=== PATIENT | male | born 1960 | race Caucasian/White ===

== ENCOUNTER 2016-06-27 12:14 | Emergency (ER) | payer MEDICAID, SELFPAY ==
[~2016-06-27 12:14] MED LIST: *CXR; /ADVA50050; /ADVA50050 IN; /AUGM875TA OR; /BACIOPOI TOP; /IPRA3SP; /OLAN5ZYD OR; /OLAN75TA; /ONDA4TA OR; /PANT40TA OR; /PANT40TA PO; /SALMDISK; /TAMS4CA PO; /TIOT18INH; /TIOT18INH INH; 8 HO650T PO; ACET500C OR; ACET65TA; ADV250INH INH; ADVAIR; ADVAIR INH; ADVAIR500 INHALATION; ALBOTERNEB INHALATION; ALBU17IN INH; ALBU17IN2 INH; ALBU2TAB; ALBU83IN; ALBU83IN IN; ALBU83IN INH; ALBUTEROL INHALATION; AMBI10TA OR; ARIC10TA PO; ARTH1TAB PO; ASPI1TAB PO; ASPI81TA45 PO; ASPI81TA83; ASPI81TA83 OR; ASPI81TA85 PO; ATIV0.5T OR; ATOR1TAB19 PO; ATROV NEBS INH; ATROVENT0.02%; ATROVENT0.02% INH; BABY81CH; BACT2CRE TOP; BACT800T OR; BACT800T PO; BACT800T5 PO; BACTDSTA PO; BACTRIMDS PO; BENA25CA2 PO; BENADRYL25 PO; BENZ1TA PO; BENZ1TAB PO; BREO1INH IN; CARDURA PO; CEFD1CAP8 PO; CEFD300CAP OR; CEFTIN500 PO; CELE10TA PO; CELE20TA; CELE20TA OR; CELE20TA PO; CELE40TA; CHLO10TA4 OR; CHLO10TA4 PO; CHLO200T OR; CHLOR50TA PO; CLAR500T; CLEO150C; CLON-412 PO; CLOZ100T OR; CLOZ100T PO; CLOZ100T2 PO; CLOZ200T OR; CLOZ200T PO; CLOZ25TA2 PO; CLOZ50TA PO; CLOZARIL PO; COGE1INJ PO; COGENTIN PO; COLA100C PO; COLA100C2 OR; COMBIVENT PO; CREON PO; CYANOCOBALAMIN; CYANPOW; DELTASONE PO; DEPA250T3; DEPA500T; DEPA500T OR; DEPA500T2; DEPAKOTE; DITROPAN PO; DOCU100C PO; DONETAB6 PO; DOXY100C PO; DOXY100T OR; DUONSOL INH; DUONSOL INHALATION; Depakote; ESCI10TA2 PO; FLAG500T OR; FLOM5CAP PO; FLOVENT220 PO; FLUO20CA8 PO; FOLI1TAB86 PO; GEOD20CA14 OR; GEOD40CA; GEOD60CA; GEOD60CA OR; GLUC500T; GLUC500T PO; GLUC850T; GLUC850T PO; IBUP200C PO; IBUP200T2 PO; IBUPOTC PO; INCR1INH IN; INDO25CA PO; INSULANT SC; INSULIN ASPART; INVE117I IM; INVE234I IM; INVE9TAB PO; IPRASOL4 IN; IPRASOL4 INH; IPRATROP INHALATION; Januvia; KENALOG1 TOPICAL; KLON2TAB PO; LAMI25TA PO; LAMICTAL PO; LAMISIL AT TOP; LASI20TA OR; LASI40TA; LATU40TA PO; LEXA1TAB PO; LIPI10TA PO; LISI10TA4 PO; LISI2.5T PO; MAALSUS OR; MAALSUS PO; MACR100C3 PO; METF850T PO; MILKSUS OR; MILKSUS PO; MIRALEX PO; MOM30SS PO; MUCI600T34 PO; MUCINEX PO; MUCU400T2 PO; MULTCAP PO; MULTLIQ7 PO; MULTTAB4 PO; MUPI30CR TOP; MYLATAB PO; NASA55AE; NICO14DI20 TD; NICO21DI4 TD; NICO21DI5 TD; NICO21PAT TD; NITR100C PO; NORV5TAB OR; NOVOLOG100 MG/ML SC; NYSTPOW TOP; OXYB5TA PO; Omnicef PO; PRED-454 OR; PRED10TA OR; PRED10TA PO; PRED10TA2; PRED10TA2 OR; PRED10TA2 PO; PRED1TAB32 OR; PRED1TAB32 PO; PRED1TABL PO; PRED20TA; PRED20TA OR; PRED20TA PO; PRED25TA PO; PRED5TA PO; PRED5TAB OR; PREDNISO20 PO; PRO AIR INH; PROLIXIN; PROSCAR5 PO; PROV90AE; PROZ20CA OR; PROZ20CA PO; PROZ20CA11 PO; PROZ40CA; PROZ40CA OR; QUET20XRTB PO; REPA2TA; RISP1TAB21 PO; RISP1TAB3 PO; RISP2TAB12 OR; RISP4TAB33 PO; SENN8.6T PO; SENN8.6T17 PO; SENO8.6T2 PO; SEREVENTIN PO; SERO1TAB2 PO; SERO400T3 PO; SEROQUEL PO; SINGULAI10 PO; SPIRIVA INH; SPIRIVA PO; Spiriva Handihaler INH; TAMS0.4C PO; TAMS0.4C2 PO; TAMSULOSIN PO; TESS100C PO; TESSALO100 PO; THIA100T PO; THIA50CA PO; TIOT18INH INH; TRAZ100T; TRAZ100T OR; TRAZ100T2 PO; TRAZ100T4 PO; TRAZ1TAB25 PO; TRAZ300T2; TRAZ50TA; TRAZ50TA PO; TRAZ50TA2 PO; TRAZ50TA4 PO; TRIC145T19 PO; TRIF5TAB PO; TYLE325T5 PO; TYLENOL PO; VENTAER IN; VENTAER INH; VENTOLIN NEBULIZER INH; VIBR100C PO; VITA100L PO; VITA100T PO; VITA100T2 PO; XOPE1.252; ZANTAC150 PO; ZEST10TA PO; ZEST1TAB4 PO; ZIPR80CAP; ZITH250T; ZITH250T OR; ZITH500T PO; ZITHROZPAK PO; ZOCO20TA; ZOCO40TA OR; ZOCOR20 PO; ZYPR10TA PO; desyrel PO; dovonex TOP; prolixin; prolixin OR; prolixin decanoate; senekot PO; ventolin neb NEB
[2016-06-27] MEDS ORDERED: IPRATROPIUM 0.5MG/ALBUTEROL 2.5MG INH SOL UD 3ML (DUONEB)(J7620) As Ordered ONE (13:26)
--- NOTE | 2016-06-27 13:33 | REP ---
Clinical: Cough. Technique: PA and lateral. Comparison: 10/19/2015. Findings: Mediastinum and cardiac silhouette are stable. Diffuse chronic changes are appreciated primarily involving the bilateral lower lobes and pleural surfaces. Subtle superimposed acute atelectasis cannot be excluded. No pneumothorax. Skeletal structures intact. Impression: Chronic stable changes similar to prior examination. Cannot exclude superimposed basilar atelectasis. Signed by Kiran Swenson MD 06/27/2016 01:24 P
--- NOTE | 2016-06-27 15:26 | EDDOCDS ---
Physician Documentation [facility] Name: Julian Cates Age: 56 yrs Sex: Male : 1960 Arrival Date: 06/27/2016 Time: 12:14 Bed Family 1 Private MD: Promise Turner C Disposition: 06/27/16 14:53 Discharged to Home/Self Care. Impression: Chronic obstructive pulmonary disease, unspecified. - Condition is Stable. - Discharge Instructions: Chronic Obstructive Pulmonary Disease. - Prescriptions for Prednisone 20 mg Oral Tablet - take 2 tablet by ORAL route once daily for 5 days; 10 tablet. - Medication Reconciliation, Local Pharmacy Hours form. - Follow up: Promise Turner; When: 2 - 3 days. - Problem is an acute exacerbation. - Symptoms have improved. Historical: - Allergies: Compazine; Haldol; - PMHx: Asthma; COPD; Depression; Diabetes - NIDDM: controlled; Hypercholesterolemia; rt side heart failure; - PSHx: Cholecystectomy; Hernia repair; - Social history: Smoking status: Patient uses tobacco products, current every day smoker. No barriers to communication noted, The patient speaks fluent Macanese, Speaks appropriately for age. - Family history: Not pertinent. - : Unable to assess if pt is on anticoagulants. Home medication list is obtained from the patient. - Exposure Risk Screening:: None identified. Vital Signs: 06/27 12:16 BP 128 / 80; Pulse 93; Resp 20 S; Temp 98.8; Pulse Ox 95% on R/A; Weight 81.65 kg / dd6 180.01 lbs (R); Height 5 ft. 9 in. (175.26 cm) (R); 15:24 BP 122 / 74; Pulse 84; Resp 16; Temp 98.3(O); Pulse Ox 98% on R/A; Pain 0/10; ml6 12:16 Body Mass Index 26.58 (81.65 kg, 175.26 cm) dd6 MDM: 13:12 Albuterol-Ipratropium 3 ml Inhalation once ordered. sd1 13:12 Chest, 2 View (pa\E\lat) Ordered. EDMS 13:13 -Influenza A&B Rapid Antigen - Nose Ordered. EDMS 13:14 ECG WITH READING ER PHYS+CARDIAG ordered. EDMS 13:46 -Influenza A&B Rapid Antigen - Nose Reviewed. sd1 14:04 Financial registration complete. lg 14:07 [facility] Payment Agreement was scanned into [employer] and attached to record. lg 14:23 [facility] [place]. Nursing Order ordered. sd1 Administered Medications: 13:31 Drug: Albuterol-Ipratropium 3 ml [ipratropium-albuterol 0.5 mg-3 mg(2.5 mg base)/3 mL cs15 nebulization soln (3 mL)] Route: Inhalation; Signatures: Dispatcher [employer] EDTresa Connors MD MD sd1 Kayce Alcantara, RN RN srm She Catherine, Reg Reg lg Monty Louis, RN RN ml6 Xavier Mcneil RT cs15 The chart was reviewed and I authenticate all verbal orders and agree with the evaluation and treatment provided.Attachments: 14:07 [facility] Payment Agreement lg MTDD
--- NOTE | 2016-06-27 15:26 | EDDOCDS ---
Nurse's Notes [facility] Name: Julian Cates Age: 56 yrs Sex: Male : 1960 Arrival Date: 06/27/2016 Time: 12:14 Bed Family 1 Private MD: Promise Turner C Diagnosis: Chronic obstructive pulmonary disease, unspecified Presentation: 06/27 12:20 Presenting complaint: Patient states: runny nose, headache, vomiting abd cramps and srm diarrhea- symptoms for 2 days. Adult Sepsis Screening: The patient does not have new or worsening altered mentation. Patient's respiratory rate is less than 22. Systolic blood pressure is greater than 100. Patient has a qSOFA score of 0- Negative Sepsis Screen. Suicide/Homicide risk assessment- the patient denies having any suicidal and/or homicidal ideations and does not present with any other emotional, behavioral or mental health complaints. 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 Transition of care: patient was not received from another setting of care. 12:20 Acuity: KEV Level 3 srm 12:20 Method Of Arrival: Walkin/Carried/Asstd srm 13:13 Acuity level changed due to complexity of care. ml6 13:13 Acuity: KEV Level 4 ml6 Triage Assessment: 12:21 General: Appears in no apparent distress, Behavior is appropriate for age, cooperative. srm Pain: Pain currently is 10 out of 10 on a pain scale. HIV screening NA for this visit Offered previously. Respiratory: Onset: The symptoms/episode began/occurred gradually. Historical: - Allergies: Compazine; Haldol; - PMHx: Asthma; COPD; Depression; Diabetes - NIDDM: controlled; Hypercholesterolemia; rt side heart failure; - PSHx: Cholecystectomy; Hernia repair; - Social history: Smoking status: Patient uses tobacco products, current every day smoker. No barriers to communication noted, The patient speaks fluent Moroccan, Speaks appropriately for age. - Family history: Not pertinent. - : Unable to assess if pt is on anticoagulants. Home medication list is obtained from the patient. - Exposure Risk Screening:: None identified. Screenin:15 Infection Control. dd6 14:47 Screening information is obtained from the patient. Fall risk: No risks identified. ml6 Assistance ADL's: requires no assistance with activities of daily living. Abuse/DV Screen: The patient / caregiver reports he/she is: not in a situation that causes fear, pain or injury. Nutritional screening: No deficits noted. Advance Directives: Currently, there is no health care proxy. home support is adequate. Assessment: 12:30 Cardiovascular: No deficits noted. Capillary refill < 3 seconds is brisk in bilateral ml6 fingers toes. Cardiovascular: Heart tones S1 S2 present Edema is absent. Pulses are all present. Rhythm is regular Chest pain is denied. Respiratory: Airway is patent Respiratory effort is even, unlabored, Respiratory pattern is regular, symmetrical, Breath sounds are diminished bilaterally. Reports shortness of breath on exertion cough that is non-productive, dry, hacking. 14:46 General: patient ambulated to and from radiology without assistance. ml6 15:24 General: Appears in no apparent distress, comfortable. Pain: Denies pain. Neurological: ml6 No deficits noted. Cardiovascular: No deficits noted. Respiratory: No deficits noted. Airway is patent Respiratory effort is even, unlabored, Respiratory pattern is regular, symmetrical, Breath sounds are clear bilaterally. Vital Signs: 12:16 BP 128 / 80; Pulse 93; Resp 20 S; Temp 98.8; Pulse Ox 95% on R/A; Weight 81.65 kg (R); dd6 Height 5 ft. 9 in. (175.26 cm) (R); 15:24 BP 122 / 74; Pulse 84; Resp 16; Temp 98.3(O); Pulse Ox 98% on R/A; Pain 0/10; ml6 12:16 Body Mass Index 26.58 (81.65 kg, 175.26 cm) dd6 Vitals: 12:16 Log In Time: June 27, 2016 at 12:14. dd6 ED Course: 12:15 Patient visited by Ced Lawrence PCA. dd6 12:15 Patient moved to Waiting dd6 12:16 Promise Turner is Private Physician. dd6 12:16 Patient moved to Pre RCE dd6 12:20 Triage Initiated srm 12:45 Patient moved to Triage 3 jf3 12:47 Patient visited by Saskia Stanley PCA. jb5 13:08 Monty Louis, RN is Primary Nurse. jf3 13:08 Patient moved to 12 jf3 13:09 Tresa Bain MD is Attending Physician. sd1 13:09 Patient visited by Tresa Bain MD. sd1 13:30 EKG done. (by ED staff). Reviewed by Tresa Bain MD. ls3 13:42 Patient visited by Monty Louis, TRINO. ml6 13:48 Chest, 2 View (pa\E\lat) Returned. EDMS 14:07 [facility] Payment Agreement was scanned into [employer] and attached to record. lg 14:41 Patient visited by Monty Louis RN. ml6 14:52 Promise Turner is Referral Physician. sd1 15:09 Patient moved to Family 1 jc4 15:24 No IV's were initiated during this patient's visit. ml6 15:25 The patient / caregiver is instructed regarding the plan of care and ED course. ml6 15:25 No procedures done that require assistance. ml6 Administered Medications: 13:31 Drug: Albuterol-Ipratropium 3 ml [ipratropium-albuterol 0.5 mg-3 mg(2.5 mg base)/3 mL cs15 nebulization soln (3 mL)] Route: Inhalation; RT: 13:31 Initial Med Neb Given as ordered. Oxygen is room air. Respiratory: Respiratory effort cs15 is unlabored, Respiratory pattern is regular Breath sounds are coarse bilaterally. Breath sounds with rhonchi bilaterally. Breath sounds are diminished bilaterally. Reports that he does not plan on quitting. 13:41 [place]: Number Of Expirations: 6. cs15 Order Results: Lab Order: -Influenza A&B Rapid Antigen - Nose; SPEC'M 06/27/16 13:19 Test: INFLUENZA A RAPID SCR by ICA; Value: INFLUENZA A RESULTS NEGATIVE; Status: F Test: INFLUENZA A RAPID SCR by ICA; Value: Comments:; Status: F Test: INFLUENZA B RAPID SCR by ICA; Value: INFLUENZA B RESULTS NEGATIVE; Status: F Test Note: ; The Influenza test is a direct rapid immunoassay for the qualitative detection of Influenza viral antigen. Cell culture (Viral Culture) testing should be considered to confirm NEGATIVE results and to assist in detecting other viruses that can provide similar clinical symptoms. Please contact the lab within 24 hours ([phone]) if confirmatory testing is desired. Radiology Order: Chest, 2 View (pa\E\lat) Test: Chest, 2 View (pa\E\lat) REASON FOR EXAMINATION: Cough; Clinical: Cough.; ; Technique: PA and lateral.; ; Comparison: 10/19/2015.; ; Findings:; Mediastinum and cardiac silhouette are stable. Diffuse chronic changes are; appreciated primarily involving the bilateral lower lobes and pleural surfaces.; Subtle superimposed acute atelectasis cannot be excluded. No pneumothorax.; Skeletal structures intact.; ; Impression:; Chronic stable changes similar to prior examination.; Cannot exclude superimposed basilar atelectasis.; ; ; Signed by; Kiran Swenson MD 06/27/2016 01:24 P; Outcome: 14:53 Discharge ordered by Provider. sd1 15:24 Discharge Assessment: patient administered narcotics - no. The following High Risk ml6 Discharge criteria are identified: None. Discharged to home ambulatory. Condition: stable. Discharge instructions given to patient, Instructed on discharge instructions, follow up and referral plans. medication usage, Demonstrated understanding of instructions, medications, Pt was receptive of discharge instructions/ teaching. Prescriptions given X 1. No special radiology studies were completed. Property :Personal belongings accompany Pt. 15:25 Patient left the ED. ml6 Signatures: Dispatcher [employer] EDMS Tresa Bain MD MD sd1 Kayce Alcantara, RN RN She Bojorquez, Addy Reg Saskia Conway, GEODESIST GEODESIST jb5 Ced Lawrence, GEODESIST GEODESIST dd6 Monty Louis, RN RN ml6 Ruth Hines RN RN maddy4 Silvina Wooten, GEODESIST GEODESIST ls3 Xavier Mcneil,RT RT cs15 Mitchell Bull,RN RN jf3 MTDD
--- NOTE | 2016-06-27 17:16 | ECGEPIP ---
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
--- NOTE | 2016-06-29 16:26 | EDDOCDS ---
Nurse's Notes [facility] Name: Janiya Escalante Age: 56 yrs Sex: Male : 1960 Arrival Date: 06/27/2016 Time: 12:14 Bed Family 1 Private MD: Promise Turner C Diagnosis: Chronic obstructive pulmonary disease, unspecified Presentation: 06/27 12:20 Presenting complaint: Patient states: runny nose, headache, vomiting abd cramps and srm diarrhea- symptoms for 2 days. Adult Sepsis Screening: The patient does not have new or worsening altered mentation. Patient's respiratory rate is less than 22. Systolic blood pressure is greater than 100. Patient has a qSOFA score of 0- Negative Sepsis Screen. Suicide/Homicide risk assessment- the patient denies having any suicidal and/or homicidal ideations and does not present with any other emotional, behavioral or mental health complaints. 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 Transition of care: patient was not received from another setting of care. 12:20 Acuity: KEV Level 3 srm 12:20 Method Of Arrival: Walkin/Carried/Asstd srm 13:13 Acuity level changed due to complexity of care. ml6 13:13 Acuity: KEV Level 4 ml6 Triage Assessment: 12:21 General: Appears in no apparent distress, Behavior is appropriate for age, cooperative. srm Pain: Pain currently is 10 out of 10 on a pain scale. HIV screening NA for this visit Offered previously. Respiratory: Onset: The symptoms/episode began/occurred gradually. Historical: - Allergies: Compazine; Haldol; - PMHx: Asthma; COPD; Depression; Diabetes - NIDDM: controlled; Hypercholesterolemia; rt side heart failure; - PSHx: Cholecystectomy; Hernia repair; - Social history: Smoking status: Patient uses tobacco products, current every day smoker. No barriers to communication noted, The patient speaks fluent Chinese, Speaks appropriately for age. - Family history: Not pertinent. - : Unable to assess if pt is on anticoagulants. Home medication list is obtained from the patient. - Exposure Risk Screening:: None identified. Screenin:15 Infection Control. dd6 14:47 Screening information is obtained from the patient. Fall risk: No risks identified. ml6 Assistance ADL's: requires no assistance with activities of daily living. Abuse/DV Screen: The patient / caregiver reports he/she is: not in a situation that causes fear, pain or injury. Nutritional screening: No deficits noted. Advance Directives: Currently, there is no health care proxy. home support is adequate. Assessment: 12:30 Cardiovascular: No deficits noted. Capillary refill < 3 seconds is brisk in bilateral ml6 fingers toes. Cardiovascular: Heart tones S1 S2 present Edema is absent. Pulses are all present. Rhythm is regular Chest pain is denied. Respiratory: Airway is patent Respiratory effort is even, unlabored, Respiratory pattern is regular, symmetrical, Breath sounds are diminished bilaterally. Reports shortness of breath on exertion cough that is non-productive, dry, hacking. 14:46 General: patient ambulated to and from radiology without assistance. ml6 15:24 General: Appears in no apparent distress, comfortable. Pain: Denies pain. Neurological: ml6 No deficits noted. Cardiovascular: No deficits noted. Respiratory: No deficits noted. Airway is patent Respiratory effort is even, unlabored, Respiratory pattern is regular, symmetrical, Breath sounds are clear bilaterally. Vital Signs: 12:16 BP 128 / 80; Pulse 93; Resp 20 S; Temp 98.8; Pulse Ox 95% on R/A; Weight 81.65 kg (R); dd6 Height 5 ft. 9 in. (175.26 cm) (R); 15:24 BP 122 / 74; Pulse 84; Resp 16; Temp 98.3(O); Pulse Ox 98% on R/A; Pain 0/10; ml6 12:16 Body Mass Index 26.58 (81.65 kg, 175.26 cm) dd6 Vitals: 12:16 Log In Time: June 27, 2016 at 12:14. dd6 ED Course: 12:15 Patient visited by Ced Lawrence PCA. dd6 12:15 Patient moved to Waiting dd6 12:16 Promise Turner is Private Physician. dd6 12:16 Patient moved to Pre RCE dd6 12:20 Triage Initiated srm 12:45 Patient moved to Triage 3 jf3 12:47 Patient visited by Saskia Stanley PCA. jb5 13:08 Monty Louis, RN is Primary Nurse. jf3 13:08 Patient moved to 12 jf3 13:09 Tresa Bain MD is Attending Physician. sd1 13:09 Patient visited by Tresa Bain MD. sd1 13:30 EKG done. (by ED staff). Reviewed by Tresa Bain MD. ls3 13:42 Patient visited by Monty Louis, TRINO. ml6 13:48 Chest, 2 View (pa\E\lat) Returned. EDMS 14:07 [facility] Payment Agreement was scanned into [employer] and attached to record. lg 14:41 Patient visited by Monty Louis, TRINO. ml6 14:52 Promise Turner is Referral Physician. sd1 15:09 Patient moved to Family 1 jc4 15:24 No IV's were initiated during this patient's visit. ml6 15:25 The patient / caregiver is instructed regarding the plan of care and ED course. ml6 15:25 No procedures done that require assistance. ml6 18:06 EKG-ADULT Returned. EDMS 06/28 08:25 T-Sheet-- Draft Copy was scanned into [employer] and attached to record. [facility] 08:26 ECG/EKG was scanned into [employer] and attached to record. [facility] Administered Medications: 06/27 13:31 Drug: Albuterol-Ipratropium 3 ml [ipratropium-albuterol 0.5 mg-3 mg(2.5 mg base)/3 mL cs15 nebulization soln (3 mL)] Route: Inhalation; RT: 13:31 Initial Med Neb Given as ordered. Oxygen is room air. Respiratory: Respiratory effort cs15 is unlabored, Respiratory pattern is regular Breath sounds are coarse bilaterally. Breath sounds with rhonchi bilaterally. Breath sounds are diminished bilaterally. Reports that he does not plan on quitting. 13:41 [place]: Number Of Expirations: 6. cs15 Order Results: Lab Order: -Influenza A&B Rapid Antigen - Nose; SPEC'M 06/27/16 13:19 Test: INFLUENZA A RAPID SCR by ICA; Value: INFLUENZA A RESULTS NEGATIVE; Status: F Test: INFLUENZA A RAPID SCR by ICA; Value: Comments:; Status: F Test: INFLUENZA B RAPID SCR by ICA; Value: INFLUENZA B RESULTS NEGATIVE; Status: F Test Note: ; The Influenza test is a direct rapid immunoassay for the qualitative detection of Influenza viral antigen. Cell culture (Viral Culture) testing should be considered to confirm NEGATIVE results and to assist in detecting other viruses that can provide similar clinical symptoms. Please contact the lab within 24 hours ([phone]) if confirmatory testing is desired. Radiology Order: Chest, 2 View (pa\E\lat) Test: Chest, 2 View (pa\E\lat) REASON FOR EXAMINATION: Cough; Clinical: Cough.; ; Technique: PA and lateral.; ; Comparison: 10/19/2015.; ; Findings:; Mediastinum and cardiac silhouette are stable. Diffuse chronic changes are; appreciated primarily involving the bilateral lower lobes and pleural surfaces.; Subtle superimposed acute atelectasis cannot be excluded. 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 sd1 15:24 Discharge Assessment: patient administered narcotics - no. The following High Risk ml6 Discharge criteria are identified: None. Discharged to home ambulatory. Condition: stable. Discharge instructions given to patient, Instructed on discharge instructions, follow up and referral plans. medication usage, Demonstrated understanding of instructions, medications, Pt was receptive of discharge instructions/ teaching. Prescriptions given X 1. No special radiology studies were completed. Property :Personal belongings accompany Pt. 15:25 Patient left the ED. ml6 Signatures: Dispatcher [employer] EDAL Tresa Bain MD MIRZA sd1 Quinton, Kayce, RN RN srm Florin, She, Reg Reg lg Saskia Stanley, SIEBEL DEVELOPER SIEBEL DEVELOPER jb5 Ced Lawrence, SIEBEL DEVELOPER SIEBEL DEVELOPER dd6 Monty Louis, RN RN ml6 Donny, Ruth, RN RN jc4 Silvina Wooten, SIEBEL DEVELOPER SIEBEL DEVELOPER ls3 Tarun,Xavier,RT RT cs15 Mitchell Bull,TRINO RN jf3 Ginger, Tresa hicks Chart Complete MTDD
--- NOTE | 2016-06-29 16:26 | EDDOCDS ---
Physician Documentation [facility] Name: Julian Cates Age: 56 yrs Sex: Male : 1960 Arrival Date: 06/27/2016 Time: 12:14 Bed Family 1 Private MD: Promise Turner C Disposition: 06/27/16 14:53 Discharged to Home/Self Care. Impression: Chronic obstructive pulmonary disease, unspecified. - Condition is Stable. - Discharge Instructions: Chronic Obstructive Pulmonary Disease. - Prescriptions for Prednisone 20 mg Oral Tablet - take 2 tablet by ORAL route once daily for 5 days; 10 tablet. - Medication Reconciliation, Local Pharmacy Hours form. - Follow up: Promise Turner; When: 2 - 3 days. - Problem is an acute exacerbation. - Symptoms have improved. Historical: - Allergies: Compazine; Haldol; - PMHx: Asthma; COPD; Depression; Diabetes - NIDDM: controlled; Hypercholesterolemia; rt side heart failure; - PSHx: Cholecystectomy; Hernia repair; - Social history: Smoking status: Patient uses tobacco products, current every day smoker. No barriers to communication noted, The patient speaks fluent Spanish, Speaks appropriately for age. - Family history: Not pertinent. - : Unable to assess if pt is on anticoagulants. Home medication list is obtained from the patient. - Exposure Risk Screening:: None identified. Vital Signs: 06/27 12:16 BP 128 / 80; Pulse 93; Resp 20 S; Temp 98.8; Pulse Ox 95% on R/A; Weight 81.65 kg / dd6 180.01 lbs (R); Height 5 ft. 9 in. (175.26 cm) (R); 15:24 BP 122 / 74; Pulse 84; Resp 16; Temp 98.3(O); Pulse Ox 98% on R/A; Pain 0/10; ml6 12:16 Body Mass Index 26.58 (81.65 kg, 175.26 cm) dd6 MDM: 13:12 Albuterol-Ipratropium 3 ml Inhalation once ordered. sd1 13:12 Chest, 2 View (pa\E\lat) Ordered. EDMS 13:13 -Influenza A&B Rapid Antigen - Nose Ordered. EDMS 13:14 ECG WITH READING ER PHYS+CARDIAG ordered. EDMS 13:46 -Influenza A&B Rapid Antigen - Nose Reviewed. sd1 14:04 Financial registration complete. lg 14:07 [facility] Payment Agreement was scanned into [employer] and attached to record. lg 14:23 [facility] [place]. Nursing Order ordered. sd1 06/28 08:25 T-Sheet-- Draft Copy was scanned into [employer] and attached to record. se 08:26 ECG/EKG was scanned into [employer] and attached to record. [facility] Administered Medications: 06/27 13:31 Drug: Albuterol-Ipratropium 3 ml [ipratropium-albuterol 0.5 mg-3 mg(2.5 mg base)/3 mL cs15 nebulization soln (3 mL)] Route: Inhalation; Signatures: Dispatcher [employer] EDMS Tresa Bain MD MD sd1 Kayce Alcantara, RN RN srm She Catherine, Addy Reg Monty Louis RN RN ml6 Tresa Miles Caleb RT cs15 The chart was reviewed and I authenticate all verbal orders and agree with the evaluation and treatment provided.Attachments: 14: [facility] Payment Agreement lg 06/28 08:25 T-Sheet-- Draft Copy [facility] 08:26 ECG/EKG [facility] Chart Complete MTDD
--- NOTE | 2016-06-29 16:26 | EDDOCDS ---
Physician Documentation [facility] Name: Julian Cates Age: 56 yrs Sex: Male : 1960 Arrival Date: 06/27/2016 Time: 12:14 Bed Family 1 Private MD: Promise Turner C Disposition: 06/27/16 14:53 Discharged to Home/Self Care. Impression: Chronic obstructive pulmonary disease, unspecified. - Condition is Stable. - Discharge Instructions: Chronic Obstructive Pulmonary Disease. - Prescriptions for Prednisone 20 mg Oral Tablet - take 2 tablet by ORAL route once daily for 5 days; 10 tablet. - Medication Reconciliation, Local Pharmacy Hours form. - Follow up: Promise Turner; When: 2 - 3 days. - Problem is an acute exacerbation. - Symptoms have improved. Historical: - Allergies: Compazine; Haldol; - PMHx: Asthma; COPD; Depression; Diabetes - NIDDM: controlled; Hypercholesterolemia; rt side heart failure; - PSHx: Cholecystectomy; Hernia repair; - Social history: Smoking status: Patient uses tobacco products, current every day smoker. No barriers to communication noted, The patient speaks fluent [place], Speaks appropriately for age. - Family history: Not pertinent. - : Unable to assess if pt is on anticoagulants. Home medication list is obtained from the patient. - Exposure Risk Screening:: None identified. Vital Signs: 06/27 12:16 BP 128 / 80; Pulse 93; Resp 20 S; Temp 98.8; Pulse Ox 95% on R/A; Weight 81.65 kg / dd6 180.01 lbs (R); Height 5 ft. 9 in. (175.26 cm) (R); 15:24 BP 122 / 74; Pulse 84; Resp 16; Temp 98.3(O); Pulse Ox 98% on R/A; Pain 0/10; ml6 12:16 Body Mass Index 26.58 (81.65 kg, 175.26 cm) dd6 MDM: 13:12 Albuterol-Ipratropium 3 ml Inhalation once ordered. sd1 13:12 Chest, 2 View (pa\E\lat) Ordered. EDMS 13:13 -Influenza A&B Rapid Antigen - Nose Ordered. EDMS 13:14 ECG WITH READING ER PHYS+CARDIAG ordered. EDMS 13:46 -Influenza A&B Rapid Antigen - Nose Reviewed. sd1 14:04 Financial registration complete. lg 14:07 [facility] Payment Agreement was scanned into [employer] and attached to record. lg 14:23 [facility] [place]. sd1 06/28 08:25 T-Sheet-- Draft Copy was scanned into [employer] and attached to record. se 08:26 ECG/EKG was scanned into [employer] and attached to record. [facility] Administered Medications: 06/27 13:31 Drug: Albuterol-Ipratropium 3 ml [ipratropium-albuterol 0.5 mg-3 mg(2.5 mg base)/3 mL cs15 nebulization soln (3 mL)] Route: Inhalation; Signatures: Dispatcher [employer] EDMS Tresa Bain MD MD sd1 Kayce Alcantara, RN RN srm She Catherine, Addy Reg Monty Louis RN RN ml6 Tresa Miles Caleb RT cs15 The chart was reviewed and I authenticate all verbal orders and agree with the evaluation and treatment provided.Attachments: 14: [facility] Payment Agreement lg 06/28 08:25 T-Sheet-- Draft Copy [facility] 08:26 ECG/EKG [facility] Chart Complete MTDD
--- NOTE | 2016-06-30 13:51 | EDDOCDS ---
Physician Documentation [facility] Name: Julian Cates Age: 56 yrs Sex: Male : 1960 Arrival Date: 06/27/2016 Time: 12:14 Bed Family 1 Private MD: Promise Turner C Disposition: 06/27/16 14:53 Discharged to Home/Self Care. Impression: Chronic obstructive pulmonary disease, unspecified. - Condition is Stable. - Discharge Instructions: Chronic Obstructive Pulmonary Disease. - Prescriptions for Prednisone 20 mg Oral Tablet - take 2 tablet by ORAL route once daily for 5 days; 10 tablet. - Medication Reconciliation, Local Pharmacy Hours form. - Follow up: Promise Turner; When: 2 - 3 days. - Problem is an acute exacerbation. - Symptoms have improved. Historical: - Allergies: Compazine; Haldol; - PMHx: Asthma; COPD; Depression; Diabetes - NIDDM: controlled; Hypercholesterolemia; rt side heart failure; - PSHx: Cholecystectomy; Hernia repair; - Social history: Smoking status: Patient uses tobacco products, current every day smoker. No barriers to communication noted, The patient speaks fluent Montenegrin, Speaks appropriately for age. - Family history: Not pertinent. - : Unable to assess if pt is on anticoagulants. Home medication list is obtained from the patient. - Exposure Risk Screening:: None identified. Vital Signs: 06/27 12:16 BP 128 / 80; Pulse 93; Resp 20 S; Temp 98.8; Pulse Ox 95% on R/A; Weight 81.65 kg / dd6 180.01 lbs (R); Height 5 ft. 9 in. (175.26 cm) (R); 15:24 BP 122 / 74; Pulse 84; Resp 16; Temp 98.3(O); Pulse Ox 98% on R/A; Pain 0/10; ml6 12:16 Body Mass Index 26.58 (81.65 kg, 175.26 cm) dd6 MDM: 13:12 Albuterol-Ipratropium 3 ml Inhalation once ordered. sd1 13:12 Chest, 2 View (pa\E\lat) Ordered. EDMS 13:13 -Influenza A&B Rapid Antigen - Nose Ordered. EDMS 13:14 ECG WITH READING ER PHYS+CARDIAG ordered. EDMS 13:46 -Influenza A&B Rapid Antigen - Nose Reviewed. sd1 14:04 Financial registration complete. lg 14:07 [facility] Payment Agreement was scanned into [employer] and attached to record. lg 14:23 Misc. Nursing Order ordered. sd1 06/28 08:25 T-Sheet-- Draft Copy was scanned into [email or web address] and attached to record. se 08:26 ECG/EKG was scanned into MED[employer] and attached to record. [facility] Administered Medications: 06/27 13:31 Drug: Albuterol-Ipratropium 3 ml [ipratropium-albuterol 0.5 mg-3 mg(2.5 mg base)/3 mL cs15 nebulization soln (3 mL)] Route: Inhalation; Signatures: Dispatcher [employer] EDMS Tresa Bain MD MD sd1 Kayce Alcantara, RN RN srm She Catherine, Addy Reg Monty Louis RN RN ml6 Tresa Miles Caleb RT cs15 The chart was reviewed and I authenticate all verbal orders and agree with the evaluation and treatment provided.Attachments: : [facility] Payment Agreement lg 08:26 ECG/EKG [facility] Chart Complete MTDD
--- NOTE | 2016-06-30 13:51 | EDDOCDS ---
Physician Documentation [facility] Name: Julian Cates Age: 56 yrs Sex: Male : 1960 Arrival Date: 06/27/2016 Time: 12:14 Bed Family 1 Private MD: Promise Turner C Disposition: 06/27/16 14:53 Discharged to Home/Self Care. Impression: Chronic obstructive pulmonary disease, unspecified. - Condition is Stable. - Discharge Instructions: Chronic Obstructive Pulmonary Disease. - Prescriptions for Prednisone 20 mg Oral Tablet - take 2 tablet by ORAL route once daily for 5 days; 10 tablet. - Medication Reconciliation, Local Pharmacy Hours form. - Follow up: Promise Turner; When: 2 - 3 days. - Problem is an acute exacerbation. - Symptoms have improved. Historical: - Allergies: Compazine; Haldol; - PMHx: Asthma; COPD; Depression; Diabetes - NIDDM: controlled; Hypercholesterolemia; rt side heart failure; - PSHx: Cholecystectomy; Hernia repair; - Social history: Smoking status: Patient uses tobacco products, current every day smoker. No barriers to communication noted, The patient speaks fluent Turkmen, Speaks appropriately for age. - Family history: Not pertinent. - : Unable to assess if pt is on anticoagulants. Home medication list is obtained from the patient. - Exposure Risk Screening:: None identified. Vital Signs: 06/27 12:16 BP 128 / 80; Pulse 93; Resp 20 S; Temp 98.8; Pulse Ox 95% on R/A; Weight 81.65 kg / dd6 180.01 lbs (R); Height 5 ft. 9 in. (175.26 cm) (R); 15:24 BP 122 / 74; Pulse 84; Resp 16; Temp 98.3(O); Pulse Ox 98% on R/A; Pain 0/10; ml6 12:16 Body Mass Index 26.58 (81.65 kg, 175.26 cm) dd6 MDM: 13:12 Albuterol-Ipratropium 3 ml Inhalation once ordered. sd1 13:12 Chest, 2 View (pa\E\lat) Ordered. EDMS 13:13 -Influenza A&B Rapid Antigen - Nose Ordered. EDMS 13:14 ECG WITH READING ER PHYS+CARDIAG ordered. EDMS 13:46 -Influenza A&B Rapid Antigen - Nose Reviewed. sd1 14:04 Financial registration complete. lg 14:07 [facility] Payment Agreement was scanned into [employer] and attached to record. lg 14:23 Misc. Nursing Order ordered. sd1 06/28 08:25 T-Sheet-- Draft Copy was scanned into [employer] and attached to record. se 08:26 ECG/EKG was scanned into [employer] and attached to record. [facility] Administered Medications: 06/27 13:31 Drug: Albuterol-Ipratropium 3 ml [ipratropium-albuterol 0.5 mg-3 mg(2.5 mg base)/3 mL cs15 nebulization soln (3 mL)] Route: Inhalation; Signatures: Dispatcher [employer] EDMS Tresa Bain MD MD sd1 Kayce Alcantara, RN RN srm She Catherine, Addy Reg Monty Louis RN RN ml6 Tresa Miles Caleb RT cs15 The chart was reviewed and I authenticate all verbal orders and agree with the evaluation and treatment provided.Attachments: : [facility] Payment Agreement lg 08:26 ECG/EKG [facility] Chart Complete MTDD
--- NOTE | 2016-06-30 13:51 | EDDOCDS ---
Nurse's Notes [facility] Name: Janiya Escalante Age: 56 yrs Sex: Male : 1960 Arrival Date: 06/27/2016 Time: 12:14 Bed Family 1 Private MD: Promise Turner C Diagnosis: Chronic obstructive pulmonary disease, unspecified Presentation: 06/27 12:20 Presenting complaint: Patient states: runny nose, headache, vomiting abd cramps and srm diarrhea- symptoms for 2 days. Adult Sepsis Screening: The patient does not have new or worsening altered mentation. Patient's respiratory rate is less than 22. Systolic blood pressure is greater than 100. Patient has a qSOFA score of 0- Negative Sepsis Screen. Suicide/Homicide risk assessment- the patient denies having any suicidal and/or homicidal ideations and does not present with any other emotional, behavioral or mental health complaints. Status: Patient is not a library services assistant or dependent. Transition of care: patient was not received from another setting of care. 12:20 Acuity: KEV Level 3 srm 12:20 Method Of Arrival: Walkin/Carried/Asstd srm 13:13 Acuity level changed due to complexity of care. ml6 13:13 Acuity: KEV Level 4 ml6 Triage Assessment: 12:21 General: Appears in no apparent distress, Behavior is appropriate for age, cooperative. srm Pain: Pain currently is 10 out of 10 on a pain scale. HIV screening NA for this visit Offered previously. Respiratory: Onset: The symptoms/episode began/occurred gradually. Historical: - Allergies: Compazine; Haldol; - PMHx: Asthma; COPD; Depression; Diabetes - NIDDM: controlled; Hypercholesterolemia; rt side heart failure; - PSHx: Cholecystectomy; Hernia repair; - Social history: Smoking status: Patient uses tobacco products, current every day smoker. No barriers to communication noted, The patient speaks fluent [place]an, Speaks appropriately for age. - Family history: Not pertinent. - : Unable to assess if pt is on anticoagulants. Home medication list is obtained from the patient. - Exposure Risk Screening:: None identified. Screenin:15 Infection Control. dd6 14:47 Screening information is obtained from the patient. Fall risk: No risks identified. ml6 Assistance ADL's: requires no assistance with activities of daily living. Abuse/DV Screen: The patient / caregiver reports he/she is: not in a situation that causes fear, pain or injury. Nutritional screening: No deficits noted. Advance Directives: Currently, there is no health care proxy. home support is adequate. Assessment: 12:30 Cardiovascular: No deficits noted. Capillary refill < 3 seconds is brisk in bilateral ml6 fingers toes. Cardiovascular: Heart tones S1 S2 present Edema is absent. Pulses are all present. Rhythm is regular Chest pain is denied. Respiratory: Airway is patent Respiratory effort is even, unlabored, Respiratory pattern is regular, symmetrical, Breath sounds are diminished bilaterally. Reports shortness of breath on exertion cough that is non-productive, dry, hacking. 14:46 General: patient ambulated to and from radiology without assistance. ml6 15:24 General: Appears in no apparent distress, comfortable. Pain: Denies pain. Neurological: ml6 No deficits noted. Cardiovascular: No deficits noted. Respiratory: No deficits noted. Airway is patent Respiratory effort is even, unlabored, Respiratory pattern is regular, symmetrical, Breath sounds are clear bilaterally. Vital Signs: 12:16 BP 128 / 80; Pulse 93; Resp 20 S; Temp 98.8; Pulse Ox 95% on R/A; Weight 81.65 kg (R); dd6 Height 5 ft. 9 in. (175.26 cm) (R); 15:24 BP 122 / 74; Pulse 84; Resp 16; Temp 98.3(O); Pulse Ox 98% on R/A; Pain 0/10; ml6 12:16 Body Mass Index 26.58 (81.65 kg, 175.26 cm) dd6 Vitals: 12:16 Log In Time: June 27, 2016 at 12:14. dd6 ED Course: 12:15 Patient visited by Ced Lawrence PCA. dd6 12:15 Patient moved to Waiting dd6 12:16 Promise Turner is Private Physician. dd6 12:16 Patient moved to Pre RCE dd6 12:20 Triage Initiated srm 12:45 Patient moved to Triage 3 jf3 12:47 Patient visited by Saskia Stanley PCA. jb5 13:08 Monty Louis, RN is Primary Nurse. jf3 13:08 Patient moved to 12 jf3 13:09 Tresa Bain MD is Attending Physician. sd1 13:09 Patient visited by Tresa Bain MD. sd1 13:30 EKG done. (by ED staff). Reviewed by Tresa Bain MD. ls3 13:42 Patient visited by Monty Louis, TRINO. ml6 13:48 Chest, 2 View (pa\E\lat) Returned. EDMS 14:07 [facility] Payment Agreement was scanned into [employer] and attached to record. lg 14:41 Patient visited by Monty Louis, TRINO. ml6 14:52 Promise Turner is Referral Physician. sd1 15:09 Patient moved to Family 1 jc4 15:24 No IV's were initiated during this patient's visit. ml6 15:25 The patient / caregiver is instructed regarding the plan of care and ED course. ml6 15:25 No procedures done that require assistance. ml6 18:06 EKG-ADULT Returned. EDMS 06/28 08:25 T-Sheet-- Draft Copy was scanned into [employer] and attached to record. [facility] 08:26 ECG/EKG was scanned into [employer] and attached to record. [facility] Administered Medications: 06/27 13:31 Drug: Albuterol-Ipratropium 3 ml [ipratropium-albuterol 0.5 mg-3 mg(2.5 mg base)/3 mL cs15 nebulization soln (3 mL)] Route: Inhalation; RT: 13:31 Initial Med Neb Given as ordered. Oxygen is room air. Respiratory: Respiratory effort cs15 is unlabored, Respiratory pattern is regular Breath sounds are coarse bilaterally. Breath sounds with rhonchi bilaterally. Breath sounds are diminished bilaterally. Reports that he does not plan on quitting. 13:41 [place]: Number Of Expirations: 6. cs15 Order Results: Lab Order: -Influenza A&B Rapid Antigen - Nose; SPEC'M 06/27/16 13:19 Test: INFLUENZA A RAPID SCR by ICA; Value: INFLUENZA A RESULTS NEGATIVE; Status: F Test: INFLUENZA A RAPID SCR by ICA; Value: Comments:; Status: F Test: INFLUENZA B RAPID SCR by ICA; Value: INFLUENZA B RESULTS NEGATIVE; Status: F Test Note: ; The Influenza test is a direct rapid immunoassay for the qualitative detection of Influenza viral antigen. Cell culture (Viral Culture) testing should be considered to confirm NEGATIVE results and to assist in detecting other viruses that can provide similar clinical symptoms. Please contact the lab within 24 hours ([phone]) if confirmatory testing is desired. Radiology Order: Chest, 2 View (pa\E\lat) Test: Chest, 2 View (pa\E\lat) REASON FOR EXAMINATION: Cough; Clinical: Cough.; ; Technique: PA and lateral.; ; Comparison: 10/19/2015.; ; Findings:; Mediastinum and cardiac silhouette are stable. Diffuse chronic changes are; appreciated primarily involving the bilateral lower lobes and pleural surfaces.; Subtle superimposed acute atelectasis cannot be excluded. 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 sd1 15:24 Discharge Assessment: patient administered narcotics - no. The following High Risk ml6 Discharge criteria are identified: None. Discharged to home ambulatory. Condition: stable. Discharge instructions given to patient, Instructed on discharge instructions, follow up and referral plans. medication usage, Demonstrated understanding of instructions, medications, Pt was receptive of discharge instructions/ teaching. Prescriptions given X 1. No special radiology studies were completed. Property :Personal belongings accompany Pt. 15:25 Patient left the ED. ml6 Signatures: Dispatcher [employer] EDFL Tresa Bain MD MIRZA sd1 Quinton, Kayce, RN RN srm Florin, She, Reg Reg lg Saskia Stanley, ROUTE DELIVERY SERVICE DRIVER ROUTE DELIVERY SERVICE DRIVER jb5 Ced Lawrence, ROUTE DELIVERY SERVICE DRIVER ROUTE DELIVERY SERVICE DRIVER dd6 Monty Louis, RN RN ml6 Donny, Ruth, RN RN jc4 Silvina Wooten, ROUTE DELIVERY SERVICE DRIVER ROUTE DELIVERY SERVICE DRIVER ls3 Tarun,Xavier,RT RT cs15 Mitchell Bull,TRINO RN jf3 Ginger, Tresa hicks Chart Complete MTDD
== END 2016-06-27 15:25 | disposition home or self-care (01) ==
LOC: M ED 12:14
DX: J44.9 Chronic obstructive pulmonary disease, unspecified (principal); J45.909 Unspecified asthma, uncomplicated; F32.9 Major depressive disorder, single episode, unspecified; E11.9 Type 2 diabetes mellitus without complications; E78.00 Pure hypercholesterolemia, unspecified; I50.9 Heart failure, unspecified; F17.210 Nicotine dependence, cigarettes, uncomplicated; Z88.0 Allergy status to penicillin

== ENCOUNTER → 2016-07-10 | Outpatient (CLI) | payer MEDICAID ==
[~2016-07-10] MED LIST changes: +LISI2.5T3 PO; +MIRT15TA3 PO; +SENN8.6C PO; +SPIR1CAP INH; +SYMB16INH INH
[2016-07-10 16:27] LABS: BASO # 0.1 K/mm3 (0.0-0.2); BASO % 0.9 % (0.0-1.0); EOS # 0.2 K/mm3 (0.0-0.50); EOS % 1.1 % (0.0-3.0); LARGE UNSTAINED CELL # 0.2 K/mm3 (0.0-0.4); LARGE UNSTAINED CELL % 1.1 % (0.0-4.0); LYMPH # 2.9 K/mm3 (1.5-4.5); LYMPH % 19.9 % (24.0-44.0); MEAN CORPUSCULAR HEMOGLOBIN 29.7 pg (27.0-33.0); MEAN CORPUSCULAR HGB CONC 33.6 g/dl (32.0-36.5); MEAN CORPUSCULAR VOLUME 88.4 fl (80.0-96.0); MONO # 0.8 K/mm3 (0.0-0.8); MONO % 5.6 % (0.0-5.0); NEUTROPHILS % 71.4 % (36.0-66.0); PLATELET COUNT, AUTOMATED 279 k/mm3 (150-450); RED CELL DISTRIBUTION WIDTH 13.8 % (11.5-14.5)
== END ==
LOC: M LAB 15:39
PROVIDERS: ATTEND Psychiatry & Neurology Psychiatry
DX: Z79.899 Other long term (current) drug therapy (principal)

== ENCOUNTER 2016-07-11 16:37 | Inpatient (IN) | payer MEDICAID ==
[~2016-07-11] VITALS: Ht 175.3 cm; Wt 82.7 kg
[~2016-07-11 16:37] MED LIST changes: -LISI2.5T3 PO; -MIRT15TA3 PO; -SENN8.6C PO; -SPIR1CAP INH; -SYMB16INH INH
[2016-07-11 17:54] LABS: MEAN CORPUSCULAR HEMOGLOBIN 29.5 pg (27.0-33.0); MEAN CORPUSCULAR HGB CONC 33.3 g/dl (32.0-36.5); MEAN CORPUSCULAR VOLUME 88.6 fl (80.0-96.0); WHITE BLOOD COUNT 11.6 K/mm3 (4.0-10.0)
[2016-07-11 18:14] LABS: CONTROL LINE INT CTR LINE PRESENT; METHADONE URINE NEGATIVE (NEGATIVE); TRICYCLIC ANTIDEPRESS URINE POSITIVE (NEGATIVE)
[2016-07-11 18:27] LABS: ALBUMIN 3.8 GM/DL (3.2-5.2); ALBUMIN/GLOBULIN RATIO 1.12 (1.00-1.93); ALKALINE PHOSPHATASE 109 U/L (45-117); ALT/SGPT 20 U/L (12-78); ANION GAP 10 MEQ/L (8-16); AST/SGOT 7 U/L (15-37); BILIRUBIN,DIRECT 0.1 MG/DL (0.0-0.2); BILIRUBIN,TOTAL 0.4 MG/DL (0.2-1.0); BLOOD UREA NITROGEN 10 MG/DL (7-18); CALCIUM LEVEL 8.2 MG/DL (8.5-10.1); CARBON DIOXIDE LEVEL 26 MEQ/L (21-32); CHLORIDE LEVEL 107 MEQ/L (98-107); CREATININE FOR GFR 0.92 MG/DL (0.70-1.30); GLOMERULAR FILTRATION RATE > 60.0 (>56); GLUCOSE, FASTING 89 MG/DL (70-105); SODIUM LEVEL 143 MEQ/L (136-145); TOTAL PROTEIN 7.2 GM/DL (6.4-8.2)
[2016-07-11] MEDS ORDERED: ASPI1TAB PO (19:56)
[2016-07-11] MEDS ORDERED: ESCI10TA2 PO (19:56)
[2016-07-11] MEDS ORDERED: CHLOR50TA PO (19:56)
[2016-07-11] MEDS ORDERED: MIRT15TA3 PO (19:56)
[2016-07-11] MEDS ORDERED: CLOZ100T2 PO (19:56)
--- NOTE | 2016-07-11 22:03 | EDDOCDS ---
Physician Documentation [facility] Name: Julian Cates Age: 56 yrs Sex: Male : 1960 Arrival Date: 07/11/2016 Time: 16:37 Bed U5 Private MD: Nael Castanon Michael Disposition: 07/11/16 19:11 Hospitalization ordered by Kade Lutz for Inpatient Admission. Preliminary diagnosis is Suicidal ideations. - Bed requested for Admit. - Status is Inpatient Admission. slm - Condition is Stable. - Problem is an acute exacerbation. - Symptoms are unchanged. Historical: - Allergies: Compazine; Haldol; - Home Meds: 1. mirtazapine 15 mg Oral tab 1 tab nightly 2. escitalopram oxalate 10 mg oral tab 1 tab once daily 3. chlorpromazine 50 mg Oral tab 1 tab 2 times per day 4. clozapine 100 mg oral TbDL 1 tab - PMHx: Asthma; COPD; Depression; Diabetes - NIDDM: controlled; rt side heart failure; Hypercholesterolemia; - PSHx: Cholecystectomy; Hernia repair; - Social history: Smoking status: Patient uses tobacco products, current every day smoker. No barriers to communication noted, The patient speaks fluent Latvian, Speaks appropriately for age. - Family history: Not pertinent. - : The pt / caregiver states he / she is not on anticoagulants. Home medication list is obtained from the patient. - Exposure Risk Screening:: None identified. Vital Signs: 07/11 16:39 BP 95 / 72; Pulse 97; Resp 18 S; Temp 96.4(T); Pulse Ox 98% on R/A; Weight 81.65 kg / dd6 180.01 lbs (R); Height 5 ft. 8 in. (172.72 cm) (R); 22:01 BP 95 / 60; Pulse 79; Resp 16; Temp 96.8; Pulse Ox 97% on R/A; Pain 0/10; slm 16:39 Body Mass Index 27.37 (81.65 kg, 172.72 cm) dd6 MDM: 17:18 Consult PFS/PSA/Manhole Builder ordered. sd1 17:18 Consult PFS/PSA/Manhole Builder: Patient's case requires discussion with on-call sd1 Psychiatrist ordered. 17:18 PSA/PFS to call Nursing Oil Agent, to enter patient data on [place] Safe Act if patient sd1 involuntarily admitted or transferred for SI or HI ordered. 17:18 Confirm accurate psychiatric medication list and times of last dosage ordered. sd1 17:18 Detain Pt Until Medically/PFS Cleared ordered. sd1 17:20 REGULAR DIET PLASTIC JOYNER+DIET ordered. EDMS 17:20 Acetaminophen Level Ordered. EDMS 17:20 Basic Metabolic Profile Ordered. EDMS 17:20 Complete Blood Count Ordered. EDMS 17:20 Drug Eval Toxicology ED Only Ordered. EDMS 17:20 Ethyl Alcohol (ethanol) Ordered. EDMS 17:20 Liver Profile Ordered. EDMS 17:20 Salicylate Level Ordered. EDMS 17:20 Thyroid Stimulating Hormone Ordered. EDMS 18:33 Acetaminophen Level Reviewed. sd1 18:33 Basic Metabolic Profile Reviewed. sd1 18:33 Complete Blood Count Reviewed. sd1 18:33 Drug Eval Toxicology ED Only Reviewed. sd1 18:33 Liver Profile Reviewed. sd1 18:33 Salicylate Level Reviewed. sd1 18:33 Ethyl Alcohol (ethanol) Reviewed. sd1 18:33 Thyroid Stimulating Hormone Reviewed. sd1 18:50 Financial registration complete. zo 18:52 Consult PFS/PSA/Manhole Builder complete. rb 18:52 Consult PFS/PSA/Manhole Builder: Patient's case requires discussion with on-call rb Psychiatrist complete. 19:12 Admit to [facility]: ordered. EDMS 19:18 [facility] Payment Agreement was scanned into [employer] and attached to record. zo 19:23 [facility] Legal paperwork was scanned into [employer] and attached to record. cs 19:36 PSA/PFS to call Nursing Oil Agent, to enter patient data [place] Safe [place] if patient slm involuntarily admitted or transferred for SI or HI complete. Signatures: Dispatcher [employer] EDMS Tresa Bain MD MD sd1 Kayce Alcantara, RN RN srm Anuj, [place], PSA PSA rb Brijesh Cowan, PSA PSA cs Diaz Kirkpatrick RosemaryRN RN rs3 Maryam Betancourt LPN LPN m The chart was reviewed and I authenticate all verbal orders and agree with the evaluation and treatment provided.Attachments: 19:18 [facility] Payment Agreement zo MTDD
--- NOTE | 2016-07-11 22:03 | EDDOCDS ---
Nurse's Notes [facility] Name: Julian Cates Age: 56 yrs Sex: Male : 1960 Arrival Date: 07/11/2016 Time: 16:37 Bed BHU5 Private MD: Nael Castanon Michael Diagnosis: Suicidal ideations Presentation: 07/11 16:41 Presenting complaint: Patient states: hearing voices that are telling me to kill srm myself. started today. Mental Health Triage Level: Level 2: The patient displays active suicidal ideations. Adult Sepsis Screening: The patient does not have new or worsening altered mentation. Patient's respiratory rate is less than 22. Systolic blood pressure is greater than 100. Patient has a qSOFA score of 0- Negative Sepsis Screen. Suicide/Homicide risk assessment- The patient admits to and/or has been reported to be having suicidal ideations. The patient reports that he/she has not been admitted to an inpatient mental health facility in the last 30 days. The patient reports that he/she has a recent or current history of substance abuse. The patient reports that he/she has a prior history of suicide attempt and/or organized plan. The patient reports that he/she has not experienced a significant life altering event in the last 30 days. Status: Patient is not a director of clinical services or dependent. Transition of care: patient was not received from another setting of care. 16:41 Acuity: KEV Level 3 [facility] 16:41 Method Of Arrival: Walkin/Carried/Asstd [facility] Triage Assessment: 16:42 General: Appears in no apparent distress, Behavior is appropriate for age, cooperative. srm Pain: Denies pain. HIV screening NA for this visit Offered previously. Historical: - Allergies: Compazine; Haldol; - Home Meds: 1. mirtazapine 15 mg Oral tab 1 tab nightly 2. escitalopram oxalate 10 mg oral tab 1 tab once daily 3. chlorpromazine 50 mg Oral tab 1 tab 2 times per day 4. clozapine 100 mg oral TbDL 1 tab - PMHx: Asthma; COPD; Depression; Diabetes - NIDDM: controlled; rt side heart failure; Hypercholesterolemia; - PSHx: Cholecystectomy; Hernia repair; - Social history: Smoking status: Patient uses tobacco products, current every day smoker. No barriers to communication noted, The patient speaks fluent Faroese, Speaks appropriately for age. - Family history: Not pertinent. - : The pt / caregiver states he / she is not on anticoagulants. Home medication list is obtained from the patient. - Exposure Risk Screening:: None identified. Screenin:57 Screening information is obtained from the patient. Fall risk: No risks identified. rs3 Assistance ADL's: requires no assistance with activities of daily living. Abuse/DV Screen: The patient / caregiver reports he/she is: not in a situation that causes fear, pain or injury. Nutritional screening: No deficits noted. Advance Directives: Currently, there is no health care proxy. home support is adequate. 19:17 Infection Control. kmg1 Assessment: 17:30 General: General: Appears in no apparent distress, Behavior is appropriate for age, rs3 cooperative. Pain: Denies pain. Neurological: Level of Consciousness is awake, alert, Oriented to person, place, time. Cardiovascular: Capillary refill < 3 seconds. Respiratory: Airway is patent Respiratory effort is even, unlabored, Respiratory pattern is regular, symmetrical. Derm: Skin is pink, warm & dry. 18:35 General: Appears in no apparent distress, Behavior is appropriate for age, cooperative, rs3 had supper tray. tolerated well. denies of any distress/pain. resting comfortable on stretcher. 19:21 General: Appears in no apparent distress, comfortable, Behavior is cooperative, quiet. slm General: pt resting on stretcher friend in room security observing . Pain: Denies pain. Neurological: Level of Consciousness is awake, alert, obeys commands. Respiratory: Airway is patent Respiratory effort is even, unlabored. 20:22 General: Appears in no apparent distress, comfortable, Behavior is cooperative. slm General: pt resting on stretcher security observing . Respiratory: Airway is patent Respiratory effort is even, unlabored. 21:10 General: Appears in no apparent distress, comfortable, Behavior is cooperative, slm pleasant, quiet. General: pt resting on stretcher quietly security observing . Respiratory: Airway is patent Respiratory effort is even, unlabored. 22:00 General: Appears in no apparent distress, comfortable, Behavior is appropriate for age, slm cooperative, pleasant. Pain: Denies pain. Respiratory: Airway is patent Respiratory effort is even, unlabored. Derm: Skin is pink, warm & dry. Mental Health Eval: 18:25 Mental health consult is initiated at 18:25. Status: The patient is not a director of clinical services or dependent. [facility] Behavioral Health: The patient is not an established patient of [facility] Behavioral Health. Referral Information: Evaluation referral is generated by the patient himself / herself. The patient was referred for evaluation because Pt reports he is having command AH telling him to kill himself the past 24 hours, no plan at this time, misses his 29YO daughter who 1 year ago from a heroin OD. Pt told [facility] staff this morning and wanted to try and feel better on his own, but could not do and then asked staff to bring him in tonight. Pt reports no change in sleeping or eating, likes residing at [facility] residential, has numerous psyche admissions [facility], [facility], [facility]. Pt has a hsitory of OD attempts in the past, and is stating "I need help". Subjective: The patients chief complaint is Pt reports being depressed, is getting along with out his 29 YO daughter who of a Heroin OD a year ago, hearing command voices telling him to kill self, no plan. Delusions are denied. Patient's mood is anxious, depressed, hopeless, Command hallucinations are reported by the patient. Mental Health history: alcohol abuse, anxiety, depression, abusing marijuana. cocaine. psychosis, sleep disturbance, suicide attempt by by cutting or Over dosing numerous times in the past Mental Health Admissions: multiple admissions in the past 20 years Current Outpatient Mental Health Services: Psychiatrist / Agency: darrius Walsh . Therapist / Agency: [facility] does not remember name at this time. Current living environment is The patient currently lives in a [facility] residence. The patient is single. Patient presents to Emergency Department with the following symptoms within the past 2 weeks: anxiety, depressed mood, auditory hallucinations stated by patient feelings of helplessness/hopelessness, labile mood, poor concentration, poor impulse control, psychosis, suicidal ideation with no plan. Substance abuse: Pt denies. Mental status exam: Patients appearance is disheveled Patient's behavior is cooperative, Speech is mumbled. Affect is flat. Mood is anxious. depressed. Command hallucinations are reported by the patient. Appetite is normal. Memory is poor. Energy level is tires easily. Content of thought is normal. Thought process is intact. Cognitive level is oriented to person, place, time and situation Patient's insight is poor. Judgement is absent. Rapport with interviewer is good. Suicidal Ideation is present with no specific plan. Homicidal ideation is not present. Disposition: Medically cleared for disposition by Tresa Bain MD Psychiatric Consult is performed by phone with Dr Garrick Schmidt MD. [facility] Admission Criteria: The patient is experiencing suicidal ideation. The patient displays symptoms of severe psychiatric disorder resulting in disordered behavior and significant interference with his / her ability to maintain self care. Hallucinations. The patient requires continuous observation and/or control to protect self, others or property. The patient's care requires a multi-modal treatment plan under close supervision and coordination due to the complexity and severity of the patient's symptoms. The patient requires administration and monitoring of psychoactive medications by skilled medical providers due to the side effects of the psychoactive medications or significant dosage adjustments. Legal Status: Patient's legal status will be Emergency admission: . [place] Safe Act: [place] Safe Act is applicable to this patient. The patient poses a risk to self or other and the Nursing Press Leader has been notified. He/She will enter the patient's data. 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 Vital Signs: 16:39 BP 95 / 72; Pulse 97; Resp 18 S; Temp 96.4(T); Pulse Ox 98% on R/A; Weight 81.65 kg dd6 (R); Height 5 ft. 8 in. (172.72 cm) (R); 22:01 BP 95 / 60; Pulse 79; Resp 16; Temp 96.8; Pulse Ox 97% on R/A; Pain 0/10; slm 16:39 Body Mass Index 27.37 (81.65 kg, 172.72 cm) dd6 Vitals: 16:39 Log In Time: July 11, 2016 at 16:37. dd6 16:41 RN notified that patient meets Red Flag criteria. dd6 ED Course: 16:39 Patient visited by Ced Lawrence PCA. dd6 16:39 Nael Castanon is Private Physician. dd6 16:39 Patient moved to [facility] dd6 16:42 Triage Initiated srm 16:46 Patient moved to [facility] srm 16:53 Tresa Bain MD is Attending Physician. sd1 16:58 Patient visited by Korin Muñoz PCA. tmm1 17:06 Patient visited by Tresa Bain MD. sd1 17:13 Accompanied by nurse case management, Placed in gown. Placed in psych safe attire. Bed in low tmm1 position. Side rails up X 1. Security observing. Property removed, inventory done. Door closed. Noise minimized. Visitors limited. Psych Safety Check: Location: Psych Room. Visual Assessment: Cooperative. 17:41 Patient visited by Landon Mitchell Security Aide. pjf 17:49 Patient visited by Landon Mitchell Security Aide. pjf 17:50 Acetaminophen Level Sent. rs3 17:50 Basic Metabolic Profile Sent. rs3 17:50 Complete Blood Count Sent. rs3 18:00 Patient visited by Landon Mitchell Security Aide. pjf 18:35 Patient visited by Terrie Barbosa RN. rs3 19:01 Maryam Betancourt LPN is Primary Nurse. slm 19:11 Kade Lutz MD is Hospitalizing Provider. sd1 19:18 [facility] Payment Agreement was scanned into [email or web address] and attached to record. zo 19:21 Patient visited by Maryam Betancourt LPN. slm 19:23 E Legal paperwork was scanned into [email or web address] and attached to record. cs 19:25 Patient visited by Wayne Agrawal. mas 19:30 Patient visited by Wayne Agrawal. mas 19:45 Patient visited by Wayne Agrawal. mas 20:00 Patient visited by Wayne Agrawal. mas 20:16 Patient visited by Wayne Agrawal. mas 20:23 Patient visited by Maryam Betancourt LPN. slm 20:30 Patient visited by Wayne Agrawal. mas 20:45 Patient visited by Wayne Agrawal. mas 21:00 Patient visited by Wayne Agrawal. mas 21:15 Patient visited by Wayne Agrawal. mas 21:32 Patient visited by Wayne Agrawal. mas 21:47 Patient visited by Wayne Agrawal. mas 22:01 The patient / caregiver is instructed regarding the plan of care and ED course. slm 22:01 No IV's were initiated during this patient's visit. No procedures done that require [facility] assistance. Labs drawn. (by ED staff). Sent per order to lab. Attachments: 19:23 [facility] Legal paperwork cs Order Results: Lab Order: Acetaminophen Level; SPEC'M 07/11/16 17:36 Test: ACETAMINOPHEN LEVEL; Value: < 2.0; Range: 10.0-30.0; Abnormal: Below low normal; Units: UG/ML; Status: F Lab Order: Basic Metabolic Profile; SPEC'M 07/11/16 17:36 Test: GLUCOSE, FASTING; Value: 89; Range: 70-105; Units: MG/DL; Status: F Test: BLOOD UREA NITROGEN; Value: 10; Range: 7-18; Units: MG/DL; Status: F Test: CREATININE FOR GFR; Value: 0.92; Range: 0.70-1.30; Units: MG/DL; Status: F Test: GLOMERULAR FILTRATION RATE; Value: > 60.0; Range: >56; Status: F Test: SODIUM LEVEL; Value: 143; Range: 136-145; Units: MEQ/L; Status: F Test: POTASSIUM SERUM; Value: 4.0; Range: 3.5-5.1; Units: MEQ/L; Status: F Test: CHLORIDE LEVEL; Value: 107; Range: 98-107; Units: MEQ/L; Status: F Test: CARBON DIOXIDE LEVEL; Value: 26; Range: 21-32; Units: MEQ/L; Status: F Test: ANION GAP; Value: 10; Range: 8-16; Units: MEQ/L; Status: F Test: CALCIUM LEVEL; Value: 8.2; Range: 8.5-10.1; Abnormal: Below low normal; Units: MG/DL; Status: F Test Note: ; Units are mL/min/1.73 m2 Chronic Kidney Disease Staging per NKF: Stage I & II GFR >=60 Normal to Mildly Decreased Stage III GFR 30-59 Moderately Decreased Stage IV GFR 15-29 Severely Decreased Stage V GFR <15 Very Little GFR Left ESRD GFR <15 on STRESS TEST TECHNICIAN Lab Order: Complete Blood Count; SPEC'M 07/11/16 17:36 Test: WHITE BLOOD COUNT; Value: 11.6; Range: 4.0-10.0; Abnormal: Above high normal; Units: K/mm3; Status: F Test: RED BLOOD COUNT; Value: 4.85; Range: 4.30-6.10; Units: M/mm3; Status: F Test: HEMOGLOBIN; Value: 14.3; Range: 14.0-18.0; Units: g/dl; Status: F Test: HEMATOCRIT; Value: 43.0; Range: 42.0-52.0; Units: %; Status: F Test: MEAN CORPUSCULAR VOLUME; Value: 88.6; Range: 80.0-96.0; Units: fl; Status: F Test: MEAN CORPUSCULAR HEMOGLOBIN; Value: 29.5; Range: 27.0-33.0; Units: pg; Status: F Test: MEAN CORPUSCULAR HGB CONC; Value: 33.3; Range: 32.0-36.5; Units: g/dl; Status: F Test: RED CELL DISTRIBUTION WIDTH; Value: 14.0; Range: 11.5-14.5; Units: %; Status: F Test: PLATELET COUNT, AUTOMATED; Value: 288; Range: 150-450; Units: k/mm3; Status: F Lab Order: Drug Eval Toxicology ED Only; SPEC'M 07/11/16 17:36 Test: AMPHETAMINES LEVEL URINE; Value: NEGATIVE; Range: NEGATIVE; Status: F Test: BARBITURATES URINE; Value: NEGATIVE; Range: NEGATIVE; Status: F Test: BENZODIAZEPINES URINE; Value: NEGATIVE; Range: NEGATIVE; Status: F Test: CANNABINOIDS URINE; Value: NEGATIVE; Range: NEGATIVE; Status: F Test: COCAINE METABOLITE URINE; Value: NEGATIVE; Range: NEGATIVE; Status: F Test: METHADONE URINE; Value: NEGATIVE; Range: NEGATIVE; Status: F Test: OPIATES URINE; Value: NEGATIVE; Range: NEGATIVE; Status: F Test: TRICYCLIC ANTIDEPRESS URINE; Value: POSITIVE; Range: NEGATIVE; Abnormal: Above high normal; Status: F Test Note: ; ALL PRESUMPTIVE POSITIVE FINDINGS ARE UNCONFIRMED NORMAL VALUES THRESHOLD IN NG/ML AMPHETAMINES 1000 METHAMPHETAMINES 1000 BARBITURATES 300 BENZODIAZEPINES 300 CANNABINOIDS (THC) 50 COCAINE METABOLITE 300 METHADONE 300 OPIATES 300 PHENCYCLIDINE 25 TRICYCLIC ANTIDEPRESSANTS 1000 RESULTS ARE FOR MEDICAL PURPOSES ONLY. ALL URINE SPECIMENS WILL BE SAVED FOR 3 DAYS. IF CONFIRMATION OF A PRESUMPTIVE POSTIVE SCREEN RESULT IS DESIRED, CALL CHEMISTRY ([phone]) AND REQUEST URINE TO BE SENT TO REFERENCE LAB. FOR A LIST OF CLOSELY RELATED COMPOUNDS PLEASE CALL THE LAB. Lab Order: Ethyl Alcohol (ethanol); SPEC'M 07/11/16 17:36 Test: ETHYL ALCOHOL (ETHANOL); Value: < 0.003; Range: 0.000-0.010; Units: %; Status: F Lab Order: Liver Profile; SPEC'M 07/11/16 17:36 Test: AST/SGOT; Value: 7; Range: 15-37; Abnormal: Below low normal; Units: U/L; Status: F Test: ALT/SGPT; Value: 20; Range: 12-78; Units: U/L; Status: F Test: ALKALINE PHOSPHATASE; Value: 109; Range: 45-117; Units: U/L; Status: F Test: BILIRUBIN,TOTAL; Value: 0.4; Range: 0.2-1.0; Units: MG/DL; Status: F Test: BILIRUBIN,DIRECT; Value: 0.1; Range: 0.0-0.2; Units: MG/DL; Status: F Test: TOTAL PROTEIN; Value: 7.2; Range: 6.4-8.2; Units: GM/DL; Status: F Test: ALBUMIN; Value: 3.8; Range: 3.2-5.2; Units: GM/DL; Status: F Test: ALBUMIN/GLOBULIN RATIO; Value: 1.12; Range: 1.00-1.93; Status: F Lab Order: Salicylate Level; SPEC'M 07/11/16 17:36 Test: SALICYLATE LEVEL; Value: 3.5; Range: 5.0-30.0; Abnormal: Below low normal; Units: MG/DL; Status: F Lab Order: Thyroid Stimulating Hormone; SPEC'M 07/11/16 17:36 Test: THYROID STIMULATING HORMONE; Value: 1.280; Range: 0.358-3.740; Units: uIU/ML; Status: F Outcome: 19:11 Decision to Hospitalize by Provider. sd1 22:01 Discharge Assessment: Patient awake, alert and oriented x 3. No cognitive and/or slm functional deficits noted. Patient verbalized understanding of disposition instructions. patient administered narcotics - no. The following High Risk Discharge criteria are identified: None. Admitted to Psych accompanied by tech, with oxygen, with chart. Condition: stable. No special radiology studies were completed. 22:03 Patient left the ED. emerson Signatures: Tresa Bain MD MD sd1 Ginger Antonio, RN RN kmg1 Kayce Alcantara, RN RN [facility] Brijesh Cowan, PSA PSA Landon Mitchell, Security Aide Diaz Lancaster Daniell, CRYSTAL INSPECTOR CRYSTAL INSPECTOR dd6 Terrie Barbosa,RN RN rs3 Wayne Agrawal, Korin, CRYSTAL INSPECTOR CRYSTAL INSPECTOR tmm1 Maryam Betancourt LPN LPN [facility] MTDD
[2016-07-11 22:16] VITALS: BP 103/60
[2016-07-11] MEDS ORDERED: MOM 30ML SUSPENSION UDC PO PRN (23:15)
[2016-07-11] MEDS ORDERED: traZODone 50 MG TAB PO PRN (23:15)
[2016-07-12 06:35] VITALS: BP 117/66
[2016-07-12] MEDS: ESCITALOPRAM OXALATE 10 MG TAB (LEXAPRO) PO SCH (08:35)
[2016-07-12] MEDS: cloZAPine 100 MG TAB (S0136) PO SCH (08:35)
[2016-07-12] MEDS: chlorproMAZINE 25 MG TAB (Q0161) PO SCH ×2 (08:35→21:25)
[2016-07-12] MEDS: ASPIRIN 81 MG ENTERIC TAB PO SCH (08:35)
[2016-07-12] MEDS: NICOTINE 21MG/24HR 1 EA TRANSDERMAL TD SCH (08:36)
[2016-07-12 18:15] VITALS: BP 104/60
[2016-07-12] MEDS: MIRTAZAPINE 15 MG TAB PO SCH (21:24)
[2016-07-13 06:09] VITALS: BP 99/55
[2016-07-13] MEDS: ESCITALOPRAM OXALATE 10 MG TAB (LEXAPRO) PO SCH (08:08)
[2016-07-13] MEDS: ASPIRIN 81 MG ENTERIC TAB PO SCH (08:08)
[2016-07-13] MEDS: NICOTINE 21MG/24HR 1 EA TRANSDERMAL TD SCH (08:08)
[2016-07-13] MEDS: cloZAPine 100 MG TAB (S0136) PO SCH (08:08)
[2016-07-13] MEDS: chlorproMAZINE 25 MG TAB (Q0161) PO SCH ×2 (08:09→21:43)
[2016-07-13] MEDS ORDERED: cloZAPine 25 MG TAB (S0136) PO ONE (08:45)
[2016-07-13] MEDS ORDERED: INFLUENZA QUADRIVALENT PF VACCINE 0.5ML SYRINGE/VIAL (90686) IM SCH (09:00)
[2016-07-13 09:01] LABS: BASO % 0.3 % (0.0-1.0); EOS # 0.1 K/mm3 (0.0-0.50); EOS % 1.3 % (0.0-3.0); LARGE UNSTAINED CELL # 0.1 K/mm3 (0.0-0.4); LARGE UNSTAINED CELL % 1.3 % (0.0-4.0); LYMPH # 2.3 K/mm3 (1.5-4.5); LYMPH % 27.7 % (24.0-44.0); MEAN CORPUSCULAR HEMOGLOBIN 29.8 pg (27.0-33.0); MEAN CORPUSCULAR HGB CONC 32.9 g/dl (32.0-36.5); MEAN CORPUSCULAR VOLUME 90.3 fl (80.0-96.0); MONO # 0.6 K/mm3 (0.0-0.8); MONO % 7.1 % (0.0-5.0); NEUTROPHILS # 5.1 K/mm3 (1.8-7.7); NEUTROPHILS % 62.3 % (36.0-66.0); PLATELET COUNT, AUTOMATED 263 k/mm3 (150-450); RED CELL DISTRIBUTION WIDTH 13.1 % (11.5-14.5); WHITE BLOOD COUNT 8.2 K/mm3 (4.0-10.0)
[2016-07-13 18:00] VITALS: BP 111/64
[2016-07-13] MEDS: MIRTAZAPINE 15 MG TAB PO SCH (21:43)
[2016-07-13] MEDS: BENZTROPINE 1 MG TAB PO SCH (21:43)
[2016-07-13] MEDS: traZODone 100 MG TAB PO SCH (21:46)
--- NOTE | 2016-07-13 23:04 | EDDOCDS ---
Physician Documentation [facility] Name: Julian Cates Age: 56 yrs Sex: Male : 1960 Arrival Date: 07/11/2016 Time: 16:37 Bed U5 Private MD: Nael Castanon Michael Disposition: 07/11/16 19:11 Hospitalization ordered by Kade Lutz for Inpatient Admission. Preliminary diagnosis is Suicidal ideations. - Bed requested for Admit. - Status is Inpatient Admission. slm - Condition is Stable. - Problem is an acute exacerbation. - Symptoms are unchanged. Historical: - Allergies: Compazine; Haldol; - Home Meds: 1. mirtazapine 15 mg Oral tab 1 tab nightly 2. escitalopram oxalate 10 mg oral tab 1 tab once daily 3. chlorpromazine 50 mg Oral tab 1 tab 2 times per day 4. clozapine 100 mg oral TbDL 1 tab - PMHx: Asthma; COPD; Depression; Diabetes - NIDDM: controlled; rt side heart failure; Hypercholesterolemia; - PSHx: Cholecystectomy; Hernia repair; - Social history: Smoking status: Patient uses tobacco products, current every day smoker. No barriers to communication noted, The patient speaks fluent Lao, Speaks appropriately for age. - Family history: Not pertinent. - : The pt / caregiver states he / she is not on anticoagulants. Home medication list is obtained from the patient. - Exposure Risk Screening:: None identified. Vital Signs: 07/11 16:39 BP 95 / 72; Pulse 97; Resp 18 S; Temp 96.4(T); Pulse Ox 98% on R/A; Weight 81.65 kg / dd6 180.01 lbs (R); Height 5 ft. 8 in. (172.72 cm) (R); 22:01 BP 95 / 60; Pulse 79; Resp 16; Temp 96.8; Pulse Ox 97% on R/A; Pain 0/10; slm 16:39 Body Mass Index 27.37 (81.65 kg, 172.72 cm) dd6 MDM: 17:18 Consult PFS/PSA/Inspector Advanced Composite ordered. sd1 17:18 Consult PFS/PSA/Inspector Advanced Composite: Patient's case requires discussion with on-call sd1 Psychiatrist ordered. 17:18 PSA/PFS to call Nursing Courtroom Deputy Or Calendar Clerk, to enter patient data on [place] Safe Act if patient sd1 involuntarily admitted or transferred for SI or HI ordered. 17:18 Confirm accurate psychiatric medication list and times of last dosage ordered. sd1 17:18 Detain Pt Until Medically/PFS Cleared ordered. sd1 17:20 REGULAR DIET PLASTIC JOYNER+DIET ordered. EDMS 17:20 Acetaminophen Level Ordered. EDMS 17:20 Basic Metabolic Profile Ordered. EDMS 17:20 Complete Blood Count Ordered. EDMS 17:20 Drug Eval Toxicology ED Only Ordered. EDMS 17:20 Ethyl Alcohol (ethanol) Ordered. EDMS 17:20 Liver Profile Ordered. EDMS 17:20 Salicylate Level Ordered. EDMS 17:20 Thyroid Stimulating Hormone Ordered. EDMS 18:33 Acetaminophen Level Reviewed. sd1 18:33 Basic Metabolic Profile Reviewed. sd1 18:33 Complete Blood Count Reviewed. sd1 18:33 Drug Eval Toxicology ED Only Reviewed. sd1 18:33 Liver Profile Reviewed. sd1 18:33 Salicylate Level Reviewed. sd1 18:33 Ethyl Alcohol (ethanol) Reviewed. sd1 18:33 Thyroid Stimulating Hormone Reviewed. sd1 18:50 Financial registration complete. zo 18:52 Consult PFS/PSA/Inspector Advanced Composite complete. rb 18:52 Consult PFS/PSA/Inspector Advanced Composite: Patient's case requires discussion with on-call rb Psychiatrist complete. 19:12 Admit to [facility]: ordered. EDMS 19:18 [facility] [place] Agreement was scanned into [employer] and attached to record. zo 19:23 [facility] Legal paperwork was scanned into [employer] and attached to record. cs 19:36 PSA/PFS to call Nursing Courtroom Deputy Or Calendar Clerk, to enter patient data on [place] Safe Act if patient slm involuntarily admitted or transferred for SI or HI complete. Signatures: Dispatcher [employer] EDMS Tresa Bain MD MD sd1 Kayce Alcantara, RN RN srm Anuj, [place], PSA PSA rb Brijesh Cowan, PSA PSA cs Diaz Kirkpatrick RosemaryRN RN rs3 Maryam Betancourt LPN LPN m The chart was reviewed and I authenticate all verbal orders and agree with the evaluation and treatment provided.Attachments: 19:18 [facility] [place] Agreement zo Chart Complete MTDD
--- NOTE | 2016-07-13 23:04 | EDDOCDS ---
Physician Documentation [facility] Name: Julian Cates Age: 56 yrs Sex: Male : 1960 Arrival Date: 07/11/2016 Time: 16:37 Bed U5 Private MD: Nael Castanon Michael Disposition: 07/11/16 19:11 Hospitalization ordered by Kade Lutz for Inpatient Admission. Preliminary diagnosis is Suicidal ideations. - Bed requested for Admit. - Status is Inpatient Admission. slm - Condition is Stable. - Problem is an acute exacerbation. - Symptoms are unchanged. Historical: - Allergies: Compazine; Haldol; - Home Meds: 1. mirtazapine 15 mg Oral tab 1 tab nightly 2. escitalopram oxalate 10 mg oral tab 1 tab once daily 3. chlorpromazine 50 mg Oral tab 1 tab 2 times per day 4. clozapine 100 mg oral TbDL 1 tab - PMHx: Asthma; COPD; Depression; Diabetes - NIDDM: controlled; rt side heart failure; Hypercholesterolemia; - PSHx: Cholecystectomy; Hernia repair; - Social history: Smoking status: Patient uses tobacco products, current every day smoker. No barriers to communication noted, The patient speaks fluent Kiswahili, Speaks appropriately for age. - Family history: Not pertinent. - : The pt / caregiver states he / she is not on anticoagulants. Home medication list is obtained from the patient. - Exposure Risk Screening:: None identified. Vital Signs: 07/11 16:39 BP 95 / 72; Pulse 97; Resp 18 S; Temp 96.4(T); Pulse Ox 98% on R/A; Weight 81.65 kg / dd6 180.01 lbs (R); Height 5 ft. 8 in. (172.72 cm) (R); 22:01 BP 95 / 60; Pulse 79; Resp 16; Temp 96.8; Pulse Ox 97% on R/A; Pain 0/10; slm 16:39 Body Mass Index 27.37 (81.65 kg, 172.72 cm) dd6 MDM: 17:18 Consult PFS/PSA/Vacuum Cleaner Repairer ordered. sd1 17:18 Consult PFS/PSA/Vacuum Cleaner Repairer: Patient's case requires discussion with on-call sd1 Psychiatrist ordered. 17:18 PSA/PFS to call Nursing Mortician Helper, to enter patient data on [place] Safe Act if patient sd1 involuntarily admitted or transferred for SI or HI ordered. 17:18 Confirm accurate psychiatric medication list and times of last dosage ordered. sd1 17:18 Detain Pt Until Medically/PFS Cleared ordered. sd1 17:20 REGULAR DIET PLASTIC JOYNER+DIET ordered. EDMS 17:20 Acetaminophen Level Ordered. EDMS 17:20 Basic Metabolic Profile Ordered. EDMS 17:20 Complete Blood Count Ordered. EDMS 17:20 Drug Eval Toxicology ED Only Ordered. EDMS 17:20 Ethyl Alcohol (ethanol) Ordered. EDMS 17:20 Liver Profile Ordered. EDMS 17:20 Salicylate Level Ordered. EDMS 17:20 Thyroid Stimulating Hormone Ordered. EDMS 18:33 Acetaminophen Level Reviewed. sd1 18:33 Basic Metabolic Profile Reviewed. sd1 18:33 Complete Blood Count Reviewed. sd1 18:33 Drug Eval Toxicology ED Only Reviewed. sd1 18:33 Liver Profile Reviewed. sd1 18:33 Salicylate Level Reviewed. sd1 18:33 Ethyl Alcohol (ethanol) Reviewed. sd1 18:33 Thyroid Stimulating Hormone Reviewed. sd1 18:50 Financial registration complete. zo 18:52 Consult PFS/PSA/Vacuum Cleaner Repairer complete. rb 18:52 Consult PFS/PSA/Vacuum Cleaner Repairer: Patient's case requires discussion with on-call rb Psychiatrist complete. 19:12 Admit to [facility]: ordered. EDMS 19:18 [facility] Payment Agreement was scanned into [employer] and attached to record. zo 19:23 [facility] Legal paperwork was scanned into [employer] and attached to record. cs 19:36 PSA/PFS to call Nursing Mortician Helper, to enter patient data on [place] Safe [place] if patient slm involuntarily admitted or transferred for SI or HI complete. Signatures: Dispatcher [employer] EDMS Tresa Bain MD MD sd1 Kayce Alcantara, RN RN srm Anuj, [place], PSA PSA rb Brijesh Cowan, PSA PSA cs Diaz Kirkpatrick RosemaryRN RN rs3 Maryam Betancourt LPN LPN m The chart was reviewed and I authenticate all verbal orders and agree with the evaluation and treatment provided.Attachments: 19:18 [facility] [place] Payment Agreement zo Chart Complete MTDD
--- NOTE | 2016-07-13 23:04 | EDDOCDS ---
Nurse's Notes [facility] Name: Julian Cates Age: 56 yrs Sex: Male : 1960 Arrival Date: 07/11/2016 Time: 16:37 Bed BHU5 Private MD: Nael Castanon Michael Diagnosis: Suicidal ideations Presentation: 07/11 16:41 Presenting complaint: Patient states: hearing voices that are telling me to kill srm myself. started today. Mental Health Triage Level: Level 2: The patient displays active suicidal ideations. Adult Sepsis Screening: The patient does not have new or worsening altered mentation. Patient's respiratory rate is less than 22. Systolic blood pressure is greater than 100. Patient has a qSOFA score of 0- Negative Sepsis Screen. Suicide/Homicide risk assessment- The patient admits to and/or has been reported to be having suicidal ideations. The patient reports that he/she has not been admitted to an inpatient mental health facility in the last 30 days. The patient reports that he/she has a recent or current history of substance abuse. The patient reports that he/she has a prior history of suicide attempt and/or organized plan. The patient reports that he/she has not experienced a significant life altering event in the last 30 days. 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 Transition of care: patient was not received from another setting of care. 16:41 Acuity: KEV Level 3 [facility] 16:41 Method Of Arrival: Walkin/Carried/Asstd [facility] Triage Assessment: 16:42 General: Appears in no apparent distress, Behavior is appropriate for age, cooperative. srm Pain: Denies pain. HIV screening NA for this visit Offered previously. Historical: - Allergies: Compazine; Haldol; - Home Meds: 1. mirtazapine 15 mg Oral tab 1 tab nightly 2. escitalopram oxalate 10 mg oral tab 1 tab once daily 3. chlorpromazine 50 mg Oral tab 1 tab 2 times per day 4. clozapine 100 mg oral TbDL 1 tab - PMHx: Asthma; COPD; Depression; Diabetes - NIDDM: controlled; rt side heart failure; Hypercholesterolemia; - PSHx: Cholecystectomy; Hernia repair; - Social history: Smoking status: Patient uses tobacco products, current every day smoker. No barriers to communication noted, The patient speaks fluent Hungarian, Speaks appropriately for age. - Family history: Not pertinent. - : The pt / caregiver states he / she is not on anticoagulants. Home medication list is obtained from the patient. - Exposure Risk Screening:: None identified. Screenin:57 Screening information is obtained from the patient. Fall risk: No risks identified. rs3 Assistance ADL's: requires no assistance with activities of daily living. Abuse/DV Screen: The patient / caregiver reports he/she is: not in a situation that causes fear, pain or injury. Nutritional screening: No deficits noted. Advance Directives: Currently, there is no health care proxy. home support is adequate. 19:17 Infection Control. kmg1 Assessment: 17:30 General: General: Appears in no apparent distress, Behavior is appropriate for age, rs3 cooperative. Pain: Denies pain. Neurological: Level of Consciousness is awake, alert, Oriented to person, place, time. Cardiovascular: Capillary refill < 3 seconds. Respiratory: Airway is patent Respiratory effort is even, unlabored, Respiratory pattern is regular, symmetrical. Derm: Skin is pink, warm & dry. 18:35 General: Appears in no apparent distress, Behavior is appropriate for age, cooperative, rs3 had supper tray. tolerated well. denies of any distress/pain. resting comfortable on stretcher. 19:21 General: Appears in no apparent distress, comfortable, Behavior is cooperative, quiet. slm General: pt resting on stretcher friend in room security observing . Pain: Denies pain. Neurological: Level of Consciousness is awake, alert, obeys commands. Respiratory: Airway is patent Respiratory effort is even, unlabored. 20:22 General: Appears in no apparent distress, comfortable, Behavior is cooperative. slm General: pt resting on stretcher security observing . Respiratory: Airway is patent Respiratory effort is even, unlabored. 21:10 General: Appears in no apparent distress, comfortable, Behavior is cooperative, slm pleasant, quiet. General: pt resting on stretcher quietly security observing . Respiratory: Airway is patent Respiratory effort is even, unlabored. 22:00 General: Appears in no apparent distress, comfortable, Behavior is appropriate for age, slm cooperative, pleasant. Pain: Denies pain. Respiratory: Airway is patent Respiratory effort is even, unlabored. Derm: Skin is pink, warm & dry. Mental Health Eval: 18:25 Mental health consult is initiated at 18:25. 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 [facility] Behavioral Health: The patient is not an established patient of [facility] Behavior[facility]. Referral Information: Evaluation referral is generated by the patient himself / herself. The patient was referred for evaluation because Pt reports he is having command AH telling him to kill himself the past 24 hours, no plan at this time, misses his 29YO daughter who 1 year ago from a heroin OD. Pt told [facility] staff this morning and wanted to try and feel better on his own, but could not do and then asked staff to bring him in tonight. Pt reports no change in sleeping or eating, likes residing at [facility] residential, has numerous psyche admissions [facility], [facility], [facility]. [facility]. Pt has a hsitory of OD attempts in the past, and is stating "I need help". Subjective: The patients chief complaint is Pt reports being depressed, is getting along with out his 29 YO daughter who of a Heroin OD a year ago, hearing command voices telling him to kill self, no plan. Delusions are denied. Patient's mood is anxious, depressed, hopeless, Command hallucinations are reported by the patient. Mental Health history: alcohol abuse, anxiety, depression, abusing marijuana. cocaine. psychosis, sleep disturbance, suicide attempt by by cutting or Over dosing numerous times in the past Mental Health Admissions: multiple admissions in the past 20 years Current Outpatient Mental Health Services: Psychiatrist / Agency: darrius Walsh . Therapist / Agency: [facility] does not remember name at this time. Current living environment is The patient currently lives in a [facility] residence. The patient is single. Patient presents to Emergency Department with the following symptoms within the past 2 weeks: anxiety, depressed mood, auditory hallucinations stated by patient feelings of helplessness/hopelessness, labile mood, poor concentration, poor impulse control, psychosis, suicidal ideation with no plan. Substance abuse: Pt denies. Mental status exam: Patients appearance is disheveled Patient's behavior is cooperative, Speech is mumbled. Affect is flat. Mood is anxious. depressed. Command hallucinations are reported by the patient. Appetite is normal. Memory is poor. Energy level is tires easily. Content of thought is normal. Thought process is intact. Cognitive level is oriented to person, place, time and situation Patient's insight is poor. Judgement is absent. Rapport with interviewer is good. Suicidal Ideation is present with no specific plan. Homicidal ideation is not present. Disposition: Medically cleared for disposition by Tresa Bain MD Psychiatric Consult is performed by phone with Dr Garrick Schmidt MD. [facility] Admission Criteria: The patient is experiencing suicidal ideation. The patient displays symptoms of severe psychiatric disorder resulting in disordered behavior and significant interference with his / her ability to maintain self care. Hallucinations. The patient requires continuous observation and/or control to protect self, others or property. The patient's care requires a multi-modal treatment plan under close supervision and coordination due to the complexity and severity of the patient's symptoms. The patient requires administration and monitoring of psychoactive medications by skilled medical providers due to the side effects of the psychoactive medications or significant dosage adjustments. Legal Status: Patient's legal status will be Emergency admission: . [place] Safe Act: [place] Safe Act is applicable to this patient. The patient poses a risk to self or other and the Nursing Digital Design Engineer has been notified. He/She will enter the patient's data. 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 Vital Signs: 16:39 BP 95 / 72; Pulse 97; Resp 18 S; Temp 96.4(T); Pulse Ox 98% on R/A; Weight 81.65 kg dd6 (R); Height 5 ft. 8 in. (172.72 cm) (R); 22:01 BP 95 / 60; Pulse 79; Resp 16; Temp 96.8; Pulse Ox 97% on R/A; Pain 0/10; slm 16:39 Body Mass Index 27.37 (81.65 kg, 172.72 cm) dd6 Vitals: 16:39 Log In Time: July 11, 2016 at 16:37. dd6 16:41 RN notified that patient meets Red Flag criteria. dd6 ED Course: 16:39 Patient visited by Ced Lawrence PCA. dd6 16:39 Nael Castanon is Private Physician. dd6 16:39 Patient moved to [facility] dd6 16:42 Triage Initiated srm 16:46 Patient moved to [facility] srm 16:53 Tresa Bain MD is Attending Physician. sd1 16:58 Patient visited by Korin Muñoz PCA. tmm1 17:06 Patient visited by Tresa Bain MD. sd1 17:13 Accompanied by porter sample case, Placed in gown. Placed in psych safe attire. Bed in low tmm1 position. Side rails up X 1. Security observing. Property removed, inventory done. Door closed. Noise minimized. Visitors limited. Psych Safety Check: Location: Psych Room. Visual Assessment: Cooperative. 17:41 Patient visited by Landon Mitchell Security Aide. pjf 17:49 Patient visited by Landon Mitchell Security Aide. pjf 17:50 Acetaminophen Level Sent. rs3 17:50 Basic Metabolic Profile Sent. rs3 17:50 Complete Blood Count Sent. rs3 18:00 Patient visited by Landon Mitchell Security Aide. pjf 18:35 Patient visited by Terrie Barbosa RN. rs3 19:01 Maryam Betancourt LPN is Primary Nurse. slm 19:11 Kade Lutz MD is Hospitalizing Provider. sd1 19:18 [facility] Payment Agreement was scanned into [employer] and attached to record. zo 19:21 Patient visited by Maryam Betancourt LPN. slm 19:23 E Legal paperwork was scanned into [employer] and attached to record. cs 19:25 Patient visited by Wayne Agrawal. mas 19:30 Patient visited by Wayne Agrawal. mas 19:45 Patient visited by Wayne Agrawal. mas 20:00 Patient visited by Wayne Agrawal. mas 20:16 Patient visited by Wayne Agrawal. mas 20:23 Patient visited by Maryam Betancourt LPN. slm 20:30 Patient visited by Wayne Agrawal. mas 20:45 Patient visited by Wayne Agrawal. mas 21:00 Patient visited by Wayne Agrawal. mas 21:15 Patient visited by Wayne Agrawal. mas 21:32 Patient visited by Wayne Agrawal. mas 21:47 Patient visited by Wayne Agrawal. mas 22:01 The patient / caregiver is instructed regarding the plan of care and ED course. slm 22:01 No IV's were initiated during this patient's visit. No procedures done that require [facility] assistance. Labs drawn. (by ED staff). Sent per order to lab. Attachments: 19:23 [facility] Legal paperwork cs Order Results: Lab Order: Acetaminophen Level; SPEC'M 07/11/16 17:36 Test: ACETAMINOPHEN LEVEL; Value: < 2.0; Range: 10.0-30.0; Abnormal: Below low normal; Units: UG/ML; Status: F Lab Order: Basic Metabolic Profile; SPEC'M 07/11/16 17:36 Test: GLUCOSE, FASTING; Value: 89; Range: 70-105; Units: MG/DL; Status: F Test: BLOOD UREA NITROGEN; Value: 10; Range: 7-18; Units: MG/DL; Status: F Test: CREATININE FOR GFR; Value: 0.92; Range: 0.70-1.30; Units: MG/DL; Status: F Test: GLOMERULAR FILTRATION RATE; Value: > 60.0; Range: >56; Status: F Test: SODIUM LEVEL; Value: 143; Range: 136-145; Units: MEQ/L; Status: F Test: POTASSIUM SERUM; Value: 4.0; Range: 3.5-5.1; Units: MEQ/L; Status: F Test: CHLORIDE LEVEL; Value: 107; Range: 98-107; Units: MEQ/L; Status: F Test: CARBON DIOXIDE LEVEL; Value: 26; Range: 21-32; Units: MEQ/L; Status: F Test: ANION GAP; Value: 10; Range: 8-16; Units: MEQ/L; Status: F Test: CALCIUM LEVEL; Value: 8.2; Range: 8.5-10.1; Abnormal: Below low normal; Units: MG/DL; Status: F Test Note: ; Units are mL/min/1.73 m2 Chronic Kidney Disease Staging per NKF: Stage I & II GFR >=60 Normal to Mildly Decreased Stage III GFR 30-59 Moderately Decreased Stage IV GFR 15-29 Severely Decreased Stage V GFR <15 Very Little GFR Left ESRD GFR <15 on GOGGLES ASSEMBLER Lab Order: Complete Blood Count; SPEC'M 07/11/16 17:36 Test: WHITE BLOOD COUNT; Value: 11.6; Range: 4.0-10.0; Abnormal: Above high normal; Units: K/mm3; Status: F Test: RED BLOOD COUNT; Value: 4.85; Range: 4.30-6.10; Units: M/mm3; Status: F Test: HEMOGLOBIN; Value: 14.3; Range: 14.0-18.0; Units: g/dl; Status: F Test: HEMATOCRIT; Value: 43.0; Range: 42.0-52.0; Units: %; Status: F Test: MEAN CORPUSCULAR VOLUME; Value: 88.6; Range: 80.0-96.0; Units: fl; Status: F Test: MEAN CORPUSCULAR HEMOGLOBIN; Value: 29.5; Range: 27.0-33.0; Units: pg; Status: F Test: MEAN CORPUSCULAR HGB CONC; Value: 33.3; Range: 32.0-36.5; Units: g/dl; Status: F Test: RED CELL DISTRIBUTION WIDTH; Value: 14.0; Range: 11.5-14.5; Units: %; Status: F Test: PLATELET COUNT, AUTOMATED; Value: 288; Range: 150-450; Units: k/mm3; Status: F Lab Order: Drug Eval Toxicology ED Only; SPEC'M 07/11/16 17:36 Test: AMPHETAMINES LEVEL URINE; Value: NEGATIVE; Range: NEGATIVE; Status: F Test: BARBITURATES URINE; Value: NEGATIVE; Range: NEGATIVE; Status: F Test: BENZODIAZEPINES URINE; Value: NEGATIVE; Range: NEGATIVE; Status: F Test: CANNABINOIDS URINE; Value: NEGATIVE; Range: NEGATIVE; Status: F Test: COCAINE METABOLITE URINE; Value: NEGATIVE; Range: NEGATIVE; Status: F Test: METHADONE URINE; Value: NEGATIVE; Range: NEGATIVE; Status: F Test: OPIATES URINE; Value: NEGATIVE; Range: NEGATIVE; Status: F Test: TRICYCLIC ANTIDEPRESS URINE; Value: POSITIVE; Range: NEGATIVE; Abnormal: Above high normal; Status: F Test Note: ; ALL PRESUMPTIVE POSITIVE FINDINGS ARE UNCONFIRMED NORMAL VALUES THRESHOLD IN NG/ML AMPHETAMINES 1000 METHAMPHETAMINES 1000 BARBITURATES 300 BENZODIAZEPINES 300 CANNABINOIDS (THC) 50 COCAINE METABOLITE 300 METHADONE 300 OPIATES 300 PHENCYCLIDINE 25 TRICYCLIC ANTIDEPRESSANTS 1000 RESULTS ARE FOR MEDICAL PURPOSES ONLY. ALL URINE SPECIMENS WILL BE SAVED FOR 3 DAYS. IF CONFIRMATION OF A PRESUMPTIVE POSTIVE SCREEN RESULT IS DESIRED, CALL CHEMISTRY ([phone]) AND REQUEST URINE TO BE SENT TO REFERENCE LAB. FOR A LIST OF CLOSELY RELATED COMPOUNDS PLEASE CALL THE LAB. Lab Order: Ethyl Alcohol (ethanol); SPEC'M 07/11/16 17:36 Test: ETHYL ALCOHOL (ETHANOL); Value: < 0.003; Range: 0.000-0.010; Units: %; Status: F Lab Order: Liver Profile; SPEC'M 07/11/16 17:36 Test: AST/SGOT; Value: 7; Range: 15-37; Abnormal: Below low normal; Units: U/L; Status: F Test: ALT/SGPT; Value: 20; Range: 12-78; Units: U/L; Status: F Test: ALKALINE PHOSPHATASE; Value: 109; Range: 45-117; Units: U/L; Status: F Test: BILIRUBIN,TOTAL; Value: 0.4; Range: 0.2-1.0; Units: MG/DL; Status: F Test: BILIRUBIN,DIRECT; Value: 0.1; Range: 0.0-0.2; Units: MG/DL; Status: F Test: TOTAL PROTEIN; Value: 7.2; Range: 6.4-8.2; Units: GM/DL; Status: F Test: ALBUMIN; Value: 3.8; Range: 3.2-5.2; Units: GM/DL; Status: F Test: ALBUMIN/GLOBULIN RATIO; Value: 1.12; Range: 1.00-1.93; Status: F Lab Order: Salicylate Level; SPEC'M 07/11/16 17:36 Test: SALICYLATE LEVEL; Value: 3.5; Range: 5.0-30.0; Abnormal: Below low normal; Units: MG/DL; Status: F Lab Order: Thyroid Stimulating Hormone; SPEC'M 07/11/16 17:36 Test: THYROID STIMULATING HORMONE; Value: 1.280; Range: 0.358-3.740; Units: uIU/ML; Status: F Outcome: 19:11 Decision to Hospitalize by Provider. sd1 22:01 Discharge Assessment: Patient awake, alert and oriented x 3. No cognitive and/or slm functional deficits noted. Patient verbalized understanding of disposition instructions. patient administered narcotics - no. The following High Risk Discharge criteria are identified: None. Admitted to Psych accompanied by tech, with oxygen, with chart. Condition: stable. No special radiology studies were completed. 22:03 Patient left the ED. [facility] Signatures: Tresa Bain MD MD sd1 Ginger Antonio, RN RN kmg1 Kayce Alcantara, RN RN [facility] Brijesh Cowan, PSA PSA Landon Mitchell, Security Aide Diaz Lancaster Daniell, INTERNET MARKETING SPECIALIST INTERNET MARKETING SPECIALIST dd6 Terrie Barbosa,RN RN rs3 Wayne Agrawal, Korin, INTERNET MARKETING SPECIALIST INTERNET MARKETING SPECIALIST tmm1 Maryam Betancourt LPN LPN sl Chart Complete [facility]
--- NOTE | 2016-07-13 23:45 | HPEPDOC ---
[facility] History & Physical History and Physical DATE OF ADMISSION: Jul 11, 2016 at 22:08 Date of this interview: 07/12/2016 CHIEF COMPLAINT: Reported command auditory hallucinations telling him to kill himself. HISTORY OF PRESENT ILLNESS: The patient is a 56-year-old [place] male, single, living at a transitional living services ([facility] community residence. The patient has a long history of mental health problems including numerous psychiatric admissions, outpatient psychiatric treatment. The patient was recently discharged from [facility] ([facility] Inpatient Mental Health Unit (IM) in 09/2015. As per the emergency department (ED) report, the patient presented to the ED reporting the recurrence of hearing a woman's voice telling him to kill himself. Upon admission, I saw the patient. The patient presents as a poor historian. He states he has been hearing voices that have been apparent for 3-4 days. Reports this symptom associated with increased depression and worsening insomnia. On exam patient noted to have perioral manifestations of tardive dyskinesia. Reports ongoing auditory hallucinations. He currently denies SI and HI. He denies visual hallucinations. He is appropriate in statements and behavior. No other signs of psychosis are noted or reported. PAST PSYCHIATRIC HISTORY: Inpatient - multiple, last 09/2015,. Psychotropic medication history - Patient currently medication compliant. Substance use history: The patient has a past history of problem with heroin, speed, and crack use. He denies current and recent use of drugs or alcohol. He has also had problems with alcohol in the past. PAST MEDICAL HISTORY: Diastolic congestive heart failure with ejection fraction of 65%. Chronic obstructive pulmonary disease (COPD). Hypertension. Asthma. Diabetes, diet controlled. High cholesterol. Neurogenic bladder with suprapubic catheter in place. Gastroesophageal reflux disease (GERD). History of transient ischemic attack (TIA). Cholecystectomy. Right inguinal hernia repair. ALLERGIES: QUINOLONES, HALDOL, LEXAPRO, CHLORPROMAZINE cause anaphylaxis. FAMILY HISTORY: Several family members have a history of substance abuse problems including his daughter. SOCIAL HISTORY: The patient states he lives in [facility] for the past month. States it is going well. There has been no trouble with other residents or with staff. He states he is not in contact with any family members. MENTAL STATUS EXAMINATION: A 56-year-old [place] male, average height, overweight build. Central obesity. Pleasant, anxious, calm and cooperative in behavior. Affect restricted. Mood congruent. Thought form logical, coherent, concrete. Endorses suicidal ideation (SI), denies homicidal ideation (HI) or delusions. Perception: Endorses command auditory hallucinations telling him to kill himself. Denies visual hallucinations. The patient seems internally preoccupied. Insight and judgment poor. Impulse control poor. DIAGNOSIS: Schizoaffective disorder PROBLEM LIST: 1. Altered perception. 2. Risk of suicide. 3. Depression. PLAN: ----- 1.~ ~ Patient was admitted on a 30 legal status, 2.~ ~ Complete history was obtained. 3.~ ~ With patients permission, family will be contacted and database will be expanded. 4.~ ~Increase Clozaril from 200mg to 250mg po daily for management of psychosis. Initiate Cogentin 1 mg by mouth daily at bedtime for EPS. Continue remaining psychotropic regimen as prescribed. 5.~ ~ Patient will be provided with protected environment. 6.~ ~ Patient will be treated with individual, group, and milieu therapies. 7.~ ~ Patient will receive supportive psych-education. 8.~ ~ Discharge planning will commence immediately. 9.~ ~ Length of patients stay will be between 5-7 days 10.~ Outpatient follow-up treatment will be strongly recommended. 11.~ The initial treatment plan will focus initially on TIME SPENT COUNSELING AND COORDINATING INITIAL CARE: 60 minutes. Laboratory Data 24H Labs Laboratory Tests 2 07/13/16 08:49: White Blood Count 8.2, Red Blood Count 4.68, Hemoglobin 13.9L, Hematocrit 42.3, Mean Corpuscular Volume 90.3, Mean Corpuscular Hemoglobin 29.8, Mean Corpuscular Hemoglobin Concent 32.9, Red Cell Distribution Width 13.1, Platelet Count 263, Neutrophils (%) (Auto) 62.3, Lymphocytes (%) (Auto) 27.7, Monocytes ( %) (Auto) 7.1H, Eosinophils (%) (Auto) 1.3, Basophils (%) (Auto) 0.3, Neutrophils # (Auto) 5.1, Lymphocytes # (Auto) 2.3, Monocytes # (Auto) 0.6, Eosinophils # (Auto) 0.1, Basophils # (Auto) 0.0, Large Unclassified Cells # 0.1 , Large Unclassified Cells % 1.3 CBC/BMP Laboratory Tests 07/13/16 08:49 Red Blood Count 4.68, Mean Corpuscular Volume 90.3, Mean Corpuscular Hemoglobin 29.8, Mean Corpuscular Hemoglobin Concent 32.9, Red Cell Distribution Width 13.1 , Neutrophils (%) (Auto) 62.3, Lymphocytes (%) (Auto) 27.7, Monocytes (%) (Auto ) 7.1 H, Eosinophils (%) (Auto) 1.3, Basophils (%) (Auto) 0.3, Neutrophils # ( Auto) 5.1, Lymphocytes # (Auto) 2.3, Monocytes # (Auto) 0.6, Eosinophils # (Auto ) 0.1, Basophils # (Auto) 0.0 Medications Scheduled Aspirin (Aspirin 81) 81 Mg Tab 81 MG PO DAILY (Reported) Atorvastatin Calcium (Lipitor) 10 Mg Tab 10 MG PO QHS . (Reported) Budesonide/Formoterol (Symbicort 160-4.5 Mcg/Act) 60 Puff/Inhaler Aers 2 PUFF INH BID . (Reported) Chlorpromazine HCl (Chlorpromazine HCl) 50 Mg Tab 50 MG PO BID (Reported) Clozapine (Clozapine) 100 Mg Tab 200 MG PO QAM . (Reported) Clozapine (Clozapine) 200 Mg Tab 400 MG PO QHS . (Reported) Clozapine (Clozapine) 50 Mg Tab 50 MG PO QHS . (Reported) Docusate Sodium (Colace) 100 Mg Cap 100 MG PO BID CONSTIPATION (Reported) Escitalopram Oxalate (Escitalopram Oxalate) 10 Mg Tab 10 MG PO DAILY (Reported ) Lisinopril (Lisinopril) 2.5 Mg Tab 2.5 MG PO DAILY . (Reported) Metformin Hydrochloride (Metformin HCl) 850 Mg Tab 850 MG PO DAILY . (Reported) Mirtazapine (Mirtazapine) 15 Mg Tab 15 MG PO QHS (Reported) Oxybutynin Chloride (Oxybutynin Chloride) 5 Mg Tab 5 MG PO TID . (Reported) Senna (Senna) 8.6 Mg Cap 2 CAP PO QHS . (Reported) Tamsulosin Hydrochloride (Flomax) 0.4 Mg Cap 1 CAP PO QAM . (Reported) once daily 1/2 hour following the same meal each day Tiotropium [place] Monohydrate (Spiriva Handihaler) 18 Mcg Cap 1 INHALATION INH DAILY . (Reported) Allergies Coded Allergies: Quinolones (Verified Allergy, Unknown, QUESTIONABLE - AVELOX, 01/15/15) HAS HAD CIPRO & LEVAQUIN ON MULTIPLE OCCASIONS Haloperidol (Verified Adverse Reaction, Intermediate, LOCKJAW,WHEEZING, 09/19/12) Prochlorperazine (Verified Adverse Reaction, Intermediate, ANAPHYLAXIS, 09/19/12) DEL KERNS MD Jul 13, 2016 23:45 DEL FAUST MD Jul 13, 2016 23:45
--- NOTE | 2016-07-13 23:46 | IPNPDOC ---
[facility] Progress Note Progress Note DATE OF SERVICE: 07/13/16 Subjective: Patient is blunted in affect and reports a depressed mood. He reports ongoing AHs of a voice commanding him to kill himself. Patient is depressed in demeanor and manner. He requests to lay back down. On interview, patient can identify no new stressor as a possible trigger to this decompensation of symptoms. Patient does endorse med compliance prior to this admission. He denies alcohol abuse or use of illicit substances are involved in this picture. Patient denies medication s/e's. He reports no CEE, CP, Abd pain, or N/V/C/D. Objective: VITAL SIGNS: See below. NEW TEST RESULTS: None CURRENT MEDICATIONS: See below. MENTAL STATUS EXAMINATION: 56-year-old [place]bour[place] male, average height, overweight build. Central obesity. Pleasant, anxious, calm and cooperative in behavior. Affect restricted. Mood congruent. Thought form logical, coherent, concrete. Endorses ongoing suicidal ideation (SI), denies homicidal ideation (HI) or delusions. Perception: Endorses ongoing command auditory hallucinations telling him to kill himself. Denies visual hallucinations. The patient again seems internally preoccupied. Insight and judgment poor. Impulse control poor. Assessment: Schizoaffective disorder PROBLEM LIST: 1. Altered perception. 2. Risk of suicide. 3. Depression. Plan: ----- 1.~ ~ Patient was admitted on a 9.30 legal status, 2.~ ~ With patients permission, family will be contacted and database will be expanded. 3.~ ~Continue Clozaril 250mg po daily for management of psychosis. ~Weekly CBC w/diff surveillance while on Clozaril. ~Continue Cogentin 1 mg by mouth daily at bedtime for EPS. ~Continue remaining psychotropic regimen as prescribed. 4.~ ~ Patient will be provided with protected environment. 5.~ ~ Patient will be treated with individual, group, and milieu therapies. 6.~ ~ Patient will receive supportive psych-education. 10.~ Outpatient follow-up treatment will be strongly recommended. Estimated length of stay between 5-7 days TIME SPENT: [30] minutes. Vital Signs Vital Signs Date Time Temp Pulse Resp B/P Pulse Ox O2 Delivery O2 Flow Rate FiO2 07/13/16 18:00 96.7 75 16 111/64 Laboratory Data 24H Labs Laboratory Tests 2 07/13/16 08:49: White Blood Count 8.2, Red Blood Count 4.68, Hemoglobin 13.9L, Hematocrit 42.3, Mean Corpuscular Volume 90.3, Mean Corpuscular Hemoglobin 29.8, Mean Corpuscular Hemoglobin Concent 32.9, Red Cell Distribution Width 13.1, Platelet Count 263, Neutrophils (%) (Auto) 62.3, Lymphocytes (%) (Auto) 27.7, Monocytes ( %) (Auto) 7.1H, Eosinophils (%) (Auto) 1.3, Basophils (%) (Auto) 0.3, Neutrophils # (Auto) 5.1, Lymphocytes # (Auto) 2.3, Monocytes # (Auto) 0.6, Eosinophils # (Auto) 0.1, Basophils # (Auto) 0.0, Large Unclassified Cells # 0.1 , Large Unclassified Cells % 1.3 CBC/BMP Laboratory Tests 07/13/16 08:49 Red Blood Count 4.68, Mean Corpuscular Volume 90.3, Mean Corpuscular Hemoglobin 29.8, Mean Corpuscular Hemoglobin Concent 32.9, Red Cell Distribution Width 13.1 , Neutrophils (%) (Auto) 62.3, Lymphocytes (%) (Auto) 27.7, Monocytes (%) (Auto ) 7.1 H, Eosinophils (%) (Auto) 1.3, Basophils (%) (Auto) 0.3, Neutrophils # ( Auto) 5.1, Lymphocytes # (Auto) 2.3, Monocytes # (Auto) 0.6, Eosinophils # (Auto ) 0.1, Basophils # (Auto) 0.0 Current Medications Current Medications Medications (Trade) Dose Ordered Sig/Ora Route PRN Reason Start Time Stop Time Status Last Admin Dose Admin Acetaminophen (Tylenol Tab) 650 mg Q6HP PRN PO HEADACHE or DISCOMFORT 07/11/16 23:15 08/10/16 23:14 Al Hydrox/Mg Hydrox/Simethicone (Mylanta) 30 ml Q4HP PRN PO HEARTBURN/INDIGESTION 07/11/16 23:15 08/10/16 23:14 Albuterol/ Ipratropium (Duoneb (Ipr 0.5mg/Alb 2.5mg)) 3 ml Q4HP PRN NEB SOB/WHEEZING 07/13/16 23:15 08/12/16 23:14 Aspirin (Ecotrin) 81 mg DAILY PO 07/12/16 09:00 08/11/16 08:59 07/13/16 08:08 Benztropine Mesylate (Cogentin) 1 mg QHS PO 07/13/16 21:00 08/12/16 20:59 07/13/16 21:43 Chlorpromazine HCl (Thorazine) 50 mg BID PO 07/12/16 09:00 08/11/16 08:59 07/13/16 21:43 Clozapine (Clozaril) 200 mg QAM PO 07/12/16 09:00 07/13/16 08:33 DC 07/13/16 08:08 Clozapine (Clozaril) 250 mg QAM PO 07/14/16 09:00 07/21/16 08:59 Escitalopram Oxalate (Lexapro) 10 mg DAILY PO 07/12/16 09:00 08/11/16 08:59 07/13/16 08:08 Home Med (Med Rec Complete!) ASDIRECTED XX 07/11/16 20:00 07/11/16 20:01 DC Influenza Virus Vaccine (Fluzone Quadrivalent Pf Vaccine) 0.5 ml 1T@09 IM 07/13/16 09:00 07/13/16 23:59 07/13/16 10:24 Magnesium Hydroxide (Milk Of Magnesia) 30 ml DAILYPRN PRN PO CONSTIPATION 07/11/16 23:15 08/10/16 23:14 Mirtazapine (Remeron) 15 mg QPM PO 07/12/16 21:00 08/11/16 20:59 07/13/16 21:43 Nicotine (Nicoderm Cq 21mg) 1 patch DAILY TD 07/12/16 09:00 08/11/16 08:59 07/13/16 08:08 Trazodone HCl (Desyrel) 50 mg QHSP PRN PO INSOMNIA 07/11/16 23:15 07/13/16 08:33 DC Trazodone HCl (Desyrel) 100 mg QHS PO 07/13/16 23:15 2/28/17 23:14 07/13/16 21:46 Allergies Coded Allergies: Quinolones (Verified Allergy, Unknown, QUESTIONABLE - AVELOX, 01/15/15) HAS HAD CIPRO & LEVAQUIN ON MULTIPLE OCCASIONS Haloperidol (Verified Adverse Reaction, Intermediate, LOCKJAW,WHEEZING, 09/19/12) Prochlorperazine (Verified Adverse Reaction, Intermediate, ANAPHYLAXIS, 09/19/12) DEL KERNS MD Jul 13, 2016 23:45
[2016-07-14 00:56] LABS: BASO % 0.4 % (0.0-1.0); EOS # 0.2 K/mm3 (0.0-0.50); EOS % 2.5 % (0.0-3.0); LARGE UNSTAINED CELL # 0.2 K/mm3 (0.0-0.4); LARGE UNSTAINED CELL % 1.9 % (0.0-4.0); LYMPH # 2.3 K/mm3 (1.5-4.5); LYMPH % 28.6 % (24.0-44.0); MEAN CORPUSCULAR HEMOGLOBIN 29.6 pg (27.0-33.0); MEAN CORPUSCULAR HGB CONC 33.3 g/dl (32.0-36.5); MEAN CORPUSCULAR VOLUME 88.9 fl (80.0-96.0); MONO # 0.7 K/mm3 (0.0-0.8); NEUTROPHILS # 4.8 K/mm3 (1.8-7.7); NEUTROPHILS % 58.7 % (36.0-66.0); PLATELET COUNT, AUTOMATED 238 k/mm3 (150-450); RED CELL DISTRIBUTION WIDTH 13.1 % (11.5-14.5); WHITE BLOOD COUNT 8.1 K/mm3 (4.0-10.0)
[2016-07-14 07:32] VITALS: BP 143/71
[2016-07-14] MEDS: ASPIRIN 81 MG ENTERIC TAB PO SCH (08:08)
[2016-07-14] MEDS: ESCITALOPRAM OXALATE 10 MG TAB (LEXAPRO) PO SCH (08:08)
[2016-07-14] MEDS: cloZAPine 100 MG TAB (S0136) PO SCH (08:08)
[2016-07-14] MEDS: chlorproMAZINE 25 MG TAB (Q0161) PO SCH ×2 (08:08→21:19)
[2016-07-14] MEDS: NICOTINE 21MG/24HR 1 EA TRANSDERMAL TD SCH (08:10)
--- NOTE | 2016-07-14 08:34 | HPE ---
DATE OF ADMISSION: 07/11/2016 HISTORY OF THE PRESENT ILLNESS: Please refer to psychiatric history and evaluation for further details on this admission. This examination and history is intended for medical issues history, which may need treatment, follow-up or consult on this 56-year-old male. ALLERGIES: 1. QUINOLONES with unknown effect. This is documented as a questionable allergy. 2. HALDOL causes lockjaw. 3. PROCHLORPERAZINE causes anaphylaxis. PAST MEDICAL HISTORY: Dementia. Schizoaffective paranoid schizophrenia. Coronary artery disease. Diastolic congestive heart failure (CHF) with ejection fraction of 65%. Chronic obstructive pulmonary disease (COPD). Has had home oxygen in the past, currently none. Hypertension. Asthma. Diabetes type 2. Hypercholesterolemia. Neurogenic bladder with suprapubic catheter in place. Follow with Dr. Stephens. Gastroesophageal reflux disease (GERD). History of transient ischemic attacks (TIA). PAST SURGICAL HISTORY: Cholecystectomy. Right inguinal hernia repair. LABORATORY STUDIES: WBC 8.2, hemoglobin 13.9, hematocrit 42.3, platelets 26.3. Urine was positive for tricyclic antidepressants. Electrolytes were normal. BUN was 10, creatinine was 0.92. SOCIAL HISTORY: He resides alone. He is single. 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 States he has not drink in over a year. Smoking he used to smoke up to four packs a day for 30 years then two packs a day in the last 10 years. Now he is down to one half to one pack per day. History of IV drug use, greater than 20 years ago. FAMILY HISTORY: Mother age 77 secondary to myocardial infarction (ME). Father age 57 secondary to ME. REVIEW OF SYSTEMS: 10 systems review was done. History significant for neurogenic bladder with suprapubic catheter in place. Follows with [facility] urology. History of COPD. Had no current complaints. Otherwise feeling well. HOME MEDICATIONS: - aspirin 81 mg by mouth daily - chlorpromazine 50 mg by mouth twice a day - clozapine 200 mg by mouth daily - escitalopram 10 mg by mouth daily - mirtazapine 15 mg by mouth at bedtime PHYSICAL EXAMINATION: 56-year-old cooperative male in no acute distress. Height is 69 inches, weight is 76.7 kg, body mass index (BMI) 25, blood pressure 104/60, pulse 75, respirations 16, temperature 96.4. Patient is alert and oriented times three. Pupils equal and react to light. Extraocular muscles intact. Cornea and sclerae are clear. Conjunctivae are normal. No facial asymmetry. Pharynx, tongue and gums are pink and moist. Tongue is midline. Neck is supple without lymphadenopathy. No thyromegaly. No goiter. Carotids are 2+ without bruit. Chest has decreased breath sounds. No wheeze or retraction. Heart is regular. Abdomen is benign. Bowel sounds are positive. /rectal not done. Extremities show equal strength. Full range of motion. No cyanosis, clubbing or edema. Peripheral pulses are equal and palpable bilaterally. Skin is warm and dry. Abdomen has suprapubic catheter in place. No redness noted. IMPRESSION/PLAN: 1. Psychiatric plan per psychiatry. 2. EKG on file shows sinus tach. 3. Urology. Continued followup with [facility] urology, Dr. Stephens. 4. Respiratory. History of COPD. Clinically stable. DuoNebs ordered as needed if needed. 5. Hypertension stable. 6. History of dementia and TIA. Continue baby aspirin. 7. 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 He has had negative HIV and hepatitis testing in the past. 8. No acute medical issues.
--- NOTE | 2016-07-14 13:36 | EDDOCDS ---
Nurse's Notes [facility] Name: Julian Cates Age: 56 yrs Sex: Male : 1960 Arrival Date: 07/11/2016 Time: 16:37 Bed BHU5 Private MD: Nael Castanon Michael Diagnosis: Suicidal ideations Presentation: 07/11 16:41 Presenting complaint: Patient states: hearing voices that are telling me to kill srm myself. started today. Mental Health Triage Level: Level 2: The patient displays active suicidal ideations. Adult Sepsis Screening: The patient does not have new or worsening altered mentation. Patient's respiratory rate is less than 22. Systolic blood pressure is greater than 100. Patient has a qSOFA score of 0- Negative Sepsis Screen. Suicide/Homicide risk assessment- The patient admits to and/or has been reported to be having suicidal ideations. The patient reports that he/she has not been admitted to an inpatient mental health facility in the last 30 days. The patient reports that he/she has a recent or current history of substance abuse. The patient reports that he/she has a prior history of suicide attempt and/or organized plan. The patient reports that he/she has not experienced a significant life altering event in the last 30 days. Status: Patient is not a breeder service technician or dependent. Transition of care: patient was not received from another setting of care. 16:41 Acuity: KEV Level 3 [facility] 16:41 Method Of Arrival: Walkin/Carried/Asstd [facility] Triage Assessment: 16:42 General: Appears in no apparent distress, Behavior is appropriate for age, cooperative. srm Pain: Denies pain. HIV screening NA for this visit Offered previously. Historical: - Allergies: Compazine; Haldol; - Home Meds: 1. mirtazapine 15 mg Oral tab 1 tab nightly 2. escitalopram oxalate 10 mg oral tab 1 tab once daily 3. chlorpromazine 50 mg Oral tab 1 tab 2 times per day 4. clozapine 100 mg oral TbDL 1 tab - PMHx: Asthma; COPD; Depression; Diabetes - NIDDM: controlled; rt side heart failure; Hypercholesterolemia; - PSHx: Cholecystectomy; Hernia repair; - Social history: Smoking status: Patient uses tobacco products, current every day smoker. No barriers to communication noted, The patient speaks fluent Chinese, Speaks appropriately for age. - Family history: Not pertinent. - : The pt / caregiver states he / she is not on anticoagulants. Home medication list is obtained from the patient. - Exposure Risk Screening:: None identified. Screenin:57 Screening information is obtained from the patient. Fall risk: No risks identified. rs3 Assistance ADL's: requires no assistance with activities of daily living. Abuse/DV Screen: The patient / caregiver reports he/she is: not in a situation that causes fear, pain or injury. Nutritional screening: No deficits noted. Advance Directives: Currently, there is no health care proxy. home support is adequate. 19:17 Infection Control. kmg1 Assessment: 17:30 General: General: Appears in no apparent distress, Behavior is appropriate for age, rs3 cooperative. Pain: Denies pain. Neurological: Level of Consciousness is awake, alert, Oriented to person, place, time. Cardiovascular: Capillary refill < 3 seconds. Respiratory: Airway is patent Respiratory effort is even, unlabored, Respiratory pattern is regular, symmetrical. Derm: Skin is pink, warm & dry. 18:35 General: Appears in no apparent distress, Behavior is appropriate for age, cooperative, rs3 had supper tray. tolerated well. denies of any distress/pain. resting comfortable on stretcher. 19:21 General: Appears in no apparent distress, comfortable, Behavior is cooperative, quiet. slm General: pt resting on stretcher friend in room security observing . Pain: Denies pain. Neurological: Level of Consciousness is awake, alert, obeys commands. Respiratory: Airway is patent Respiratory effort is even, unlabored. 20:22 General: Appears in no apparent distress, comfortable, Behavior is cooperative. slm General: pt resting on stretcher security observing . Respiratory: Airway is patent Respiratory effort is even, unlabored. 21:10 General: Appears in no apparent distress, comfortable, Behavior is cooperative, slm pleasant, quiet. General: pt resting on stretcher quietly security observing . Respiratory: Airway is patent Respiratory effort is even, unlabored. 22:00 General: Appears in no apparent distress, comfortable, Behavior is appropriate for age, slm cooperative, pleasant. Pain: Denies pain. Respiratory: Airway is patent Respiratory effort is even, unlabored. Derm: Skin is pink, warm & dry. Mental Health Eval: 18:25 Mental health consult is initiated at 18:25. Status: The patient is not a breeder service technician or dependent. [facility] Behavioral Health: The patient is not an established patient of [facility] Behavioral Health. Referral Information: Evaluation referral is generated by the patient himself / herself. The patient was referred for evaluation because Pt reports he is having command AH telling him to kill himself the past 24 hours, no plan at this time, misses his 29YO daughter who 1 year ago from a heroin OD. Pt told [facility] staff this morning and wanted to try and feel better on his own, but could not do and then asked staff to bring him in tonight. Pt reports no change in sleeping or eating, likes residing at [facility] residential, has numerous psyche admissions [facility], [facility], [facility]. [facility]. Pt has a hsitory of OD attempts in the past, and is stating "I need help". Subjective: The patients chief complaint is Pt reports being depressed, is getting along with out his 29 YO daughter who of a Heroin OD a year ago, hearing command voices telling him to kill self, no plan. Delusions are denied. Patient's mood is anxious, depressed, hopeless, Command hallucinations are reported by the patient. Mental Health history: alcohol abuse, anxiety, depression, abusing marijuana. cocaine. psychosis, sleep disturbance, suicide attempt by by cutting or Over dosing numerous times in the past Mental Health Admissions: multiple admissions in the past 20 years Current Outpatient Mental Health Services: Psychiatrist / Agency: darrius Walsh . Therapist / Agency: [facility] does not remember name at this time. Current living environment is The patient currently lives in a [facility] residence. The patient is single. Patient presents to Emergency Department with the following symptoms within the past 2 weeks: anxiety, depressed mood, auditory hallucinations stated by patient feelings of helplessness/hopelessness, labile mood, poor concentration, poor impulse control, psychosis, suicidal ideation with no plan. Substance abuse: Pt denies. Mental status exam: Patients appearance is disheveled Patient's behavior is cooperative, Speech is mumbled. Affect is flat. Mood is anxious. depressed. Command hallucinations are reported by the patient. Appetite is normal. Memory is poor. Energy level is tires easily. Content of thought is normal. Thought process is intact. Cognitive level is oriented to person, place, time and situation Patient's insight is poor. Judgement is absent. Rapport with interviewer is good. Suicidal Ideation is present with no specific plan. Homicidal ideation is not present. Disposition: Medically cleared for disposition by Tresa Bain MD Psychiatric Consult is performed by phone with Dr Garrick Schmidt MD. COUNT INCLUDES THE [facility] Admission Criteria: The patient is experiencing suicidal ideation. The patient displays symptoms of severe psychiatric disorder resulting in disordered behavior and significant interference with his / her ability to maintain self care. Hallucinations. The patient requires continuous observation and/or control to protect self, others or property. The patient's care requires a multi-modal treatment plan under close supervision and coordination due to the complexity and severity of the patient's symptoms. The patient requires administration and monitoring of psychoactive medications by skilled medical providers due to the side effects of the psychoactive medications or significant dosage adjustments. Legal Status: Patient's legal status will be Emergency admission: . [place] Safe Act: [place] Safe Act is applicable to this patient. The patient poses a risk to self or other and the Nursing Last Model Department Supervisor has been notified. He/She will enter the patient's data. 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 Vital Signs: 16:39 BP 95 / 72; Pulse 97; Resp 18 S; Temp 96.4(T); Pulse Ox 98% on R/A; Weight 81.65 kg dd6 (R); Height 5 ft. 8 in. (172.72 cm) (R); 22:01 BP 95 / 60; Pulse 79; Resp 16; Temp 96.8; Pulse Ox 97% on R/A; Pain 0/10; slm 16:39 Body Mass Index 27.37 (81.65 kg, 172.72 cm) dd6 Vitals: 16:39 Log In Time: July 11, 2016 at 16:37. dd6 16:41 RN notified that patient meets Red Flag criteria. dd6 ED Course: 16:39 Patient visited by Ced Lawrence PCA. dd6 16:39 Nael Castanon is Private Physician. dd6 16:39 Patient moved to [facility] dd6 16:42 Triage Initiated srm 16:46 Patient moved to [facility] srm 16:53 Tresa Bain MD is Attending Physician. sd1 16:58 Patient visited by Korin Muñoz PCA. tmm1 17:06 Patient visited by Tresa Bain MD. sd1 17:13 Accompanied by case management manager, Placed in gown. Placed in psych safe attire. Bed in low tmm1 position. Side rails up X 1. Security observing. Property removed, inventory done. Door closed. Noise minimized. Visitors limited. Psych Safety Check: Location: Psych Room. Visual Assessment: Cooperative. 17:41 Patient visited by Landon Mitchell Security Aide. pjf 17:49 Patient visited by Landon Mitchell Security Aide. pjf 17:50 Acetaminophen Level Sent. rs3 17:50 Basic Metabolic Profile Sent. rs3 17:50 Complete Blood Count Sent. rs3 18:00 Patient visited by Landon Mitchell Security Aide. pjf 18:35 Patient visited by Terrie Barbosa RN. rs3 19:01 Maryam Betancourt LPN is Primary Nurse. slm 19:11 Kade Lutz MD is Hospitalizing Provider. sd1 19:18 [facility] Payment Agreement was scanned into [employer] and attached to record. zo 19:21 Patient visited by Maryam Betancourt LPN. slm 19:23 E Legal paperwork was scanned into [employer] and attached to record. cs 19:25 Patient visited by Wayne Agrawal. mas 19:30 Patient visited by Wayne Agrawal. mas 19:45 Patient visited by Wayne Agrawal. mas 20:00 Patient visited by Wayne Agrawal. mas 20:16 Patient visited by Wayne Agrawal. mas 20:23 Patient visited by Maryam Betancourt LPN. slm 20:30 Patient visited by Wayne Agrawal. mas 20:45 Patient visited by Wayne Agrawal. mas 21:00 Patient visited by Wayne Agrawal. mas 21:15 Patient visited by Wayne Agrawal. mas 21:32 Patient visited by Wayne Agrawal. mas 21:47 Patient visited by Wayne Agrawal. mas 22:01 The patient / caregiver is instructed regarding the plan of care and ED course. slm 22:01 No IV's were initiated during this patient's visit. No procedures done that require [facility] assistance. Labs drawn. (by ED staff). Sent per order to lab. Attachments: 19:23 [facility] Legal paperwork cs Order Results: Lab Order: Acetaminophen Level; SPEC'M 07/11/16 17:36 Test: ACETAMINOPHEN LEVEL; Value: < 2.0; Range: 10.0-30.0; Abnormal: Below low normal; Units: UG/ML; Status: F Lab Order: Basic Metabolic Profile; SPEC'M 07/11/16 17:36 Test: GLUCOSE, FASTING; Value: 89; Range: 70-105; Units: MG/DL; Status: F Test: BLOOD UREA NITROGEN; Value: 10; Range: 7-18; Units: MG/DL; Status: F Test: CREATININE FOR GFR; Value: 0.92; Range: 0.70-1.30; Units: MG/DL; Status: F Test: GLOMERULAR FILTRATION RATE; Value: > 60.0; Range: >56; Status: F Test: SODIUM LEVEL; Value: 143; Range: 136-145; Units: MEQ/L; Status: F Test: POTASSIUM SERUM; Value: 4.0; Range: 3.5-5.1; Units: MEQ/L; Status: F Test: CHLORIDE LEVEL; Value: 107; Range: 98-107; Units: MEQ/L; Status: F Test: CARBON DIOXIDE LEVEL; Value: 26; Range: 21-32; Units: MEQ/L; Status: F Test: ANION GAP; Value: 10; Range: 8-16; Units: MEQ/L; Status: F Test: CALCIUM LEVEL; Value: 8.2; Range: 8.5-10.1; Abnormal: Below low normal; Units: MG/DL; Status: F Test Note: ; Units are mL/min/1.73 m2 Chronic Kidney Disease Staging per NKF: Stage I & II GFR >=60 Normal to Mildly Decreased Stage III GFR 30-59 Moderately Decreased Stage IV GFR 15-29 Severely Decreased Stage V GFR <15 Very Little GFR Left ESRD GFR <15 on DRYING EQUIPMENT OPERATOR Lab Order: Complete Blood Count; SPEC'M 07/11/16 17:36 Test: WHITE BLOOD COUNT; Value: 11.6; Range: 4.0-10.0; Abnormal: Above high normal; Units: K/mm3; Status: F Test: RED BLOOD COUNT; Value: 4.85; Range: 4.30-6.10; Units: M/mm3; Status: F Test: HEMOGLOBIN; Value: 14.3; Range: 14.0-18.0; Units: g/dl; Status: F Test: HEMATOCRIT; Value: 43.0; Range: 42.0-52.0; Units: %; Status: F Test: MEAN CORPUSCULAR VOLUME; Value: 88.6; Range: 80.0-96.0; Units: fl; Status: F Test: MEAN CORPUSCULAR HEMOGLOBIN; Value: 29.5; Range: 27.0-33.0; Units: pg; Status: F Test: MEAN CORPUSCULAR HGB CONC; Value: 33.3; Range: 32.0-36.5; Units: g/dl; Status: F Test: RED CELL DISTRIBUTION WIDTH; Value: 14.0; Range: 11.5-14.5; Units: %; Status: F Test: PLATELET COUNT, AUTOMATED; Value: 288; Range: 150-450; Units: k/mm3; Status: F Lab Order: Drug Eval Toxicology ED Only; SPEC'M 07/11/16 17:36 Test: AMPHETAMINES LEVEL URINE; Value: NEGATIVE; Range: NEGATIVE; Status: F Test: BARBITURATES URINE; Value: NEGATIVE; Range: NEGATIVE; Status: F Test: BENZODIAZEPINES URINE; Value: NEGATIVE; Range: NEGATIVE; Status: F Test: CANNABINOIDS URINE; Value: NEGATIVE; Range: NEGATIVE; Status: F Test: COCAINE METABOLITE URINE; Value: NEGATIVE; Range: NEGATIVE; Status: F Test: METHADONE URINE; Value: NEGATIVE; Range: NEGATIVE; Status: F Test: OPIATES URINE; Value: NEGATIVE; Range: NEGATIVE; Status: F Test: TRICYCLIC ANTIDEPRESS URINE; Value: POSITIVE; Range: NEGATIVE; Abnormal: Above high normal; Status: F Test Note: ; ALL PRESUMPTIVE POSITIVE FINDINGS ARE UNCONFIRMED NORMAL VALUES THRESHOLD IN NG/ML AMPHETAMINES 1000 METHAMPHETAMINES 1000 BARBITURATES 300 BENZODIAZEPINES 300 CANNABINOIDS (THC) 50 COCAINE METABOLITE 300 METHADONE 300 OPIATES 300 PHENCYCLIDINE 25 TRICYCLIC ANTIDEPRESSANTS 1000 RESULTS ARE FOR MEDICAL PURPOSES ONLY. ALL URINE SPECIMENS WILL BE SAVED FOR 3 DAYS. IF CONFIRMATION OF A PRESUMPTIVE POSTIVE SCREEN RESULT IS DESIRED, CALL CHEMISTRY ([phone]) AND REQUEST URINE TO BE SENT TO REFERENCE LAB. FOR A LIST OF CLOSELY RELATED COMPOUNDS PLEASE CALL THE LAB. Lab Order: Ethyl Alcohol (ethanol); SPEC'M 07/11/16 17:36 Test: ETHYL ALCOHOL (ETHANOL); Value: < 0.003; Range: 0.000-0.010; Units: %; Status: F Lab Order: Liver Profile; SPEC'M 07/11/16 17:36 Test: AST/SGOT; Value: 7; Range: 15-37; Abnormal: Below low normal; Units: U/L; Status: F Test: ALT/SGPT; Value: 20; Range: 12-78; Units: U/L; Status: F Test: ALKALINE PHOSPHATASE; Value: 109; Range: 45-117; Units: U/L; Status: F Test: BILIRUBIN,TOTAL; Value: 0.4; Range: 0.2-1.0; Units: MG/DL; Status: F Test: BILIRUBIN,DIRECT; Value: 0.1; Range: 0.0-0.2; Units: MG/DL; Status: F Test: TOTAL PROTEIN; Value: 7.2; Range: 6.4-8.2; Units: GM/DL; Status: F Test: ALBUMIN; Value: 3.8; Range: 3.2-5.2; Units: GM/DL; Status: F Test: ALBUMIN/GLOBULIN RATIO; Value: 1.12; Range: 1.00-1.93; Status: F Lab Order: Salicylate Level; SPEC'M 07/11/16 17:36 Test: SALICYLATE LEVEL; Value: 3.5; Range: 5.0-30.0; Abnormal: Below low normal; Units: MG/DL; Status: F Lab Order: Thyroid Stimulating Hormone; SPEC'M 07/11/16 17:36 Test: THYROID STIMULATING HORMONE; Value: 1.280; Range: 0.358-3.740; Units: uIU/ML; Status: F Outcome: 19:11 Decision to Hospitalize by Provider. sd1 22:01 Discharge Assessment: Patient awake, alert and oriented x 3. No cognitive and/or slm functional deficits noted. Patient verbalized understanding of disposition instructions. patient administered narcotics - no. The following High Risk Discharge criteria are identified: None. Admitted to Psych accompanied by tech, with oxygen, with chart. Condition: stable. No special radiology studies were completed. 22:03 Patient left the ED. emerson Signatures: Tresa Bain MD MD sd1 Ginger Antonio, RN RN kmg1 Kayce Alcantara, RN RN [facility] Brijesh Cowan, PSA PSA Landon Mitchell, Security Aide Diaz Lancaster Daniell, CIVIL CAD TECH CIVIL CAD TECH dd6 Terrie Barbosa,RN RN rs3 Wayne Agrawal, Korin, CIVIL CAD TECH CIVIL CAD TECH tmm1 Maryam Betancourt LPN LPN sl Chart Complete FAUSTO
--- NOTE | 2016-07-14 13:36 | EDDOCDS ---
Physician Documentation [facility] Name: Julian Cates Age: 56 yrs Sex: Male : 1960 Arrival Date: 07/11/2016 Time: 16:37 Bed U5 Private MD: Nael Castanon Michael Disposition: 07/11/16 19:11 Hospitalization ordered by Kade Lutz for Inpatient Admission. Preliminary diagnosis is Suicidal ideations. - Bed requested for Admit. - Status is Inpatient Admission. slm - Condition is Stable. - Problem is an acute exacerbation. - Symptoms are unchanged. Historical: - Allergies: Compazine; Haldol; - Home Meds: 1. mirtazapine 15 mg Oral tab 1 tab nightly 2. escitalopram oxalate 10 mg oral tab 1 tab once daily 3. chlorpromazine 50 mg Oral tab 1 tab 2 times per day 4. clozapine 100 mg oral TbDL 1 tab - PMHx: Asthma; COPD; Depression; Diabetes - NIDDM: controlled; rt side heart failure; Hypercholesterolemia; - PSHx: Cholecystectomy; Hernia repair; - Social history: Smoking status: Patient uses tobacco products, current every day smoker. No barriers to communication noted, The patient speaks fluent Syriac, Speaks appropriately for age. - Family history: Not pertinent. - : The pt / caregiver states he / she is not on anticoagulants. Home medication list is obtained from the patient. - Exposure Risk Screening:: None identified. Vital Signs: 07/11 16:39 BP 95 / 72; Pulse 97; Resp 18 S; Temp 96.4(T); Pulse Ox 98% on R/A; Weight 81.65 kg / dd6 180.01 lbs (R); Height 5 ft. 8 in. (172.72 cm) (R); 22:01 BP 95 / 60; Pulse 79; Resp 16; Temp 96.8; Pulse Ox 97% on R/A; Pain 0/10; slm 16:39 Body Mass Index 27.37 (81.65 kg, 172.72 cm) dd6 MDM: 17:18 Consult PFS/PSA/Hide Measuring Machine Operator ordered. sd1 17:18 Consult PFS/PSA/Hide Measuring Machine Operator: Patient's case requires discussion with on-call sd1 Psychiatrist ordered. 17:18 PSA/PFS to call Nursing Cow Puncher, to enter patient data on [place] Safe Act if patient sd1 involuntarily admitted or transferred for SI or HI ordered. 17:18 Confirm accurate psychiatric medication list and times of last dosage ordered. sd1 17:18 Detain Pt Until Medically/PFS Cleared ordered. sd1 17:20 REGULAR DIET PLASTIC JOYNER+DIET ordered. EDMS 17:20 Acetaminophen Level Ordered. EDMS 17:20 Basic Metabolic Profile Ordered. EDMS 17:20 Complete Blood Count Ordered. EDMS 17:20 Drug Eval Toxicology ED Only Ordered. EDMS 17:20 Ethyl Alcohol (ethanol) Ordered. EDMS 17:20 Liver Profile Ordered. EDMS 17:20 Salicylate Level Ordered. EDMS 17:20 Thyroid Stimulating Hormone Ordered. EDMS 18:33 Acetaminophen Level Reviewed. sd1 18:33 Basic Metabolic Profile Reviewed. sd1 18:33 Complete Blood Count Reviewed. sd1 18:33 Drug Eval Toxicology ED Only Reviewed. sd1 18:33 Liver Profile Reviewed. sd1 18:33 Salicylate Level Reviewed. sd1 18:33 Ethyl Alcohol (ethanol) Reviewed. sd1 18:33 Thyroid Stimulating Hormone Reviewed. sd1 18:50 Financial registration complete. zo 18:52 Consult PFS/PSA/Hide Measuring Machine Operator complete. rb 18:52 Consult PFS/PSA/Hide Measuring Machine Operator: Patient's case requires discussion with on-call rb Psychiatrist complete. 19:12 Admit to [facility]: ordered. EDMS 19:18 [facility] Payment Agreement was scanned into [employer] and attached to record. zo 19:23 [facility] Legal paperwork was scanned into [employer] and attached to record. cs 19:36 PSA/PFS to call Nursing Cow Puncher, to enter patient data on [place] Safe Act if patient slm involuntarily admitted or transferred for SI or HI complete. Signatures: Dispatcher [employer] EDMS Tresa Bain MD MD sd1 Kayce Alcantara, RN RN srm Anuj, [place], PSA PSA rb Brijesh Cowan, PSA PSA cs Diaz Kirkpatrick RosemaryRN RN rs3 Maryam Betancourt LPN LPN m The chart was reviewed and I authenticate all verbal orders and agree with the evaluation and treatment provided.Attachments: 19:18 [facility] Payment Agreement zo Chart Complete MTDD
--- NOTE | 2016-07-14 13:36 | EDDOCDS ---
Physician Documentation [facility] Name: Julian Cates Age: 56 yrs Sex: Male : 1960 Arrival Date: 07/11/2016 Time: 16:37 Bed U5 Private MD: Nael Castanon Michael Disposition: 07/11/16 19:11 Hospitalization ordered by Kade Lutz for Inpatient Admission. Preliminary diagnosis is Suicidal ideations. - Bed requested for Admit. - Status is Inpatient Admission. slm - Condition is Stable. - Problem is an acute exacerbation. - Symptoms are unchanged. Historical: - Allergies: Compazine; Haldol; - Home Meds: 1. mirtazapine 15 mg Oral tab 1 tab nightly 2. escitalopram oxalate 10 mg oral tab 1 tab once daily 3. chlorpromazine 50 mg Oral tab 1 tab 2 times per day 4. clozapine 100 mg oral TbDL 1 tab - PMHx: Asthma; COPD; Depression; Diabetes - NIDDM: controlled; rt side heart failure; Hypercholesterolemia; - PSHx: Cholecystectomy; Hernia repair; - Social history: Smoking status: Patient uses tobacco products, current every day smoker. No barriers to communication noted, The patient speaks fluent Faroese, Speaks appropriately for age. - Family history: Not pertinent. - : The pt / caregiver states he / she is not on anticoagulants. Home medication list is obtained from the patient. - Exposure Risk Screening:: None identified. Vital Signs: 07/11 16:39 BP 95 / 72; Pulse 97; Resp 18 S; Temp 96.4(T); Pulse Ox 98% on R/A; Weight 81.65 kg / dd6 180.01 lbs (R); Height 5 ft. 8 in. (172.72 cm) (R); 22:01 BP 95 / 60; Pulse 79; Resp 16; Temp 96.8; Pulse Ox 97% on R/A; Pain 0/10; slm 16:39 Body Mass Index 27.37 (81.65 kg, 172.72 cm) dd6 MDM: 17:18 Consult PFS/PSA/Consumer Insights Specialist ordered. sd1 17:18 Consult PFS/PSA/Consumer Insights Specialist: Patient's case requires discussion with on-call sd1 Psychiatrist ordered. 17:18 PSA/PFS to call Nursing Team Member, to enter patient data on [place] Safe Act if patient sd1 involuntarily admitted or transferred for SI or HI ordered. 17:18 Confirm accurate psychiatric medication list and times of last dosage ordered. sd1 17:18 Detain Pt Until Medically/PFS Cleared ordered. sd1 17:20 REGULAR DIET PLASTIC JOYNER+DIET ordered. EDMS 17:20 Acetaminophen Level Ordered. EDMS 17:20 Basic Metabolic Profile Ordered. EDMS 17:20 Complete Blood Count Ordered. EDMS 17:20 Drug Eval Toxicology ED Only Ordered. EDMS 17:20 Ethyl Alcohol (ethanol) Ordered. EDMS 17:20 Liver Profile Ordered. EDMS 17:20 Salicylate Level Ordered. EDMS 17:20 Thyroid Stimulating Hormone Ordered. EDMS 18:33 Acetaminophen Level Reviewed. sd1 18:33 Basic Metabolic Profile Reviewed. sd1 18:33 Complete Blood Count Reviewed. sd1 18:33 Drug Eval Toxicology ED Only Reviewed. sd1 18:33 Liver Profile Reviewed. sd1 18:33 Salicylate Level Reviewed. sd1 18:33 Ethyl Alcohol (ethanol) Reviewed. sd1 18:33 Thyroid Stimulating Hormone Reviewed. sd1 18:50 Financial registration complete. zo 18:52 Consult PFS/PSA/Consumer Insights Specialist complete. rb 18:52 Consult PFS/PSA/Consumer Insights Specialist: Patient's case requires discussion with on-call rb Psychiatrist complete. 19:12 Admit to [facility]: ordered. EDMS 19:18 [facility] Payment Agreement was scanned into [employer] and attached to record. zo 19:23 [facility] Legal paperwork was scanned into [employer] and attached to record. cs 19:36 PSA/PFS to call Nursing Team Member, to enter patient data on [place] Safe [place] if patient slm involuntarily admitted or transferred for SI or HI complete. Signatures: Dispatcher [employer] EDMS Tresa Bain MD MD sd1 Kayce Alcantara, RN RN srm Anuj, [place], PSA PSA rb Brijesh Cowan, PSA PSA cs Diaz Kirkpatrick RosemaryRN RN rs3 Maryam Betancourt LPN LPN m The chart was reviewed and I authenticate all verbal orders and agree with the evaluation and treatment provided.Attachments: 19:18 [facility] Payment Agreement zo Chart Complete MTDD
--- NOTE | 2016-07-14 13:47 | EDDOCDS ---
Nurse's Notes [facility] Name: Julian Cates Age: 56 yrs Sex: Male : 1960 Arrival Date: 07/11/2016 Time: 16:37 Bed BHU5 Private MD: Nael Castanon Michael Diagnosis: Suicidal ideations Presentation: 07/11 16:41 Presenting complaint: Patient states: hearing voices that are telling me to kill srm myself. started today. Mental Health Triage Level: Level 2: The patient displays active suicidal ideations. Adult Sepsis Screening: The patient does not have new or worsening altered mentation. Patient's respiratory rate is less than 22. Systolic blood pressure is greater than 100. Patient has a qSOFA score of 0- Negative Sepsis Screen. Suicide/Homicide risk assessment- The patient admits to and/or has been reported to be having suicidal ideations. The patient reports that he/she has not been admitted to an inpatient mental health facility in the last 30 days. The patient reports that he/she has a recent or current history of substance abuse. The patient reports that he/she has a prior history of suicide attempt and/or organized plan. The patient reports that he/she has not experienced a significant life altering event in the last 30 days. Status: Patient is not a service observer chief or dependent. Transition of care: patient was not received from another setting of care. 16:41 Acuity: KEV Level 3 [facility] 16:41 Method Of Arrival: Walkin/Carried/Asstd [facility] Triage Assessment: 16:42 General: Appears in no apparent distress, Behavior is appropriate for age, cooperative. srm Pain: Denies pain. HIV screening NA for this visit Offered previously. Historical: - Allergies: Compazine; Haldol; - Home Meds: 1. mirtazapine 15 mg Oral tab 1 tab nightly 2. escitalopram oxalate 10 mg oral tab 1 tab once daily 3. chlorpromazine 50 mg Oral tab 1 tab 2 times per day 4. clozapine 100 mg oral TbDL 1 tab - PMHx: Asthma; COPD; Depression; Diabetes - NIDDM: controlled; rt side heart failure; Hypercholesterolemia; - PSHx: Cholecystectomy; Hernia repair; - Social history: Smoking status: Patient uses tobacco products, current every day smoker. No barriers to communication noted, The patient speaks fluent Kyrgyz, Speaks appropriately for age. - Family history: Not pertinent. - : The pt / caregiver states he / she is not on anticoagulants. Home medication list is obtained from the patient. - Exposure Risk Screening:: None identified. Screenin:57 Screening information is obtained from the patient. Fall risk: No risks identified. rs3 Assistance ADL's: requires no assistance with activities of daily living. Abuse/DV Screen: The patient / caregiver reports he/she is: not in a situation that causes fear, pain or injury. Nutritional screening: No deficits noted. Advance Directives: Currently, there is no health care proxy. home support is adequate. 19:17 Infection Control. kmg1 Assessment: 17:30 General: General: Appears in no apparent distress, Behavior is appropriate for age, rs3 cooperative. Pain: Denies pain. Neurological: Level of Consciousness is awake, alert, Oriented to person, place, time. Cardiovascular: Capillary refill < 3 seconds. Respiratory: Airway is patent Respiratory effort is even, unlabored, Respiratory pattern is regular, symmetrical. Derm: Skin is pink, warm & dry. 18:35 General: Appears in no apparent distress, Behavior is appropriate for age, cooperative, rs3 had supper tray. tolerated well. denies of any distress/pain. resting comfortable on stretcher. 19:21 General: Appears in no apparent distress, comfortable, Behavior is cooperative, quiet. slm General: pt resting on stretcher friend in room security observing . Pain: Denies pain. Neurological: Level of Consciousness is awake, alert, obeys commands. Respiratory: Airway is patent Respiratory effort is even, unlabored. 20:22 General: Appears in no apparent distress, comfortable, Behavior is cooperative. slm General: pt resting on stretcher security observing . Respiratory: Airway is patent Respiratory effort is even, unlabored. 21:10 General: Appears in no apparent distress, comfortable, Behavior is cooperative, slm pleasant, quiet. General: pt resting on stretcher quietly security observing . Respiratory: Airway is patent Respiratory effort is even, unlabored. 22:00 General: Appears in no apparent distress, comfortable, Behavior is appropriate for age, slm cooperative, pleasant. Pain: Denies pain. Respiratory: Airway is patent Respiratory effort is even, unlabored. Derm: Skin is pink, warm & dry. Mental Health Eval: 18:25 Mental health consult is initiated at 18:25. Status: The patient is not a service observer chief or dependent. [facility] Behavioral Health: The patient is not an established patient of [facility] Behavioral Health. Referral Information: Evaluation referral is generated by the patient himself / herself. The patient was referred for evaluation because Pt reports he is having command AH telling him to kill himself the past 24 hours, no plan at this time, misses his 29YO daughter who 1 year ago from a heroin OD. Pt told [facility] staff this morning and wanted to try and feel better on his own, but could not do and then asked staff to bring him in tonight. Pt reports no change in sleeping or eating, likes residing at [facility] residential, has numerous psyche admissions [facility], [facility]. [facility]. Pt has a hsitory of OD attempts in the past, and is stating "I need help". Subjective: The patients chief complaint is Pt reports being depressed, is getting along with out his 29 YO daughter who of a Heroin OD a year ago, hearing command voices telling him to kill self, no plan. Delusions are denied. Patient's mood is anxious, depressed, hopeless, Command hallucinations are reported by the patient. Mental Health history: alcohol abuse, anxiety, depression, abusing marijuana. cocaine. psychosis, sleep disturbance, suicide attempt by by cutting or Over dosing numerous times in the past Mental Health Admissions: multiple admissions in the past 20 years Current Outpatient Mental Health Services: Psychiatrist / Agency: darrius Walsh . Therapist / Agency: [facility] does not remember name at this time. Current living environment is The patient currently lives in a [facility] residence. The patient is single. Patient presents to Emergency Department with the following symptoms within the past 2 weeks: anxiety, depressed mood, auditory hallucinations stated by patient feelings of helplessness/hopelessness, labile mood, poor concentration, poor impulse control, psychosis, suicidal ideation with no plan. Substance abuse: Pt denies. Mental status exam: Patients appearance is disheveled Patient's behavior is cooperative, Speech is mumbled. Affect is flat. Mood is anxious. depressed. Command hallucinations are reported by the patient. Appetite is normal. Memory is poor. Energy level is tires easily. Content of thought is normal. Thought process is intact. Cognitive level is oriented to person, place, time and situation Patient's insight is poor. Judgement is absent. Rapport with interviewer is good. Suicidal Ideation is present with no specific plan. Homicidal ideation is not present. Disposition: Medically cleared for disposition by Tresa Bain MD Psychiatric Consult is performed by phone with Dr Garrick Schmidt MD. [facility] Admission Criteria: The patient is experiencing suicidal ideation. The patient displays symptoms of severe psychiatric disorder resulting in disordered behavior and significant interference with his / her ability to maintain self care. Hallucinations. The patient requires continuous observation and/or control to protect self, others or property. The patient's care requires a multi-modal treatment plan under close supervision and coordination due to the complexity and severity of the patient's symptoms. The patient requires administration and monitoring of psychoactive medications by skilled medical providers due to the side effects of the psychoactive medications or significant dosage adjustments. Legal Status: Patient's legal status will be Emergency admission: . [place] Safe Act: [place] Safe Act is applicable to this patient. The patient poses a risk to self or other and the Nursing Scales Inspector has been notified. He/She will enter the patient's data. 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 Vital Signs: 16:39 BP 95 / 72; Pulse 97; Resp 18 S; Temp 96.4(T); Pulse Ox 98% on R/A; Weight 81.65 kg dd6 (R); Height 5 ft. 8 in. (172.72 cm) (R); 22:01 BP 95 / 60; Pulse 79; Resp 16; Temp 96.8; Pulse Ox 97% on R/A; Pain 0/10; slm 16:39 Body Mass Index 27.37 (81.65 kg, 172.72 cm) dd6 Vitals: 16:39 Log In Time: July 11, 2016 at 16:37. dd6 16:41 RN notified that patient meets Red Flag criteria. dd6 ED Course: 16:39 Patient visited by Ced Lawrence PCA. dd6 16:39 Nael Castanon is Private Physician. dd6 16:39 Patient moved to [facility] dd6 16:42 Triage Initiated srm 16:46 Patient moved to [facility] srm 16:53 Tresa Bain MD is Attending Physician. sd1 16:58 Patient visited by Korin Muñoz PCA. tmm1 17:06 Patient visited by Tresa Bain MD. sd1 17:13 Accompanied by shoe caser, Placed in gown. Placed in psych safe attire. Bed in low tmm1 position. Side rails up X 1. Security observing. Property removed, inventory done. Door closed. Noise minimized. Visitors limited. Psych Safety Check: Location: Psych Room. Visual Assessment: Cooperative. 17:41 Patient visited by Landon Mitchell Security Aide. pjf 17:49 Patient visited by Landon Mitchell Security Aide. pjf 17:50 Acetaminophen Level Sent. rs3 17:50 Basic Metabolic Profile Sent. rs3 17:50 Complete Blood Count Sent. rs3 18:00 Patient visited by Landon Mitchell Security Aide. pjf 18:35 Patient visited by Terrie Barbosa RN. rs3 19:01 Maryam Betancourt LPN is Primary Nurse. slm 19:11 Kade Lutz MD is Hospitalizing Provider. sd1 19:18 COUNT INCLUDES THE [facility] Payment Agreement was scanned into [employer] and attached to record. zo 19:21 Patient visited by Maryam Betancourt LPN. slm 19:23 E Legal paperwork was scanned into [employer] and attached to record. cs 19:25 Patient visited by Wayne Agrawal. mas 19:30 Patient visited by Wayne Agrawal. mas 19:45 Patient visited by Wayne Agrawal. mas 20:00 Patient visited by Wayne Agrawal. mas 20:16 Patient visited by Wayne Agrawal. mas 20:23 Patient visited by Maryam Betancourt LPN. slm 20:30 Patient visited by Wayne Agrawal. mas 20:45 Patient visited by Wayne Agrawal. mas 21:00 Patient visited by Wayne Agrawal. mas 21:15 Patient visited by Wayne Agrawal. mas 21:32 Patient visited by Wayne Agrawal. mas 21:47 Patient visited by Wayne Agrawal. mas 22:01 The patient / caregiver is instructed regarding the plan of care and ED course. slm 22:01 No IV's were initiated during this patient's visit. No procedures done that require [facility] assistance. Labs drawn. (by ED staff). Sent per order to lab. Attachments: 19:23 [facility] Legal paperwork cs Order Results: Lab Order: Acetaminophen Level; SPEC'M 07/11/16 17:36 Test: ACETAMINOPHEN LEVEL; Value: < 2.0; Range: 10.0-30.0; Abnormal: Below low normal; Units: UG/ML; Status: F Lab Order: Basic Metabolic Profile; SPEC'M 07/11/16 17:36 Test: GLUCOSE, FASTING; Value: 89; Range: 70-105; Units: MG/DL; Status: F Test: BLOOD UREA NITROGEN; Value: 10; Range: 7-18; Units: MG/DL; Status: F Test: CREATININE FOR GFR; Value: 0.92; Range: 0.70-1.30; Units: MG/DL; Status: F Test: GLOMERULAR FILTRATION RATE; Value: > 60.0; Range: >56; Status: F Test: SODIUM LEVEL; Value: 143; Range: 136-145; Units: MEQ/L; Status: F Test: POTASSIUM SERUM; Value: 4.0; Range: 3.5-5.1; Units: MEQ/L; Status: F Test: CHLORIDE LEVEL; Value: 107; Range: 98-107; Units: MEQ/L; Status: F Test: CARBON DIOXIDE LEVEL; Value: 26; Range: 21-32; Units: MEQ/L; Status: F Test: ANION GAP; Value: 10; Range: 8-16; Units: MEQ/L; Status: F Test: CALCIUM LEVEL; Value: 8.2; Range: 8.5-10.1; Abnormal: Below low normal; Units: MG/DL; Status: F Test Note: ; Units are mL/min/1.73 m2 Chronic Kidney Disease Staging per NKF: Stage I & II GFR >=60 Normal to Mildly Decreased Stage III GFR 30-59 Moderately Decreased Stage IV GFR 15-29 Severely Decreased Stage V GFR <15 Very Little GFR Left ESRD GFR <15 on STRATEGIC PLANNING MANAGER Lab Order: Complete Blood Count; SPEC'M 07/11/16 17:36 Test: WHITE BLOOD COUNT; Value: 11.6; Range: 4.0-10.0; Abnormal: Above high normal; Units: K/mm3; Status: F Test: RED BLOOD COUNT; Value: 4.85; Range: 4.30-6.10; Units: M/mm3; Status: F Test: HEMOGLOBIN; Value: 14.3; Range: 14.0-18.0; Units: g/dl; Status: F Test: HEMATOCRIT; Value: 43.0; Range: 42.0-52.0; Units: %; Status: F Test: MEAN CORPUSCULAR VOLUME; Value: 88.6; Range: 80.0-96.0; Units: fl; Status: F Test: MEAN CORPUSCULAR HEMOGLOBIN; Value: 29.5; Range: 27.0-33.0; Units: pg; Status: F Test: MEAN CORPUSCULAR HGB CONC; Value: 33.3; Range: 32.0-36.5; Units: g/dl; Status: F Test: RED CELL DISTRIBUTION WIDTH; Value: 14.0; Range: 11.5-14.5; Units: %; Status: F Test: PLATELET COUNT, AUTOMATED; Value: 288; Range: 150-450; Units: k/mm3; Status: F Lab Order: Drug Eval Toxicology ED Only; SPEC'M 07/11/16 17:36 Test: AMPHETAMINES LEVEL URINE; Value: NEGATIVE; Range: NEGATIVE; Status: F Test: BARBITURATES URINE; Value: NEGATIVE; Range: NEGATIVE; Status: F Test: BENZODIAZEPINES URINE; Value: NEGATIVE; Range: NEGATIVE; Status: F Test: CANNABINOIDS URINE; Value: NEGATIVE; Range: NEGATIVE; Status: F Test: COCAINE METABOLITE URINE; Value: NEGATIVE; Range: NEGATIVE; Status: F Test: METHADONE URINE; Value: NEGATIVE; Range: NEGATIVE; Status: F Test: OPIATES URINE; Value: NEGATIVE; Range: NEGATIVE; Status: F Test: TRICYCLIC ANTIDEPRESS URINE; Value: POSITIVE; Range: NEGATIVE; Abnormal: Above high normal; Status: F Test Note: ; ALL PRESUMPTIVE POSITIVE FINDINGS ARE UNCONFIRMED NORMAL VALUES THRESHOLD IN NG/ML AMPHETAMINES 1000 METHAMPHETAMINES 1000 BARBITURATES 300 BENZODIAZEPINES 300 CANNABINOIDS (THC) 50 COCAINE METABOLITE 300 METHADONE 300 OPIATES 300 PHENCYCLIDINE 25 TRICYCLIC ANTIDEPRESSANTS 1000 RESULTS ARE FOR MEDICAL PURPOSES ONLY. ALL URINE SPECIMENS WILL BE SAVED FOR 3 DAYS. IF CONFIRMATION OF A PRESUMPTIVE POSTIVE SCREEN RESULT IS DESIRED, CALL CHEMISTRY ([phone]) AND REQUEST URINE TO BE SENT TO REFERENCE LAB. FOR A LIST OF CLOSELY RELATED COMPOUNDS PLEASE CALL THE LAB. Lab Order: Ethyl Alcohol (ethanol); SPEC'M 07/11/16 17:36 Test: ETHYL ALCOHOL (ETHANOL); Value: < 0.003; Range: 0.000-0.010; Units: %; Status: F Lab Order: Liver Profile; SPEC'M 07/11/16 17:36 Test: AST/SGOT; Value: 7; Range: 15-37; Abnormal: Below low normal; Units: U/L; Status: F Test: ALT/SGPT; Value: 20; Range: 12-78; Units: U/L; Status: F Test: ALKALINE PHOSPHATASE; Value: 109; Range: 45-117; Units: U/L; Status: F Test: BILIRUBIN,TOTAL; Value: 0.4; Range: 0.2-1.0; Units: MG/DL; Status: F Test: BILIRUBIN,DIRECT; Value: 0.1; Range: 0.0-0.2; Units: MG/DL; Status: F Test: TOTAL PROTEIN; Value: 7.2; Range: 6.4-8.2; Units: GM/DL; Status: F Test: ALBUMIN; Value: 3.8; Range: 3.2-5.2; Units: GM/DL; Status: F Test: ALBUMIN/GLOBULIN RATIO; Value: 1.12; Range: 1.00-1.93; Status: F Lab Order: Salicylate Level; SPEC'M 07/11/16 17:36 Test: SALICYLATE LEVEL; Value: 3.5; Range: 5.0-30.0; Abnormal: Below low normal; Units: MG/DL; Status: F Lab Order: Thyroid Stimulating Hormone; SPEC'M 07/11/16 17:36 Test: THYROID STIMULATING HORMONE; Value: 1.280; Range: 0.358-3.740; Units: uIU/ML; Status: F Outcome: 19:11 Decision to Hospitalize by Provider. sd1 22:01 Discharge Assessment: Patient awake, alert and oriented x 3. No cognitive and/or slm functional deficits noted. Patient verbalized understanding of disposition instructions. patient administered narcotics - no. The following High Risk Discharge criteria are identified: None. Admitted to Psych accompanied by tech, with oxygen, with chart. Condition: stable. No special radiology studies were completed. 22:03 Patient left the ED. emerson Signatures: Tresa Bain MD MD sd1 Ginger Antonio, RN RN kmg1 Kayce Alcantara, RN RN [facility] Brijesh Cowan, PSA PSA Landon Mitchell, Security Aide Diaz Lancaster Daniell, MEDIA PRODUCTION OPERATOR MEDIA PRODUCTION OPERATOR dd6 Terrie Barbosa,RN RN rs3 Wayne Agrawal, Korin, MEDIA PRODUCTION OPERATOR MEDIA PRODUCTION OPERATOR tmm1 Maryam Betancourt LPN LPN sl Chart Complete [facility]
--- NOTE | 2016-07-14 13:47 | EDDOCDS ---
Physician Documentation [facility] Name: Julian Cates Age: 56 yrs Sex: Male : 1960 Arrival Date: 07/11/2016 Time: 16:37 Bed U5 Private MD: Nael Castanon Michael Disposition: 07/11/16 19:11 Hospitalization ordered by Kade Lutz for Inpatient Admission. Preliminary diagnosis is Suicidal ideations. - Bed requested for Admit. - Status is Inpatient Admission. slm - Condition is Stable. - Problem is an acute exacerbation. - Symptoms are unchanged. Historical: - Allergies: Compazine; Haldol; - Home Meds: 1. mirtazapine 15 mg Oral tab 1 tab nightly 2. escitalopram oxalate 10 mg oral tab 1 tab once daily 3. chlorpromazine 50 mg Oral tab 1 tab 2 times per day 4. clozapine 100 mg oral TbDL 1 tab - PMHx: Asthma; COPD; Depression; Diabetes - NIDDM: controlled; rt side heart failure; Hypercholesterolemia; - PSHx: Cholecystectomy; Hernia repair; - Social history: Smoking status: Patient uses tobacco products, current every day smoker. No barriers to communication noted, The patient speaks fluent Macedonian, Speaks appropriately for age. - Family history: Not pertinent. - : The pt / caregiver states he / she is not on anticoagulants. Home medication list is obtained from the patient. - Exposure Risk Screening:: None identified. Vital Signs: 07/11 16:39 BP 95 / 72; Pulse 97; Resp 18 S; Temp 96.4(T); Pulse Ox 98% on R/A; Weight 81.65 kg / dd6 180.01 lbs (R); Height 5 ft. 8 in. (172.72 cm) (R); 22:01 BP 95 / 60; Pulse 79; Resp 16; Temp 96.8; Pulse Ox 97% on R/A; Pain 0/10; slm 16:39 Body Mass Index 27.37 (81.65 kg, 172.72 cm) dd6 MDM: 17:18 Consult PFS/PSA/Licensed Appraiser ordered. sd1 17:18 Consult PFS/PSA/Licensed Appraiser: Patient's case requires discussion with on-call sd1 Psychiatrist ordered. 17:18 PSA/PFS to call Nursing Database Marketing Manager, to enter patient data on [place] Safe [place] if patient sd1 involuntarily admitted or transferred for SI or HI ordered. 17:18 Confirm accurate psychiatric medication list and times of last dosage ordered. sd1 17:18 Detain Pt Until Medically/PFS Cleared ordered. sd1 17:20 REGULAR DIET PLASTIC JOYNER+DIET ordered. EDMS 17:20 Acetaminophen Level Ordered. EDMS 17:20 Basic Metabolic Profile Ordered. EDMS 17:20 Complete Blood Count Ordered. EDMS 17:20 Drug Eval Toxicology ED Only Ordered. EDMS 17:20 Ethyl Alcohol (ethanol) Ordered. EDMS 17:20 Liver Profile Ordered. EDMS 17:20 Salicylate Level Ordered. EDMS 17:20 Thyroid Stimulating Hormone Ordered. EDMS 18:33 Acetaminophen Level Reviewed. sd1 18:33 Basic Metabolic Profile Reviewed. sd1 18:33 Complete Blood Count Reviewed. sd1 18:33 Drug Eval Toxicology ED Only Reviewed. sd1 18:33 Liver Profile Reviewed. sd1 18:33 Salicylate Level Reviewed. sd1 18:33 Ethyl Alcohol (ethanol) Reviewed. sd1 18:33 Thyroid Stimulating Hormone Reviewed. sd1 18:50 Financial registration complete. zo 18:52 Consult PFS/PSA/Licensed Appraiser complete. rb 18:52 Consult PFS/PSA/Licensed Appraiser: Patient's case requires discussion with on-call rb Psychiatrist complete. 19:12 Admit to [facility]: ordered. EDMS 19:18 [place] Payment Agreement was scanned into [employer] and attached to record. zo 19:23 [facility] Legal paperwork was scanned into [employer] and attached to record. cs 19:36 PSA/PFS to call Nursing Database Marketing Manager, to enter patient data on [place] Safe [place] if patient slm involuntarily admitted or transferred for SI or HI complete. Signatures: Dispatcher [employer] EDMS Tresa Bain MD MD sd1 Kayce Alcantara, RN RN srm Anuj, [place], PSA PSA rb Brijesh Cowan, PSA PSA cs Diaz Kirkpatrick RosemaryRN RN rs3 Maryam Betancourt LPN LPN m The chart was reviewed and I authenticate all verbal orders and agree with the evaluation and treatment provided.Attachments: 19:18 [facility] Payment Agreement zo Chart Complete MTDD
--- NOTE | 2016-07-14 13:47 | EDDOCDS ---
Physician Documentation [facility] Name: Julian Cates Age: 56 yrs Sex: Male : 1960 Arrival Date: 07/11/2016 Time: 16:37 Bed U5 Private MD: Nael Castanon Michael Disposition: 07/11/16 19:11 Hospitalization ordered by Kade Lutz for Inpatient Admission. Preliminary diagnosis is Suicidal ideations. - Bed requested for Admit. - Status is Inpatient Admission. slm - Condition is Stable. - Problem is an acute exacerbation. - Symptoms are unchanged. Historical: - Allergies: Compazine; Haldol; - Home Meds: 1. mirtazapine 15 mg Oral tab 1 tab nightly 2. escitalopram oxalate 10 mg oral tab 1 tab once daily 3. chlorpromazine 50 mg Oral tab 1 tab 2 times per day 4. clozapine 100 mg oral TbDL 1 tab - PMHx: Asthma; COPD; Depression; Diabetes - NIDDM: controlled; rt side heart failure; Hypercholesterolemia; - PSHx: Cholecystectomy; Hernia repair; - Social history: Smoking status: Patient uses tobacco products, current every day smoker. No barriers to communication noted, The patient speaks fluent Urdu, Speaks appropriately for age. - Family history: Not pertinent. - : The pt / caregiver states he / she is not on anticoagulants. Home medication list is obtained from the patient. - Exposure Risk Screening:: None identified. Vital Signs: 07/11 16:39 BP 95 / 72; Pulse 97; Resp 18 S; Temp 96.4(T); Pulse Ox 98% on R/A; Weight 81.65 kg / dd6 180.01 lbs (R); Height 5 ft. 8 in. (172.72 cm) (R); 22:01 BP 95 / 60; Pulse 79; Resp 16; Temp 96.8; Pulse Ox 97% on R/A; Pain 0/10; slm 16:39 Body Mass Index 27.37 (81.65 kg, 172.72 cm) dd6 MDM: 17:18 Consult PFS/PSA/Sprinkler Installer ordered. sd1 17:18 Consult PFS/PSA/Sprinkler Installer: Patient's case requires discussion with on-call sd1 Psychiatrist ordered. 17:18 PSA/PFS to call Nursing Client Services Specialist, to enter [place] data [place] if patient sd1 involuntarily admitted or transferred for SI or HI ordered. 17:18 Confirm accurate psychiatric medication list and times of last dosage ordered. sd1 17:18 Detain Pt Until Medically/PFS Cleared ordered. sd1 17:20 REGULAR DIET PLASTIC JOYNER+DIET ordered. EDMS 17:20 Acetaminophen Level Ordered. EDMS 17:20 Basic Metabolic Profile Ordered. EDMS 17:20 Complete Blood Count Ordered. EDMS 17:20 Drug Eval Toxicology ED Only Ordered. EDMS 17:20 Ethyl Alcohol (ethanol) Ordered. EDMS 17:20 Liver Profile Ordered. EDMS 17:20 Salicylate Level Ordered. EDMS 17:20 Thyroid Stimulating Hormone Ordered. EDMS 18:33 Acetaminophen Level Reviewed. sd1 18:33 Basic Metabolic Profile Reviewed. sd1 18:33 Complete Blood Count Reviewed. sd1 18:33 Drug Eval Toxicology ED Only Reviewed. sd1 18:33 Liver Profile Reviewed. sd1 18:33 Salicylate Level Reviewed. sd1 18:33 Ethyl Alcohol (ethanol) Reviewed. sd1 18:33 Thyroid Stimulating Hormone Reviewed. sd1 18:50 Financial registration complete. zo 18:52 Consult PFS/PSA/Sprinkler Installer complete. rb 18:52 Consult PFS/PSA/Sprinkler Installer: Patient's case requires discussion with on-call rb Psychiatrist complete. 19:12 [facility] ordered. EDMS 19:18 [place] Payment Agreement was scanned into [employer] and attached to record. zo 19:23 [facility] Legal paperwork was scanned into [employer] and attached to record. cs 19:36 PSA/PFS to call Nursing Client Services Specialist, to enter [place] data [place] if patient slm involuntarily admitted or transferred for SI or HI complete. Signatures: Dispatcher [employer] EDMS Tresa Bain MD MD sd1 Kayce Alcantara, RN RN srm Anuj, [place], PSA PSA rb Brijesh Cowan, PSA PSA cs Diaz Kirkpatrick RosemaryRN RN rs3 Maryam Betancourt LPN LPN m The chart was reviewed and I authenticate all verbal orders and agree with the evaluation and treatment provided.Attachments: 19:18 [facility] Payment Agreement zo Chart Complete MTDD
--- NOTE | 2016-07-14 14:25 | IPNPDOC ---
[facility] Progress Note Progress Note DATE OF SERVICE: 07/14/16 HISTORY: A 55-year-old [place] male hospitalized for command auditory hallucinations with suicidal ideation telling him to kill himself. The patient is a 55-year-old [place] male, single, living at a transitional living services ([facility]) community residence. The patient has a long history of mental health problems including numerous psychiatric admissions, outpatient psychiatric treatment. The patient was recently discharged from [facility] ([facility]) Inpatient Mental Health Unit (IM) on 2015. As per the emergency department (ED) report, the patient presented to the ED for evaluation because the patient presented after a scheduled appointment with psychiatrist Dr. Castanon. Dr. Castanon wanted to change the patient's medications but the patient declined change, requesting to go to the ED. The patient presented to the ED reporting hearing a woman's voice telling him to kill himself. The patient currently lives in a [facility] residence. Upon admission, the patient presents as a poor historian. He states he has been hearing voices that have been apparent since yesterday telling him to kill himself. He states his last suicide attempt was about two months ago. He states he does not know the trigger that brought him to have these command auditory hallucinations. He reports some depression but denies anxiety spectrum disorder symptoms. PAST PSYCHIATRIC HISTORY: The patient states he came out of [facility] ([facility]) a month ago after being there a month. However, this was inaccurate, as he was discharged from [facility] Jun 20, 2016. The patient states he has been medication compliant since discharge. The patient was also discharged on 08/28/2015, from [facility] after being hospitalized for about a week. The patient has had numerous psychiatric hospitalizations with a diagnosis of schizophrenia. CHEMICAL DEPENDENCY: The patient has a past history of problem with heroin, speed, and crack use. He denies current and recent use of drugs or alcohol. He has also had problems with alcohol in the past. PAST MEDICAL HISTORY: 1. Dementia. 2. Diastolic congestive heart failure with ejection fraction of 65%. 3. Chronic obstructive pulmonary disease (COPD). 4. Hypertension. 5. Asthma. 6. Diabetes, diet controlled. 7. High cholesterol. 8. Neurogenic bladder with suprapubic catheter in place. 9. Gastroesophageal reflux disease (GERD). 10. History of transient ischemic attack (TIA). 11. Cholecystectomy. 12. Right inguinal hernia repair. ALLERGIES: QUINOLONES, HALDOL, LEXAPRO, CHLORPROMAZINE cause anaphylaxis. FAMILY HISTORY: Several family members have a history of substance abuse problems including his daughter. It has been reported that one of his daughters had of a heroin overdose since his last admission here. SOCIAL HISTORY: The patient states he lives in [facility] for the past month. States it is going well. There has been no trouble with his roommate or other residents or with staff. He states he is not in contact with any family members. He had a fight with his sister and his daughter does not want anything to do with him. He does not know the reason for this. VITAL SIGNS: See below. 96.2 69 18 143/71 NEW TEST RESULTS: On admission - CBC within normal limits, except WBC elevated 11.3, hematocrit low at 41.4. CMP including TSH within normal limits except alkaline phosphatase elevated at 136, AST low at 6, calcium low at 8.2. Urine toxicology negative for drugs. Blood alcohol level, Tylenol and salicylate levels within normal limits. Hepatitis C and HIV screen pending. CURRENT PSYCH MEDICATIONS: See below. - Clozaril 150 mg at bedtime 400 mg at bedtime for schizoaffective disorder - Benadryl 50 mg at bedtime for sleep - Lexapro 10 mg daily for depression - trifluoperazine 4 mg by mouth twice a day for psychotic features MENTAL STATUS EXAMINATION: Patient is assessed simultaneously with Patient Financial Coordinator - Kelly. Patient is a 56-year-old male who appears much older than his stated age. Speech: Is of normal rate, volume, and articulation. Pt. is coherent and mostly spontaneous. Language skills are intact. Thought processes: Unclear, Not goal-directed. Thought content: Irrational, illogical, paranoia is evident. Abstract reasoning and computation: Adequate. Description of associations: Intact. Description of abnormal or psychotic thoughts: Pt. states he started having command auditory hallucinations of a female voice that he does not recognize that is telling him to kill himself. Pt. reports the voice states "Karlos, kill yourself". Pt. states these are much louder now during this assessment than when he was admitted. Pt. denies visual hallucinations, preoccupations, homicidal or suicidal ideation other than what his voice tells him, obsessions or compulsions. Pt. states he has had delusions but states "I can't remember, people told me". Pt. also reports that he has paranoia but cannot specify about what or how it makes him feel, states "I don't know". Judgment: Poor. Insight: Nonexistent. Orientation to: time, person, place and situation. Recent and remote memory: Pt. states "Not good" but cannot be specific or give example. Attention span and concentration: Poor. Language: Normal, somewhat difficult to understand. Fund of knowledge: Poor. Mood: Per pt. "Pretty good". Affect: flat, irrational. DIAGNOSES: 1. Schizoaffective disorder ASSESSMENT: Pt. states that he is having suicidal ideation due to command auditory hallucinations, that are telling him to kill himself. Pt. is not showing any behavioral clues such as grimacing, wincing, flinching that he is responding to internally occurring stimuli. Pt. does not appear to be sound sensitive, is not covering ears or cowering to the perceived volume of the voice. Pt. does not ask for anything or state he needs anything when asked. Pt. appears to be happy laying in bed and sleeping. Pt. denies any disruption of sleep habits due to voice. Pt. reports he sleeps well most nights. Pt. denies any use of alcohol, but has an extensive alcohol abuse history per prior records. Pt. is not reliable in giving accurate responses to questions asked possibly due to current mental state or prior diagnosed dementia. Pt. appears to be functioning in a happy oblivion. MANAGEMENT PLAN: Pt. to continue meds as ordered by admitting MD.Maintain safety precautions. Patient to attend groups and participate in unit programming to develop effective coping strategies. Patient to be engaged in discharge planning process to ensure safe and effective discharge plan. Patient to follow-up with primary care physician upon discharge. Patient to return to [facility] housing with supportive services. Patient to be consistent and compliant with medication regimen. Patient to be consistent and compliant with lab draws required for clozapine use. TIME SPENT: 25 minutes. Vital Signs Vital Signs Date Time Temp Pulse Resp B/P Pulse Ox O2 Delivery O2 Flow Rate FiO2 07/14/16 07:32 96.2 69 18 143/71 Room Air Laboratory Data 24H Labs Laboratory Tests 2 07/14/16 00:23: White Blood Count 8.1, Red Blood Count 4.54, Hemoglobin 13.5L, Hematocrit 40.4L , Mean Corpuscular Volume 88.9, Mean Corpuscular Hemoglobin 29.6, Mean Corpuscular Hemoglobin Concent 33.3, Red Cell Distribution Width 13.1, Platelet Count 238, Neutrophils (%) (Auto) 58.7, Lymphocytes (%) (Auto) 28.6, Monocytes ( %) (Auto) 8.0H, Eosinophils (%) (Auto) 2.5, Basophils (%) (Auto) 0.4, Neutrophils # (Auto) 4.8, Lymphocytes # (Auto) 2.3, Monocytes # (Auto) 0.7, Eosinophils # (Auto) 0.2, Basophils # (Auto) 0.0, Large Unclassified Cells # 0.2 , Large Unclassified Cells % 1.9 CBC/BMP Laboratory Tests 07/14/16 00:23 Red Blood Count 4.54, Mean Corpuscular Volume 88.9, Mean Corpuscular Hemoglobin 29.6, Mean Corpuscular Hemoglobin Concent 33.3, Red Cell Distribution Width 13.1 , Neutrophils (%) (Auto) 58.7, Lymphocytes (%) (Auto) 28.6, Monocytes (%) (Auto ) 8.0 H, Eosinophils (%) (Auto) 2.5, Basophils (%) (Auto) 0.4, Neutrophils # ( Auto) 4.8, Lymphocytes # (Auto) 2.3, Monocytes # (Auto) 0.7, Eosinophils # (Auto ) 0.2, Basophils # (Auto) 0.0 Current Medications Current Medications Medications (Trade) Dose Ordered Sig/Ora Route PRN Reason Start Time Stop Time Status Last Admin Dose Admin Acetaminophen (Tylenol Tab) 650 mg Q6HP PRN PO HEADACHE or DISCOMFORT 07/11/16 23:15 08/10/16 23:14 Al Hydrox/Mg Hydrox/Simethicone (Mylanta) 30 ml Q4HP PRN PO HEARTBURN/INDIGESTION 07/11/16 23:15 08/10/16 23:14 Albuterol/ Ipratropium (Duoneb (Ipr 0.5mg/Alb 2.5mg)) 3 ml Q4HP PRN NEB SOB/WHEEZING 07/13/16 23:15 08/12/16 23:14 Aspirin (Ecotrin) 81 mg DAILY PO 07/12/16 09:00 08/11/16 08:59 07/14/16 08:08 Benztropine Mesylate (Cogentin) 1 mg QHS PO 07/13/16 21:00 08/12/16 20:59 07/13/16 21:43 Chlorpromazine HCl (Thorazine) 50 mg BID PO 07/12/16 09:00 08/11/16 08:59 07/14/16 08:08 Clozapine (Clozaril) 200 mg QAM PO 07/12/16 09:00 07/13/16 08:33 DC 07/13/16 08:08 Clozapine (Clozaril) 250 mg QAM PO 07/14/16 09:00 07/21/16 08:59 07/14/16 08:08 Escitalopram Oxalate (Lexapro) 10 mg DAILY PO 07/12/16 09:00 08/11/16 08:59 07/14/16 08:08 Home Med (Med Rec Complete!) ASDIRECTED XX 07/11/16 20:00 07/11/16 20:01 DC Influenza Virus Vaccine (Fluzone Quadrivalent Pf Vaccine) 0.5 ml 1T@09 IM 07/13/16 09:00 07/13/16 23:59 DC 07/13/16 10:24 Magnesium Hydroxide (Milk Of Magnesia) 30 ml DAILYPRN PRN PO CONSTIPATION 07/11/16 23:15 08/10/16 23:14 Mirtazapine (Remeron) 15 mg QPM PO 07/12/16 21:00 08/11/16 20:59 07/13/16 21:43 Nicotine (Nicoderm Cq 21mg) 1 patch DAILY TD 07/12/16 09:00 08/11/16 08:59 07/14/16 08:10 Trazodone HCl (Desyrel) 50 mg QHSP PRN PO INSOMNIA 07/11/16 23:15 07/13/16 08:33 DC Trazodone HCl (Desyrel) 100 mg QHS PO 07/13/16 23:15 08/12/16 23:14 07/13/16 21:46 Allergies Coded Allergies: Quinolones (Verified Allergy, Unknown, QUESTIONABLE - AVELOX, 01/15/15) HAS HAD CIPRO & LEVAQUIN ON MULTIPLE OCCASIONS Haloperidol (Verified Adverse Reaction, Intermediate, ARACELISJAW,WHEEZING, 09/19/12) Prochlorperazine (Verified Adverse Reaction, Intermediate, ANAPHYLAXIS, 09/19/12) TONIA MOYA NP Jul 14, 2016 14:25
[2016-07-14] MEDS ORDERED: TUBERCULIN PPD 5 UNITS/0.1 ML ID ONE (16:00)
[2016-07-14 18:00] VITALS: BP 107/66
[2016-07-14] MEDS: ACETAMINOPHEN TAB 650MG DOSE (2X325MG) PO PRN (21:19)
[2016-07-14] MEDS: traZODone 100 MG TAB PO SCH (21:19)
[2016-07-14] MEDS: MIRTAZAPINE 15 MG TAB PO SCH (21:19)
[2016-07-14] MEDS: BENZTROPINE 1 MG TAB PO SCH (21:19)
[2016-07-15 06:00] VITALS: BP 132/71
[2016-07-15] MEDS: chlorproMAZINE 25 MG TAB (Q0161) PO SCH ×2 (08:12→21:39)
[2016-07-15] MEDS: ESCITALOPRAM OXALATE 10 MG TAB (LEXAPRO) PO SCH (08:12)
[2016-07-15] MEDS: ASPIRIN 81 MG ENTERIC TAB PO SCH (08:12)
[2016-07-15] MEDS: NICOTINE 21MG/24HR 1 EA TRANSDERMAL TD SCH (08:12)
[2016-07-15] MEDS: cloZAPine 100 MG TAB (S0136) PO SCH (08:12)
[2016-07-15] MEDS ORDERED: CLOZ200T PO (15:19)
[2016-07-15] MEDS ORDERED: FLOM5CAP PO (15:21)
[2016-07-15] MEDS ORDERED: METF850T PO (15:23)
[2016-07-15] MEDS ORDERED: OXYB5TA PO (15:25)
[2016-07-15] MEDS ORDERED: CLOZ50TA PO (15:29)
[2016-07-15] MEDS ORDERED: LIPI10TA PO (15:32)
[2016-07-15] MEDS ORDERED: SENN8.6C PO (15:34)
[2016-07-15] MEDS ORDERED: COLA100C PO (15:36)
[2016-07-15] MEDS ORDERED: SYMB16INH INH (15:37)
[2016-07-15] MEDS ORDERED: SPIR1CAP INH (15:39)
[2016-07-15] MEDS ORDERED: LISI2.5T3 PO (15:41)
[2016-07-15 16:52] VITALS: BP 113/84
[2016-07-15] MEDS: MAALOX 30 ML SUSP *UDC PO PRN (17:02)
[2016-07-15] MEDS: oxyBUTYnin 5 MG TAB PO SCH ×2 (17:35→21:39)
[2016-07-15 18:00] VITALS: BP 99/57
--- NOTE | 2016-07-15 20:58 | IPNPDOC ---
[facility] Progress Note Progress Note DATE OF SERVICE: 07/15/16 HISTORY: A 55-year-old [place] male hospitalized for command auditory hallucinations with suicidal ideation telling him to kill himself. The patient is a 55-year-old [place] male, single, living at a transitional living services ([facility]) community residence. The patient has a long history of mental health problems including numerous psychiatric admissions, outpatient psychiatric treatment. The patient was recently discharged from [facility] ([facility]) Inpatient Mental Health Unit (IM) on 2015. As per the emergency department (ED) report, the patient presented to the ED for evaluation because the patient presented after a scheduled appointment with psychiatrist Dr. Castanon. Dr. Castanon wanted to change the patient's medications but the patient declined change, requesting to go to the ED. The patient presented to the ED reporting hearing a woman's voice telling him to kill himself. The patient currently lives in a [facility] residence. Upon admission, the patient presents as a poor historian. He states he has been hearing voices that have been apparent since yesterday telling him to kill himself. He states his last suicide attempt was about two months ago. He states he does not know the trigger that brought him to have these command auditory hallucinations. He reports some depression but denies anxiety spectrum disorder symptoms. PAST PSYCHIATRIC HISTORY: The patient states he came out of [facility] ([facility] [place]) a month ago after being there a month. However, this was inaccurate, as he was discharged from [facility] Jun 20, 2016. The patient states he has been medication compliant since discharge. The patient was also discharged on 08/28/2015, from [facility] after being hospitalized for about a week. The patient has had numerous psychiatric hospitalizations with a diagnosis of schizophrenia. CHEMICAL DEPENDENCY: The patient has a past history of problem with heroin, speed, and crack use. He denies current and recent use of drugs or alcohol. He has also had problems with alcohol in the past. PAST MEDICAL HISTORY: 1. Dementia. 2. Diastolic congestive heart failure with ejection fraction of 65%. 3. Chronic obstructive pulmonary disease (COPD). 4. Hypertension. 5. Asthma. 6. Diabetes, diet controlled. 7. High cholesterol. 8. Neurogenic bladder with suprapubic catheter in place. 9. Gastroesophageal reflux disease (GERD). 10. History of transient ischemic attack (TIA). 11. Cholecystectomy. 12. Right inguinal hernia repair. ALLERGIES: QUINOLONES, HALDOL, LEXAPRO, CHLORPROMAZINE cause anaphylaxis. FAMILY HISTORY: Several family members have a history of substance abuse problems including his daughter. It has been reported that one of his daughters had of a heroin overdose since his last admission here. SOCIAL HISTORY: The patient states he lives in [facility] for the past month. States it is going well. There has been no trouble with his roommate or other residents or with staff. He states he is not in contact with any family members. He had a fight with his sister and his daughter does not want anything to do with him. He does not know the reason for this. VITAL SIGNS: See below. 95.8 100 16 132 /71 NEW TEST RESULTS: On admission - CBC within normal limits, except WBC elevated 11.3, hematocrit low at 41.4. CMP including TSH within normal limits except alkaline phosphatase elevated at 136, AST low at 6, calcium low at 8.2. Urine toxicology negative for drugs. Blood alcohol level, Tylenol and salicylate levels within normal limits. Hepatitis C and HIV screen pending. CURRENT PSYCH MEDICATIONS: See below. - Clozaril 150 mg at bedtime 400 mg at bedtime for schizoaffective disorder - Benadryl 50 mg at bedtime for sleep - Lexapro 10 mg daily for depression - trifluoperazine 4 mg by mouth twice a day for psychotic features MENTAL STATUS EXAMINATION: Patient is a 56-year-old male who appears much older than his stated age. Speech: Is of normal rate, volume, and articulation. Pt. is coherent and mostly spontaneous. Language skills are intact. Thought processes: Unclear, Not goal-directed. Thought content: Rational, logical, paranoia is still evident per patient but he cannot be specific in the description. Abstract reasoning and computation: Adequate. Description of associations: Intact. Description of abnormal or psychotic thoughts: Pt. states he started having command auditory hallucinations of a female voice that he does not recognize that is telling him to kill himself. Pt. reports the voice states "Karlos, kill yourself". Pt. states these are "lower" than when he was admitted. Pt. denies visual hallucinations, preoccupations, homicidal or suicidal ideation other than what his voice tells him, obsessions or compulsions. Pt. states he has had delusions but states "I can't remember, people told me". Pt. also reports that he has paranoia but cannot specify about what or how it makes him feel, states "I don't know", still. Judgment: Poor. Insight: Nonexistent. Orientation to: time, person, place and situation. Recent and remote memory: Pt. states "clearing a little bit", but cannot be specific or give example. Attention span and concentration: Poor. Language: Normal, somewhat difficult to understand. Fund of knowledge: Poor. Mood: Per pt. "not that bad, a little better". Affect: flat, rational. DIAGNOSES: 1. Schizoaffective disorder ASSESSMENT: Pt. states that he is having suicidal ideation due to command auditory hallucinations, that are telling him to kill himself. Patient states this is "lower ". Patient reports he still hears the female voice telling him to kill himself. Pt. continues to not show any behavioral clues such as grimacing, wincing, flinching that he is responding to internally occurring stimuli. Pt. does not appear to be sound sensitive, is not covering ears or cowering to the perceived volume of the voice. Pt. does not ask for anything or state he needs anything when asked. Pt. appears to be happy laying in bed and sleeping. Pt. denies any disruption of sleep habits due to voice. Pt. reports he sleeps well most nights. Patient states sleep is "not bad". Patient reports sleeping 4-5 hours last night. Pt. denies any use of alcohol, but has an extensive alcohol abuse history per prior records. Patient states "I don't use alcohol ". Patient states he is been compliant with medication regimen. Patient reports "I took my meds every day like I was supposed to ". Patient states "I don't know" when asked about discharge dates from [facility]. Pt. is not reliable in giving accurate responses to questions asked possibly due to current mental state or prior diagnosed dementia. Pt. appears to be functioning in a happy oblivion. MANAGEMENT PLAN: Pt. to continue meds as ordered by admitting MD. Maintain safety precautions. Patient to attend groups and participate in unit programming to develop effective coping strategies. Patient to be engaged in discharge planning process to ensure safe and effective discharge plan. Patient to follow-up with primary care physician upon discharge. Patient to return to [facility] housing with supportive services. Patient to be consistent and compliant with medication regimen. Patient to be consistent and compliant with lab draws required for clozapine use. CBC ordered for July 21 to check clozapine effect. TIME SPENT: 25 minutes. Vital Signs Vital Signs Date Time Temp Pulse Resp B/P Pulse Ox O2 Delivery O2 Flow Rate FiO2 07/15/16 18:00 96.6 84 20 99/57 07/15/16 16:52 95 Room Air Laboratory Data 24H Labs Laboratory Tests 2 07/15/16 08:30: Urine Amorphous Sediment , Urine Appearance CLOUDYH, Urine Color YELLOW, Urine pH 5.0, Urine Specific [place] 1.015, Urine Protein 1+H, Urine Glucose (UA) NEGATIVE, Urine Ketones NEGATIVE, Urine Urobilinogen 0.2, Urine Bilirubin NEGATIVE, Urine Leukocyte Esterase 3+H, Urine Bacteria (Auto) 1+H, Urine Blood 1 +H, Urine Calcium Carbonate Cryst(Auto) , Urine Calcium Oxalate Cryst (Auto) , Urine Calcium Phosphate Nadege (Auto) , Urine Cellular Casts , Urine Cystine Crystals , Urine Granular Casts (Auto) , Urine Hyaline Casts (Auto) 0, Urine Leucine Crystals , Urine Mucus (Auto) SMALL, Urine Nitrite NEGATIVE, Urine Oval Fat Bodies (Auto) , Urine RBC (Auto) 61H, Urine Renal Epithelial Cells , Urine Sperm (Auto) , Urine Squamous Epithelial Cells 1, Urine Transitional Epithelial Cells , Urine Trichomonas (Auto) , Urine Triple Phosphate Cryst (Auto) , Urine Tyrosine Crystals , Urine Uric Acid Crystals (Auto) , Urine WBC (Auto) TNTCH, Urine Waxy Casts (Auto) , Urine Yeast-Like Cells (Auto) Current Medications Current Medications Medications (Trade) Dose Ordered Sig/Ora Route PRN Reason Start Time Stop Time Status Last Admin Dose Admin Acetaminophen (Tylenol Tab) 650 mg Q6HP PRN PO HEADACHE or DISCOMFORT 07/11/16 23:15 08/10/16 23:14 07/14/16 21:19 Al Hydrox/Mg Hydrox/Simethicone (Mylanta) 30 ml Q4HP PRN PO HEARTBURN/INDIGESTION 07/11/16 23:15 08/10/16 23:14 07/15/16 17:02 Albuterol/ Ipratropium (Duoneb (Ipr 0.5mg/Alb 2.5mg)) 3 ml Q4HP PRN NEB SOB/WHEEZING 07/13/16 23:15 08/12/16 23:14 Aspirin (Ecotrin) 81 mg DAILY PO 07/12/16 09:00 08/11/16 08:59 07/15/16 08:12 Atorvastatin Calcium (Lipitor) 10 mg QHS PO 07/15/16 21:00 08/14/16 20:59 Benztropine Mesylate (Cogentin) 1 mg QHS PO 07/13/16 21:00 08/12/16 20:59 07/14/16 21:19 Budesonide/ Formoterol Fumarate (Symbicort 160/ 4.5mcg) 2 puff BID INH 07/15/16 21:00 08/14/16 20:59 Chlorpromazine HCl (Thorazine) 50 mg BID PO 07/12/16 09:00 08/11/16 08:59 07/15/16 08:12 Clozapine (Clozaril) 200 mg QAM PO 07/12/16 09:00 07/13/16 08:33 DC 07/13/16 08:08 Clozapine (Clozaril) 250 mg QAM PO 07/14/16 09:00 07/21/16 08:59 07/15/16 08:12 Docusate Sodium (Colace) 100 mg BID PO 07/15/16 21:00 08/14/16 20:59 Escitalopram Oxalate (Lexapro) 10 mg DAILY PO 07/12/16 09:00 08/11/16 08:59 07/15/16 08:12 Home Med (Med Rec Complete!) ASDIRECTED XX 07/11/16 20:00 07/11/16 20:01 DC Influenza Virus Vaccine (Fluzone Quadrivalent Pf Vaccine) 0.5 ml 1T@09 IM 07/13/16 09:00 07/13/16 23:59 DC 07/13/16 10:24 Magnesium Hydroxide (Milk Of Magnesia) 30 ml DAILYPRN PRN PO CONSTIPATION 07/11/16 23:15 08/10/16 23:14 Mirtazapine (Remeron) 15 mg QPM PO 07/12/16 21:00 08/11/16 20:59 07/14/16 21:19 Nicotine (Nicoderm Cq 21mg) 1 patch DAILY TD 07/12/16 09:00 08/11/16 08:59 07/15/16 08:12 Non-Formulary Medication ( See Comment Field Below ) SEE COMMENTS SECTION 1T@16 XX 07/16/16 16:00 08/15/16 15:59 Oxybutynin Chloride (Ditropan) 5 mg TID PO 07/15/16 16:00 08/14/16 15:59 07/15/16 17:35 Senna (Senokot) 2 tab QHS PO 07/15/16 21:00 08/14/16 20:59 Tamsulosin HCl (Flomax) 0.4 mg QAM PO 07/16/16 09:00 08/15/16 08:59 Tiotropium [place] (Spiriva Handihaler) 1 inhalation DAILY INH 07/16/16 09:00 08/15/16 08:59 Trazodone HCl (Desyrel) 50 mg QHSP PRN PO INSOMNIA 07/11/16 23:15 07/13/16 08:33 DC Trazodone HCl (Desyrel) 100 mg QHS PO 07/13/16 23:15 08/12/16 23:14 07/14/16 21:19 Allergies Coded Allergies: Quinolones (Verified Allergy, Unknown, QUESTIONABLE - AVELOX, 01/15/15) HAS HAD CIPRO & LEVAQUIN ON MULTIPLE OCCASIONS Haloperidol (Verified Adverse Reaction, Intermediate, LOCKJAW,WHEEZING, 09/19/12) Prochlorperazine (Verified Adverse Reaction, Intermediate, ANAPHYLAXIS, 09/19/12) TONIA MOYA NP Jul 15, 2016 20:57
[2016-07-15] MEDS: traZODone 100 MG TAB PO SCH (21:39)
[2016-07-15] MEDS: MIRTAZAPINE 15 MG TAB PO SCH (21:39)
[2016-07-15] MEDS: BENZTROPINE 1 MG TAB PO SCH (21:39)
[2016-07-15] MEDS: DOCUSATE SODIUM 100 MG CAP PO SCH (21:40)
[2016-07-15] MEDS: SENNA 8.6 MG TAB (SENOKOT) PO SCH (21:40)
[2016-07-15] MEDS: SYMBICORT 160/4.5MCG INHALER 6GM INH SCH (21:40)
[2016-07-15] MEDS: ATORVASTATIN 10 MG TAB PO SCH (22:12)
[2016-07-16 06:43] VITALS: BP 106/61
[2016-07-16 07:09] LABS: MEAN CORPUSCULAR HEMOGLOBIN 29.6 pg (27.0-33.0); MEAN CORPUSCULAR HGB CONC 32.9 g/dl (32.0-36.5); MEAN CORPUSCULAR VOLUME 89.9 fl (80.0-96.0); RED CELL DISTRIBUTION WIDTH 13.1 % (11.5-14.5); WHITE BLOOD COUNT 7.2 K/mm3 (4.0-10.0)
[2016-07-16 07:45] LABS: ALBUMIN 3.5 GM/DL (3.2-5.2); ALBUMIN/GLOBULIN RATIO 1.09 (1.00-1.93); ALKALINE PHOSPHATASE 108 U/L (45-117); ALT/SGPT 23 U/L (12-78); ANION GAP 6 MEQ/L (8-16); AST/SGOT 9 U/L (15-37); BILIRUBIN,TOTAL 0.2 MG/DL (0.2-1.0); BLOOD UREA NITROGEN 13 MG/DL (7-18); CALCIUM LEVEL 8.7 MG/DL (8.5-10.1); CARBON DIOXIDE LEVEL 30 MEQ/L (21-32); CHLORIDE LEVEL 105 MEQ/L (98-107); CREATININE FOR GFR 0.98 MG/DL (0.70-1.30); GLOMERULAR FILTRATION RATE > 60.0 (>56); GLUCOSE, FASTING 103 MG/DL (70-105); POTASSIUM SERUM 4.2 MEQ/L (3.5-5.1); SODIUM LEVEL 141 MEQ/L (136-145); TOTAL PROTEIN 6.7 GM/DL (6.4-8.2)
[2016-07-16] MEDS: metFORMIN 850 MG TAB PO SCH (08:00)
[2016-07-16] MEDS: DOCUSATE SODIUM 100 MG CAP PO SCH ×2 (09:39→21:16)
[2016-07-16] MEDS: cloZAPine 100 MG TAB (S0136) PO SCH (09:39)
[2016-07-16] MEDS: oxyBUTYnin 5 MG TAB PO SCH ×3 (09:40→21:16)
[2016-07-16] MEDS: ASPIRIN 81 MG ENTERIC TAB PO SCH (09:40)
[2016-07-16] MEDS: ESCITALOPRAM OXALATE 10 MG TAB (LEXAPRO) PO SCH (09:41)
[2016-07-16] MEDS: chlorproMAZINE 25 MG TAB (Q0161) PO SCH ×2 (09:41→21:16)
[2016-07-16] MEDS: TAMSULOSIN 0.4 MG CAP PO SCH (09:43)
[2016-07-16] MEDS: NICOTINE 21MG/24HR 1 EA TRANSDERMAL TD SCH (09:44)
[2016-07-16] MEDS: TIOTROPIUM INHALER/CAPSULE (SPIRIVA) INH SCH (09:45)
[2016-07-16] MEDS: SYMBICORT 160/4.5MCG INHALER 6GM INH SCH ×2 (09:47→21:18)
--- NOTE | 2016-07-16 12:15 | IPNPDOC ---
Assessment/Plan Date Seen The patient was seen on 07/16/16. Problems Problems: (1) Suprapubic catheter Status: Chronic Problem Text: * I have spoken with Dr. Riggs, urology, yesterday. He is planning on changing the patient's suprapubic catheter sometime today. * Supplies are requested and are available on the unit as per Dr. Riggs's request. * The patient confirms the catheter has not been changed since 01/28. * UA was requested as per attending physician/urine culture is pending. * Patient is afebrile. WBC WNL. * Patient remains on oxybutynin/tamsulosin (2) Hyperlipidemia Status: Chronic Problem Text: * Continue statin (3) Diastolic CHF Status: Chronic Problem Text: * No signs of fluid overload at this time. (4) COPD (chronic obstructive pulmonary disease) Status: Chronic Problem Text: * Continue inhaler regimen Symbicort/Spiriva (5) Diabetes mellitus Status: Chronic Problem Text: * Continue metformin 850 mg by mouth daily. * Aspirin 81 mg daily * Consistent carbohydrate diet. * FSBS twice a day * Hemoglobin A1c is noted to be 6.0 Plan / VTE VTE Prophylaxis Ordered?: No (ambulatory) Subjective Review of Systems CC/HPI The patient is a 56-year-old male admitted with a reason for visit of Major Depressive Do. Events since last encounter Requested to review the patient's routine medications and suprapubic catheter. Patient states his catheter has not been changed since 01/28. He states he missed his appointment and he [place] [facility] [place] it [place] not changed while he was there. Objective Physical Examination General Exam: Positive: Alert Eye Exam: Positive: PERRLA Chest Exam: Positive: Clear to auscultation, Normal air movement Heart Exam: Positive: Normal S1, Normal S2, Rate Normal, Regular Rhythm, Negative: Murmurs, Rubs Abdomen Exam: Positive: Normal bowel sounds, Other (no erythema or drainage surrounding catheter site.), Soft, Negative: Hepatospenomegaly, Tenderness Skin Exam: Positive: Nl turgor and temperature Vital Signs/I&O Vital Signs Date Time Temp Pulse Resp B/P Pulse Ox O2 Delivery O2 Flow Rate FiO2 07/16/16 06:43 96.9 68 16 106/61 07/15/16 16:52 95 Room Air Laboratory Data Labs 24H Laboratory Tests 2 07/16/16 06:41: Blood Urea Nitrogen 13, Creatinine 0.98, Sodium Level 141, Potassium Level 4.2, Chloride Level 105, Carbon Dioxide Level 30, Calcium Level 8.7, Aspartate Amino Transf (AST/SGOT) 9L, Alanine Aminotransferase (ALT/SGPT) 23, Alkaline Phosphatase 108, Total Bilirubin 0.2, Total Protein 6.7, Albumin 3.5, Albumin/ Globulin Ratio 1.09, Anion Gap 6L, Estimated Mean Plasma Glucose 126H, Glomerular Filtration Rate > 60.0, Hemoglobin A1c 6.0 CBC/BMP Laboratory Tests 07/16/16 06:41 Calcium Level 8.7, Aspartate Amino Transf (AST/SGOT) 9 L, Alanine Aminotransferase (ALT/SGPT) 23, Alkaline Phosphatase 108, Total Bilirubin 0.2, Total Protein 6.7, Albumin 3.5, Red Blood Count 4.81, Mean Corpuscular Volume 89.9, Mean Corpuscular Hemoglobin 29.6, Mean Corpuscular Hemoglobin Concent 32.9 , Red Cell Distribution Width 13.1 Microbiology Microbiology 07/15/16 Urine Culture, Received Pending Michelle Motta Jul 16, 2016 12:15
[2016-07-16] MEDS ORDERED: PPD DOCUMENTATION ENTRY MISC XX SCH (16:00)
[2016-07-16 18:00] VITALS: BP 99/66
--- NOTE | 2016-07-16 18:55 | IPNPDOC ---
[facility] Progress Note Progress Note DATE OF SERVICE: 07/16/16 HISTORY: A 55-year-old [place] male hospitalized for command auditory hallucinations with suicidal ideation telling him to kill himself. The patient is a 55-year-old [place] male, single, living at a transitional living services ([facility]) community residence. The patient has a long history of mental health problems including numerous psychiatric admissions, outpatient psychiatric treatment. The patient was recently discharged from [facility] ([facility]) Inpatient Mental Health Unit (IM) on 2015. As per the emergency department (ED) report, the patient presented to the ED for evaluation because the patient presented after a scheduled appointment with psychiatrist Dr. Castanon. Dr. Castanon wanted to change the patient's medications but the patient declined change, requesting to go to the ED. The patient presented to the ED reporting hearing a woman's voice telling him to kill himself. The patient currently lives in a [facility] residence. Upon admission, the patient presents as a poor historian. He states he has been hearing voices that have been apparent since yesterday telling him to kill himself. He states his last suicide attempt was about two months ago. He states he does not know the trigger that brought him to have these command auditory hallucinations. He reports some depression but denies anxiety spectrum disorder symptoms. PAST PSYCHIATRIC HISTORY: The patient states he came out of [facility] ([facility]) a month ago after being there a month. However, this was inaccurate, as he was discharged from [facility] Jun 20, 2016. The patient states he has been medication compliant since discharge. The patient was also discharged on 08/28/2015, from [facility] after being hospitalized for about a week. The patient has had numerous psychiatric hospitalizations with a diagnosis of schizophrenia. CHEMICAL DEPENDENCY: The patient has a past history of problem with heroin, speed, and crack use. He denies current and recent use of drugs or alcohol. He has also had problems with alcohol in the past. PAST MEDICAL HISTORY: 1. Dementia. 2. Diastolic congestive heart failure with ejection fraction of 65%. 3. Chronic obstructive pulmonary disease (COPD). 4. Hypertension. 5. Asthma. 6. Diabetes, diet controlled. 7. High cholesterol. 8. Neurogenic bladder with suprapubic catheter in place. 9. Gastroesophageal reflux disease (GERD). 10. History of transient ischemic attack (TIA). 11. Cholecystectomy. 12. Right inguinal hernia repair. ALLERGIES: QUINOLONES, HALDOL, LEXAPRO, CHLORPROMAZINE cause anaphylaxis. FAMILY HISTORY: Several family members have a history of substance abuse problems including his daughter. It has been reported that one of his daughters had of a heroin overdose since his last admission here. SOCIAL HISTORY: The patient states he lives in [facility] for the past month. States it is going well. There has been no trouble with his roommate or other residents or with staff. He states he is not in contact with any family members. He had a fight with his sister and his daughter does not want anything to do with him. He does not know the reason for this. VITAL SIGNS: See below. 96.9 68 16 106/61 NEW TEST RESULTS: On admission - CBC within normal limits, except WBC elevated 11.3, hematocrit low at 41.4. Reordered for Jul 21 to check clozapine effect. CMP including TSH within normal limits except alkaline phosphatase elevated at 136, AST low at 6, calcium low at 8.2. Urine toxicology negative for drugs. Blood alcohol level, Tylenol and salicylate levels within normal limits. Hepatitis C and HIV screen pending. CURRENT PSYCH MEDICATIONS: See below. - Clozaril 150 mg at bedtime 400 mg at bedtime for schizoaffective disorder - Benadryl 50 mg at bedtime for sleep - Lexapro 10 mg daily for depression - trifluoperazine 4 mg by mouth twice a day for psychotic features MENTAL STATUS EXAMINATION: Patient is a 56-year-old male who appears much older than his stated age. Speech: Is of normal rate, volume, and articulation. Pt. is coherent and mostly spontaneous. Pt. is again found laying in bed when he is supposed to be in group. Pt. strongly encouraged to be at the activities that are expected of him, to improve his health. Pt. grudgingly went to group after assessment completed. Language skills are intact. Thought processes: Unclear, Not goal-directed, illogical. Thought content: Rational, illogical, paranoia is still evident per patient but he cannot be specific in the description, no outward or behavioral clues of this. Abstract reasoning and computation: Adequate. Description of associations: Intact. Description of abnormal or psychotic thoughts: Pt. states he started having command auditory hallucinations of a female voice that he does not recognize that is telling him to kill himself. Pt. reports the voice states "Karlos, kill yourself". Pt. states these are "louder today" than yesterday. Pt. again shows no signs of responding to internal stimuli, is not affecting his sleep or though processes. Pt. denies visual hallucinations, preoccupations, homicidal or suicidal ideation other than what his voice tells him, obsessions or compulsions. Pt. states he has had delusions but states "I can't remember, people told me I did". Pt. also reports that he has paranoia but cannot specify about what or how it makes him feel, states "I don't know". Judgment: Poor. Insight: Nonexistent. Orientation to: time, person, place and situation. Recent and remote memory: Pt. states "getting better", but cannot be specific or give example. Attention span and concentration: Poor. Language: Normal, somewhat difficult to understand. Fund of knowledge: Poor. Mood: Per pt. "not too good, my stomach is bothering me". Affect: flat, rational. DIAGNOSES: 1. Schizoaffective disorder ASSESSMENT: Pt. states that he is having suicidal ideation due to command auditory hallucinations, that are telling him to kill himself. Patient states this is "louder today". Patient reports he still hears the female voice telling him to kill himself. Pt. continues to not show any behavioral clues such as grimacing, wincing, flinching that he is responding to internally occurring stimuli. Pt. does not appear to be sound sensitive, is not covering ears or cowering to the perceived volume of the voice. Pt. does not ask for anything or state he needs anything when asked. Pt. appears to be happy laying in bed and sleeping. Pt. denies any disruption of sleep habits due to voice. Pt. reports he slept poorly last night due to stomach problems. Pt. reports he did not notify nurse. Patient states "didn't sleep good". Patient reports sleeping 5 hours last night. Pt. denies any use of alcohol, but has an extensive alcohol abuse history per prior records. Patient states "I don't use alcohol ". Patient states he is been compliant with medication regimen. Patient reports "I took my meds every day like I was supposed to ". Patient states "I don't know" when asked about discharge dates from [facility]. Pt. is not reliable in giving accurate responses to questions asked possibly due to current mental state or prior diagnosed dementia. Pt. appears to be functioning in a happy oblivion. Pt. appears to show features of prior institutionalization. MANAGEMENT PLAN: Pt. to continue meds as ordered by admitting MD. Maintain safety precautions. Patient to attend groups and participate in unit programming to develop effective coping strategies. Patient to be engaged in discharge planning process to ensure safe and effective discharge plan. Patient to follow-up with primary care physician upon discharge. Patient to return to [facility] housing with supportive services. Patient to be consistent and compliant with medication regimen. Patient to be consistent and compliant with lab draws required for clozapine use. CBC ordered for July 21 to check clozapine effect. TIME SPENT: 25 minutes. Vital Signs Vital Signs Date Time Temp Pulse Resp B/P Pulse Ox O2 Delivery O2 Flow Rate FiO2 07/16/16 06:43 96.9 68 16 106/61 07/15/16 16:52 95 Room Air Laboratory Data 24H Labs Laboratory Tests 2 07/16/16 06:41: Blood Urea Nitrogen 13, Creatinine 0.98, Sodium Level 141, Potassium Level 4.2, Chloride Level 105, Carbon Dioxide Level 30, Calcium Level 8.7, Aspartate Amino Transf (AST/SGOT) 9L, Alanine Aminotransferase (ALT/SGPT) 23, Alkaline Phosphatase 108, Total Bilirubin 0.2, Total Protein 6.7, Albumin 3.5, Albumin/ Globulin Ratio 1.09, Anion Gap 6L, Estimated Mean Plasma Glucose 126H, Glomerular Filtration Rate > 60.0, Hemoglobin A1c 6.0 07/16/16 17:06: Bedside Glucose (Misc Panel) 203H CBC/BMP Laboratory Tests 07/16/16 06:41 Calcium Level 8.7, Aspartate Amino Transf (AST/SGOT) 9 L, Alanine Aminotransferase (ALT/SGPT) 23, Alkaline Phosphatase 108, Total Bilirubin 0.2, Total Protein 6.7, Albumin 3.5, Red Blood Count 4.81, Mean Corpuscular Volume 89.9, Mean Corpuscular Hemoglobin 29.6, Mean Corpuscular Hemoglobin Concent 32.9 , Red Cell Distribution Width 13.1 Current Medications Current Medications Medications (Trade) Dose Ordered Sig/Ora Route PRN Reason Start Time Stop Time Status Last Admin Dose Admin Acetaminophen (Tylenol Tab) 650 mg Q6HP PRN PO HEADACHE or DISCOMFORT 07/11/16 23:15 08/10/16 23:14 07/14/16 21:19 Al Hydrox/Mg Hydrox/Simethicone (Mylanta) 30 ml Q4HP PRN PO HEARTBURN/INDIGESTION 07/11/16 23:15 08/10/16 23:14 07/15/16 17:02 Albuterol/ Ipratropium (Duoneb (Ipr 0.5mg/Alb 2.5mg)) 3 ml Q4HP PRN NEB SOB/WHEEZING 07/13/16 23:15 08/12/16 23:14 Aspirin (Ecotrin) 81 mg DAILY PO 07/12/16 09:00 08/11/16 08:59 07/16/16 09:40 Atorvastatin Calcium (Lipitor) 10 mg QHS PO 07/15/16 21:00 08/14/16 20:59 07/15/16 22:12 Benztropine Mesylate (Cogentin) 1 mg QHS PO 07/13/16 21:00 08/12/16 20:59 07/15/16 21:39 Budesonide/ Formoterol Fumarate (Symbicort 160/ 4.5mcg) 2 puff BID INH 07/15/16 21:00 08/14/16 20:59 07/16/16 09:47 Chlorpromazine HCl (Thorazine) 50 mg BID PO 07/12/16 09:00 08/11/16 08:59 07/16/16 09:41 Clozapine (Clozaril) 200 mg QAM PO 07/12/16 09:00 07/13/16 08:33 DC 07/13/16 08:08 Clozapine (Clozaril) 250 mg QAM PO 07/14/16 09:00 07/21/16 08:59 07/16/16 09:39 Docusate Sodium (Colace) 100 mg BID PO 07/15/16 21:00 08/14/16 20:59 07/16/16 09:39 Escitalopram Oxalate (Lexapro) 10 mg DAILY PO 07/12/16 09:00 08/11/16 08:59 07/16/16 09:41 Home Med (Med Rec Complete!) ASDIRECTED XX 07/11/16 20:00 07/11/16 20:01 DC Influenza Virus Vaccine (Fluzone Quadrivalent Pf Vaccine) 0.5 ml 1T@09 IM 07/13/16 09:00 07/13/16 23:59 DC 07/13/16 10:24 Magnesium Hydroxide (Milk Of Magnesia) 30 ml DAILYPRN PRN PO CONSTIPATION 07/11/16 23:15 08/10/16 23:14 Metformin HCl (Glucophage) 850 mg DAILY@08 PO 07/16/16 08:00 08/15/16 07:59 Mirtazapine (Remeron) 15 mg QPM PO 07/12/16 21:00 08/11/16 20:59 07/15/16 21:39 Nicotine (Nicoderm Cq 21mg) 1 patch DAILY TD 07/12/16 09:00 08/11/16 08:59 07/16/16 09:44 Non-Formulary Medication ( See Comment Field Below ) SEE COMMENTS SECTION 1T@16 XX 07/16/16 16:00 08/15/16 15:59 07/16/16 16:01 Oxybutynin Chloride (Ditropan) 5 mg TID PO 07/15/16 16:00 08/14/16 15:59 07/16/16 15:39 Senna (Senokot) 2 tab QHS PO 07/15/16 21:00 08/14/16 20:59 07/15/16 21:40 Tamsulosin HCl (Flomax) 0.4 mg QAM PO 07/16/16 09:00 08/15/16 08:59 07/16/16 09:43 Tiotropium [place] (Spiriva Handihaler) 1 inhalation DAILY INH 07/16/16 09:00 08/15/16 08:59 07/16/16 09:45 Trazodone HCl (Desyrel) 50 mg QHSP PRN PO INSOMNIA 07/11/16 23:15 07/13/16 08:33 DC Trazodone HCl (Desyrel) 100 mg QHS PO 07/13/16 23:15 08/12/16 23:14 1/31/17 21:39 Allergies Coded Allergies: Quinolones (Verified Allergy, Unknown, QUESTIONABLE - AVELOX, 01/15/15) HAS HAD CIPRO & LEVAQUIN ON MULTIPLE OCCASIONS Haloperidol (Verified Adverse Reaction, Intermediate, ARACELISJAVanna,WHEEZING, 09/19/12) Prochlorperazine (Verified Adverse Reaction, Intermediate, ANAPHYLAXIS, 09/19/12) TONIA MOYA NP Jul 16, 2016 18:55
--- NOTE | 2016-07-16 20:05 | SMCUROLCON ---
Urology Consultation General Date of Consultation 07/16/16 Reason For Consultation Suprapubic Catheter Change History of Present Illness This is a 56 y/o M w/ a PMH significant for CHF, COPD, HTN, asthma, HL, and neurogenic bladder managed w/ a suprapubic catheter, admitted to the inpatient pysch unit for treatment of depression. Urology is consulted for suprapubic catheter change. Based on our records, the patient last visited our office for a catheter change in January of 2016. He is not sure if he has had it changed somewhere else since then. He notes that it has been draining fine w/o hematuria. He does not having period lower abdominal pain. He denies fevers or chills. Past Medical History Medical History see HPI Surgical Hstory cholecystectomy, right inguinal hernia repair, suprapubic catheter placement Medications Current Medications Current Medications Medications (Trade) Dose Ordered Sig/Ora Route PRN Reason Start Time Stop Time Status Last Admin Dose Admin Acetaminophen (Tylenol Tab) 650 mg Q6HP PRN PO HEADACHE or DISCOMFORT 07/11/16 23:15 08/10/16 23:14 07/14/16 21:19 Al Hydrox/Mg Hydrox/Simethicone (Mylanta) 30 ml Q4HP PRN PO HEARTBURN/INDIGESTION 07/11/16 23:15 08/10/16 23:14 07/15/16 17:02 Albuterol/ Ipratropium (Duoneb (Ipr 0.5mg/Alb 2.5mg)) 3 ml Q4HP PRN NEB SOB/WHEEZING 07/13/16 23:15 08/12/16 23:14 Aspirin (Ecotrin) 81 mg DAILY PO 07/12/16 09:00 08/11/16 08:59 07/16/16 09:40 Atorvastatin Calcium (Lipitor) 10 mg QHS PO 07/15/16 21:00 08/14/16 20:59 07/15/16 22:12 Benztropine Mesylate (Cogentin) 1 mg QHS PO 07/13/16 21:00 08/12/16 20:59 07/15/16 21:39 Budesonide/ Formoterol Fumarate (Symbicort 160/ 4.5mcg) 2 puff BID INH 07/15/16 21:00 08/14/16 20:59 07/16/16 09:47 Chlorpromazine HCl (Thorazine) 50 mg BID PO 07/12/16 09:00 08/11/16 08:59 07/16/16 09:41 Clozapine (Clozaril) 200 mg QAM PO 07/12/16 09:00 07/13/16 08:33 DC 07/13/16 08:08 Clozapine (Clozaril) 250 mg QAM PO 07/14/16 09:00 07/21/16 08:59 07/16/16 09:39 Docusate Sodium (Colace) 100 mg BID PO 07/15/16 21:00 08/14/16 20:59 07/16/16 09:39 Escitalopram Oxalate (Lexapro) 10 mg DAILY PO 07/12/16 09:00 08/11/16 08:59 07/16/16 09:41 Home Med (Med Rec Complete!) ASDIRECTED XX 07/11/16 20:00 07/11/16 20:01 DC Influenza Virus Vaccine (Fluzone Quadrivalent Pf Vaccine) 0.5 ml 1T@09 IM 07/13/16 09:00 07/13/16 23:59 DC 07/13/16 10:24 Magnesium Hydroxide (Milk Of Magnesia) 30 ml DAILYPRN PRN PO CONSTIPATION 07/11/16 23:15 08/10/16 23:14 Metformin HCl (Glucophage) 850 mg DAILY@08 PO 07/16/16 08:00 08/15/16 07:59 Mirtazapine (Remeron) 15 mg QPM PO 07/12/16 21:00 08/11/16 20:59 07/15/16 21:39 Nicotine (Nicoderm Cq 21mg) 1 patch DAILY TD 07/12/16 09:00 08/11/16 08:59 07/16/16 09:44 Non-Formulary Medication ( See Comment Field Below ) SEE COMMENTS SECTION 1T@16 XX 07/16/16 16:00 08/15/16 15:59 07/16/16 16:01 Oxybutynin Chloride (Ditropan) 5 mg TID PO 07/15/16 16:00 08/14/16 15:59 07/16/16 15:39 Senna (Senokot) 2 tab QHS PO 07/15/16 21:00 08/14/16 20:59 07/15/16 21:40 Tamsulosin HCl (Flomax) 0.4 mg QAM PO 07/16/16 09:00 08/15/16 08:59 07/16/16 09:43 Tiotropium [place] (Spiriva Handihaler) 1 inhalation DAILY INH 07/16/16 09:00 08/15/16 08:59 07/16/16 09:45 Trazodone HCl (Desyrel) 50 mg QHSP PRN PO INSOMNIA 07/11/16 23:15 07/13/16 08:33 DC Trazodone HCl (Desyrel) 100 mg QHS PO 07/13/16 23:15 08/12/16 23:14 07/15/16 21:39 Allergies Allergies: Coded Allergies: Quinolones (Verified Allergy, Unknown, QUESTIONABLE - AVELOX, 01/15/15) HAS HAD CIPRO & LEVAQUIN ON MULTIPLE OCCASIONS Haloperidol (Verified Adverse Reaction, Intermediate, LOCKJAW,WHEEZING, 09/19/12) Prochlorperazine (Verified Adverse Reaction, Intermediate, ANAPHYLAXIS, 09/19/12) BRAYDON Review of Systems Constitutional: Denies: Chills, Fever, Malaise, Sweats, Weakness Eyes: Denies: Pain, Vision change Skin: Denies: Breakdown, Lesions, Nail Changes, Rash Pulmonary: Denies: Cough, Dyspnea Cardiovascular: Denies Chest Pain, Denies Palpitations Gastrointestinal: Reports: Abdominal Pain, Denies: Nausea, Vomiting Musculoskeletal: Denies: Back Pain, Neck Pain Neurological: Denies: Numbness, Weakness Psych: Reports: Depression Physical Examination General Exam: : Cooperative: No Acute Distress ENT EXAM: : Atraumatic Chest Exam: : Normal air movement Heart Exam: : Rate Normal: Regular Rhythm Abdomen Exam: : Other (18Fr suprapubic catheter in place, draining clear urine into a leg bag): Soft Skin Exam: : Nl turgor and temperature Neuro Exam: : Normal Gait Psych Exam: : Mood NL Vital Signs/I&O Vital Signs Date Time Temp Pulse Resp B/P Pulse Ox O2 Delivery O2 Flow Rate FiO2 07/16/16 06:43 96.9 68 16 106/61 07/15/16 16:52 95 Room Air Laboratory Data 24H Labs Laboratory Tests 2 07/16/16 06:41: Blood Urea Nitrogen 13, Creatinine 0.98, Sodium Level 141, Potassium Level 4.2, Chloride Level 105, Carbon Dioxide Level 30, Calcium Level 8.7, Aspartate Amino Transf (AST/SGOT) 9L, Alanine Aminotransferase (ALT/SGPT) 23, Alkaline Phosphatase 108, Total Bilirubin 0.2, Total Protein 6.7, Albumin 3.5, Albumin/ Globulin Ratio 1.09, Anion Gap 6L, Estimated Mean Plasma Glucose 126H, Glomerular Filtration Rate > 60.0, Hemoglobin A1c 6.0 07/16/16 17:06: Bedside Glucose (Misc Panel) 203H CBC/BMP Laboratory Tests 07/16/16 06:41 Calcium Level 8.7, Aspartate Amino Transf (AST/SGOT) 9 L, Alanine Aminotransferase (ALT/SGPT) 23, Alkaline Phosphatase 108, Total Bilirubin 0.2, Total Protein 6.7, Albumin 3.5, Red Blood Count 4.81, Mean Corpuscular Volume 89.9, Mean Corpuscular Hemoglobin 29.6, Mean Corpuscular Hemoglobin Concent 32.9 , Red Cell Distribution Width 13.1 FSBS Laboratory Tests Test 07/16/16 17:06 Range/Units Bedside Glucose (Misc Panel) 203 70-105 MG/DL Microbiology Microbiology 07/15/16 Urine Culture, Received Pending Assessment This is a 56 y/o M admitted for treatment of depression, in need of suprapubic catheter change. I removed his suprapubic catheter and placed a new 18Fr suprapubic catheter under sterile conditions. The balloon was filled with 10mL of sterile water. Urine drained clear after placement. The patient tolerated the catheter change well. Plan - considering his old suprapubic catheter might have been in place for several months, I would recommend obtaining a urine culture from the new one and treat accordingly - my office will try to arrange follow up for him to come have his suprapubic catheter changed in 4 weeks and then q 4 weeks after that point HELGA ACOSTA MD Jul 16, 2016 20:05
[2016-07-16] MEDS: SENNA 8.6 MG TAB (SENOKOT) PO SCH (21:16)
[2016-07-16] MEDS: ATORVASTATIN 10 MG TAB PO SCH (21:16)
[2016-07-16] MEDS: MIRTAZAPINE 15 MG TAB PO SCH (21:16)
[2016-07-16] MEDS: traZODone 100 MG TAB PO SCH (21:16)
[2016-07-16] MEDS: BENZTROPINE 1 MG TAB PO SCH (21:16)
[2016-07-17 06:44] VITALS: BP 99/55
[2016-07-17] MEDS: metFORMIN 850 MG TAB PO SCH (07:27)
[2016-07-17] MEDS: TIOTROPIUM INHALER/CAPSULE (SPIRIVA) INH SCH (08:46)
[2016-07-17] MEDS: TAMSULOSIN 0.4 MG CAP PO SCH (08:48)
[2016-07-17] MEDS: ESCITALOPRAM OXALATE 10 MG TAB (LEXAPRO) PO SCH (08:48)
[2016-07-17] MEDS: ASPIRIN 81 MG ENTERIC TAB PO SCH (08:48)
[2016-07-17] MEDS: DOCUSATE SODIUM 100 MG CAP PO SCH ×2 (08:48→21:10)
[2016-07-17] MEDS: chlorproMAZINE 25 MG TAB (Q0161) PO SCH ×2 (08:48→21:11)
[2016-07-17] MEDS: cloZAPine 100 MG TAB (S0136) PO SCH (08:48)
[2016-07-17] MEDS: SYMBICORT 160/4.5MCG INHALER 6GM INH SCH ×2 (08:49→21:11)
[2016-07-17] MEDS: NICOTINE 21MG/24HR 1 EA TRANSDERMAL TD SCH (08:49)
[2016-07-17] MEDS: oxyBUTYnin 5 MG TAB PO SCH ×3 (09:02→21:10)
--- NOTE | 2016-07-17 14:59 | IPNPDOC ---
Assessment/Plan Date Seen The patient was seen on 07/17/16. Problems Problems: (1) Suprapubic catheter Status: Chronic Problem Text: * I have spoken with Dr. Riggs, urology. * Suprapubic Catheter changed 07/16/16. * Plan is for outpt f/u Q4 wks . * UA/UC was requested as per Dr Riggs from the new Catheter. * Patient is afebrile. WBC WNL. * Patient remains on oxybutynin/tamsulosin (2) Hyperlipidemia Status: Chronic Problem Text: * Continue statin (3) Diastolic CHF Status: Chronic Problem Text: * No signs of fluid overload at this time. (4) COPD (chronic obstructive pulmonary disease) Status: Chronic Problem Text: * Continue inhaler regimen Symbicort/Spiriva (5) Diabetes mellitus Status: Chronic Problem Text: * Continue metformin 850 mg by mouth daily. * Aspirin 81 mg daily * Consistent carbohydrate diet. * FSBS twice a day * Hemoglobin A1c is noted to be 6.0 Plan / VTE VTE Prophylaxis Ordered?: No Subjective Review of Systems CC/HPI The patient is a 56-year-old male admitted with a reason for visit of Major Depressive Do. Events since last encounter pt with no complaints. Objective Physical Examination General Exam: Positive: Alert Eye Exam: Positive: PERRLA ENT Exam: Positive: Atraumatic Chest Exam: Positive: Clear to auscultation, Normal air movement Heart Exam: Positive: Normal S1, Normal S2, Rate Normal, Regular Rhythm Abdomen Exam: Positive: Normal bowel sounds, Other, Soft Skin Exam: Positive: Nl turgor and temperature Vital Signs/I&O Vital Signs Date Time Temp Pulse Resp B/P Pulse Ox O2 Delivery O2 Flow Rate FiO2 07/17/16 06:44 96.8 77 20 99/55 07/15/16 16:52 95 Room Air Laboratory Data Labs 24H Laboratory Tests 2 07/16/16 17:06: Bedside Glucose (Misc Panel) 203H 07/17/16 09:00: Urine Amorphous Sediment , Urine Appearance CLEAR, Urine Color YELLOW, Urine pH 6.0, Urine Specific [place] 1.004, Urine Protein NEGATIVE, Urine Glucose (UA) NEGATIVE, Urine Ketones NEGATIVE, Urine Urobilinogen 0.2, Urine Bilirubin NEGATIVE, Urine Leukocyte Esterase 2+H, Urine Bacteria (Auto) 1+H, Urine Blood NEGATIVE, Urine Calcium Carbonate Cryst(Auto) , Urine Calcium Oxalate Cryst ( Auto) , Urine Calcium Phosphate Nadege (Auto) , Urine Cellular Casts , Urine Cystine Crystals , Urine Granular Casts (Auto) , Urine Hyaline Casts (Auto) 0, Urine Leucine Crystals , Urine Mucus (Auto) , Urine Nitrite NEGATIVE, Urine Oval Fat Bodies (Auto) , Urine RBC (Auto) 1, Urine Renal Epithelial Cells , Urine Sperm (Auto) , Urine Squamous Epithelial Cells 0, Urine Transitional Epithelial Cells , Urine Trichomonas (Auto) , Urine Triple Phosphate Cryst (Auto ) , Urine Tyrosine Crystals , Urine Uric Acid Crystals (Auto) , Urine WBC (Auto ) 37H, Urine Waxy Casts (Auto) , Urine Yeast-Like Cells (Auto) FSBS Laboratory Tests Test 07/16/16 17:06 Range/Units Bedside Glucose (Misc Panel) 203 70-105 MG/DL Microbiology Microbiology 07/17/16 Urine Culture, Received Pending 07/15/16 Urine Culture, Received Pending Michelle Motta Jul 17, 2016 14:59
[2016-07-17 18:00] VITALS: BP 102/60
--- NOTE | 2016-07-17 18:43 | IPNPDOC ---
[facility] Progress Note Progress Note DATE OF SERVICE: 07/17/16 HISTORY: A 55-year-old Slov[place] male hospitalized for command auditory hallucinations with suicidal ideation telling him to kill himself. The patient is a 55-year-old [place] male, single, living at a transitional living services ([facility]) community residence. The patient has a long history of mental health problems including numerous psychiatric admissions, outpatient psychiatric treatment. The patient was recently discharged from [facility] ([facility]) Inpatient Mental Health Unit (IM) on 2015. As per the emergency department (ED) report, the patient presented to the ED for evaluation because the patient presented after a scheduled appointment with psychiatrist Dr. Castanon. Dr. Castanon wanted to change the patient's medications but the patient declined change, requesting to go to the ED. The patient presented to the ED reporting hearing a woman's voice telling him to kill himself. The patient currently lives in a [facility] residence. Upon admission, the patient presents as a poor historian. He states he has been hearing voices that have been apparent since yesterday telling him to kill himself. He states his last suicide attempt was about two months ago. He states he does not know the trigger that brought him to have these command auditory hallucinations. He reports some depression but denies anxiety spectrum disorder symptoms. PAST PSYCHIATRIC HISTORY: The patient states he came out of [facility] ([facility]) a month ago after being there a month. However, this was inaccurate, as he was discharged from [facility] Jun 20, 2016. The patient states he has been medication compliant since discharge. The patient was also discharged on 08/28/2015, from [facility] after being hospitalized for about a week. The patient has had numerous psychiatric hospitalizations with a diagnosis of schizophrenia. CHEMICAL DEPENDENCY: The patient has a past history of problem with heroin, speed, and crack use. He denies current and recent use of drugs or alcohol. He has also had problems with alcohol in the past. PAST MEDICAL HISTORY: 1. Dementia. 2. Diastolic congestive heart failure with ejection fraction of 65%. 3. Chronic obstructive pulmonary disease (COPD). 4. Hypertension. 5. Asthma. 6. Diabetes, diet controlled. 7. High cholesterol. 8. Neurogenic bladder with suprapubic catheter in place. 9. Gastroesophageal reflux disease (GERD). 10. History of transient ischemic attack (TIA). 11. Cholecystectomy. 12. Right inguinal hernia repair. ALLERGIES: QUINOLONES, HALDOL, LEXAPRO, CHLORPROMAZINE cause anaphylaxis. FAMILY HISTORY: Several family members have a history of substance abuse problems including his daughter. It has been reported that one of his daughters had of a heroin overdose since his last admission here. SOCIAL HISTORY: The patient states he lives in [facility] for the past month. States it is going well. There has been no trouble with his roommate or other residents or with staff. He states he is not in contact with any family members. He had a fight with his sister and his daughter does not want anything to do with him. He does not know the reason for this. VITAL SIGNS: See below. 96.9 68 16 106/61 TEST RESULTS: On admission - CBC within normal limits, except WBC elevated 11.3 , hematocrit low at 41.4. Reordered for Jul 21 to check clozapine effect. CMP including TSH within normal limits except alkaline phosphatase elevated at 136, AST low at 6, calcium low at 8.2. Urine toxicology negative for drugs. Blood alcohol level, Tylenol and salicylate levels within normal limits. Hepatitis C and HIV screen pending. CURRENT PSYCH MEDICATIONS: See below. - Clozaril 150 mg at bedtime 400 mg at bedtime for schizoaffective disorder - Benadryl 50 mg at bedtime for sleep - Lexapro 10 mg daily for depression - trifluoperazine 4 mg by mouth twice a day for psychotic features MENTAL STATUS EXAMINATION: Patient is a 56-year-old male who appears much older than his stated age. Speech: Is of normal rate, volume, and articulation. Pt. is coherent and mostly spontaneous. Pt. is found sitting on his bed. Language skills are intact. Thought processes: Unclear, not goal-directed, illogical. Thought content: Rational, illogical, paranoia is gone per patient. Abstract reasoning and computation: Adequate. Description of associations: Intact. Description of abnormal or psychotic thoughts: Pt. states he started having command auditory hallucinations of a female voice that he does not recognize that is telling him to kill himself. Pt. reports the voice states "Karlos, kill yourself". Pt. states "It's loud today". Pt. again shows no signs of responding to internal stimuli, is not affecting his sleep or thought processes. Pt's behavior does not follow usual course of someone having AH. Pt. denies visual hallucinations, preoccupations, homicidal or suicidal ideation other than what his voice tells him, obsessions or compulsions. Pt. states he has had delusions but states "I can't remember, people told me I did". Judgment: Poor. Insight: Very limited. Orientation to: time, person, place and situation. Recent and remote memory: Pt. states "Pretty good". Attention span and concentration: Fair. Language: Normal, somewhat difficult to understand. Fund of knowledge: Poor. Mood: Per pt. "Pretty good, I feel better today". Patient's statement of his mood is not consistent with other symptoms he describes Affect: flat, rational. DIAGNOSES: 1. Schizoaffective disorder ASSESSMENT: Pt. states that he is having suicidal ideation due to command auditory hallucinations, that are telling him to kill himself. Patient states "It's loud today". Patient reports he still hears the female voice telling him to kill himself. Pt. continues to not show any behavioral clues such as grimacing, wincing, flinching that he is responding to internally occurring stimuli. Pt. does not appear to be sound sensitive, is not covering ears or cowering to the perceived volume of the voice. Pt. does not ask for anything or state he needs anything when asked. Pt. appears to be happy laying in bed and sleeping. Pt. denies any disruption of sleep habits due to voice. Pt. reports he slept "Pretty good" last night. Patient reports sleeping 6 hours last night , felt rested on waking. Pt. states his baseline anxiety is 3/10, baseline depression is 3/10. Pt. states current anxiety is 5/10, depression is 5/10. Pt. denies any use of alcohol, but has an extensive alcohol abuse history per prior records. Patient states "I don't use alcohol ". Patient states he has been compliant with medication regimen. Patient reports "I took my meds every day like I was supposed to ". Patient states "I don't know" when asked about discharge dates from [facility]. Pt. is not reliable in giving accurate responses to questions asked, possibly due to current mental state or prior diagnosed dementia. Pt. appears to be functioning in a happy oblivion. Pt. continues to show features of prior institutionalization. MANAGEMENT PLAN: Pt. to continue meds as ordered by admitting MD. Maintain safety precautions. Patient to attend groups and participate in unit programming to develop effective coping strategies. Pt. is not to be in his room other than for rest period and bedtime. Patient to be engaged in discharge planning process to ensure safe and effective discharge plan. Patient to follow- up with primary care physician upon discharge. Patient to return to [facility] housing with supportive services if discharged to home. Patient to be consistent and compliant with medication regimen. Patient to be consistent and compliant with lab draws required for clozapine use. CBC ordered for July 21 to check clozapine effect. TIME SPENT: 25 minutes. Vital Signs Vital Signs Date Time Temp Pulse Resp B/P Pulse Ox O2 Delivery O2 Flow Rate FiO2 07/17/16 06:44 96.8 77 20 99/55 07/15/16 16:52 95 Room Air Laboratory Data 24H Labs Laboratory Tests 2 07/17/16 09:00: Urine Amorphous Sediment , Urine Appearance CLEAR, Urine Color YELLOW, Urine pH 6.0, Urine Specific [place] 1.004, Urine Protein NEGATIVE, Urine Glucose (UA) NEGATIVE, Urine Ketones NEGATIVE, Urine Urobilinogen 0.2, Urine Bilirubin NEGATIVE, Urine Leukocyte Esterase 2+H, Urine Bacteria (Auto) 1+H, Urine Blood NEGATIVE, Urine Calcium Carbonate Cryst(Auto) , Urine Calcium Oxalate Cryst ( Auto) , Urine Calcium Phosphate [place]ade[place] (Auto) , Urine Cellular Casts , Urine Cystine Crystals , Urine Granular Casts (Auto) , Urine Hyaline Casts (Auto) 0, Urine Leucine Crystals , Urine Mucus (Auto) , Urine Nitrite NEGATIVE, Urine Oval Fat Bodies (Auto) , Urine RBC (Auto) 1, Urine Renal Epithelial Cells , Urine Sperm (Auto) , Urine Squamous Epithelial Cells 0, Urine Transitional Epithelial Cells , Urine Trichomonas (Auto) , Urine Triple Phosphate Cryst (Auto ) , Urine Tyrosine Crystals , Urine Uric Acid Crystals (Auto) , Urine WBC (Auto ) 37H, Urine Waxy Casts (Auto) , Urine Yeast-Like Cells (Auto) Current Medications Current Medications Medications (Trade) Dose Ordered Sig/Ora Route PRN Reason Start Time Stop Time Status Last Admin Dose Admin Acetaminophen (Tylenol Tab) 650 mg Q6HP PRN PO HEADACHE or DISCOMFORT 1/27/17 23:15 08/10/16 23:14 07/14/16 21:19 Al Hydrox/Mg Hydrox/Simethicone (Mylanta) 30 ml Q4HP PRN PO HEARTBURN/INDIGESTION 07/11/16 23:15 08/10/16 23:14 07/15/16 17:02 Albuterol/ Ipratropium (Duoneb (Ipr 0.5mg/Alb 2.5mg)) 3 ml Q4HP PRN NEB SOB/WHEEZING 07/13/16 23:15 08/12/16 23:14 Aspirin (Ecotrin) 81 mg DAILY PO 07/12/16 09:00 08/11/16 08:59 07/17/16 08:48 Atorvastatin Calcium (Lipitor) 10 mg QHS PO 07/15/16 21:00 08/14/16 20:59 07/16/16 21:16 Benztropine Mesylate (Cogentin) 1 mg QHS PO 07/13/16 21:00 08/12/16 20:59 07/16/16 21:16 Budesonide/ Formoterol Fumarate (Symbicort 160/ 4.5mcg) 2 puff BID INH 07/15/16 21:00 08/14/16 20:59 07/17/16 08:49 Chlorpromazine HCl (Thorazine) 50 mg BID PO 07/12/16 09:00 08/11/16 08:59 07/17/16 08:48 Clozapine (Clozaril) 200 mg QAM PO 07/12/16 09:00 07/13/16 08:33 DC 07/13/16 08:08 Clozapine (Clozaril) 250 mg QAM PO 07/14/16 09:00 07/21/16 08:59 07/17/16 08:48 Docusate Sodium (Colace) 100 mg BID PO 07/15/16 21:00 08/14/16 20:59 07/17/16 08:48 Escitalopram Oxalate (Lexapro) 10 mg DAILY PO 07/12/16 09:00 08/11/16 08:59 07/17/16 08:48 Home Med (Med Rec Complete!) ASDIRECTED XX 07/11/16 20:00 1/27/17 20:01 DC Influenza Virus Vaccine (Fluzone Quadrivalent Pf Vaccine) 0.5 ml 1T@09 IM 07/13/16 09:00 07/13/16 23:59 DC 07/13/16 10:24 Magnesium Hydroxide (Milk Of Magnesia) 30 ml DAILYPRN PRN PO CONSTIPATION 07/11/16 23:15 08/10/16 23:14 Metformin HCl (Glucophage) 850 mg DAILY@08 PO 07/16/16 08:00 08/15/16 07:59 07/17/16 07:27 Mirtazapine (Remeron) 15 mg QPM PO 07/12/16 21:00 08/11/16 20:59 07/16/16 21:16 Nicotine (Nicoderm Cq 21mg) 1 patch DAILY TD 07/12/16 09:00 08/11/16 08:59 07/17/16 08:49 Non-Formulary Medication ( See Comment Field Below ) SEE COMMENTS SECTION 1T@16 XX 07/16/16 16:00 08/15/16 15:59 07/16/16 16:01 Oxybutynin Chloride (Ditropan) 5 mg TID PO 07/15/16 16:00 08/14/16 15:59 07/17/16 16:58 Senna (Senokot) 2 tab QHS PO 07/15/16 21:00 08/14/16 20:59 07/16/16 21:16 Tamsulosin HCl (Flomax) 0.4 mg QAM PO 07/16/16 09:00 08/15/16 08:59 07/17/16 08:48 Tiotropium [place] (Spiriva Handihaler) 1 inhalation DAILY INH 07/16/16 09:00 08/15/16 08:59 07/17/16 08:46 Trazodone HCl (Desyrel) 50 mg QHSP PRN PO INSOMNIA 07/11/16 23:15 07/13/16 08:33 DC Trazodone HCl (Desyrel) 100 mg QHS PO 07/13/16 23:15 08/12/16 23:14 07/16/16 21:16 Allergies Coded Allergies: Quinolones (Verified Allergy, Unknown, QUESTIONABLE - AVELOX, 01/15/15) HAS HAD CIPRO & LEVAQUIN ON MULTIPLE OCCASIONS Haloperidol (Verified Adverse Reaction, Intermediate, LOCKJAW,WHEEZING, 09/19/12) Prochlorperazine (Verified Adverse Reaction, Intermediate, ANAPHYLAXIS, 09/19/12) TONIA MOYA NP Jul 17, 2016 18:43
[2016-07-17] MEDS: ATORVASTATIN 10 MG TAB PO SCH (21:10)
[2016-07-17] MEDS: BENZTROPINE 1 MG TAB PO SCH (21:10)
[2016-07-17] MEDS: MIRTAZAPINE 15 MG TAB PO SCH (21:10)
[2016-07-17] MEDS: SENNA 8.6 MG TAB (SENOKOT) PO SCH (21:10)
[2016-07-17] MEDS: traZODone 100 MG TAB PO SCH (21:11)
[2016-07-18 06:32] VITALS: BP 115/61
[2016-07-18] MEDS: TIOTROPIUM INHALER/CAPSULE (SPIRIVA) INH SCH (08:49)
[2016-07-18] MEDS: metFORMIN 850 MG TAB PO SCH (08:49)
[2016-07-18] MEDS: ESCITALOPRAM OXALATE 10 MG TAB (LEXAPRO) PO SCH (08:49)
[2016-07-18] MEDS: TAMSULOSIN 0.4 MG CAP PO SCH (08:49)
[2016-07-18] MEDS: chlorproMAZINE 25 MG TAB (Q0161) PO SCH ×2 (08:49→20:20)
[2016-07-18] MEDS: DOCUSATE SODIUM 100 MG CAP PO SCH ×2 (08:49→20:20)
[2016-07-18] MEDS: SYMBICORT 160/4.5MCG INHALER 6GM INH SCH ×2 (08:49→20:20)
[2016-07-18] MEDS: ASPIRIN 81 MG ENTERIC TAB PO SCH (08:49)
[2016-07-18] MEDS: oxyBUTYnin 5 MG TAB PO SCH ×3 (08:49→20:20)
[2016-07-18] MEDS: cloZAPine 100 MG TAB (S0136) PO SCH (08:50)
[2016-07-18] MEDS: NICOTINE 21MG/24HR 1 EA TRANSDERMAL TD SCH (08:50)
--- NOTE | 2016-07-18 17:09 | IPNPDOC ---
[facility] Progress Note Progress Note DATE OF SERVICE: 07/18/16 HISTORY: A 55-year-old Ivorian male hospitalized for command auditory hallucinations with suicidal ideation telling him to kill himself. The patient is a 55-year-old Ivorian male, single, living at a transitional living services ([facility]) community residence. The patient has a long history of mental health problems including numerous psychiatric admissions, outpatient psychiatric treatment. The patient was recently discharged from [facility] ([facility]) Inpatient Mental Health Unit (IM) on 2015. As per the emergency department (ED) report, the patient presented to the ED for evaluation because the patient presented after a scheduled appointment with psychiatrist Dr. Castanon. Dr. Castanon wanted to change the patient's medications but the patient declined change, requesting to go to the ED. The patient presented to the ED reporting hearing a woman's voice telling him to kill himself. The patient currently lives in a [facility] residence. Upon admission, the patient presents as a poor historian. He states he has been hearing voices that have been apparent since yesterday telling him to kill himself. He states his last suicide attempt was about two months ago. He states he does not know the trigger that brought him to have these command auditory hallucinations. He reports some depression but denies anxiety spectrum disorder symptoms. PAST PSYCHIATRIC HISTORY: The patient states he came out of [facility] ([facility] a month ago after being there a month. However, this was inaccurate, as he was discharged from [facility] Jun 20, 2016. The patient states he has been medication compliant since discharge. The patient was also discharged on 08/28/2015, from [facility] after being hospitalized for about a week. The patient has had numerous psychiatric hospitalizations with a diagnosis of schizophrenia. CHEMICAL DEPENDENCY: The patient has a past history of problem with heroin, speed, and crack use. He denies current and recent use of drugs or alcohol. He has also had problems with alcohol in the past. PAST MEDICAL HISTORY: 1. Dementia. 2. Diastolic congestive heart failure with ejection fraction of 65%. 3. Chronic obstructive pulmonary disease (COPD). 4. Hypertension. 5. Asthma. 6. Diabetes, diet controlled. 7. High cholesterol. 8. Neurogenic bladder with suprapubic catheter in place. 9. Gastroesophageal reflux disease (GERD). 10. History of transient ischemic attack (TIA). 11. Cholecystectomy. 12. Right inguinal hernia repair. ALLERGIES: QUINOLONES, HALDOL, LEXAPRO, CHLORPROMAZINE cause anaphylaxis. FAMILY HISTORY: Several family members have a history of substance abuse problems including his daughter. It has been reported that one of his daughters had of a heroin overdose since his last admission here. SOCIAL HISTORY: The patient states he lives in [facility] for the past month. States it is going well. There has been no trouble with his roommate or other residents or with staff. He states he is not in contact with any family members. He had a fight with his sister and his daughter does not want anything to do with him. He does not know the reason for this. VITAL SIGNS: See below. 96.4 70 18 115/61 TEST RESULTS: On admission - CBC within normal limits, except WBC elevated 11.3 , hematocrit low at 41.4. Reordered for Jul 21 to check clozapine effect. CMP including TSH within normal limits except alkaline phosphatase elevated at 136, AST low at 6, calcium low at 8.2. Urine toxicology negative for drugs. Blood alcohol level, Tylenol and salicylate levels within normal limits. Hepatitis C and HIV screen pending. CURRENT PSYCH MEDICATIONS: See below. - Clozaril 150 mg at bedtime 400 mg at bedtime for schizoaffective disorder - Benadryl 50 mg at bedtime for sleep - Lexapro 10 mg daily for depression - trifluoperazine 4 mg by mouth twice a day for psychotic features MENTAL STATUS EXAMINATION: Patient is a 56-year-old male who appears much older than his stated age. Speech: Is of normal rate, volume, and articulation. Pt. is coherent and mostly spontaneous. Pt. is found sitting in the lounge. Language skills are intact. Thought processes: Unclear, not goal-directed, illogical at times. Thought content: Rational, illogical, paranoia is back per patient. Pt. states he feels people are talking about him "all the time". Abstract reasoning and computation: Adequate. Description of associations: Intact. Description of abnormal or psychotic thoughts: Pt. states he started having command auditory hallucinations of a female voice that he does not recognize that is telling him to kill himself. Pt. reports the voice states "Karlos , kill yourself". Pt. states "Pretty loud again". Pt. continues to show no signs of responding to internal stimuli, is not affecting his sleep or thought processes. Pt's behavior does not follow usual course of someone having AH. Pt. denies visual hallucinations, preoccupations, homicidal or suicidal ideation other than what his voice tells him, obsessions or compulsions. Pt. states he has had delusions but states "I can't remember, people told me I did". Judgment : Poor. Insight: Very limited. Orientation to: time, person, place and situation. Recent and remote memory: Pt. states "No problems". Attention span and concentration: Fair. Language: Normal, somewhat difficult to understand. Fund of knowledge: Poor. Mood: Per pt. "Pretty good". Patient's statement of his mood is not consistent with other symptoms he describes, problems he has. Affect: flat, rational. DIAGNOSES: 1. Schizoaffective disorder ASSESSMENT: Pt. states that he is having suicidal ideation due to command auditory hallucinations, that are telling him to kill himself. Patient states "Pretty loud again" today. Patient reports he still hears the female voice telling him to kill himself. Pt. continues to not show any behavioral clues such as grimacing, wincing, flinching that he is responding to internally occurring stimuli. Pt. does not appear to be sound sensitive, is not covering ears or cowering to the perceived volume of the voice. Pt. does not ask for anything or state he needs anything when asked. Pt. appears to be happy laying in bed and sleeping. Pt. denies any disruption of sleep habits due to voice. Pt. reports he slept "Pretty good" last night. Patient reports sleeping 6-7 hours last night, felt rested this morning. Pt. states his baseline anxiety is 3 /10, baseline depression is 3/10. Pt. states current anxiety is 5/10, depression is 5/10. Pt. denies any use of alcohol, but has an extensive alcohol abuse history per prior records. Patient states "I don't use alcohol ". Patient states he has been compliant with medication regimen. Patient reports "I took my meds every day like I was supposed to ". Patient states "I don't know" when asked about discharge dates from [facility]. Pt. is not reliable in giving accurate responses to questions asked, possibly due to current mental state or prior diagnosed dementia. Pt. appears to be functioning as well as he can. Pt. continues to show features of prior institutionalization. MANAGEMENT PLAN: Pt. to continue meds as ordered by admitting MD. Maintain safety precautions. Patient to attend groups and participate in unit programming to develop effective coping strategies. Pt. is not to be in his room other than for rest period and bedtime. Patient to be engaged in discharge planning process to ensure safe and effective discharge plan. Patient to follow- up with primary care physician upon discharge. Patient to return to [facility] housing with supportive services if discharged home. Patient to be consistent and compliant with medication regimen. Patient to be consistent and compliant with lab draws required for clozapine use. CBC ordered for July 21 to check clozapine effect. TIME SPENT: 25 minutes. Vital Signs Vital Signs Date Time Temp Pulse Resp B/P Pulse Ox O2 Delivery O2 Flow Rate FiO2 07/18/16 06:32 96.4 70 18 115/61 07/15/16 16:52 95 Room Air Laboratory Data 24H Labs Laboratory Tests 2 07/17/16 17:44: Bedside Glucose (Misc Panel) 109H Current Medications Current Medications Medications (Trade) Dose Ordered Sig/Ora Route PRN Reason Start Time Stop Time Status Last Admin Dose Admin Acetaminophen (Tylenol Tab) 650 mg Q6HP PRN PO HEADACHE or DISCOMFORT 07/11/16 23:15 08/10/16 23:14 07/14/16 21:19 Al Hydrox/Mg Hydrox/Simethicone (Mylanta) 30 ml Q4HP PRN PO HEARTBURN/INDIGESTION 07/11/16 23:15 08/10/16 23:14 07/15/16 17:02 Albuterol/ Ipratropium (Duoneb (Ipr 0.5mg/Alb 2.5mg)) 3 ml Q4HP PRN NEB SOB/WHEEZING 07/13/16 23:15 08/12/16 23:14 Aspirin (Ecotrin) 81 mg DAILY PO 07/12/16 09:00 08/11/16 08:59 07/18/16 08:49 Atorvastatin Calcium (Lipitor) 10 mg QHS PO 07/15/16 21:00 08/14/16 20:59 07/17/16 21:10 Benztropine Mesylate (Cogentin) 1 mg QHS PO 07/13/16 21:00 08/12/16 20:59 07/17/16 21:10 Budesonide/ Formoterol Fumarate (Symbicort 160/ 4.5mcg) 2 puff BID INH 07/15/16 21:00 08/14/16 20:59 07/18/16 08:49 Chlorpromazine HCl (Thorazine) 50 mg BID PO 07/12/16 09:00 08/11/16 08:59 07/18/16 08:49 Clozapine (Clozaril) 200 mg QAM PO 07/12/16 09:00 07/13/16 08:33 DC 07/13/16 08:08 Clozapine (Clozaril) 250 mg QAM PO 07/14/16 09:00 07/21/16 08:59 07/18/16 08:50 Docusate Sodium (Colace) 100 mg BID PO 07/15/16 21:00 08/14/16 20:59 07/18/16 08:49 Escitalopram Oxalate (Lexapro) 10 mg DAILY PO 07/12/16 09:00 08/11/16 08:59 07/18/16 08:49 Home Med (Med Rec Complete!) ASDIRECTED XX 07/11/16 20:00 07/11/16 20:01 DC Influenza Virus Vaccine (Fluzone Quadrivalent Pf Vaccine) 0.5 ml 1T@09 IM 07/13/16 09:00 07/13/16 23:59 DC 07/13/16 10:24 Magnesium Hydroxide (Milk Of Magnesia) 30 ml DAILYPRN PRN PO CONSTIPATION 07/11/16 23:15 08/10/16 23:14 Metformin HCl (Glucophage) 850 mg DAILY@08 PO 07/16/16 08:00 08/15/16 07:59 07/18/16 08:49 Mirtazapine (Remeron) 15 mg QPM PO 07/12/16 21:00 08/11/16 20:59 07/17/16 21:10 Nicotine (Nicoderm Cq 21mg) 1 patch DAILY TD 07/12/16 09:00 08/11/16 08:59 07/18/16 08:50 Non-Formulary Medication ( See Comment Field Below ) SEE COMMENTS SECTION 1T@16 XX 07/16/16 16:00 07/17/16 18:58 DC 07/16/16 16:01 Oxybutynin Chloride (Ditropan) 5 mg TID PO 07/15/16 16:00 08/14/16 15:59 07/18/16 15:17 Senna (Senokot) 2 tab QHS PO 07/15/16 21:00 08/14/16 20:59 07/17/16 21:10 Tamsulosin HCl (Flomax) 0.4 mg QAM PO 07/16/16 09:00 08/15/16 08:59 07/18/16 08:49 Tiotropium [place] (Spiriva Handihaler) 1 inhalation DAILY INH 07/16/16 09:00 08/15/16 08:59 07/18/16 08:49 Trazodone HCl (Desyrel) 50 mg QHSP PRN PO INSOMNIA 07/11/16 23:15 07/13/16 08:33 DC Trazodone HCl (Desyrel) 100 mg QHS PO 07/13/16 23:15 08/12/16 23:14 07/17/16 21:11 Allergies Coded Allergies: Quinolones (Verified Allergy, Unknown, QUESTIONABLE - AVELOX, 01/15/15) HAS HAD CIPRO & LEVAQUIN ON MULTIPLE OCCASIONS Haloperidol (Verified Adverse Reaction, Intermediate, LOCKJAW,WHEEZING, 09/19/12) Prochlorperazine (Verified Adverse Reaction, Intermediate, ANAPHYLAXIS, 09/19/12) TONIA MOYA NP Jul 18, 2016 17:09
[2016-07-18 18:00] VITALS: BP 112/56
[2016-07-18] MEDS: BENZTROPINE 1 MG TAB PO SCH (20:20)
[2016-07-18] MEDS: traZODone 100 MG TAB PO SCH (20:20)
[2016-07-18] MEDS: ATORVASTATIN 10 MG TAB PO SCH (20:20)
[2016-07-18] MEDS: SENNA 8.6 MG TAB (SENOKOT) PO SCH (20:20)
[2016-07-18] MEDS: MIRTAZAPINE 15 MG TAB PO SCH (20:20)
[2016-07-19 06:57] VITALS: BP 122/77
[2016-07-19] MEDS: metFORMIN 850 MG TAB PO SCH (08:53)
[2016-07-19] MEDS: ASPIRIN 81 MG ENTERIC TAB PO SCH (08:53)
[2016-07-19] MEDS: TAMSULOSIN 0.4 MG CAP PO SCH (08:53)
[2016-07-19] MEDS: TIOTROPIUM INHALER/CAPSULE (SPIRIVA) INH SCH (08:53)
[2016-07-19] MEDS: oxyBUTYnin 5 MG TAB PO SCH ×3 (08:53→21:30)
[2016-07-19] MEDS: DOCUSATE SODIUM 100 MG CAP PO SCH ×2 (08:54→21:30)
[2016-07-19] MEDS: ESCITALOPRAM OXALATE 10 MG TAB (LEXAPRO) PO SCH (08:54)
[2016-07-19] MEDS: SYMBICORT 160/4.5MCG INHALER 6GM INH SCH ×2 (08:54→21:30)
[2016-07-19] MEDS: cloZAPine 100 MG TAB (S0136) PO SCH (08:54)
[2016-07-19] MEDS: chlorproMAZINE 25 MG TAB (Q0161) PO SCH ×2 (08:54→21:31)
[2016-07-19] MEDS: NICOTINE 21MG/24HR 1 EA TRANSDERMAL TD SCH (08:55)
[2016-07-19 18:33] VITALS: BP 113/55
[2016-07-19] MEDS: BENZTROPINE 1 MG TAB PO SCH (21:30)
[2016-07-19] MEDS: ATORVASTATIN 10 MG TAB PO SCH (21:31)
[2016-07-19] MEDS: traZODone 100 MG TAB PO SCH (21:31)
[2016-07-19] MEDS: BACTRIM 160MG/800MG DS TAB PO SCH (21:31)
[2016-07-19] MEDS: MIRTAZAPINE 15 MG TAB PO SCH (21:31)
[2016-07-19] MEDS: SENNA 8.6 MG TAB (SENOKOT) PO SCH (21:32)
[2016-07-20 06:51] VITALS: BP 114/60
[2016-07-20] MEDS: ASPIRIN 81 MG ENTERIC TAB PO SCH (08:52)
[2016-07-20] MEDS: NICOTINE 21MG/24HR 1 EA TRANSDERMAL TD SCH (08:52)
[2016-07-20] MEDS: DOCUSATE SODIUM 100 MG CAP PO SCH ×2 (08:52→20:46)
[2016-07-20] MEDS: ESCITALOPRAM OXALATE 10 MG TAB (LEXAPRO) PO SCH (08:52)
[2016-07-20] MEDS: SYMBICORT 160/4.5MCG INHALER 6GM INH SCH ×2 (08:52→20:46)
[2016-07-20] MEDS: cloZAPine 100 MG TAB (S0136) PO SCH (08:53)
[2016-07-20] MEDS: chlorproMAZINE 25 MG TAB (Q0161) PO SCH ×2 (08:53→20:46)
[2016-07-20] MEDS: oxyBUTYnin 5 MG TAB PO SCH ×3 (08:53→20:46)
[2016-07-20] MEDS: BACTRIM 160MG/800MG DS TAB PO SCH ×2 (08:53→20:46)
[2016-07-20] MEDS: TIOTROPIUM INHALER/CAPSULE (SPIRIVA) INH SCH (08:53)
[2016-07-20] MEDS: TAMSULOSIN 0.4 MG CAP PO SCH (08:53)
[2016-07-20] MEDS: metFORMIN 850 MG TAB PO SCH (08:53)
[2016-07-20 18:00] VITALS: BP 119/74
[2016-07-20] MEDS: traZODone 100 MG TAB PO SCH (20:45)
[2016-07-20] MEDS: BENZTROPINE 1 MG TAB PO SCH (20:45)
[2016-07-20] MEDS: MIRTAZAPINE 15 MG TAB PO SCH (20:46)
[2016-07-20] MEDS: ATORVASTATIN 10 MG TAB PO SCH (20:46)
[2016-07-20] MEDS: SENNA 8.6 MG TAB (SENOKOT) PO SCH (20:46)
[2016-07-21 06:37] VITALS: BP 139/71
[2016-07-21 07:17] LABS: BASO % 0.4 % (0.0-1.0); EOS # 0.4 K/mm3 (0.0-0.50); EOS % 4.7 % (0.0-3.0); LARGE UNSTAINED CELL # 0.2 K/mm3 (0.0-0.4); LARGE UNSTAINED CELL % 2.3 % (0.0-4.0); LYMPH # 2.8 K/mm3 (1.5-4.5); LYMPH % 31.8 % (24.0-44.0); MEAN CORPUSCULAR HEMOGLOBIN 29.8 pg (27.0-33.0); MEAN CORPUSCULAR HGB CONC 33.1 g/dl (32.0-36.5); MEAN CORPUSCULAR VOLUME 90.1 fl (80.0-96.0); MONO # 0.6 K/mm3 (0.0-0.8); MONO % 7.3 % (0.0-5.0); NEUTROPHILS # 4.4 K/mm3 (1.8-7.7); NEUTROPHILS % 53.4 % (36.0-66.0); PLATELET COUNT, AUTOMATED 202 k/mm3 (150-450); RED CELL DISTRIBUTION WIDTH 13.6 % (11.5-14.5); WHITE BLOOD COUNT 8.2 K/mm3 (4.0-10.0)
[2016-07-21] MEDS: cloZAPine 100 MG TAB (S0136) PO SCH (08:50)
[2016-07-21] MEDS: chlorproMAZINE 25 MG TAB (Q0161) PO SCH ×2 (08:51→21:12)
[2016-07-21] MEDS: oxyBUTYnin 5 MG TAB PO SCH ×3 (08:51→21:13)
[2016-07-21] MEDS: ASPIRIN 81 MG ENTERIC TAB PO SCH (08:51)
[2016-07-21] MEDS: ESCITALOPRAM OXALATE 10 MG TAB (LEXAPRO) PO SCH (08:51)
[2016-07-21] MEDS: BACTRIM 160MG/800MG DS TAB PO SCH ×2 (08:51→21:12)
[2016-07-21] MEDS: DOCUSATE SODIUM 100 MG CAP PO SCH ×2 (08:51→21:12)
[2016-07-21] MEDS: TAMSULOSIN 0.4 MG CAP PO SCH (08:51)
[2016-07-21] MEDS: metFORMIN 850 MG TAB PO SCH (08:51)
[2016-07-21] MEDS: TIOTROPIUM INHALER/CAPSULE (SPIRIVA) INH SCH (08:51)
[2016-07-21] MEDS: SYMBICORT 160/4.5MCG INHALER 6GM INH SCH ×2 (08:52→21:12)
[2016-07-21] MEDS: NICOTINE 21MG/24HR 1 EA TRANSDERMAL TD SCH (08:52)
--- NOTE | 2016-07-21 11:22 | IPNPDOC ---
Assessment/Plan Date Seen The patient was seen on 07/21/16. Problems Problems: (1) Suprapubic catheter Status: Chronic Problem Text: * Suprapubic Catheter changed 07/16/[address] Riggs. * Plan is for outpt f/u Q4 wks with urology for Catheter change. * UA/UC was requested as per Dr Riggs from the new Catheter. * UC- MRSA * Bactrim po D3 * Update BMP in AM. * Patient is afebrile. WBC WNL. * Patient remains on oxybutynin/tamsulosin (2) Hyperlipidemia Status: Chronic Problem Text: * Continue statin (3) Diastolic CHF Status: Chronic Problem Text: * No signs of fluid overload at this time. (4) COPD (chronic obstructive pulmonary disease) Status: Chronic Problem Text: * Continue inhaler regimen Symbicort/Spiriva (5) Diabetes mellitus Status: Chronic Problem Text: * Continue metformin 850 mg by mouth daily. * Aspirin 81 mg daily * Consistent carbohydrate diet. * FSBS twice a day * Hemoglobin A1c is noted to be 6.0 Plan / VTE VTE Prophylaxis Ordered?: No Subjective Review of Systems CC/HPI The patient is a 56-year-old male admitted with a reason for visit of Major Depressive Do. Events since last encounter Pt with no new complaints. Objective Physical Examination General Exam: Positive: Alert Eye Exam: Positive: PERRLA ENT Exam: Positive: Atraumatic Chest Exam: Positive: Clear to auscultation, Normal air movement Heart Exam: Positive: Normal S1, Normal S2, Rate Normal, Regular Rhythm Abdomen Exam: Positive: Normal bowel sounds, Other, Soft Skin Exam: Positive: Nl turgor and temperature Vital Signs/I&O Vital Signs Date Time Temp Pulse Resp B/P Pulse Ox O2 Delivery O2 Flow Rate FiO2 07/21/16 06:37 95.4 67 20 139/71 07/15/16 16:52 95 Room Air Laboratory Data Labs 24H Laboratory Tests 2 07/21/16 05:52: Bedside Glucose (Misc Panel) 106H 07/21/16 06:47: White Blood Count 8.2, Red Blood Count 4.69, Hemoglobin 14.0, Hematocrit 42.2, Mean Corpuscular Volume 90.1, Mean Corpuscular Hemoglobin 29.8, Mean Corpuscular Hemoglobin Concent 33.1, Red Cell Distribution Width 13.6, Platelet Count 202, Neutrophils (%) (Auto) 53.4, Lymphocytes (%) (Auto) 31.8, Monocytes ( %) (Auto) 7.3H, Eosinophils (%) (Auto) 4.7H, Basophils (%) (Auto) 0.4, Neutrophils # (Auto) 4.4, Lymphocytes # (Auto) 2.8, Monocytes # (Auto) 0.6, Eosinophils # (Auto) 0.4, Basophils # (Auto) 0.0, Large Unclassified Cells # 0.2 , Large Unclassified Cells % 2.3 CBC/BMP Laboratory Tests 07/21/16 06:47 Red Blood Count 4.69, Mean Corpuscular Volume 90.1, Mean Corpuscular Hemoglobin 29.8, Mean Corpuscular Hemoglobin Concent 33.1, Red Cell Distribution Width 13.6 , Neutrophils (%) (Auto) 53.4, Lymphocytes (%) (Auto) 31.8, Monocytes (%) (Auto ) 7.3 H, Eosinophils (%) (Auto) 4.7 H, Basophils (%) (Auto) 0.4, Neutrophils # ( Auto) 4.4, Lymphocytes # (Auto) 2.8, Monocytes # (Auto) 0.6, Eosinophils # (Auto ) 0.4, Basophils # (Auto) 0.0 FSBS Laboratory Tests Test 07/21/16 05:52 Range/Units Bedside Glucose (Misc Panel) 106 70-105 MG/DL Microbiology Microbiology 07/17/16 Urine Culture - Final, Complete Staph.aureus Methicillin Resis 07/15/16 Urine Culture - Final, Complete Staph.aureus Methicillin Resis Aerococcus Urinae Michelle Motta Jul 21, 2016 11:22
--- NOTE | 2016-07-21 12:22 | IPNPDOC ---
[facility] Progress Note Progress Note DATE OF SERVICE: 07/21/16 HISTORY: A 55-year-old [place] male hospitalized for command auditory hallucinations with suicidal ideation telling him to kill himself. The patient is a 55-year-old [place] male, single, living at a transitional living services ([facility]) community residence. The patient has a long history of mental health problems including numerous psychiatric admissions, outpatient psychiatric treatment. The patient was recently discharged from [facility] Inpatient Mental Health Unit (IM) on 2015. As per the emergency department (ED) report, the patient presented to the ED for evaluation because the patient presented after a scheduled appointment with psychiatrist Dr. Castanon. Dr. Castanon wanted to change the patient's medications but the patient declined change, requesting to go to the ED. The patient presented to the ED reporting hearing a woman's voice telling him to kill himself. The patient currently lives in a [facility] residence. Upon admission, the patient presents as a poor historian. He states he has been hearing voices that have been apparent since yesterday telling him to kill himself. He states his last suicide attempt was about two months ago. He states he does not know the trigger that brought him to have these command auditory hallucinations. He reports some depression but denies anxiety spectrum disorder symptoms. PAST PSYCHIATRIC HISTORY: The patient states he came out of [facility] ([facility] a month ago after being there a month. However, this was inaccurate, as he was discharged from [facility] Jun 20, 2016. The patient states he has been medication compliant since discharge. The patient was also discharged on 08/28/2015, from [facility] after being hospitalized for about a week. The patient has had numerous psychiatric hospitalizations with a diagnosis of schizophrenia. CHEMICAL DEPENDENCY: The patient has a past history of problem with heroin, speed, and crack use. He denies current and recent use of drugs or alcohol. He has also had problems with alcohol in the past. PAST MEDICAL HISTORY: 1. Dementia. 2. Diastolic congestive heart failure with ejection fraction of 65%. 3. Chronic obstructive pulmonary disease (COPD). 4. Hypertension. 5. Asthma. 6. Diabetes, diet controlled. 7. High cholesterol. 8. Neurogenic bladder with suprapubic catheter in place. 9. Gastroesophageal reflux disease (GERD). 10. History of transient ischemic attack (TIA). 11. Cholecystectomy. 12. Right inguinal hernia repair. ALLERGIES: QUINOLONES, HALDOL, LEXAPRO, CHLORPROMAZINE cause anaphylaxis. FAMILY HISTORY: Several family members have a history of substance abuse problems including his daughter. It has been reported that one of his daughters had of a heroin overdose since his last admission here. SOCIAL HISTORY: The patient states he lives in [facility] for the past month. States it is going well. There has been no trouble with his roommate or other residents or with staff. He states he is not in contact with any family members. He had a fight with his sister and his daughter does not want anything to do with him. He does not know the reason for this. VITAL SIGNS: See below. 95.4 67 20 139/71 TEST RESULTS: On admission - CBC within normal limits, except WBC elevated 11.3 , hematocrit low at 41.4. Reordered for Jul 21 to check clozapine effect. CMP including TSH within normal limits except alkaline phosphatase elevated at 136, AST low at 6, calcium low at 8.2. Urine toxicology negative for drugs. Blood alcohol level, Tylenol and salicylate levels within normal limits. Hepatitis C and HIV screen pending. CURRENT PSYCH MEDICATIONS: See below. - Clozaril 150 mg at bedtime 400 mg at bedtime for schizoaffective disorder - Benadryl 50 mg at bedtime for sleep - Lexapro 10 mg daily for depression - trifluoperazine 4 mg by mouth twice a day for psychotic features MENTAL STATUS EXAMINATION: Patient is a 56-year-old male who appears much older than his stated age. Pt. is pleasant and cooperative, noted to walk with a steady gait. Speech: Is of normal rate, volume, and articulation. Pt. is coherent and mostly spontaneous. Pt. is found sitting in the lounge. Language skills are intact. Thought processes: Clearing, becoming goal-directed, illogical at times. Thought content: Rational, illogical. Pt. denies any paranoia at this time. Abstract reasoning and computation: Adequate. Description of associations: Intact. Description of abnormal or psychotic thoughts: Pt. states he continues to have command auditory hallucinations of a female voice that he does not recognize that is telling him to kill himself. Pt. reports the voice states "Karlos, kill yourself". Pt. states "Loud". Pt. continues to show no signs of responding to internal stimuli, is not affecting his sleep or thought processes. Pt's behavior does not follow usual course of someone having AH. Pt. denies visual hallucinations, preoccupations, homicidal or suicidal ideation other than what his voice tells him, obsessions or compulsions. Pt. states he has had delusions but states "I can't remember, people told me I did". Judgment: Poor. Insight: Very limited. Orientation to: time, person, place and situation. Recent and remote memory: Pt. states "Pretty good". Attention span and concentration: Fair. Language: Normal, somewhat difficult to understand. Fund of knowledge: Poor. Mood: Per pt. "Little bit better". Patient's statement of his mood is not consistent with other symptoms he describes, problems he has. Affect: flat, rational. DIAGNOSES: 1. Schizoaffective disorder ASSESSMENT: Pt. states that he is having suicidal ideation due to command auditory hallucinations, that are telling him to kill himself. Patient states "Pretty loud again" today. Patient reports he still hears the female voice telling him to kill himself. Pt. continues to not show any behavioral clues such as grimacing, wincing, flinching that he is responding to internally occurring stimuli. Pt. does not appear to be sound sensitive, is not covering ears or cowering to the perceived volume of the voice. Pt. does not ask for anything or state he needs anything when asked. Pt. appears to be happy laying in bed and sleeping. Pt. denies any disruption of sleep habits due to voice. Pt. reports he slept "Not good" last night, but pt. states he was rested this morning. Patient reports sleeping 5-6 hours last night. Pt. states his baseline anxiety is 3/10, baseline depression is 3/10. Pt. states current anxiety is 3/10 , depression is 3/10. Pt. denies any use of alcohol, but has an extensive alcohol abuse history per prior records. Patient states "I don't use alcohol ". Patient states he has been compliant with medication regimen. Patient reports " I took my meds every day like I was supposed to ". Patient states "I don't know " when asked about discharge dates from [facility]. Pt. is not reliable in giving accurate responses to questions asked, possibly due to current mental state or prior diagnosed dementia. Pt. appears to be functioning as well as he can. Pt. continues to show features of prior institutionalization. MANAGEMENT PLAN: Pt. to continue meds as ordered by admitting MD. Maintain safety precautions. Patient to attend groups and participate in unit programming to develop effective coping strategies. Pt. is not to be in his room other than for rest period and bedtime. Patient to be engaged in discharge planning process to ensure safe and effective discharge plan. Patient to follow- up with primary care physician upon discharge. Patient to return to [facility] housing with supportive services if discharged home. Patient to be consistent and compliant with medication regimen. Patient to be consistent and compliant with lab draws required for clozapine use. CBC ordered for July 21 to check clozapine effect.Clinical consultation done with Dr. Schmidt for monitoring of clozapine. TIME SPENT: 15 minutes. Vital Signs Vital Signs Date Time Temp Pulse Resp B/P Pulse Ox O2 Delivery O2 Flow Rate FiO2 07/21/16 06:37 95.4 67 20 139/71 07/15/16 16:52 95 Room Air Laboratory Data 24H Labs Laboratory Tests 2 07/21/16 05:52: Bedside Glucose (Misc Panel) 106H 07/21/16 06:47: White Blood Count 8.2, Red Blood Count 4.69, Hemoglobin 14.0, Hematocrit 42.2, Mean Corpuscular Volume 90.1, Mean Corpuscular Hemoglobin 29.8, Mean Corpuscular Hemoglobin Concent 33.1, Red Cell Distribution Width 13.6, Platelet Count 202, Neutrophils (%) (Auto) 53.4, Lymphocytes (%) (Auto) 31.8, Monocytes ( %) (Auto) 7.3H, Eosinophils (%) (Auto) 4.7H, Basophils (%) (Auto) 0.4, Neutrophils # (Auto) 4.4, Lymphocytes # (Auto) 2.8, Monocytes # (Auto) 0.6, Eosinophils # (Auto) 0.4, Basophils # (Auto) 0.0, Large Unclassified Cells # 0.2 , Large Unclassified Cells % 2.3 CBC/BMP Laboratory Tests 07/21/16 06:47 Red Blood Count 4.69, Mean Corpuscular Volume 90.1, Mean Corpuscular Hemoglobin 29.8, Mean Corpuscular Hemoglobin Concent 33.1, Red Cell Distribution Width 13.6 , Neutrophils (%) (Auto) 53.4, Lymphocytes (%) (Auto) 31.8, Monocytes (%) (Auto ) 7.3 H, Eosinophils (%) (Auto) 4.7 H, Basophils (%) (Auto) 0.4, Neutrophils # ( Auto) 4.4, Lymphocytes # (Auto) 2.8, Monocytes # (Auto) 0.6, Eosinophils # (Auto ) 0.4, Basophils # (Auto) 0.0 Current Medications Current Medications Medications (Trade) Dose Ordered Sig/Ora Route PRN Reason Start Time Stop Time Status Last Admin Dose Admin Acetaminophen (Tylenol Tab) 650 mg Q6HP PRN PO HEADACHE or DISCOMFORT 07/11/16 23:15 08/10/16 23:14 07/14/16 21:19 Al Hydrox/Mg Hydrox/Simethicone (Mylanta) 30 ml Q4HP PRN PO HEARTBURN/INDIGESTION 07/11/16 23:15 08/10/16 23:14 07/15/16 17:02 Albuterol/ Ipratropium (Duoneb (Ipr 0.5mg/Alb 2.5mg)) 3 ml Q4HP PRN NEB SOB/WHEEZING 07/13/16 23:15 08/12/16 23:14 Aspirin (Ecotrin) 81 mg DAILY PO 07/12/16 09:00 08/11/16 08:59 07/21/16 08:51 Atorvastatin Calcium (Lipitor) 10 mg QHS PO 07/15/16 21:00 08/14/16 20:59 07/20/16 20:46 Benztropine Mesylate (Cogentin) 1 mg QHS PO 07/13/16 21:00 08/12/16 20:59 07/20/16 20:45 Budesonide/ Formoterol Fumarate (Symbicort 160/ 4.5mcg) 2 puff BID INH 07/15/16 21:00 08/14/16 20:59 07/21/16 08:52 Chlorpromazine HCl (Thorazine) 50 mg BID PO 07/12/16 09:00 08/11/16 08:59 07/21/16 08:51 Clozapine (Clozaril) 200 mg QAM PO 07/12/16 09:00 07/13/16 08:33 DC 07/13/16 08:08 Clozapine (Clozaril) 250 mg QAM PO 07/14/16 09:00 07/27/16 08:59 07/21/16 08:50 Docusate Sodium (Colace) 100 mg BID PO 07/15/16 21:00 08/14/16 20:59 07/21/16 08:51 Escitalopram Oxalate (Lexapro) 10 mg DAILY PO 07/12/16 09:00 08/11/16 08:59 07/21/16 08:51 Home Med (Med Rec Complete!) ASDIRECTED XX 07/11/16 20:00 07/11/16 20:01 DC Influenza Virus Vaccine (Fluzone Quadrivalent Pf Vaccine) 0.5 ml 1T@09 IM 07/13/16 09:00 07/13/16 23:59 DC 07/13/16 10:24 Magnesium Hydroxide (Milk Of Magnesia) 30 ml DAILYPRN PRN PO CONSTIPATION 07/11/16 23:15 08/10/16 23:14 Metformin HCl (Glucophage) 850 mg DAILY@08 PO 07/16/16 08:00 08/15/16 07:59 07/21/16 08:51 Mirtazapine (Remeron) 15 mg QPM PO 07/12/16 21:00 08/11/16 20:59 07/20/16 20:46 Nicotine (Nicoderm Cq 21mg) 1 patch DAILY TD 07/12/16 09:00 08/11/16 08:59 07/21/16 08:52 Non-Formulary Medication ( See Comment Field Below ) SEE COMMENTS SECTION 1T@16 XX 07/16/16 16:00 07/17/16 18:58 DC 07/16/16 16:01 Oxybutynin Chloride (Ditropan) 5 mg TID PO 07/15/16 16:00 08/14/16 15:59 07/21/16 08:51 Senna (Senokot) 2 tab QHS PO 07/15/16 21:00 08/14/16 20:59 07/20/16 20:46 Tamsulosin HCl (Flomax) 0.4 mg QAM PO 07/16/16 09:00 08/15/16 08:59 07/21/16 08:51 Tiotropium P[place] (Spiriva Handihaler) 1 inhalation DAILY INH 07/16/16 09:00 08/15/16 08:59 07/21/16 08:51 Trazodone HCl (Desyrel) 50 mg QHSP PRN PO INSOMNIA 07/11/16 23:15 07/13/16 08:33 DC Trazodone HCl (Desyrel) 100 mg QHS PO 07/13/16 23:15 08/12/16 23:14 07/20/16 20:45 Trimethoprim/ Sulfamethoxazole (Bactrim Ds, Septra Ds 160mg/ 800mg) 1 tab BID PO 07/19/16 21:00 07/26/16 20:59 07/21/16 08:51 Allergies Coded Allergies: Quinolones (Verified Allergy, Unknown, QUESTIONABLE - AVELOX, 01/15/15) HAS HAD CIPRO & LEVAQUIN ON MULTIPLE OCCASIONS Haloperidol (Verified Adverse Reaction, Intermediate, LOCKJAW,WHEEZING, 09/19/12) Prochlorperazine (Verified Adverse Reaction, Intermediate, ANAPHYLAXIS, 09/19/12) TONIA MOYA NP Jul 21, 2016 12:22
[2016-07-21 18:29] VITALS: BP 109/69
[2016-07-21] MEDS: traZODone 100 MG TAB PO SCH (21:12)
[2016-07-21] MEDS: MIRTAZAPINE 15 MG TAB PO SCH (21:12)
[2016-07-21] MEDS: BENZTROPINE 1 MG TAB PO SCH (21:13)
[2016-07-21] MEDS: ATORVASTATIN 10 MG TAB PO SCH (21:13)
[2016-07-21] MEDS: SENNA 8.6 MG TAB (SENOKOT) PO SCH (21:15)
[2016-07-22 06:35] VITALS: BP 114/55
[2016-07-22 06:57] LABS: ANION GAP 9 MEQ/L (8-16); BLOOD UREA NITROGEN 15 MG/DL (7-18); CALCIUM LEVEL 8.8 MG/DL (8.5-10.1); CARBON DIOXIDE LEVEL 28 MEQ/L (21-32); CHLORIDE LEVEL 104 MEQ/L (98-107); CREATININE FOR GFR 1.08 MG/DL (0.70-1.30); GLOMERULAR FILTRATION RATE > 60.0 (>56); GLUCOSE, FASTING 100 MG/DL (70-105); POTASSIUM SERUM 4.4 MEQ/L (3.5-5.1); SODIUM LEVEL 141 MEQ/L (136-145)
[2016-07-22] MEDS: metFORMIN 850 MG TAB PO SCH (07:01)
[2016-07-22] MEDS: NICOTINE 21MG/24HR 1 EA TRANSDERMAL TD SCH (08:58)
[2016-07-22] MEDS: SYMBICORT 160/4.5MCG INHALER 6GM INH SCH ×2 (08:58→21:13)
[2016-07-22] MEDS: TIOTROPIUM INHALER/CAPSULE (SPIRIVA) INH SCH (08:58)
[2016-07-22] MEDS: ASPIRIN 81 MG ENTERIC TAB PO SCH (08:59)
[2016-07-22] MEDS: ESCITALOPRAM OXALATE 10 MG TAB (LEXAPRO) PO SCH (08:59)
[2016-07-22] MEDS: DOCUSATE SODIUM 100 MG CAP PO SCH ×2 (08:59→21:12)
[2016-07-22] MEDS: TAMSULOSIN 0.4 MG CAP PO SCH (08:59)
[2016-07-22] MEDS: cloZAPine 100 MG TAB (S0136) PO SCH (08:59)
[2016-07-22] MEDS: BACTRIM 160MG/800MG DS TAB PO SCH ×2 (08:59→21:12)
[2016-07-22] MEDS: chlorproMAZINE 25 MG TAB (Q0161) PO SCH ×2 (08:59→21:12)
[2016-07-22] MEDS: oxyBUTYnin 5 MG TAB PO SCH ×3 (09:00→21:13)
--- NOTE | 2016-07-22 16:22 | IPNPDOC ---
[facility] Progress Note Progress Note DATE OF SERVICE: 07/22/16 HISTORY: A 55-year-old [place] male hospitalized for command auditory hallucinations with suicidal ideation telling him to kill himself. The patient is a 55-year-old [place] male, single, living at a transitional living services ([facility]) community residence. The patient has a long history of mental health problems including numerous psychiatric admissions, outpatient psychiatric treatment. The patient was recently discharged from [facility] ([facility] Inpatient Mental Health Unit (IM) on 2015. As per the emergency department (ED) report, the patient presented to the ED for evaluation because the patient presented after a scheduled appointment with psychiatrist Dr. Castanon. Dr. Castanon wanted to change the patient's medications but the patient declined change, requesting to go to the ED. The patient presented to the ED reporting hearing a woman's voice telling him to kill himself. The patient currently lives in a [facility] residence. Upon admission, the patient presents as a poor historian. He states he has been hearing voices that have been apparent since yesterday telling him to kill himself. He states his last suicide attempt was about two months ago. He states he does not know the trigger that brought him to have these command auditory hallucinations. He reports some depression but denies anxiety spectrum disorder symptoms. PAST PSYCHIATRIC HISTORY: The patient states he came out of [facility] ([facility] a month ago after being there a month. However, this was inaccurate, as he was discharged from [facility] Jun 20, 2016. The patient states he has been medication compliant since discharge, this is questionable. The patient was also discharged on 08/28/2015, from [facility] after being hospitalized for about a week. The patient has had numerous psychiatric hospitalizations with a diagnosis of schizophrenia. CHEMICAL DEPENDENCY: The patient has a past history of problem with heroin, speed, and crack use. He denies current and recent use of drugs or alcohol. He has also had problems with alcohol in the past. PAST MEDICAL HISTORY: 1. Dementia. 2. Diastolic congestive heart failure with ejection fraction of 65%. 3. Chronic obstructive pulmonary disease (COPD). 4. Hypertension. 5. Asthma. 6. Diabetes, diet controlled. 7. High cholesterol. 8. Neurogenic bladder with suprapubic catheter in place. 9. Gastroesophageal reflux disease (GERD). 10. History of transient ischemic attack (TIA). 11. Cholecystectomy. 12. Right inguinal hernia repair. ALLERGIES: QUINOLONES, HALDOL, LEXAPRO, CHLORPROMAZINE cause anaphylaxis. FAMILY HISTORY: Several family members have a history of substance abuse problems including his daughter. It has been reported that one of his daughters had of a heroin overdose since his last admission here. SOCIAL HISTORY: The patient states he lives in [facility] for the past month. Pt. states it is going well. There has been no trouble with his roommate or other residents or with staff per pt. He states he is not in contact with any family members. He had a fight with his sister and his daughter does not want anything to do with him. Pt. states he does not know the reason for this. VITAL SIGNS: See below. 97.4 67 20 114/55. TEST RESULTS: Last CBC(07/21/16) within normal limits, except Nelson is 7.3 which is high, Eos is 4.7 which is high. On admission SEBASTIAN, Tylenol and salicylate levels within normal limits. Hepatitis C and HIV screen are NEG, drawn on prior admission. Clinical consultation done about lab values in regards to clozapine dosing with Dr. Schmidt who feels no med changes are needed at this time. Will monitor weekly. CURRENT PSYCH MEDICATIONS: See below. - Clozaril 250 po q am for schizoaffective disorder - Benztropine 1 mg po q hs for EPS effects - Lexapro 10 mg po q am for depression - thorazine 50 mg by mouth twice a day for psychotic features - Remeron 15 mg po qhs for sleep/depression - Trazodone 100 mg po q hs for insomnia MENTAL STATUS EXAMINATION: Patient is a 56-year-old male who appears much older than his stated age. Pt. is pleasant and cooperative, noted to walk with a steady gait. Speech: Is of normal rate, volume, and articulation. Pt. is coherent and mostly spontaneous. Pt. is found sitting in the lounge. Language skills are intact. Thought processes: Clearer, becoming goal-directed. Thought content: Rational, logical. Pt. denies any paranoia at this time. Abstract reasoning and computation: Adequate. Description of associations: Intact. Description of abnormal or psychotic thoughts: Pt. states he continues to have command auditory hallucinations of a female voice that he does not recognize that is telling him to kill himself. Pt. reports the voice states "Karlos, kill yourself". Pt. states "It keeps me up at night". There is no staff documentation to support this claim by pt. Pt. continues to show no signs of responding to internal stimuli, is not affecting his sleep or thought processes that is verifiable. Pt's behavior does not follow usual course of someone having AH. Pt. denies visual hallucinations, preoccupations, homicidal or suicidal ideation other than what his voice tells him, obsessions or compulsions. Pt. states he has had delusions but states "I can't remember, people told me I did". Judgment: Poor. Insight: Poor. Orientation to: time, person, place and situation. Recent and remote memory : Pt. states "Yup, OK". Attention span and concentration: Fair. Language: Normal, somewhat difficult to understand. Fund of knowledge: Poor. Mood : Per pt. "Not too bad, so-so". Patient's statement of his mood continues to be non-congruent with other symptoms he describes, problems he has. Affect: flat , rational. DIAGNOSES: 1. Schizoaffective disorder vs, Schizophrenia ASSESSMENT: Pt. states that he is having suicidal ideation due to command auditory hallucinations, that are telling him to kill himself. Patient reports this still sounds loud to him, states "It keeps me up at night". Patient reports he still hears the female voice telling him to kill himself. Pt. continues to not show any behavioral clues such as grimacing, wincing, flinching that he is responding to internally occurring stimuli. Pt. does not appear to be sound sensitive, is not covering ears or cowering to the perceived volume of the voice. Pt. does not ask for anything or state he needs anything when asked. Pt. appears to be his happiest when laying in bed and sleeping. Pt. denies any disruption of sleep habits due to voice prior to today. Pt. reports he slept "Not too good" last night, but pt. states "Yeah", he was rested this morning. Patient reports sleeping 6 hours last night. Pt. states his baseline anxiety is 3/10, baseline depression is 3/10. Pt. states current anxiety is 3/10 , depression is 3/10. Pt. denies any use of alcohol, but has an extensive alcohol abuse history per prior records. Patient states "I don't use alcohol ". Patient states he has been compliant with medication regimen. Patient reports " I took my meds every day like I was supposed to ". Patient states "I don't know " when asked about discharge dates from [facility]. Pt. is not reliable in giving accurate responses to questions asked, possibly due to current mental state or prior diagnosed dementia. Pt. appears to be functioning as well as he can. Pt. continues to show features of prior institutionalization. MANAGEMENT PLAN: Pt. to continue meds as ordered by admitting MD. Maintain safety precautions. Patient to attend groups and participate in unit programming to develop effective coping strategies. Pt. is not to be in his room other than for rest period and bedtime. Patient to be engaged in discharge planning process to ensure safe and effective discharge plan. Patient to follow- up with primary care physician upon discharge. Patient to return to [facility] housing with supportive services if discharged home. Patient to be consistent and compliant with medication regimen. Patient to be consistent and compliant with lab draws required for clozapine use. Labs ordered to check clozapine effect. Clinical consultation done with Dr. Schmidt for monitoring of clozapine continues. TIME SPENT: 15 minutes. Vital Signs Vital Signs Date Time Temp Pulse Resp B/P Pulse Ox O2 Delivery O2 Flow Rate FiO2 07/22/16 06:35 97.4 67 20 114/55 Laboratory Data 24H Labs Laboratory Tests 2 07/21/16 16:50: Bedside Glucose (Misc Panel) 161H 07/22/16 06:07: Bedside Glucose (Misc Panel) 121H 07/22/16 06:15: Anion Gap 9, Blood Urea Nitrogen 15, Creatinine 1.08, Sodium Level 141, Potassium Level 4.4, Chloride Level 104, Carbon Dioxide Level 28, Calcium Level 8.8, Glomerular Filtration Rate > 60.0 CBC/BMP Laboratory Tests 07/22/16 06:15 Calcium Level 8.8 Current Medications Current Medications Medications (Trade) Dose Ordered Sig/Ora Route PRN Reason Start Time Stop Time Status Last Admin Dose Admin Acetaminophen (Tylenol Tab) 650 mg Q6HP PRN PO HEADACHE or DISCOMFORT 07/11/16 23:15 08/10/16 23:14 07/14/16 21:19 Al Hydrox/Mg Hydrox/Simethicone (Mylanta) 30 ml Q4HP PRN PO HEARTBURN/INDIGESTION 07/11/16 23:15 08/10/16 23:14 07/15/16 17:02 Albuterol/ Ipratropium (Duoneb (Ipr 0.5mg/Alb 2.5mg)) 3 ml Q4HP PRN NEB SOB/WHEEZING 07/13/16 23:15 08/12/16 23:14 Aspirin (Ecotrin) 81 mg DAILY PO 07/12/16 09:00 08/11/16 08:59 07/22/16 08:59 Atorvastatin Calcium (Lipitor) 10 mg QHS PO 07/15/16 21:00 08/14/16 20:59 07/21/16 21:13 Benztropine Mesylate (Cogentin) 1 mg QHS PO 07/13/16 21:00 08/12/16 20:59 07/21/16 21:13 Budesonide/ Formoterol Fumarate (Symbicort 160/ 4.5mcg) 2 puff BID INH 07/15/16 21:00 08/14/16 20:59 07/22/16 08:58 Chlorpromazine HCl (Thorazine) 50 mg BID PO 07/12/16 09:00 08/11/16 08:59 07/22/16 08:59 Clozapine (Clozaril) 200 mg QAM PO 07/12/16 09:00 07/13/16 08:33 DC 07/13/16 08:08 Clozapine (Clozaril) 250 mg QAM PO 07/14/16 09:00 07/27/16 08:59 07/22/16 08:59 Docusate Sodium (Colace) 100 mg BID PO 07/15/16 21:00 08/14/16 20:59 07/22/16 08:59 Escitalopram Oxalate (Lexapro) 10 mg DAILY PO 07/12/16 09:00 08/11/16 08:59 07/22/16 08:59 Home Med (Med Rec Complete!) ASDIRECTED XX 07/11/16 20:00 07/11/16 20:01 DC Influenza Virus Vaccine (Fluzone Quadrivalent Pf Vaccine) 0.5 ml 1T@09 IM 07/13/16 09:00 07/13/16 23:59 DC 07/13/16 10:24 Magnesium Hydroxide (Milk Of Magnesia) 30 ml DAILYPRN PRN PO CONSTIPATION 07/11/16 23:15 08/10/16 23:14 Metformin HCl (Glucophage) 850 mg DAILY@08 PO 07/16/16 08:00 08/15/16 07:59 07/22/16 07:01 Mirtazapine (Remeron) 15 mg QPM PO 07/12/16 21:00 08/11/16 20:59 07/21/16 21:12 Nicotine (Nicoderm Cq 21mg) 1 patch DAILY TD 07/12/16 09:00 08/11/16 08:59 07/22/16 08:58 Non-Formulary Medication ( See Comment Field Below ) SEE COMMENTS SECTION 1T@16 XX 07/16/16 16:00 07/17/16 18:58 DC 07/16/16 16:01 Oxybutynin Chloride (Ditropan) 5 mg TID PO 07/15/16 16:00 08/14/16 15:59 07/22/16 09:00 Senna (Senokot) 2 tab QHS PO 07/15/16 21:00 08/14/16 20:59 07/21/16 21:15 Tamsulosin HCl (Flomax) 0.4 mg QAM PO 07/16/16 09:00 08/15/16 08:59 07/22/16 08:59 Tiotropium [employer] (Spiriva Handihaler) 1 inhalation DAILY INH 07/16/16 09:00 08/15/16 08:59 07/22/16 08:58 Trazodone HCl (Desyrel) 50 mg QHSP PRN PO INSOMNIA 07/11/16 23:15 07/13/16 08:33 DC Trazodone HCl (Desyrel) 100 mg QHS PO 07/13/16 23:15 08/12/16 23:14 07/21/16 21:12 Trimethoprim/ Sulfamethoxazole (Bactrim Ds, Septra Ds 160mg/ 800mg) 1 tab BID PO 07/19/16 21:00 07/26/16 20:59 07/22/16 08:59 Allergies Coded Allergies: Quinolones (Verified Allergy, Unknown, QUESTIONABLE - AVELOX, 01/15/15) HAS HAD CIPRO & LEVAQUIN ON MULTIPLE OCCASIONS Haloperidol (Verified Adverse Reaction, Intermediate, LOCKJAW,WHEEZING, 09/19/12) Prochlorperazine (Verified Adverse Reaction, Intermediate, ANAPHYLAXIS, 09/19/12) TONIA MOYA NP Jul 22, 2016 16:22
[2016-07-22] MEDS: BENZTROPINE 1 MG TAB PO SCH (21:12)
[2016-07-22] MEDS: traZODone 100 MG TAB PO SCH (21:12)
[2016-07-22] MEDS: MIRTAZAPINE 15 MG TAB PO SCH (21:12)
[2016-07-22] MEDS: SENNA 8.6 MG TAB (SENOKOT) PO SCH (21:12)
[2016-07-22] MEDS: ATORVASTATIN 10 MG TAB PO SCH (21:13)
[2016-07-22 22:04] VITALS: BP 98/56
[2016-07-23 06:51] VITALS: BP 101/56
[2016-07-23] MEDS: TIOTROPIUM INHALER/CAPSULE (SPIRIVA) INH SCH (08:15)
[2016-07-23] MEDS: NICOTINE 21MG/24HR 1 EA TRANSDERMAL TD SCH (08:15)
[2016-07-23] MEDS: SYMBICORT 160/4.5MCG INHALER 6GM INH SCH ×2 (08:15→21:13)
[2016-07-23] MEDS: chlorproMAZINE 25 MG TAB (Q0161) PO SCH ×2 (08:16→21:13)
[2016-07-23] MEDS: TAMSULOSIN 0.4 MG CAP PO SCH (08:16)
[2016-07-23] MEDS: cloZAPine 100 MG TAB (S0136) PO SCH (08:16)
[2016-07-23] MEDS: BACTRIM 160MG/800MG DS TAB PO SCH ×2 (08:16→21:13)
[2016-07-23] MEDS: metFORMIN 850 MG TAB PO SCH (08:16)
[2016-07-23] MEDS: ASPIRIN 81 MG ENTERIC TAB PO SCH (08:16)
[2016-07-23] MEDS: oxyBUTYnin 5 MG TAB PO SCH ×3 (08:16→21:13)
[2016-07-23] MEDS: DOCUSATE SODIUM 100 MG CAP PO SCH ×2 (08:16→21:13)
[2016-07-23] MEDS: ESCITALOPRAM OXALATE 10 MG TAB (LEXAPRO) PO SCH (08:16)
--- NOTE | 2016-07-23 17:07 | IPNPDOC ---
[facility] Progress Note Progress Note DATE OF SERVICE: 07/23/16 HISTORY: A 56-year-old male hospitalized for command auditory hallucinations with suicidal ideation telling him to kill himself. The patient is a 55-year- old male, single, living at a transitional living services ([facility]) community residence. The patient has a long history of mental health problems including numerous psychiatric admissions, outpatient psychiatric treatment. The patient was recently discharged from [facility] ([facility] Inpatient Mental Health Unit (IM) on 08/28/2015. As per the emergency department (ED) report, the patient presented to the ED for evaluation because the patient presented after a scheduled appointment with psychiatrist Dr. Castanon. Dr. Castanon wanted to change the patient's medications but the patient declined change, requesting to go to the ED. The patient presented to the ED reporting hearing a woman's voice telling him to kill himself. The patient currently lives in a [facility] residence. Upon admission, the patient presents as a poor historian. He states he has been hearing voices that have been apparent since yesterday telling him to kill himself. He states his last suicide attempt was about two months ago. He states he does not know the trigger that brought him to have these command auditory hallucinations. He reports some depression but denies anxiety spectrum disorder symptoms. PAST PSYCHIATRIC HISTORY: The patient states he came out of [facility] ([facility]) a month ago after being there a month. However, this was inaccurate, as he was discharged from [facility] Jun 20, 2016. The patient states he has been medication compliant since discharge, this is questionable. The patient was also discharged on 08/28/2015, from [facility] after being hospitalized for about a week. The patient has had numerous psychiatric hospitalizations with a diagnosis of schizophrenia. CHEMICAL DEPENDENCY: The patient has a past history of problem with heroin, speed, and crack use. He denies current and recent use of drugs or alcohol. He has also had problems with alcohol in the past. PAST MEDICAL HISTORY: 1. Dementia. 2. Diastolic congestive heart failure with ejection fraction of 65%. 3. Chronic obstructive pulmonary disease (COPD). 4. Hypertension. 5. Asthma. 6. Diabetes, diet controlled. 7. High cholesterol. 8. Neurogenic bladder with suprapubic catheter in place. 9. Gastroesophageal reflux disease (GERD). 10. History of transient ischemic attack (TIA). 11. Cholecystectomy. 12. Right inguinal hernia repair. ALLERGIES: QUINOLONES, HALDOL, LEXAPRO, CHLORPROMAZINE cause anaphylaxis. FAMILY HISTORY: Several family members have a history of substance abuse problems including his daughter. It has been reported that one of his daughters had of a heroin overdose since his last admission here. SOCIAL HISTORY: The patient states he lives in [facility] for the past month. Pt. states it is going well. There has been no trouble with his roommate or other residents or with staff per pt. He states he is not in contact with any family members. He had a fight with his sister and his daughter does not want anything to do with him. Pt. states he does not know the reason for this. VITAL SIGNS: See below. 96.4 76 18 101/56. TEST RESULTS: Last CBC(07/21/16) within normal limits, except [place] is 7.3 which is high, Eos is 4.7 which is high. On admission SEBASTIAN, Tylenol and salicylate levels within normal limits. Hepatitis C and HIV screen are NEG, drawn on prior admission. Clinical consultation done about lab values in regards to clozapine dosing with Dr. Schmidt who feels no med changes are needed at this time. Will monitor weekly. CURRENT PSYCH MEDICATIONS: See below. - Clozaril 250 po q am for schizoaffective disorder - Benztropine 1 mg po q hs for EPS effects - Lexapro 10 mg po q am for depression - thorazine 50 mg by mouth twice a day for psychotic features - Remeron 15 mg po qhs for sleep/depression - Trazodone 100 mg po q hs for sleep/depression MENTAL STATUS EXAMINATION: Patient is a 56-year-old male who appears much older than his stated age. Pt. is pleasant and cooperative, noted to walk with a steady gait. Speech: Is of normal rate, volume, and articulation. Pt. is coherent and mostly spontaneous. Pt. is found sitting in the lounge, engaging with peers. Language skills are intact. Thought processes: Clearer, becoming goal- directed. Thought content: Rational, logical. Pt. denies any paranoia at this time. Abstract reasoning and computation: Adequate. Description of associations: Intact. Description of abnormal or psychotic thoughts: Pt. states he continues to have command auditory hallucinations of a female voice that he does not recognize that is telling him to kill himself. Pt. reports the voice states "Karlos, kill yourself". Pt. states is "Quieter" today. Pt. rates this 4/10 for how loud it is to him. Pt. continues to show no signs of responding to internal stimuli, is not affecting his sleep or thought processes that is verifiable. Pt's behavior does not follow usual course of someone having AH. Pt. denies visual hallucinations, preoccupations, homicidal or suicidal ideation other than what his voice tells him, obsessions or compulsions. Pt. states he has had delusions but states "I can't remember, people told me I did". Judgment: Poor. Insight: Poor. Orientation to: time, person, place and situation. Recent and remote memory: Pt. states "No problems". Attention span and concentration: Fair. Language: Normal, somewhat difficult to understand. Fund of knowledge: Poor. Mood: Per pt. "Crappy, I don't feel good". Pt. complains of feeling physically sick with hot flashes, feeling cold, upset stomach. Pt is afebrile, vs are stable. Patient's statement of his mood continues to be non-congruent with other symptoms he describes, problems he has. Affect: flat, rational. DIAGNOSES: 1. Schizoaffective disorder vs, Schizophrenia ASSESSMENT: Pt. states that he is having suicidal ideation due to command auditory hallucinations, that are telling him to kill himself. Patient reports sounds quieter to him today. Patient reports he still hears the female voice telling him to kill himself. Pt. continues to not show any behavioral clues such as grimacing, wincing, flinching that he is responding to internally occurring stimuli. Pt. does not appear to be sound sensitive, is not covering ears or cowering to the perceived volume of the voice. Pt. does not ask for anything or state he needs anything when asked. Pt. appears to be his happiest when laying in bed and sleeping. Pt. denies any disruption of sleep habits due to voice today. Pt. reports he slept "Restless" last night, but pt. states he was rested this morning. Patient reports sleeping 5 hours last night. Pt. states his baseline anxiety is 3/10, baseline depression is 3/10. Pt. states current anxiety is 6/10, depression is 6/10. Pt. cannot explain why his depression and anxiety feel worse than yesterday. Pt. denies any use of alcohol , but has an extensive alcohol abuse history per prior records. Patient states "I don't use alcohol ". Patient states he has been compliant with medication regimen. Patient reports "I took my meds every day like I was supposed to ". Patient states "I don't know" when asked about discharge dates from [facility]. Pt. is not reliable in giving accurate responses to questions asked, possibly due to current mental state or prior diagnosed dementia. Pt. appears to be functioning as well as he can. Pt. continues to show features of prior institutionalization. MANAGEMENT PLAN: Pt. to continue meds as ordered by admitting MD. Maintain safety precautions. Patient to attend groups and participate in unit programming to develop effective coping strategies. Pt. is not to be in his room other than for rest period and bedtime. Patient to be engaged in discharge planning process to ensure safe and effective discharge plan. Patient to follow- up with primary care physician upon discharge. Patient to return to [facility] housing with supportive services if discharged home. Patient to be consistent and compliant with medication regimen. Patient to be consistent and compliant with lab draws required for clozapine use. Labs ordered to check clozapine effect. Clinical consultation done with Dr. Schmidt for monitoring of clozapine continues. TIME SPENT: 15 minutes. Vital Signs Vital Signs Date Time Temp Pulse Resp B/P Pulse Ox O2 Delivery O2 Flow Rate FiO2 07/23/16 06:51 96.4 76 18 101/56 Laboratory Data 24H Labs Laboratory Tests 2 07/22/16 17:08: Bedside Glucose (Misc Panel) 119H 07/23/16 07:05: Bedside Glucose (Misc Panel) 133H Current Medications Current Medications Acetaminophen (Tylenol Tab) 650 mg Q6HP PRN PO HEADACHE or DISCOMFORT Last administered on 07/14/16 21:19; Start 07/11/16 at 23:15; Stop 08/10/16 at 23:14 Al Hydrox/Mg Hydrox/Simethicone (Mylanta) 30 ml Q4HP PRN PO HEARTBURN/ INDIGESTION Last administered on 07/15/16 17:02; Start 07/11/16 at 23:15; Stop 08/10/16 at 23:14 Albuterol/ Ipratropium (Duoneb (Ipr 0.5mg/Alb 2.5mg)) 3 ml Q4HP PRN NEB SOB/ WHEEZING; Start 07/13/16 at 23:15; Stop 08/12/16 at 23:14 Aspirin (Ecotrin) 81 mg DAILY PO Last administered on 07/23/16 08:16; Start at 09:00; Stop 08/11/16 at 08:59 Atorvastatin Calcium (Lipitor) 10 mg QHS PO Last administered on 07/22/16 21:13 ; Start 07/15/16 at 21:00; Stop 08/14/16 at 20:59 Benztropine Mesylate (Cogentin) 1 mg QHS PO Last administered on 07/22/16 21:12 ; Start 07/13/16 at 21:00; Stop 08/12/16 at 20:59 Budesonide/ Formoterol Fumarate (Symbicort 160/ 4.5mcg) 2 puff BID INH Last administered on 07/23/16 08:15; Start 07/15/16 at 21:00; Stop 08/14/16 at 20:59 Chlorpromazine HCl (Thorazine) 50 mg BID PO Last administered on 07/23/16 08:16 ; Start 07/12/16 at 09:00; Stop 08/11/16 at 08:59 Clozapine (Clozaril) 200 mg QAM PO Last administered on 07/13/16 08:08; Start 07/12/16 at 09:00; Stop 07/13/16 at 08:33; Status DC Clozapine (Clozaril) 250 mg QAM PO Last administered on 07/23/16 08:16; Start 07/14/16 at 09:00; Stop 07/27/16 at 08:59 Docusate Sodium (Colace) 100 mg BID PO Last administered on 07/23/16 08:16; Start 07/15/16 at 21:00; Stop 08/14/16 at 20:59 Escitalopram Oxalate (Lexapro) 10 mg DAILY PO Last administered on 07/23/16 08: 16; Start 07/12/16 at 09:00; Stop 08/11/16 at 08:59 Home Med (Med Rec Complete!) ASDIRECTED XX ; Start 07/11/16 at 20:00; Stop at 20:01; Status DC Influenza Virus Vaccine (Fluzone Quadrivalent Pf Vaccine) 0.5 ml 1T@09 IM Last administered on 07/13/16 10:24; Start 07/13/16 at 09:00; Stop 07/13/16 at 23:59 ; Status DC Magnesium Hydroxide (Milk Of Magnesia) 30 ml DAILYPRN PRN PO CONSTIPATION; Start 07/11/16 at 23:15; Stop 08/10/16 at 23:14 Metformin HCl (Glucophage) 850 mg DAILY@08 PO Last administered on 07/23/16 08: 16; Start 07/16/16 at 08:00; Stop 08/15/16 at 07:59 Mirtazapine (Remeron) 15 mg QPM PO Last administered on 07/22/16 21:12; Start 07/12/16 at 21:00; Stop 08/11/16 at 20:59 Nicotine (Nicoderm Cq 21mg) 1 patch DAILY TD Last administered on 07/23/16 08: 15; Start 07/12/16 at 09:00; Stop 08/11/16 at 08:59 Non-Formulary Medication ( See Comment Field Below ) SEE COMMENTS SECTION 1T @16 XX Last administered on 07/16/16 16:01; Start 07/16/16 at 16:00; Stop at 18:58; Status DC Oxybutynin Chloride (Ditropan) 5 mg TID PO Last administered on 07/23/16 16:20 ; Start 07/15/16 at 16:00; Stop 08/14/16 at 15:59 Senna (Senokot) 2 tab QHS PO Last administered on 07/22/16 21:12; Start at 21:00; Stop 08/14/16 at 20:59 Tamsulosin HCl (Flomax) 0.4 mg QAM PO Last administered on 07/23/16 08:16; Start 07/16/16 at 09:00; Stop 08/15/16 at 08:59 Tiotropium [place] (Spiriva Handihaler) 1 inhalation DAILY INH Last administered on 07/23/16 08:15; Start 07/16/16 at 09:00; Stop 08/15/16 at 08:59 Trazodone HCl (Desyrel) 50 mg QHSP PRN PO INSOMNIA; Start 07/11/16 at 23:15; Stop 07/13/16 at 08:33; Status DC Trazodone HCl (Desyrel) 100 mg QHS PO Last administered on 07/22/16 21:12; Start 07/13/16 at 23:15; Stop 08/12/16 at 23:14 Trimethoprim/ Sulfamethoxazole (Bactrim Ds, Septra Ds 160mg/ 800mg) 1 tab BID PO Last administered on 07/23/16 08:16; Start 07/19/16 at 21:00; Stop 07/26/16 at 20:59 Allergies Coded Allergies: Quinolones (Verified Allergy, Unknown, QUESTIONABLE - AVELOX, 01/15/15) HAS HAD CIPRO & LEVAQUIN ON MULTIPLE OCCASIONS Haloperidol (Verified Adverse Reaction, Intermediate, LOCKJAW,WHEEZING, 09/19/12) Prochlorperazine (Verified Adverse Reaction, Intermediate, ANAPHYLAXIS, 09/19/12) TONIA MOYA NP Jul 23, 2016 17:06
[2016-07-23 18:26] VITALS: BP 116/63
--- NOTE | 2016-07-23 20:12 | IPN ---
DATE: 07/23/2016 He has been here, been seen by Brooke Hillman, nurse practitioner, and I have seen him for a completion of 2-physician certification (2PC). He still struggles with his emotions, has suicidal thoughts, and needs to remain in the hospital for now. The relevant form is completed.
[2016-07-23] MEDS: BENZTROPINE 1 MG TAB PO SCH (21:13)
[2016-07-23] MEDS: ATORVASTATIN 10 MG TAB PO SCH (21:13)
[2016-07-23] MEDS: SENNA 8.6 MG TAB (SENOKOT) PO SCH (21:13)
[2016-07-23] MEDS: MIRTAZAPINE 15 MG TAB PO SCH (21:13)
[2016-07-23] MEDS: traZODone 100 MG TAB PO SCH (21:13)
[2016-07-24 07:30] VITALS: BP 166/74
[2016-07-24] MEDS: cloZAPine 100 MG TAB (S0136) PO SCH (08:36)
[2016-07-24] MEDS: oxyBUTYnin 5 MG TAB PO SCH ×3 (08:36→21:44)
[2016-07-24] MEDS: BACTRIM 160MG/800MG DS TAB PO SCH ×2 (08:36→21:43)
[2016-07-24] MEDS: ASPIRIN 81 MG ENTERIC TAB PO SCH (08:36)
[2016-07-24] MEDS: TIOTROPIUM INHALER/CAPSULE (SPIRIVA) INH SCH (08:36)
[2016-07-24] MEDS: DOCUSATE SODIUM 100 MG CAP PO SCH ×2 (08:36→21:44)
[2016-07-24] MEDS: NICOTINE 21MG/24HR 1 EA TRANSDERMAL TD SCH (08:36)
[2016-07-24] MEDS: ESCITALOPRAM OXALATE 10 MG TAB (LEXAPRO) PO SCH (08:36)
[2016-07-24] MEDS: chlorproMAZINE 25 MG TAB (Q0161) PO SCH ×2 (08:36→21:44)
[2016-07-24] MEDS: SYMBICORT 160/4.5MCG INHALER 6GM INH SCH ×2 (08:36→21:43)
[2016-07-24] MEDS: metFORMIN 850 MG TAB PO SCH (08:37)
[2016-07-24] MEDS: TAMSULOSIN 0.4 MG CAP PO SCH (08:37)
[2016-07-24 09:28] LABS: BASO % 0.4 % (0.0-1.0); EOS # 0.3 K/mm3 (0.0-0.50); EOS % 4.7 % (0.0-3.0); LARGE UNSTAINED CELL # 0.2 K/mm3 (0.0-0.4); LYMPH # 1.8 K/mm3 (1.5-4.5); LYMPH % 25.3 % (24.0-44.0); MEAN CORPUSCULAR HEMOGLOBIN 29.4 pg (27.0-33.0); MEAN CORPUSCULAR HGB CONC 32.8 g/dl (32.0-36.5); MEAN CORPUSCULAR VOLUME 89.5 fl (80.0-96.0); MONO # 0.4 K/mm3 (0.0-0.8); MONO % 5.7 % (0.0-5.0); NEUTROPHILS # 4.4 K/mm3 (1.8-7.7); NEUTROPHILS % 61.8 % (36.0-66.0); PLATELET COUNT, AUTOMATED 186 k/mm3 (150-450); RED CELL DISTRIBUTION WIDTH 13.1 % (11.5-14.5); WHITE BLOOD COUNT 7.1 K/mm3 (4.0-10.0)
[2016-07-24 09:43] LABS: ALBUMIN 3.6 GM/DL (3.2-5.2); ALBUMIN/GLOBULIN RATIO 1.16 (1.00-1.93); ALKALINE PHOSPHATASE 100 U/L (45-117); ALT/SGPT 37 U/L (12-78); ANION GAP 7 MEQ/L (8-16); AST/SGOT 11 U/L (15-37); BILIRUBIN,TOTAL 0.2 MG/DL (0.2-1.0); BLOOD UREA NITROGEN 11 MG/DL (7-18); CALCIUM LEVEL 8.3 MG/DL (8.5-10.1); CARBON DIOXIDE LEVEL 28 MEQ/L (21-32); CHLORIDE LEVEL 103 MEQ/L (98-107); CREATININE FOR GFR 1.02 MG/DL (0.70-1.30); GLOMERULAR FILTRATION RATE > 60.0 (>56); GLUCOSE, FASTING 161 MG/DL (70-105); SODIUM LEVEL 138 MEQ/L (136-145); TOTAL PROTEIN 6.7 GM/DL (6.4-8.2)
--- NOTE | 2016-07-24 11:57 | IPNPDOC ---
Subjective General Date Seen The patient was seen on 07/24/16. Subjective Chief Complaint/HPI The patient is a 56-year-old male admitted with a reason for visit of Major Depressive Do. Events since last encounter Patient states he vomited 3 during the night. Also states he had loose stools, GI panel is pending, he states he has had no further loose stools today. Denies any abdominal pain at this time. States he has had breakfast. He also reports a rash in the antecubital areas bilaterally. He states this was present prior to admission however has subsequently worsened. It is erythematous and itchy. He does not typically use any creams as outpatient. ENT: Denies: Dysphagia, Ear Pain, Head Aches Pulmonary: Denies: Cough, Dyspnea Cardiovascular: Denies: Chest Pain, Lt Headedness, Orthopnea, Palpitations, Paroxysmal Noc. Dyspnea Genitourinary: Reports: Other Symptoms (suprapubic catheter in place) Objective Physical Examination General Exam: Positive: Alert Eye Exam: Positive: PERRLA ENT Exam: Positive: Atraumatic Chest Exam: Positive: Clear to auscultation, Normal air movement Heart Exam: Positive: Normal S1, Normal S2, Rate Normal, Regular Rhythm Abdomen Exam: Positive: Normal bowel sounds, Other (suprapubic catheter draining yellow urine), Soft Skin Exam: Positive: Nl turgor and temperature, Rash (erythematous rashes noted in the antecubital areas bilaterally, excoriations are noted. There are a few excoriations noted at the neck. There are no rashes noted at the hands or in the web spaces. No rashes noted at the feet or in the web spaces. No rashes noted at the torso/axillary area.) Neuro Exam: Positive: Normal Gait Assessment /Plan Problems Problems: (1) Suprapubic catheter Status: Chronic Problem Text: * Suprapubic Catheter changed 07/16/[address] Riggs. * Plan is for outpt f/u Q4 wks with urology for Catheter change. * UA/UC was requested as per Dr Riggs from the new Catheter. * UC- MRSA * Bactrim po D5 * BMP today stable. * Patient is afebrile. WBC WNL. * Patient remains on oxybutynin/tamsulosin (2) Hyperlipidemia Status: Chronic Problem Text: * Continue statin (3) Diastolic CHF Status: Chronic Problem Text: * No signs of fluid overload at this time. (4) COPD (chronic obstructive pulmonary disease) Status: Chronic Problem Text: * Continue inhaler regimen Symbicort/Spiriva (5) Diabetes mellitus Status: Chronic Problem Text: * Continue metformin 850 mg by mouth daily. * Aspirin 81 mg daily * Consistent carbohydrate diet. * FSBS twice a day * Hemoglobin A1c is noted to be 6.0 (6) Loose stools Status: Acute Problem Text: * Patient states no further vomiting. * GI panel pending. * CBC/CMP today stable. * Monitor. (7) Rash Status: Acute Problem Text: * Appears localized to the antecubital spaces. * Patient states was present prior to admission and prior to initiation of Bactrim. * Trial of triamcinolone cream applied sparingly twice a day. * Monitor. Plan/VTE VTE Prophylaxis Ordered?: No VS, I&O, 24H, Fishbone Vital Signs/I&O Vital Signs Date Time Temp Pulse Resp B/P Pulse Ox O2 Delivery O2 Flow Rate FiO2 07/24/16 07:30 99.1 75 16 166/74 Laboratory Data 24H LABS Laboratory Tests 2 07/23/16 17:03: Bedside Glucose (Misc Panel) 143H 07/24/16 08:55: Blood Urea Nitrogen 11, Creatinine 1.02, Sodium Level 138, Potassium Level 4.0, Chloride Level 103, Carbon Dioxide Level 28, Calcium Level 8.3L, Aspartate Amino Transf (AST/SGOT) 11L, Alanine Aminotransferase (ALT/SGPT) 37, Alkaline Phosphatase 100, Total Bilirubin 0.2, Total Protein 6.7, Albumin 3.6, Albumin/ Globulin Ratio 1.16, Anion Gap 7L, White Blood Count 7.1, Red Blood Count 4.55, Hemoglobin 13.4L, Hematocrit 40.7L, Mean Corpuscular Volume 89.5, Mean Corpuscular Hemoglobin 29.4, Mean Corpuscular Hemoglobin Concent 32.8, Red Cell Distribution Width 13.1, Platelet Count 186, Neutrophils (%) (Auto) 61.8, Lymphocytes (%) (Auto) 25.3, Monocytes (%) (Auto) 5.7H, Eosinophils (%) (Auto) 4.7H, Basophils (%) (Auto) 0.4, Neutrophils # (Auto) 4.4, Lymphocytes # (Auto) 1.8, Monocytes # (Auto) 0.4, Eosinophils # (Auto) 0.3, Basophils # (Auto) 0.0, Glomerular Filtration Rate > 60.0, Large Unclassified Cells # 0.2, Large Unclassified Cells % 2.0 CBC/BMP Laboratory Tests 07/24/16 08:55 Calcium Level 8.3 L, Aspartate Amino Transf (AST/SGOT) 11 L, Alanine Aminotransferase (ALT/SGPT) 37, Alkaline Phosphatase 100, Total Bilirubin 0.2, Total Protein 6.7, Albumin 3.6, Red Blood Count 4.55, Mean Corpuscular Volume 89.5, Mean Corpuscular Hemoglobin 29.4, Mean Corpuscular Hemoglobin Concent 32.8 , Red Cell Distribution Width 13.1, Neutrophils (%) (Auto) 61.8, Lymphocytes (% ) (Auto) 25.3, Monocytes (%) (Auto) 5.7 H, Eosinophils (%) (Auto) 4.7 H, Basophils (%) (Auto) 0.4, Neutrophils # (Auto) 4.4, Lymphocytes # (Auto) 1.8, Monocytes # (Auto) 0.4, Eosinophils # (Auto) 0.3, Basophils # (Auto) 0.0 Microbiology Microbiology 07/17/16 Urine Culture - Final, Complete Staph.aureus Methicillin Resis 07/15/16 Urine Culture - Final, Complete Staph.aureus Methicillin Resis Aerococcus Urinae Michelle Motta Jul 24, 2016 11:57
[2016-07-24] MEDS: TRIAMCINOLONE ACETONIDE 0.025 % 80 GM CREAM TOP SCH ×2 (12:51→22:12)
--- NOTE | 2016-07-24 14:59 | IPNPDOC ---
[facility] Progress Note Progress Note DATE OF SERVICE: 07/24/16 HISTORY: A 56-year-old male hospitalized for command auditory hallucinations with suicidal ideation telling him to kill himself. The patient is a 55-year- old male, single, living at a transitional living services ([facility]) community residence. The patient has a long history of mental health problems including numerous psychiatric admissions, outpatient psychiatric treatment. The patient was recently discharged from [facility] ([facility]) Inpatient Mental Health Unit (IM) on 08/28/2015. As per the emergency department (ED) report, the patient presented to the ED for evaluation because the patient presented after a scheduled appointment with psychiatrist Dr. Castanon. Dr. Castanon wanted to change the patient's medications but the patient declined change, requesting to go to the ED. The patient presented to the ED reporting hearing a woman's voice telling him to kill himself. The patient currently lives in a [facility] residence. Upon admission, the patient presents as a poor historian. He states he has been hearing voices that have been apparent since yesterday telling him to kill himself. He states his last suicide attempt was about two months ago. He states he does not know the trigger that brought him to have these command auditory hallucinations. He reports some depression but denies anxiety spectrum disorder symptoms. PAST PSYCHIATRIC HISTORY: The patient states he came out of [facility] ([facility] a month ago after being there a month. However, this was inaccurate, as he was discharged from [facility] Jun 20, 2016. The patient states he has been medication compliant since discharge, this is questionable. The patient was also discharged on 08/28/2015, from [facility] after being hospitalized for about a week. The patient has had numerous psychiatric hospitalizations with a diagnosis of schizophrenia. CHEMICAL DEPENDENCY: The patient has a past history of problem with heroin, speed, and crack use. He denies current and recent use of drugs or alcohol. He has also had problems with alcohol in the past. PAST MEDICAL HISTORY: 1. Dementia. 2. Diastolic congestive heart failure with ejection fraction of 65%. 3. Chronic obstructive pulmonary disease (COPD). 4. Hypertension. 5. Asthma. 6. Diabetes, diet controlled. 7. High cholesterol. 8. Neurogenic bladder with suprapubic catheter in place. 9. Gastroesophageal reflux disease (GERD). 10. History of transient ischemic attack (TIA). 11. Cholecystectomy. 12. Right inguinal hernia repair. ALLERGIES: QUINOLONES, HALDOL, LEXAPRO, CHLORPROMAZINE cause anaphylaxis. FAMILY HISTORY: Several family members have a history of substance abuse problems including his daughter. It has been reported that one of his daughters had of a heroin overdose since his last admission here. SOCIAL HISTORY: The patient states he lives in [facility] for the past month. Pt. states it is going well. There has been no trouble with his roommate or other residents or with staff per pt. He states he is not in contact with any family members. He had a fight with his sister and his daughter does not want anything to do with him. Pt. states he does not know the reason for this. VITAL SIGNS: See below. 99.1 75 16 166/74. TEST RESULTS: Last CBC (07/21/16) within normal limits, except [place] is 7.3 which is high, Eos is 4.7 which is high. On admission [facility], Tylenol and salicylate levels within normal limits. Hepatitis C and HIV screen are NEG, drawn on prior admission. Clinical consultation done about lab values in regards to clozapine dosing with Dr. Schmidt who feels no med changes are needed at this time. Will monitor weekly. CURRENT PSYCH MEDICATIONS: See below. - Clozaril 250 po q am for schizoaffective disorder - Benztropine 1 mg po q hs for EPS effects - Lexapro 10 mg po q am for depression - thorazine 50 mg by mouth twice a day for psychotic features - Remeron 15 mg po qhs for sleep/depression - Trazodone 100 mg po q hs for sleep/depression MENTAL STATUS EXAMINATION: Patient is a 56-year-old male who appears much older than his stated age. Pt. is pleasant and cooperative, noted to walk with a steady gait. Speech: Is of normal rate, volume, and articulation. Pt. is coherent and mostly spontaneous. Pt. is found laying in bed when approached this morning. Language skills are intact. Thought processes: Clearer, maybe goal-directed. Thought content: Rational, logical. Pt. reports paranoia today, feels someone is after him. Abstract reasoning and computation: Adequate. Description of associations: Intact. Description of abnormal or psychotic thoughts: Pt. states he continues to have command auditory hallucinations of a female voice that he does not recognize that is telling him to kill himself. Pt. reports the voice states "Karlos, kill yourself". Pt. states is "Quieter" today. Pt. rates this 4/10 for how loud it is to him, again today. Pt. continues to show no signs of responding to internal stimuli, is not affecting his sleep or thought processes that is verifiable. Pt's behavior does not follow usual course of someone having AH. Pt. denies visual hallucinations, preoccupations, homicidal or suicidal ideation other than what his voice tells him, obsessions or compulsions. Pt. states he has had delusions but states "I can't remember, people told me I did". Judgment: Poor. Insight: Poor. Orientation to: time, person, place and situation. Recent and remote memory: Pt. states "Not bad". Attention span and concentration: Fair. Language: Normal, somewhat difficult to understand. Fund of knowledge: Poor. Mood: Per pt. "Pretty good". Patient's statement of his mood continues to be non- congruent with other symptoms he describes, problems he has. Affect: flat, rational. DIAGNOSES: 1. Schizoaffective disorder vs. Schizophrenia ASSESSMENT: Pt. states that he is having suicidal ideation due to command auditory hallucinations, that are telling him to kill himself. Patient reports sounds quieter to him today, same as yesterday. Patient reports he still hears the female voice telling him to kill himself. Pt. continues to not show any behavioral clues such as grimacing, wincing, flinching that he is responding to internally occurring stimuli. Pt. does not appear to be sound sensitive, is not covering ears or cowering to the perceived volume of the voice. Pt. does not ask for anything or state he needs anything when asked. Pt. appears to be his happiest when laying in bed and sleeping. Pt. denies any disruption of sleep habits due to voice today. Pt. reports he slept "Aw, restless, I tossed and turned all night". Patient reports sleeping 6-7 hours last night, staff charted 6.75. Pt. states his baseline anxiety is 3/10, baseline depression is 3/10. Pt. states current anxiety is 3/10, depression is 3/10. Pt. denies any use of alcohol, but has an extensive alcohol abuse history per prior records. Patient states "I don't use alcohol ". Patient states he has been compliant with medication regimen. Pt. is not reliable in giving accurate responses to questions asked, possibly due to current mental state or prior diagnosed dementia. Pt. appears to be functioning as well as he can. Pt. continues to show features of prior institutionalization. MANAGEMENT PLAN: Pt. to continue meds as ordered by admitting MD. Maintain safety precautions. Patient to attend groups and participate in unit programming to develop effective coping strategies. Pt. is not to be in his room other than for rest period and bedtime. Patient to be engaged in discharge planning process to ensure safe and effective discharge plan. Patient to follow- up with primary care physician upon discharge. Patient to return to [facility] housing with supportive services if discharged home. Patient to be consistent and compliant with medication regimen. Patient to be consistent and compliant with lab draws required for clozapine use. Labs ordered weekly to check clozapine effect. Clinical consultation done with Dr. Schmidt for monitoring of clozapine continues. TIME SPENT: 15 minutes. Vital Signs Vital Signs Date Time Temp Pulse Resp B/P Pulse Ox O2 Delivery O2 Flow Rate FiO2 07/24/16 07:30 99.1 75 16 166/74 Laboratory Data 24H Labs Laboratory Tests 2 07/23/16 17:03: Bedside Glucose (Misc Panel) 143H 07/24/16 08:55: Blood Urea Nitrogen 11, Creatinine 1.02, Sodium Level 138, Potassium Level 4.0, Chloride Level 103, Carbon Dioxide Level 28, Calcium Level 8.3L, Aspartate Amino Transf (AST/SGOT) 11L, Alanine Aminotransferase (ALT/SGPT) 37, Alkaline Phosphatase 100, Total Bilirubin 0.2, Total Protein 6.7, Albumin 3.6, Albumin/ Globulin Ratio 1.16, Anion Gap 7L, White Blood Count 7.1, Red Blood Count 4.55, Hemoglobin 13.4L, Hematocrit 40.7L, Mean Corpuscular Volume 89.5, Mean Corpuscular Hemoglobin 29.4, Mean Corpuscular Hemoglobin Concent 32.8, Red Cell Distribution Width 13.1, Platelet Count 186, Neutrophils (%) (Auto) 61.8, Lymphocytes (%) (Auto) 25.3, Monocytes (%) (Auto) 5.7H, Eosinophils (%) (Auto) 4.7H, Basophils (%) (Auto) 0.4, Neutrophils # (Auto) 4.4, Lymphocytes # (Auto) 1.8, Monocytes # (Auto) 0.4, Eosinophils # (Auto) 0.3, Basophils # (Auto) 0.0, Glomerular Filtration Rate > 60.0, Large Unclassified Cells # 0.2, Large Unclassified Cells % 2.0 CBC/BMP Laboratory Tests 07/24/16 08:55 Calcium Level 8.3 L, Aspartate Amino Transf (AST/SGOT) 11 L, Alanine Aminotransferase (ALT/SGPT) 37, Alkaline Phosphatase 100, Total Bilirubin 0.2, Total Protein 6.7, Albumin 3.6, Red Blood Count 4.55, Mean Corpuscular Volume 89.5, Mean Corpuscular Hemoglobin 29.4, Mean Corpuscular Hemoglobin Concent 32.8 , Red Cell Distribution Width 13.1, Neutrophils (%) (Auto) 61.8, Lymphocytes (% ) (Auto) 25.3, Monocytes (%) (Auto) 5.7 H, Eosinophils (%) (Auto) 4.7 H, Basophils (%) (Auto) 0.4, Neutrophils # (Auto) 4.4, Lymphocytes # (Auto) 1.8, Monocytes # (Auto) 0.4, Eosinophils # (Auto) 0.3, Basophils # (Auto) 0.0 Current Medications Current Medications Acetaminophen (Tylenol Tab) 650 mg Q6HP PRN PO HEADACHE or DISCOMFORT Last administered on 07/14/16 21:19; Start 07/11/16 at 23:15; Stop 08/10/16 at 23:14 Al Hydrox/Mg Hydrox/Simethicone (Mylanta) 30 ml Q4HP PRN PO HEARTBURN/ INDIGESTION Last administered on 07/15/16 17:02; Start 07/11/16 at 23:15; Stop 08/10/16 at 23:14 Albuterol/ Ipratropium (Duoneb (Ipr 0.5mg/Alb 2.5mg)) 3 ml Q4HP PRN NEB SOB/ WHEEZING; Start 07/13/16 at 23:15; Stop 08/12/16 at 23:14 Aspirin (Ecotrin) 81 mg DAILY PO Last administered on 07/24/16 08:36; Start at 09:00; Stop 08/11/16 at 08:59 Atorvastatin Calcium (Lipitor) 10 mg QHS PO Last administered on 07/23/16 21:13 ; Start 07/15/16 at 21:00; Stop 08/14/16 at 20:59 Benztropine Mesylate (Cogentin) 1 mg QHS PO Last administered on 07/23/16 21:13 ; Start 07/13/16 at 21:00; Stop 08/12/16 at 20:59 Budesonide/ Formoterol Fumarate (Symbicort 160/ 4.5mcg) 2 puff BID INH Last administered on 07/24/16 08:36; Start 07/15/16 at 21:00; Stop 08/14/16 at 20:59 Chlorpromazine HCl (Thorazine) 50 mg BID PO Last administered on 07/24/16 08:36 ; Start 07/12/16 at 09:00; Stop 08/11/16 at 08:59 Clozapine (Clozaril) 200 mg QAM PO Last administered on 07/13/16 08:08; Start 07/12/16 at 09:00; Stop 07/13/16 at 08:33; Status DC Clozapine (Clozaril) 250 mg QAM PO Last administered on 07/24/16 08:36; Start 07/14/16 at 09:00; Stop 07/27/16 at 08:59 Docusate Sodium (Colace) 100 mg BID PO Last administered on 07/24/16 08:36; Start 07/15/16 at 21:00; Stop 08/14/16 at 20:59 Escitalopram Oxalate (Lexapro) 10 mg DAILY PO Last administered on 07/24/16 08: 36; Start 07/12/16 at 09:00; Stop 08/11/16 at 08:59 Home Med (Med Rec Complete!) ASDIRECTED XX ; Start 07/11/16 at 20:00; Stop at 20:01; Status DC Influenza Virus Vaccine (Fluzone Quadrivalent Pf Vaccine) 0.5 ml 1T@09 IM Last administered on 07/13/16 10:24; Start 07/13/16 at 09:00; Stop 07/13/16 at 23:59 ; Status DC Magnesium Hydroxide (Milk Of Magnesia) 30 ml DAILYPRN PRN PO CONSTIPATION; Start 07/11/16 at 23:15; Stop 08/10/16 at 23:14 Metformin HCl (Glucophage) 850 mg DAILY@08 PO Last administered on 07/24/16 08: 37; Start 07/16/16 at 08:00; Stop 08/15/16 at 07:59 Mirtazapine (Remeron) 15 mg QPM PO Last administered on 07/23/16 21:13; Start 07/12/16 at 21:00; Stop 08/11/16 at 20:59 Nicotine (Nicoderm Cq 21mg) 1 patch DAILY TD Last administered on 07/24/16 08: 36; Start 07/12/16 at 09:00; Stop 08/11/16 at 08:59 Non-Formulary Medication ( See Comment Field Below ) SEE COMMENTS SECTION 1T @16 XX Last administered on 07/16/16 16:01; Start 07/16/16 at 16:00; Stop at 18:58; Status DC Oxybutynin Chloride (Ditropan) 5 mg TID PO Last administered on 07/24/16 08:36 ; Start 07/15/16 at 16:00; Stop 08/14/16 at 15:59 Senna (Senokot) 2 tab QHS PO Last administered on 07/23/16 21:13; Start at 21:00; Stop 08/14/16 at 20:59 Tamsulosin HCl (Flomax) 0.4 mg QAM PO Last administered on 07/24/16 08:37; Start 07/16/16 at 09:00; Stop 08/15/16 at 08:59 Tiotropium Jerome (Spiriva Handihaler) 1 inhalation DAILY INH Last administered on 07/24/16 08:36; Start 07/16/16 at 09:00; Stop 08/15/16 at 08:59 Trazodone HCl (Desyrel) 50 mg QHSP PRN PO INSOMNIA; Start 07/11/16 at 23:15; Stop 07/13/16 at 08:33; Status DC Trazodone HCl (Desyrel) 100 mg QHS PO Last administered on 07/23/16 21:13; Start 07/13/16 at 23:15; Stop 08/12/16 at 23:14 Triamcinolone Acetonide (Kenalog 0.025% Cream) 1 dose BID TOP Last administered on 07/24/16 12:51; Start 07/24/16 at 09:00; Stop 08/23/16 at 08:59 Trimethoprim/ Sulfamethoxazole (Bactrim Ds, Septra Ds 160mg/ 800mg) 1 tab BID PO Last administered on 07/24/16 08:36; Start 07/19/16 at 21:00; Stop 07/26/16 at 20:59 Allergies Coded Allergies: Quinolones (Verified Allergy, Unknown, QUESTIONABLE - AVELOX, 01/15/15) HAS HAD CIPRO & LEVAQUIN ON MULTIPLE OCCASIONS Haloperidol (Verified Adverse Reaction, Intermediate, LOCKJAW,WHEEZING, 09/19/12) Prochlorperazine (Verified Adverse Reaction, Intermediate, ANAPHYLAXIS, 09/19/12) TONIA MOYA NP Jul 24, 2016 14:59 12/25) TONIA MOYA NP Jul 24, 2016 14:59
[2016-07-24 18:00] VITALS: BP 143/78
[2016-07-24] MEDS: traZODone 100 MG TAB PO SCH (21:43)
[2016-07-24] MEDS: SENNA 8.6 MG TAB (SENOKOT) PO SCH (21:43)
[2016-07-24] MEDS: ATORVASTATIN 10 MG TAB PO SCH (21:44)
[2016-07-24] MEDS: BENZTROPINE 1 MG TAB PO SCH (21:44)
[2016-07-24] MEDS: MIRTAZAPINE 15 MG TAB PO SCH (22:09)
[2016-07-25 06:41] VITALS: BP 104/65
[2016-07-25] MEDS: cloZAPine 100 MG TAB (S0136) PO SCH (08:37)
[2016-07-25] MEDS: ESCITALOPRAM OXALATE 10 MG TAB (LEXAPRO) PO SCH (08:37)
[2016-07-25] MEDS: ASPIRIN 81 MG ENTERIC TAB PO SCH (08:37)
[2016-07-25] MEDS: NICOTINE 21MG/24HR 1 EA TRANSDERMAL TD SCH (08:37)
[2016-07-25] MEDS: DOCUSATE SODIUM 100 MG CAP PO SCH ×2 (08:37→21:16)
[2016-07-25] MEDS: metFORMIN 850 MG TAB PO SCH (08:38)
[2016-07-25] MEDS: TIOTROPIUM INHALER/CAPSULE (SPIRIVA) INH SCH (08:38)
[2016-07-25] MEDS: BACTRIM 160MG/800MG DS TAB PO SCH ×2 (08:38→21:19)
[2016-07-25] MEDS: SYMBICORT 160/4.5MCG INHALER 6GM INH SCH ×2 (08:38→21:16)
[2016-07-25] MEDS: TRIAMCINOLONE ACETONIDE 0.025 % 80 GM CREAM TOP SCH ×2 (08:38→21:16)
[2016-07-25] MEDS: oxyBUTYnin 5 MG TAB PO SCH ×3 (08:38→21:16)
[2016-07-25] MEDS: chlorproMAZINE 25 MG TAB (Q0161) PO SCH ×2 (08:38→21:17)
[2016-07-25] MEDS: TAMSULOSIN 0.4 MG CAP PO SCH (08:38)
[2016-07-25] MEDS: OSELTAMIVIR PHOSPHATE 75 MG CAP (TAMIFLU) PO SCH (12:47)
--- NOTE | 2016-07-25 16:23 | IPNPDOC ---
[facility] Progress Note Progress Note DATE OF SERVICE: 07/25/16 HISTORY: A 56-year-old male hospitalized for command auditory hallucinations with suicidal ideation telling him to kill himself. The patient is a 55-year- old male, single, living at a transitional living services ([facility]) community residence. The patient has a long history of mental health problems including numerous psychiatric admissions, outpatient psychiatric treatment. The patient was recently discharged from [facility] ([facility]) Inpatient Mental Health Unit (IM) on 08/28/2015. As per the emergency department (ED) report, the patient presented to the ED for evaluation because the patient presented after a scheduled appointment with psychiatrist Dr. Castanon. Dr. Castanon wanted to change the patient's medications but the patient declined change, requesting to go to the ED. The patient presented to the ED reporting hearing a woman's voice telling him to kill himself. The patient currently lives in a [facility] residence. Upon admission, the patient presents as a poor historian. He states he has been hearing voices that have been apparent since yesterday telling him to kill himself. He states his last suicide attempt was about two months ago. He states he does not know the trigger that brought him to have these command auditory hallucinations. He reports some depression but denies anxiety spectrum disorder symptoms. PAST PSYCHIATRIC HISTORY: The patient states he came out of [facility] ([facility]) a month ago after being there a month. However, this was inaccurate, as he was discharged from [facility] Jun 20, 2016. The patient states he has been medication compliant since discharge, this is questionable. The patient was also discharged on 08/28/2015, from [facility] after being hospitalized for about a week. The patient has had numerous psychiatric hospitalizations with a diagnosis of schizophrenia. CHEMICAL DEPENDENCY: The patient has a past history of problem with heroin, speed, and crack use. He denies current and recent use of drugs or alcohol. He has also had problems with alcohol in the past. PAST MEDICAL HISTORY: 1. Dementia. 2. Diastolic congestive heart failure with ejection fraction of 65%. 3. Chronic obstructive pulmonary disease (COPD). 4. Hypertension. 5. Asthma. 6. Diabetes, diet controlled. 7. High cholesterol. 8. Neurogenic bladder with suprapubic catheter in place. 9. Gastroesophageal reflux disease (GERD). 10. History of transient ischemic attack (TIA). 11. Cholecystectomy. 12. Right inguinal hernia repair. ALLERGIES: QUINOLONES, HALDOL, LEXAPRO, CHLORPROMAZINE cause anaphylaxis. FAMILY HISTORY: Several family members have a history of substance abuse problems including his daughter. It has been reported that one of his daughters had of a heroin overdose since his last admission here. SOCIAL HISTORY: The patient states he lives in [facility] for the past month. Pt. states it is going well. There has been no trouble with his roommate or other residents or with staff per pt. He states he is not in contact with any family members. He had a fight with his sister and his daughter does not want anything to do with him. Pt. states he does not know the reason for this. VITAL SIGNS: See below. 97.2 88 16 104/65. TEST RESULTS: Last CBC (07/21/16) within normal limits, except [place] is 7.3 which is high, [place] is 4.7 which is high. On admission [facility], Tylenol and salicylate levels within normal limits. Hepatitis C and HIV screen are NEG, drawn on prior admission. Clinical consultation done about lab values in regards to clozapine dosing with Dr. Schmidt who feels no med changes are needed at this time. Will monitor weekly. CURRENT PSYCH MEDICATIONS: See below. - Clozaril 250 po q am for schizoaffective disorder - Benztropine 1 mg po q hs for EPS effects - Lexapro 10 mg po q am for depression - thorazine 50 mg by mouth twice a day for psychotic features - Remeron 15 mg po qhs for sleep/depression - Trazodone 100 mg po q hs for sleep/depression MENTAL STATUS EXAMINATION: Patient is a 56-year-old male who appears much older than his stated age. Pt. is pleasant and cooperative, noted to walk with a steady gait. Speech: Is of normal rate, volume, and articulation. Pt. is coherent and mostly spontaneous. Pt. is found laying in bed when approached this morning. Language skills are intact. Thought processes: Clearer, somewhat goal- directed. Thought content: Rational, logical. Pt. reports paranoia today, feels someone is after him and that people are talking about him. Abstract reasoning and computation: Adequate. Description of associations: Intact. Description of abnormal or psychotic thoughts: Pt. states he continues to have command auditory hallucinations of a female voice that he does not recognize that is telling him to kill himself. Pt. reports the voice states "Karlos, kill yourself". Pt. states is "Quieter" today. Pt. rates this 3/10 for how loud it is to him, a little less than yesterday. Pt. continues to show no signs of responding to internal stimuli, is not affecting his sleep or thought processes that is verifiable. Pt's behavior does not follow usual course of someone having AH. Pt. denies visual hallucinations, preoccupations, homicidal or suicidal ideation other than what his voice tells him, obsessions or compulsions. Pt. states he has had delusions but states "I can't remember, people told me I did". Judgment: Poor. Insight: Poor. Orientation to: time, person, place and situation. Recent and remote memory: Pt. states "So-so, my short term memory is worse". Attention span and concentration: Fair. Language: Normal, difficult to understand at times. Fund of knowledge: Poor. Mood: Per pt. "Not bad, pretty good". Patient's statement of his mood continues to be non-consistent with other symptoms he describes, problems he has. Affect : flat, rational. DIAGNOSES: 1. Schizoaffective disorder vs. Schizophrenia ASSESSMENT: Pt. states that he is having suicidal ideation due to command auditory hallucinations, that are telling him to kill himself. Patient reports sounds quieter to him today, same as yesterday. Patient reports he still hears the female voice telling him to kill himself. Pt. continues to not show any behavioral clues such as grimacing, wincing, flinching that he is responding to internally occurring stimuli. Pt. does not appear to be sound sensitive, is not covering ears or cowering to the perceived volume of the voice. Pt. does not ask for anything or state he needs anything when asked. Pt. appears to be his happiest when laying in bed and sleeping. Pt. denies any disruption of sleep habits due to voice today. Pt. reports he slept "Pretty restless". Patient reports sleeping 7 hours last night. Pt. reports "Not rested at all". Pt. states his baseline anxiety is 3/10, baseline depression is 3/10. Pt. states current anxiety is 5/10, depression is 5/10. Pt. is unable to tell provider why depression and anxiety increased from yesterday. Pt. denies any use of alcohol, but has an extensive alcohol abuse history per prior records. Patient states "I don't use alcohol ". Patient states he has been compliant with medication regimen. Pt. is not reliable in giving accurate responses to questions asked, possibly due to current mental state or prior diagnosed dementia. Pt. appears to be functioning as well as he can. Pt. continues to show features of prior institutionalization. MANAGEMENT PLAN: Pt. to continue meds as ordered by admitting MD. Maintain safety precautions. Patient to attend groups and participate in unit programming to develop effective coping strategies. Pt. is not to be in his room other than for rest period and bedtime. Patient to be engaged in discharge planning process to ensure safe and effective discharge plan. Patient to follow- up with primary care physician upon discharge. Patient to return to [facility] housing with supportive services if discharged home. Patient to be consistent and compliant with medication regimen. Patient to be consistent and compliant with lab draws required for clozapine use. Labs ordered weekly to check clozapine effect. Clinical consultation done with Dr. Schmidt for monitoring of clozapine continues. TIME SPENT: 15 minutes. Vital Signs Vital Signs Date Time Temp Pulse Resp B/P Pulse Ox O2 Delivery O2 Flow Rate FiO2 07/25/16 06:41 97.2 88 16 104/65 Laboratory Data 24H Labs Laboratory Tests 2 07/24/16 16:54: Bedside Glucose (Misc Panel) 95 07/25/16 05:43: Bedside Glucose (Misc Panel) 118H Current Medications Current Medications Acetaminophen (Tylenol Tab) 650 mg Q6HP PRN PO HEADACHE or DISCOMFORT Last administered on 07/14/16 21:19; Start 07/11/16 at 23:15; Stop 08/10/16 at 23:14 Al Hydrox/Mg Hydrox/Simethicone (Mylanta) 30 ml Q4HP PRN PO HEARTBURN/ INDIGESTION Last administered on 07/15/16 17:02; Start 07/11/16 at 23:15; Stop 08/10/16 at 23:14 Albuterol/ Ipratropium (Duoneb (Ipr 0.5mg/Alb 2.5mg)) 3 ml Q4HP PRN NEB SOB/ WHEEZING; Start 07/13/16 at 23:15; Stop 08/12/16 at 23:14 Aspirin (Ecotrin) 81 mg DAILY PO Last administered on 07/25/16 08:37; Start at 09:00; Stop 08/11/16 at 08:59 Atorvastatin Calcium (Lipitor) 10 mg QHS PO Last administered on 07/24/16 21:44 ; Start 07/15/16 at 21:00; Stop 08/14/16 at 20:59 Benztropine Mesylate (Cogentin) 1 mg QHS PO Last administered on 07/24/16 21:44 ; Start 07/13/16 at 21:00; Stop 08/12/16 at 20:59 Budesonide/ Formoterol Fumarate (Symbicort 160/ 4.5mcg) 2 puff BID INH Last administered on 07/25/16 08:38; Start 07/15/16 at 21:00; Stop 08/14/16 at 20:59 Chlorpromazine HCl (Thorazine) 50 mg BID PO Last administered on 07/25/16 08: 38; Start 07/12/16 at 09:00; Stop 08/11/16 at 08:59 Clozapine (Clozaril) 200 mg QAM PO Last administered on 07/13/16 08:08; Start 07/12/16 at 09:00; Stop 07/13/16 at 08:33; Status DC Clozapine (Clozaril) 250 mg QAM PO Last administered on 07/25/16 08:37; Start 07/14/16 at 09:00; Stop 07/27/16 at 08:59 Docusate Sodium (Colace) 100 mg BID PO Last administered on 07/25/16 08:37; Start 07/15/16 at 21:00; Stop 08/14/16 at 20:59 Escitalopram Oxalate (Lexapro) 10 mg DAILY PO Last administered on 07/25/16 08 :37; Start 07/12/16 at 09:00; Stop 08/11/16 at 08:59 Home Med (Med Rec Complete!) ASDIRECTED XX ; Start 07/11/16 at 20:00; Stop at 20:01; Status DC Influenza Virus Vaccine (Fluzone Quadrivalent Pf Vaccine) 0.5 ml 1T@09 IM Last administered on 07/13/16 10:24; Start 07/13/16 at 09:00; Stop 07/13/16 at 23:59 ; Status DC Magnesium Hydroxide (Milk Of Magnesia) 30 ml DAILYPRN PRN PO CONSTIPATION; Start 07/11/16 at 23:15; Stop 08/10/16 at 23:14 Metformin HCl (Glucophage) 850 mg DAILY@08 PO Last administered on 07/25/16 08 :38; Start 07/16/16 at 08:00; Stop 08/15/16 at 07:59 Mirtazapine (Remeron) 15 mg QPM PO Last administered on 07/24/16 22:09; Start 07/12/16 at 21:00; Stop 08/11/16 at 20:59 Nicotine (Nicoderm Cq 21mg) 1 patch DAILY TD Last administered on 07/25/16 08: 37; Start 07/12/16 at 09:00; Stop 08/11/16 at 08:59 Non-Formulary Medication ( See Comment Field Below ) SEE COMMENTS SECTION 1T @16 XX Last administered on 07/16/16 16:01; Start 07/16/16 at 16:00; Stop at 18:58; Status DC Oseltamivir Phosphate (Tamiflu) 75 mg DAILY PO Last administered on 07/25/16 12:47; Start 07/25/16 at 09:00; Stop 08/03/16 at 12:00 Oxybutynin Chloride (Ditropan) 5 mg TID PO Last administered on 07/25/16 16:03 ; Start 07/15/16 at 16:00; Stop 08/14/16 at 15:59 Senna (Senokot) 2 tab QHS PO Last administered on 07/24/16 21:43; Start at 21:00; Stop 08/14/16 at 20:59 Tamsulosin HCl (Flomax) 0.4 mg QAM PO Last administered on 07/25/16 08:38; Start 07/16/16 at 09:00; Stop 08/15/16 at 08:59 Tiotropium [place] (Spiriva Handihaler) 1 inhalation DAILY INH Last administered on 07/25/16 08:38; Start 07/16/16 at 09:00; Stop 08/15/16 at 08:59 Trazodone HCl (Desyrel) 50 mg QHSP PRN PO INSOMNIA; Start 07/11/16 at 23:15; Stop 07/13/16 at 08:33; Status DC Trazodone HCl (Desyrel) 100 mg QHS PO Last administered on 07/24/16 21:43; Start 07/13/16 at 23:15; Stop 08/12/16 at 23:14 Triamcinolone Acetonide (Kenalog 0.025% Cream) 1 dose BID TOP Last administered on 07/25/16 08:38; Start 07/24/16 at 09:00; Stop 08/23/16 at 08:59 Trimethoprim/ Sulfamethoxazole (Bactrim Ds, Septra Ds 160mg/ 800mg) 1 tab BID PO Last administered on 07/25/16 08:38; Start 07/19/16 at 21:00; Stop 07/26/16 at 20:59 Allergies Coded Allergies: Quinolones (Verified Allergy, Unknown, QUESTIONABLE - AVELOX, 01/15/15) HAS HAD CIPRO & LEVAQUIN ON MULTIPLE OCCASIONS Haloperidol (Verified Adverse Reaction, Intermediate, LOCKJAW,WHEEZING, 09/19/12) Prochlorperazine (Verified Adverse Reaction, Intermediate, ANAPHYLAXIS, 09/19/12) TONIA MOYA NP Jul 25, 2016 16:23
[2016-07-25 18:00] VITALS: BP 98/62
[2016-07-25] MEDS: SENNA 8.6 MG TAB (SENOKOT) PO SCH (21:16)
[2016-07-25] MEDS: traZODone 100 MG TAB PO SCH (21:16)
[2016-07-25] MEDS: BENZTROPINE 1 MG TAB PO SCH (21:16)
[2016-07-25] MEDS: MIRTAZAPINE 15 MG TAB PO SCH (21:17)
[2016-07-25] MEDS: ATORVASTATIN 10 MG TAB PO SCH (21:21)
[2016-07-26 06:15] VITALS: BP 141/75
[2016-07-26] MEDS: TIOTROPIUM INHALER/CAPSULE (SPIRIVA) INH SCH (08:22)
[2016-07-26] MEDS: BACTRIM 160MG/800MG DS TAB PO SCH ×2 (08:22→20:30)
[2016-07-26] MEDS: SYMBICORT 160/4.5MCG INHALER 6GM INH SCH ×2 (08:22→20:32)
[2016-07-26] MEDS: DOCUSATE SODIUM 100 MG CAP PO SCH ×2 (08:22→20:30)
[2016-07-26] MEDS: ESCITALOPRAM OXALATE 10 MG TAB (LEXAPRO) PO SCH (08:22)
[2016-07-26] MEDS: oxyBUTYnin 5 MG TAB PO SCH ×3 (08:22→20:30)
[2016-07-26] MEDS: OSELTAMIVIR PHOSPHATE 75 MG CAP (TAMIFLU) PO SCH (08:23)
[2016-07-26] MEDS: TAMSULOSIN 0.4 MG CAP PO SCH (08:23)
[2016-07-26] MEDS: metFORMIN 850 MG TAB PO SCH (08:23)
[2016-07-26] MEDS: cloZAPine 100 MG TAB (S0136) PO SCH (08:23)
[2016-07-26] MEDS: chlorproMAZINE 25 MG TAB (Q0161) PO SCH ×2 (08:23→20:30)
[2016-07-26] MEDS: ASPIRIN 81 MG ENTERIC TAB PO SCH (08:23)
[2016-07-26] MEDS: NICOTINE 21MG/24HR 1 EA TRANSDERMAL TD SCH (08:24)
[2016-07-26] MEDS: TRIAMCINOLONE ACETONIDE 0.025 % 80 GM CREAM TOP SCH ×2 (09:06→20:32)
--- NOTE | 2016-07-26 10:12 | IPNPDOC ---
Assessment/Plan Date Seen The patient was seen on 07/26/16. Problems (1) Suprapubic catheter Status: Chronic (2) Hyperlipidemia Status: Chronic (3) Diastolic CHF Status: Chronic (4) COPD (chronic obstructive pulmonary disease) Status: Chronic (5) Diabetes mellitus Status: Chronic (6) Loose stools Status: Acute (7) Rash Status: Acute Plan/VTE VTE Prophylaxis Ordered?: No Subjective Review oF Systems Chief Complaint The patient is a 56-year-old male admitted with a reason for visit of Major Depressive Do; delusions; suicidal ideation; NGB with chronic SPT; MRSA; HTN; COPD; CHF. SPT changed by Urology (07/16/16). Bactrim. 80, 20, 141/75, 97.1F. Abdo: Benign. SPT clear. Urine culture (07/17/16) MRSA, Bactrim. (07/24/16) Hg 13.4, wbc 7.1, Cr 1.02. A: Above. P: SPT to SD. Change q4-6 weeks. Objective Physical Examination Heart Exam: Positive: Normal S1, Normal S2, Rate Normal, Regular Rhythm Vital Signs/I&O Vital Signs Date Time Temp Pulse Resp B/P Pulse Ox O2 Delivery O2 Flow Rate FiO2 07/26/16 06:15 97.1 80 20 141/75 Laboratory Data Labs 24H Laboratory Tests 2 07/25/16 17:14: Bedside Glucose (Misc Panel) 178H FSBS Laboratory Tests Test 07/25/16 17:14 Range/Units Bedside Glucose (Misc Panel) 178 70-105 MG/DL Microbiology Microbiology 07/17/16 Urine Culture - Final, Complete Staph.aureus Methicillin Resis URSULA BRUNER MD Jul 26, 2016 10:12
[2016-07-26 18:39] VITALS: BP 110/60
[2016-07-26] MEDS: SENNA 8.6 MG TAB (SENOKOT) PO SCH (20:30)
[2016-07-26] MEDS: BENZTROPINE 1 MG TAB PO SCH (20:30)
[2016-07-26] MEDS: traZODone 100 MG TAB PO SCH (20:30)
[2016-07-26] MEDS: MIRTAZAPINE 15 MG TAB PO SCH (20:30)
[2016-07-26] MEDS: ATORVASTATIN 10 MG TAB PO SCH (20:30)
[2016-07-27 06:33] VITALS: BP 112/71
[2016-07-27] MEDS: SYMBICORT 160/4.5MCG INHALER 6GM INH SCH ×2 (08:02→22:00)
[2016-07-27] MEDS: BACTRIM 160MG/800MG DS TAB PO SCH ×2 (08:04→21:58)
[2016-07-27] MEDS: DOCUSATE SODIUM 100 MG CAP PO SCH ×2 (08:04→22:02)
[2016-07-27] MEDS: ASPIRIN 81 MG ENTERIC TAB PO SCH (08:04)
[2016-07-27] MEDS: TIOTROPIUM INHALER/CAPSULE (SPIRIVA) INH SCH (08:04)
[2016-07-27] MEDS: metFORMIN 850 MG TAB PO SCH (08:04)
[2016-07-27] MEDS: oxyBUTYnin 5 MG TAB PO SCH ×3 (08:04→22:00)
[2016-07-27] MEDS: chlorproMAZINE 25 MG TAB (Q0161) PO SCH ×2 (08:04→21:59)
[2016-07-27] MEDS: NICOTINE 21MG/24HR 1 EA TRANSDERMAL TD SCH (08:04)
[2016-07-27] MEDS: OSELTAMIVIR PHOSPHATE 75 MG CAP (TAMIFLU) PO SCH (08:04)
[2016-07-27] MEDS: TAMSULOSIN 0.4 MG CAP PO SCH (08:04)
[2016-07-27] MEDS: ESCITALOPRAM OXALATE 10 MG TAB (LEXAPRO) PO SCH (08:04)
[2016-07-27] MEDS: TRIAMCINOLONE ACETONIDE 0.025 % 80 GM CREAM TOP SCH ×2 (08:05→22:02)
[2016-07-27] MEDS: cloZAPine 100 MG TAB (S0136) PO SCH (11:05)
[2016-07-27 18:00] VITALS: BP 113/69
[2016-07-27] MEDS: MIRTAZAPINE 15 MG TAB PO SCH (21:58)
[2016-07-27] MEDS: SENNA 8.6 MG TAB (SENOKOT) PO SCH (21:59)
[2016-07-27] MEDS: ATORVASTATIN 10 MG TAB PO SCH (22:00)
[2016-07-27] MEDS: BENZTROPINE 1 MG TAB PO SCH (22:01)
[2016-07-27] MEDS: traZODone 100 MG TAB PO SCH (22:02)
[2016-07-28 06:26] VITALS: BP 121/79
[2016-07-28] MEDS: metFORMIN 850 MG TAB PO SCH (07:04)
[2016-07-28 07:05] LABS: BASO % 0.4 % (0.0-1.0); EOS # 0.4 K/mm3 (0.0-0.50); EOS % 5.2 % (0.0-3.0); LARGE UNSTAINED CELL # 0.3 K/mm3 (0.0-0.4); LARGE UNSTAINED CELL % 3.8 % (0.0-4.0); MEAN CORPUSCULAR HEMOGLOBIN 29.2 pg (27.0-33.0); MEAN CORPUSCULAR HGB CONC 32.7 g/dl (32.0-36.5); MEAN CORPUSCULAR VOLUME 89.3 fl (80.0-96.0); MONO # 0.7 K/mm3 (0.0-0.8); MONO % 8.6 % (0.0-5.0); NEUTROPHILS # 4.4 K/mm3 (1.8-7.7); NEUTROPHILS % 56.9 % (36.0-66.0); PLATELET COUNT, AUTOMATED 201 k/mm3 (150-450); RED CELL DISTRIBUTION WIDTH 13.2 % (11.5-14.5); WHITE BLOOD COUNT 7.8 K/mm3 (4.0-10.0)
[2016-07-28 07:21] LABS: ANION GAP 9 MEQ/L (8-16); BLOOD UREA NITROGEN 12 MG/DL (7-18); CALCIUM LEVEL 9.1 MG/DL (8.5-10.1); CARBON DIOXIDE LEVEL 28 MEQ/L (21-32); CHLORIDE LEVEL 102 MEQ/L (98-107); CREATININE FOR GFR 1.09 MG/DL (0.70-1.30); GLOMERULAR FILTRATION RATE > 60.0 (>56); GLUCOSE, FASTING 147 MG/DL (70-105); POTASSIUM SERUM 4.3 MEQ/L (3.5-5.1); SODIUM LEVEL 139 MEQ/L (136-145)
[2016-07-28] MEDS: TRIAMCINOLONE ACETONIDE 0.025 % 80 GM CREAM TOP SCH ×2 (08:31→21:35)
[2016-07-28] MEDS: oxyBUTYnin 5 MG TAB PO SCH ×3 (08:31→21:34)
[2016-07-28] MEDS: NICOTINE 21MG/24HR 1 EA TRANSDERMAL TD SCH (08:31)
[2016-07-28] MEDS: cloZAPine 100 MG TAB (S0136) PO SCH (08:31)
[2016-07-28] MEDS: ESCITALOPRAM OXALATE 10 MG TAB (LEXAPRO) PO SCH (08:32)
[2016-07-28] MEDS: OSELTAMIVIR PHOSPHATE 75 MG CAP (TAMIFLU) PO SCH (08:32)
[2016-07-28] MEDS: chlorproMAZINE 25 MG TAB (Q0161) PO SCH ×2 (08:32→21:34)
[2016-07-28] MEDS: ASPIRIN 81 MG ENTERIC TAB PO SCH (08:32)
[2016-07-28] MEDS: BACTRIM 160MG/800MG DS TAB PO SCH ×2 (08:32→21:33)
[2016-07-28] MEDS: SYMBICORT 160/4.5MCG INHALER 6GM INH SCH ×2 (08:32→21:34)
[2016-07-28] MEDS: DOCUSATE SODIUM 100 MG CAP PO SCH ×2 (08:32→21:36)
[2016-07-28] MEDS: TAMSULOSIN 0.4 MG CAP PO SCH (08:32)
[2016-07-28] MEDS: TIOTROPIUM INHALER/CAPSULE (SPIRIVA) INH SCH (08:32)
--- NOTE | 2016-07-28 17:36 | IPNPDOC ---
[facility] Progress Note Progress Note DATE OF SERVICE: 07/28/16 HISTORY: A 56-year-old male hospitalized for command auditory hallucinations with suicidal ideation telling him to kill himself. The patient is a 55-year- old male, single, living at a transitional living services ([facility]) community residence. The patient has a long history of mental health problems including numerous psychiatric admissions, outpatient psychiatric treatment. The patient was recently discharged from [facility] ([facility]) Inpatient Mental Health Unit (IM) on 08/28/2015. As per the emergency department (ED) report, the patient presented to the ED for evaluation because the patient presented after a scheduled appointment with psychiatrist Dr. Castanon. Dr. Castanon wanted to change the patient's medications but the patient declined change, requesting to go to the ED. The patient presented to the ED reporting hearing a woman's voice telling him to kill himself. The patient currently lives in a [facility] residence. Upon admission, the patient presents as a poor historian. He states he has been hearing voices that have been apparent since yesterday telling him to kill himself. He states his last suicide attempt was about two months ago. He states he does not know the trigger that brought him to have these command auditory hallucinations. He reports some depression but denies anxiety spectrum disorder symptoms. PAST PSYCHIATRIC HISTORY: The patient states he came out of [facility] ([facility] a month ago after being there a month. However, this was inaccurate, as he was discharged from [facility] Jun 20, 2016. The patient states he has been medication compliant since discharge, this is questionable. The patient was also discharged on 08/28/2015, from [facility] after being hospitalized for about a week. The patient has had numerous psychiatric hospitalizations with a diagnosis of schizophrenia. CHEMICAL DEPENDENCY: The patient has a past history of problem with heroin, speed, and crack use. He denies current and recent use of drugs or alcohol. He has also had problems with alcohol in the past. PAST MEDICAL HISTORY: 1. Dementia. 2. Diastolic congestive heart failure with ejection fraction of 65%. 3. Chronic obstructive pulmonary disease (COPD). 4. Hypertension. 5. Asthma. 6. Diabetes, diet controlled. 7. High cholesterol. 8. Neurogenic bladder with suprapubic catheter in place. 9. Gastroesophageal reflux disease (GERD). 10. History of transient ischemic attack (TIA). 11. Cholecystectomy. 12. Right inguinal hernia repair. ALLERGIES: QUINOLONES, HALDOL, CHLORPROMAZINE cause anaphylaxis. FAMILY HISTORY: Several family members have a history of substance abuse problems including his daughter. It has been reported that one of his daughters had of a heroin overdose since his last admission here. SOCIAL HISTORY: The patient states he lives in [facility] for the past month. Pt. states it is going well. There has been no trouble with his roommate or other residents or with staff per pt. He states he is not in contact with any family members. He had a fight with his sister and his daughter does not want anything to do with him. Pt. states he does not know the reason for this. VITAL SIGNS: See below. 96 73 18 121/79. TEST RESULTS: Last CBC (07/28/16) within normal limits, except [place] is 8.6 which is high, Eos is 5.2 which is high. On admission [facility]IAN, Tylenol and salicylate levels within normal limits. Hepatitis C and HIV screen are NEG, drawn on prior admission. Clinical consultation done about lab values in regards to clozapine dosing with Dr. Schmidt. CURRENT PSYCH MEDICATIONS: See below. - Clozaril 250 po q am for schizoaffective disorder - Benztropine 1 mg po q hs for EPS effects - Lexapro 10 mg po q am for depression - thorazine 50 mg by mouth twice a day for psychotic features - Remeron 15 mg po qhs for sleep/depression - Trazodone 100 mg po q hs for sleep/depression MENTAL STATUS EXAMINATION: Patient is a 56-year-old male who appears much older than his stated age. Pt. is unkempt in appearance, wearing hospital t shirt and scrub pants. Pt. is pleasant and cooperative, noted to walk with a steady gait. Speech: Is of normal rate, volume, and articulation. Pt. is coherent and mostly spontaneous. Pt. is found laying in bed when approached this morning. Language skills are intact. Thought processes: Clearer, somewhat goal- directed. Thought content: Rational, logical. Pt. denies paranoia today. Abstract reasoning and computation: Adequate. Description of associations: Intact. Description of abnormal or psychotic thoughts: Pt. states he continues to have command auditory hallucinations of a female voice that he does not recognize that is telling him to kill himself. Pt. reports the voice states "Karlos , kill yourself". Pt. states is "Very loud" today. Pt. rates this 02/22 for how loud it is to him, more than Thursday. Pt. continues to show no signs of responding to internal stimuli, is not affecting his sleep or thought processes that is verifiable. Pt's behavior does not follow usual course of someone having AH. Pt. denies visual hallucinations, preoccupations, homicidal or suicidal ideation other than what his voice tells him, obsessions or compulsions. Pt. states he has had delusions but states "I can't remember, people told me I did". Judgment: Poor. Insight: Poor. Orientation to: time, person, place and situation. Recent and remote memory: Pt. states "I don't know". Attention span and concentration: Fair. Language: Normal, difficult to understand at times. Fund of knowledge: Poor. Mood: Per pt. "Pretty good" . Patient's statement of his mood continues to be non-consistent with other symptoms he describes, problems he has. Affect: flat, rational. DIAGNOSES: 1. Schizoaffective disorder vs. Schizophrenia ASSESSMENT: Pt. states that he is having suicidal ideation due to command auditory hallucinations, that are telling him to kill himself. Patient reports sounds quieter to him today, same as yesterday. Patient reports he still hears the female voice telling him to kill himself. Pt. continues to not show any behavioral clues such as grimacing, wincing, flinching that he is responding to internally occurring stimuli. Pt. does not appear to be sound sensitive, is not covering ears or cowering to the perceived volume of the voice. Pt. does not ask for anything or state he needs anything when asked. Pt. appears to be his happiest when laying in bed and sleeping. Pt. denies any disruption of sleep habits due to voice today. Pt. reports he slept "Pretty restless". Patient reports sleeping 7 hours last night. Pt. reports "Not rested at all". Pt. states his baseline anxiety is 3/10, baseline depression is 3/10. Pt. states current anxiety is 6/10, depression is 7/10. Pt. is unable to tell provider why depression and anxiety increased from Thursday, other than to report he had a bad weekend. Pt. denies any use of alcohol, but has an extensive alcohol abuse history per prior records. Patient states "I don't use alcohol ". Patient states he has been compliant with medication regimen. Pt. is not reliable in giving accurate responses to questions asked, possibly due to current mental state or prior diagnosed dementia. Pt. continues to function as well as he can. Pt. continues to show features of prior institutionalization. Pt. states his sleep was "not too good". Pt. states he slept 6 hours, did not feel rested on waking. MANAGEMENT PLAN: Pt. to continue meds as ordered by admitting MD. Maintain safety precautions. Patient to attend groups and participate in unit programming to develop effective coping strategies. Pt. is not to be in his room other than for rest period and bedtime. Patient to be engaged in discharge planning process to ensure safe and effective discharge plan. Patient to follow- up with primary care physician upon discharge. Patient to return to [facility] housing with supportive services if discharged home. Patient to be consistent and compliant with medication regimen. Patient to be consistent and compliant with lab draws required for clozapine use. Labs ordered weekly to check clozapine effect. Labs WNL except for [place] 8.6 high, Eosi 5.2 high, FBS 147 high. Clinical consultation done with Dr. Schmidt for monitoring of clozapine continues. TIME SPENT: 15 minutes. Vital Signs Vital Signs Date Time Temp Pulse Resp B/P Pulse Ox O2 Delivery O2 Flow Rate FiO2 07/28/16 06:26 96.0 73 18 121/79 Laboratory Data 24H Labs Laboratory Tests 2 07/27/16 17:21: Bedside Glucose (Misc Panel) 127H 07/28/16 06:39: Anion Gap 9, White Blood Count 7.8, Red Blood Count 4.94, Hemoglobin 14.4, Hematocrit 44.1, Mean Corpuscular Volume 89.3, Mean Corpuscular Hemoglobin 29.2 , Mean Corpuscular Hemoglobin Concent 32.7, Red Cell Distribution Width 13.2, Platelet Count 201, Neutrophils (%) (Auto) 56.9, Lymphocytes (%) (Auto) 25.0, Monocytes (%) (Auto) 8.6H, Eosinophils (%) (Auto) 5.2H, Basophils (%) (Auto) 0.4 , Neutrophils # (Auto) 4.4, Lymphocytes # (Auto) 2.0, Monocytes # (Auto) 0.7, Eosinophils # (Auto) 0.4, Basophils # (Auto) 0.0, Blood Urea Nitrogen 12, Creatinine 1.09, Sodium Level 139, Potassium Level 4.3, Chloride Level 102, Carbon Dioxide Level 28, Calcium Level 9.1, Glomerular Filtration Rate > 60.0, Large Unclassified Cells # 0.3, Large Unclassified Cells % 3.8 CBC/BMP Laboratory Tests 07/28/16 06:39 Calcium Level 9.1, Red Blood Count 4.94, Mean Corpuscular Volume 89.3, Mean Corpuscular Hemoglobin 29.2, Mean Corpuscular Hemoglobin Concent 32.7, Red Cell Distribution Width 13.2, Neutrophils (%) (Auto) 56.9, Lymphocytes (%) (Auto) 25.0, Monocytes (%) (Auto) 8.6 H, Eosinophils (%) (Auto) 5.2 H, Basophils (%) ( Auto) 0.4, Neutrophils # (Auto) 4.4, Lymphocytes # (Auto) 2.0, Monocytes # (Auto ) 0.7, Eosinophils # (Auto) 0.4, Basophils # (Auto) 0.0 Current Medications Current Medications Acetaminophen (Tylenol Tab) 650 mg Q6HP PRN PO HEADACHE or DISCOMFORT Last administered on 07/14/16 21:19; Start 07/11/16 at 23:15; Stop 08/10/16 at 23:14 Al Hydrox/Mg Hydrox/Simethicone (Mylanta) 30 ml Q4HP PRN PO HEARTBURN/ INDIGESTION Last administered on 07/15/16 17:02; Start 07/11/16 at 23:15; Stop 08/10/16 at 23:14 Albuterol/ Ipratropium (Duoneb (Ipr 0.5mg/Alb 2.5mg)) 3 ml Q4HP PRN NEB SOB/ WHEEZING; Start 07/13/16 at 23:15; Stop 08/12/16 at 23:14 Aspirin (Ecotrin) 81 mg DAILY PO Last administered on 07/28/16 08:32; Start at 09:00; Stop 08/11/16 at 08:59 Atorvastatin Calcium (Lipitor) 10 mg QHS PO Last administered on 07/27/16 22: 00; Start 07/15/16 at 21:00; Stop 08/14/16 at 20:59 Benztropine Mesylate (Cogentin) 1 mg QHS PO Last administered on 07/27/16 22: 01; Start 07/13/16 at 21:00; Stop 08/12/16 at 20:59 Budesonide/ Formoterol Fumarate (Symbicort 160/ 4.5mcg) 2 puff BID INH Last administered on 07/28/16 08:32; Start 07/15/16 at 21:00; Stop 08/14/16 at 20:59 Chlorpromazine HCl (Thorazine) 50 mg BID PO Last administered on 07/28/16 08: 32; Start 07/12/16 at 09:00; Stop 08/11/16 at 08:59 Clozapine (Clozaril) 200 mg QAM PO Last administered on 07/13/16 08:08; Start 07/12/16 at 09:00; Stop 07/13/16 at 08:33; Status DC Clozapine (Clozaril) 250 mg QAM PO Last administered on 07/28/16 08:31; Start 07/14/16 at 09:00; Stop 08/03/16 at 08:59 Docusate Sodium (Colace) 100 mg BID PO Last administered on 07/28/16 08:32; Start 07/15/16 at 21:00; Stop 08/14/16 at 20:59 Escitalopram Oxalate (Lexapro) 10 mg DAILY PO Last administered on 07/28/16 08 :32; Start 07/12/16 at 09:00; Stop 08/11/16 at 08:59 Home Med (Med Rec Complete!) ASDIRECTED XX ; Start 07/11/16 at 20:00; Stop at 20:01; Status DC Hydroxyzine HCl (Atarax) 25 mg Q6HP PRN PO ITCHING/ANXIETY; Start 07/25/16 at 16:30; Stop 08/24/16 at 16:29 Influenza Virus Vaccine (Fluzone Quadrivalent Pf Vaccine) 0.5 ml 1T@09 IM Last administered on 07/13/16 10:24; Start 07/13/16 at 09:00; Stop 07/13/16 at 23:59 ; Status DC Magnesium Hydroxide (Milk Of Magnesia) 30 ml DAILYPRN PRN PO CONSTIPATION; Start 07/11/16 at 23:15; Stop 08/10/16 at 23:14 Metformin HCl (Glucophage) 850 mg DAILY@08 PO Last administered on 07/28/16 07 :04; Start 07/16/16 at 08:00; Stop 08/15/16 at 07:59 Mirtazapine (Remeron) 15 mg QPM PO Last administered on 07/27/16 21:58; Start 07/12/16 at 21:00; Stop 08/11/16 at 20:59 Miscellaneous (Unresolved Clarification Entry) SEE LABEL COMMENTS UNRESOLVED XX ; Start 07/27/16 at 00:01; Stop 07/27/16 at 10:40; Status DC Nicotine (Nicoderm Cq 21mg) 1 patch DAILY TD Last administered on 07/28/16 08: 31; Start 07/12/16 at 09:00; Stop 08/11/16 at 08:59 Non-Formulary Medication ( See Comment Field Below ) SEE COMMENTS SECTION 1T @16 XX Last administered on 07/16/16 16:01; Start 07/16/16 at 16:00; Stop at 18:58; Status DC Oseltamivir Phosphate (Tamiflu) 75 mg DAILY PO Last administered on 07/28/16 08:32; Start 07/25/16 at 09:00; Stop 08/03/16 at 12:00 Oxybutynin Chloride (Ditropan) 5 mg TID PO Last administered on 07/28/16 16:03 ; Start 07/15/16 at 16:00; Stop 08/14/16 at 15:59 Senna (Senokot) 2 tab QHS PO Last administered on 07/27/16 21:59; Start at 21:00; Stop 08/14/16 at 20:59 Tamsulosin HCl (Flomax) 0.4 mg QAM PO Last administered on 07/28/16 08:32; Start 07/16/16 at 09:00; Stop 08/15/16 at 08:59 Tiotropium Risco (Spiriva Handihaler) 1 inhalation DAILY INH Last administered on 07/28/16 08:32; Start 07/16/16 at 09:00; Stop 08/15/16 at 08:59 Trazodone HCl (Desyrel) 50 mg QHSP PRN PO INSOMNIA; Start 07/11/16 at 23:15; Stop 07/13/16 at 08:33; Status DC Trazodone HCl (Desyrel) 100 mg QHS PO Last administered on 07/27/16 22:02; Start 07/13/16 at 23:15; Stop 08/12/16 at 23:14 Triamcinolone Acetonide (Kenalog 0.025% Cream) 1 dose BID TOP Last administered on 07/28/16 08:31; Start 07/24/16 at 09:00; Stop 08/23/16 at 08:59 Trimethoprim/ Sulfamethoxazole (Bactrim Ds, Septra Ds 160mg/ 800mg) 1 tab BID PO Last administered on 07/28/16 08:32; Start 07/19/16 at 21:00; Stop 08/01/16 at 20:59 Allergies Coded Allergies: Quinolones (Verified Allergy, Unknown, QUESTIONABLE - AVELOX, 01/15/15) HAS HAD CIPRO & LEVAQUIN ON MULTIPLE OCCASIONS Haloperidol (Verified Adverse Reaction, Intermediate, LOCKJAW,WHEEZING, 09/19/12) Prochlorperazine (Verified Adverse Reaction, Intermediate, ANAPHYLAXIS, 09/19/12) TONIA MOYA NP Jul 28, 2016 17:36
[2016-07-28 18:00] VITALS: BP 118/58
[2016-07-28] MEDS: ATORVASTATIN 10 MG TAB PO SCH (21:33)
[2016-07-28] MEDS: MIRTAZAPINE 15 MG TAB PO SCH (21:33)
[2016-07-28] MEDS: SENNA 8.6 MG TAB (SENOKOT) PO SCH (21:34)
[2016-07-28] MEDS: traZODone 100 MG TAB PO SCH (21:36)
[2016-07-28] MEDS: BENZTROPINE 1 MG TAB PO SCH (21:36)
[2016-07-29 07:20] VITALS: BP 118/78
[2016-07-29] MEDS: TIOTROPIUM INHALER/CAPSULE (SPIRIVA) INH SCH (08:04)
[2016-07-29] MEDS: TAMSULOSIN 0.4 MG CAP PO SCH (08:04)
[2016-07-29] MEDS: metFORMIN 850 MG TAB PO SCH (08:04)
[2016-07-29] MEDS: SYMBICORT 160/4.5MCG INHALER 6GM INH SCH ×2 (08:04→19:57)
[2016-07-29] MEDS: DOCUSATE SODIUM 100 MG CAP PO SCH ×2 (08:04→19:56)
[2016-07-29] MEDS: ESCITALOPRAM OXALATE 10 MG TAB (LEXAPRO) PO SCH (08:04)
[2016-07-29] MEDS: ASPIRIN 81 MG ENTERIC TAB PO SCH (08:04)
[2016-07-29] MEDS: BACTRIM 160MG/800MG DS TAB PO SCH ×2 (08:04→19:57)
[2016-07-29] MEDS: OSELTAMIVIR PHOSPHATE 75 MG CAP (TAMIFLU) PO SCH (08:04)
[2016-07-29] MEDS: oxyBUTYnin 5 MG TAB PO SCH ×3 (08:05→19:57)
[2016-07-29] MEDS: NICOTINE 21MG/24HR 1 EA TRANSDERMAL TD SCH (08:05)
[2016-07-29] MEDS: chlorproMAZINE 25 MG TAB (Q0161) PO SCH ×2 (08:05→19:56)
[2016-07-29] MEDS: cloZAPine 100 MG TAB (S0136) PO SCH (08:05)
[2016-07-29] MEDS: TRIAMCINOLONE ACETONIDE 0.025 % 80 GM CREAM TOP SCH ×2 (08:08→19:57)
--- NOTE | 2016-07-29 17:10 | IPNPDOC ---
[facility] Progress Note Progress Note DATE OF SERVICE: 07/29/16 HISTORY: A 56-year-old male hospitalized for command auditory hallucinations with suicidal ideation telling him to kill himself. The patient is a 55-year- old male, single, living at a transitional living services ([facility]) community residence. The patient has a long history of mental health problems including numerous psychiatric admissions, outpatient psychiatric treatment. The patient was recently discharged from [facility] ([facility] Inpatient Mental Health Unit (IM) on 08/28/2015. As per the emergency department (ED) report, the patient presented to the ED for evaluation because the patient presented after a scheduled appointment with psychiatrist Dr. Castanon. Dr. Castanon wanted to change the patient's medications but the patient declined change, requesting to go to the ED. The patient presented to the ED reporting hearing a woman's voice telling him to kill himself. The patient currently lives in a [facility] residence. Upon admission, the patient presents as a poor historian. He states he has been hearing voices that have been apparent since yesterday telling him to kill himself. He states his last suicide attempt was about two months ago. He states he does not know the trigger that brought him to have these command auditory hallucinations. He reports some depression but denies anxiety spectrum disorder symptoms. PAST PSYCHIATRIC HISTORY: The patient states he came out of [facility] ([facility] a month ago after being there a month. However, this was inaccurate, as he was discharged from [facility] Jun 20, 2016. The patient states he has been medication compliant since discharge, this is questionable. The patient was also discharged on 08/28/2015, from [facility] after being hospitalized for about a week. The patient has had numerous psychiatric hospitalizations with a diagnosis of schizophrenia. CHEMICAL DEPENDENCY: The patient has a past history of problem with heroin, speed, and crack use. He denies current and recent use of drugs or alcohol. He has also had problems with alcohol in the past. PAST MEDICAL HISTORY: 1. Dementia. 2. Diastolic congestive heart failure with ejection fraction of 65%. 3. Chronic obstructive pulmonary disease (COPD). 4. Hypertension. 5. Asthma. 6. Diabetes, diet controlled. 7. High cholesterol. 8. Neurogenic bladder with suprapubic catheter in place. 9. Gastroesophageal reflux disease (GERD). 10. History of transient ischemic attack (TIA). 11. Cholecystectomy. 12. Right inguinal hernia repair. ALLERGIES: QUINOLONES, HALDOL, CHLORPROMAZINE cause anaphylaxis. FAMILY HISTORY: Several family members have a history of substance abuse problems including his daughter. It has been reported that one of his daughters had of a heroin overdose since his last admission here. SOCIAL HISTORY: The patient states he lives in [facility] for the past month. Pt. states it is going well. There has been no trouble with his roommate or other residents or with staff per pt. He states he is not in contact with any family members. He had a fight with his sister and his daughter does not want anything to do with him. Pt. states he does not know the reason for this. VITAL SIGNS: See below. Temperature 96.7 Pulse 76 Respirations 16 Blood pressure 118/78. TEST RESULTS: Last CBC (07/28/16) within normal limits, except Jones is 8.6 which is high, Eos is 5.2 which is high. On admission SE[facility]IAN, Tylenol and salicylate levels within normal limits. Hepatitis C and HIV screen are NEG, drawn on prior admission. Clinical consultation done about lab values in regards to clozapine dosing with Dr. Schmidt. CURRENT PSYCH MEDICATIONS: See below. - Clozaril 250 po q am for schizoaffective disorder - Benztropine 1 mg po q hs for EPS effects - Lexapro 10 mg po q am for depression - Thorazine 50 mg by mouth twice a day for psychotic features - Remeron 15 mg po qhs for sleep/depression - Trazodone 100 mg po q hs for sleep/depression MENTAL STATUS EXAMINATION: Patient is a 56-year-old male who appears much older than his stated age. Pt. is unkempt in appearance, wearing hospital t shirt and scrub pants. Pt. is pleasant and cooperative, noted to walk with a steady gait. Speech: Is of normal rate, volume, and articulation. Pt. is coherent and mostly spontaneous. Pt. is found laying in bed when approached by provider this morning. Language skills are intact. Thought processes: Clearing, somewhat goal-directed. Thought content: Rational, logical. Pt. states he was feeling paranoia today. Pt. is uneasy as he feels people are talking about him. Abstract reasoning and computation: Adequate. Associations: Intact. Description of abnormal or psychotic thoughts: Pt. states he continues to have command auditory hallucinations of a female voice that he does not recognize that is telling him to kill himself. Pt. reports the voice states "Karlos, kill yourself". Pt. states is "Quieter" today. Pt. rates this 3/10 for how loud it is to him, less than yesterday. Pt. continues to show no signs of responding to internal stimuli, is not affecting his sleep or thought processes that is verifiable. Pt's behavior does not follow usual course of someone having AH. Pt. denies visual hallucinations, preoccupations, homicidal or suicidal ideation other than what his voice tells him, obsessions or compulsions. Pt. states he has had delusions but states "I can't remember, people told me I did" . Judgment: Poor. Insight: Poor. Orientation to: time, person, place and situation. Recent and remote memory: Pt. states "A little bit", when referring to immediate memory issues. Attention span and concentration: Fair. Language: Normal, difficult to understand at times. Fund of knowledge: Poor. Mood: "Not bad". Patient's statement of his mood continues to be non- consistent with other symptoms he describes, problems he has. Affect: flat, rational. DIAGNOSES: 1. Schizoaffective disorder vs. Schizophrenia ASSESSMENT: Pt. states that he is having suicidal ideation due to command auditory hallucinations, that are telling him to kill himself. Patient reports sounds quieter to him today. Patient reports he still hears the female voice telling him to kill himself. Pt. continues to not show any behavioral clues such as grimacing, wincing, flinching that he is responding to internally occurring stimuli. Pt. does not appear to be sound sensitive, is not covering ears or cowering to the perceived volume of the voice. Pt. does not ask for anything or state he needs anything when asked. Pt. appears to be his happiest when laying in bed and sleeping. Pt. denies any disruption of sleep habits due to voice today. Pt. reports he slept "Not bad". Patient reports sleeping 7 hours last night, staff charted 7 hours. Pt. states his baseline anxiety is 3/ 10, baseline depression is 3/10. Pt. states current anxiety is 6/10, depression is 3/10. Pt. is unable to tell provider why depression is less and anxiety is the same as yesterday. Pt. denies any use of alcohol, but has an extensive alcohol abuse history per prior records. Patient states "I don't use alcohol ". Patient states he has been compliant with medication regimen. Pt. is not reliable in giving accurate responses to questions asked, possibly due to current mental state or prior diagnosed dementia. Pt. continues to function as well as he can. Pt. continues to show features of prior institutionalization. MANAGEMENT PLAN: Pt. to continue meds as ordered by admitting MD. Maintain safety precautions. Patient to attend groups and participate in unit programming to develop effective coping strategies. Pt. is not to be in his room other than for rest period and bedtime. Patient to be engaged in discharge planning process to ensure safe and effective discharge plan. Patient to follow- up with primary care physician upon discharge. Patient to return to [facility] housing with supportive services if discharged home. Patient to be consistent and compliant with medication regimen. Patient to be consistent and compliant with lab draws required for clozapine use. Labs ordered weekly to check clozapine effect. Labs WNL except for Jones 8.6 high, Eosi 5.2 high, FBS 147 high. Clinical consultation done with Dr. Schimdt for monitoring of clozapine continues. TIME SPENT: 15 minutes. Vital Signs Vital Signs Date Time Temp Pulse Resp B/P Pulse Ox O2 Delivery O2 Flow Rate FiO2 07/29/16 07:20 96.7 76 16 118/78 07/28/16 18:00 Room Air Laboratory Data 24H Labs Laboratory Tests 2 07/29/16 06:36: Bedside Glucose (Misc Panel) 128H 07/29/16 16:38: Bedside Glucose (Misc Panel) 105 Current Medications Current Medications Acetaminophen (Tylenol Tab) 650 mg Q6HP PRN PO HEADACHE or DISCOMFORT Last administered on 07/14/16 21:19; Start 07/11/16 at 23:15; Stop 08/10/16 at 23:14 Al Hydrox/Mg Hydrox/Simethicone (Mylanta) 30 ml Q4HP PRN PO HEARTBURN/ INDIGESTION Last administered on 07/15/16 17:02; Start 07/11/16 at 23:15; Stop 08/10/16 at 23:14 Albuterol/ Ipratropium (Duoneb (Ipr 0.5mg/Alb 2.5mg)) 3 ml Q4HP PRN NEB SOB/ WHEEZING; Start 07/13/16 at 23:15; Stop 08/12/16 at 23:14 Aspirin (Ecotrin) 81 mg DAILY PO Last administered on 07/29/16 08:04; Start at 09:00; Stop 08/11/16 at 08:59 Atorvastatin Calcium (Lipitor) 10 mg QHS PO Last administered on 07/28/16 21: 33; Start 07/15/16 at 21:00; Stop 08/14/16 at 20:59 Benztropine Mesylate (Cogentin) 1 mg QHS PO Last administered on 07/28/16 21: 36; Start 07/13/16 at 21:00; Stop 08/12/16 at 20:59 Budesonide/ Formoterol Fumarate (Symbicort 160/ 4.5mcg) 2 puff BID INH Last administered on 07/29/16 08:04; Start 07/15/16 at 21:00; Stop 08/14/16 at 20:59 Chlorpromazine HCl (Thorazine) 50 mg BID PO Last administered on 07/29/16 08: 05; Start 07/12/16 at 09:00; Stop 08/11/16 at 08:59 Clozapine (Clozaril) 200 mg QAM PO Last administered on 07/13/16 08:08; Start 07/12/16 at 09:00; Stop 07/13/16 at 08:33; Status DC Clozapine (Clozaril) 250 mg QAM PO Last administered on 07/29/16 08:05; Start 07/14/16 at 09:00; Stop 08/03/16 at 08:59 Docusate Sodium (Colace) 100 mg BID PO Last administered on 07/29/16 08:04; Start 07/15/16 at 21:00; Stop 08/14/16 at 20:59 Escitalopram Oxalate (Lexapro) 10 mg DAILY PO Last administered on 07/29/16 08 :04; Start 07/12/16 at 09:00; Stop 08/11/16 at 08:59 Home Med (Med Rec Complete!) ASDIRECTED XX ; Start 07/11/16 at 20:00; Stop at 20:01; Status DC Hydroxyzine HCl (Atarax) 25 mg Q6HP PRN PO ITCHING/ANXIETY; Start 07/25/16 at 16:30; Stop 08/24/16 at 16:29 Influenza Virus Vaccine (Fluzone Quadrivalent Pf Vaccine) 0.5 ml 1T@09 IM Last administered on 07/13/16 10:24; Start 07/13/16 at 09:00; Stop 07/13/16 at 23:59 ; Status DC Magnesium Hydroxide (Milk Of Magnesia) 30 ml DAILYPRN PRN PO CONSTIPATION; Start 07/11/16 at 23:15; Stop 08/10/16 at 23:14 Metformin HCl (Glucophage) 850 mg DAILY@08 PO Last administered on 07/29/16 08 :04; Start 07/16/16 at 08:00; Stop 08/15/16 at 07:59 Mirtazapine (Remeron) 15 mg QPM PO Last administered on 07/28/16 21:33; Start 07/12/16 at 21:00; Stop 08/11/16 at 20:59 Miscellaneous (Unresolved Clarification Entry) SEE LABEL COMMENTS UNRESOLVED XX ; Start 07/27/16 at 00:01; Stop 07/27/16 at 10:40; Status DC Nicotine (Nicoderm Cq 21mg) 1 patch DAILY TD Last administered on 07/29/16 08: 05; Start 07/12/16 at 09:00; Stop 08/11/16 at 08:59 Non-Formulary Medication ( See Comment Field Below ) SEE COMMENTS SECTION 1T @16 XX Last administered on 07/16/16 16:01; Start 07/16/16 at 16:00; Stop at 18:58; Status DC Oseltamivir Phosphate (Tamiflu) 75 mg DAILY PO Last administered on 07/29/16 08:04; Start 07/25/16 at 09:00; Stop 08/03/16 at 12:00 Oxybutynin Chloride (Ditropan) 5 mg TID PO Last administered on 07/29/16 15:17 ; Start 07/15/16 at 16:00; Stop 08/14/16 at 15:59 Senna (Senokot) 2 tab QHS PO Last administered on 07/28/16 21:34; Start at 21:00; Stop 08/14/16 at 20:59 Tamsulosin HCl (Flomax) 0.4 mg QAM PO Last administered on 07/29/16 08:04; Start 07/16/16 at 09:00; Stop 08/15/16 at 08:59 Tiotropium [place] (Spiriva Handihaler) 1 inhalation DAILY INH Last administered on 07/29/16 08:04; Start 07/16/16 at 09:00; Stop 08/15/16 at 08:59 Trazodone HCl (Desyrel) 50 mg QHSP PRN PO INSOMNIA; Start 07/11/16 at 23:15; Stop 07/13/16 at 08:33; Status DC Trazodone HCl (Desyrel) 100 mg QHS PO Last administered on 07/28/16 21:36; Start 07/13/16 at 23:15; Stop 08/12/16 at 23:14 Triamcinolone Acetonide (Kenalog 0.025% Cream) 1 dose BID TOP Last administered on 07/29/16 08:08; Start 07/24/16 at 09:00; Stop 08/23/16 at 08:59 Trimethoprim/ Sulfamethoxazole (Bactrim Ds, Septra Ds 160mg/ 800mg) 1 tab BID PO Last administered on 07/29/16 08:04; Start 07/19/16 at 21:00; Stop 08/01/16 at 20:59 Allergies Coded Allergies: Quinolones (Verified Allergy, Unknown, QUESTIONABLE - AVELOX, 01/15/15) HAS HAD CIPRO & LEVAQUIN ON MULTIPLE OCCASIONS Haloperidol (Verified Adverse Reaction, Intermediate, LOCKJAW,WHEEZING, 09/19/12) Prochlorperazine (Verified Adverse Reaction, Intermediate, ANAPHYLAXIS, 09/19/12) TONIA MOYA NP Jul 29, 2016 17:10
[2016-07-29 18:00] VITALS: BP 91/54
[2016-07-29] MEDS: BENZTROPINE 1 MG TAB PO SCH (19:56)
[2016-07-29] MEDS: traZODone 100 MG TAB PO SCH (19:56)
[2016-07-29] MEDS: MIRTAZAPINE 15 MG TAB PO SCH (19:57)
[2016-07-29] MEDS: SENNA 8.6 MG TAB (SENOKOT) PO SCH (19:57)
[2016-07-29] MEDS: ATORVASTATIN 10 MG TAB PO SCH (19:57)
[2016-07-30 06:44] VITALS: BP 107/66
[2016-07-30] MEDS: metFORMIN 850 MG TAB PO SCH (07:29)
[2016-07-30] MEDS: BACTRIM 160MG/800MG DS TAB PO SCH ×2 (08:33→21:17)
[2016-07-30] MEDS: ASPIRIN 81 MG ENTERIC TAB PO SCH (08:34)
[2016-07-30] MEDS: ESCITALOPRAM OXALATE 10 MG TAB (LEXAPRO) PO SCH (08:34)
[2016-07-30] MEDS: TAMSULOSIN 0.4 MG CAP PO SCH (08:34)
[2016-07-30] MEDS: OSELTAMIVIR PHOSPHATE 75 MG CAP (TAMIFLU) PO SCH (08:34)
[2016-07-30] MEDS: chlorproMAZINE 25 MG TAB (Q0161) PO SCH ×2 (08:34→21:17)
[2016-07-30] MEDS: DOCUSATE SODIUM 100 MG CAP PO SCH ×2 (08:34→21:17)
[2016-07-30] MEDS: cloZAPine 100 MG TAB (S0136) PO SCH (08:34)
[2016-07-30] MEDS: oxyBUTYnin 5 MG TAB PO SCH ×3 (08:35→21:17)
[2016-07-30] MEDS: TIOTROPIUM INHALER/CAPSULE (SPIRIVA) INH SCH (08:36)
[2016-07-30] MEDS: SYMBICORT 160/4.5MCG INHALER 6GM INH SCH ×2 (08:36→21:17)
[2016-07-30] MEDS: NICOTINE 21MG/24HR 1 EA TRANSDERMAL TD SCH (08:36)
[2016-07-30] MEDS: TRIAMCINOLONE ACETONIDE 0.025 % 80 GM CREAM TOP SCH ×2 (08:38→21:00)
[2016-07-30 18:00] VITALS: BP 115/70
--- NOTE | 2016-07-30 19:09 | IPNPDOC ---
[facility] Progress Note Progress Note DATE OF SERVICE: 07/30/16 HISTORY: A 56-year-old male hospitalized for command auditory hallucinations with suicidal ideation telling him to kill himself. The patient is a 55-year- old male, single, living at a transitional living services ([facility]) community residence. The patient has a long history of mental health problems including numerous psychiatric admissions, outpatient psychiatric treatment. The patient was recently discharged from [facility] ([facility]) Inpatient Mental Health Unit (IM) on 08/28/2015. As per the emergency department (ED) report, the patient presented to the ED for evaluation because the patient presented after a scheduled appointment with psychiatrist Dr. Castanon. Dr. Castanon wanted to change the patient's medications but the patient declined change, requesting to go to the ED. The patient presented to the ED reporting hearing a woman's voice telling him to kill himself. The patient currently lives in a [facility] residence. Upon admission, the patient presents as a poor historian. He states he has been hearing voices that have been apparent since yesterday telling him to kill himself. He states his last suicide attempt was about two months ago. He states he does not know the trigger that brought him to have these command auditory hallucinations. He reports some depression but denies anxiety spectrum disorder symptoms. PAST PSYCHIATRIC HISTORY: The patient states he came out of [facility] ([facility] a month ago after being there a month. However, this was inaccurate, as he was discharged from [facility] [place], 2016. The patient states he has been medication compliant since discharge, this is questionable. The patient was also discharged on 08/28/2015, from [facility] after being hospitalized for about a week. The patient has had numerous psychiatric hospitalizations with a diagnosis of schizophrenia. CHEMICAL DEPENDENCY: The patient has a past history of problem with heroin, speed, and crack use. He denies current and recent use of drugs or alcohol. He has also had problems with alcohol in the past. PAST MEDICAL HISTORY: 1. Dementia. 2. Diastolic congestive heart failure with ejection fraction of 65%. 3. Chronic obstructive pulmonary disease (COPD). 4. Hypertension. 5. Asthma. 6. Diabetes, diet controlled. 7. High cholesterol. 8. Neurogenic bladder with suprapubic catheter in place. 9. Gastroesophageal reflux disease (GERD). 10. History of transient ischemic attack (TIA). 11. Cholecystectomy. 12. Right inguinal hernia repair. ALLERGIES: QUINOLONES, HALDOL, CHLORPROMAZINE cause anaphylaxis. FAMILY HISTORY: Several family members have a history of substance abuse problems including his daughter. It has been reported that one of his daughters had of a heroin overdose since his last admission here. SOCIAL HISTORY: The patient states he lives in [facility] for the past month after [facility] discharge. Pt. states it is going well. There has been no trouble with his roommate or other residents or with staff per pt. He states he is not in contact with any family members. He had a fight with his sister and his daughter does not want anything to do with him. Pt. states he does not know the reason for this. VITAL SIGNS: See below. Temperature 96.4 Pulse 73 Respirations 18 Blood pressure 107/66. TEST RESULTS: Last CBC (07/28/16) within normal limits, except [place] is 8.6 which is high, Eos is 5.2 which is high. On admission [facility], Tylenol and salicylate levels within normal limits. Hepatitis C and HIV screen are NEG, drawn on prior admission. Clinical consultation done about lab values in regards to clozapine dosing with Dr. Schmidt. CURRENT PSYCH MEDICATIONS: See below. - Clozaril 250 po q am for schizoaffective disorder, to decrease to 225 mg po q am. Will be tapering off by 25 mg/week until discontinued. - Benztropine 1 mg po q hs for EPS effects - Lexapro 10 mg po q am for depression - Discontinued today - Thorazine 50 mg by mouth twice a day for psychotic features - Remeron 15 mg po qhs for sleep/depression - Discontinued today - Trazodone 100 mg po q hs for sleep/depression MENTAL STATUS EXAMINATION: Patient is a 56-year-old male who appears much older than his stated age. Pt. is unkempt in appearance, wearing hospital t shirt and scrub pants. Pt. is pleasant and cooperative, noted to walk with a steady gait. Pt. was noted to be doing his laundry this morning. Speech: Is of normal rate, volume, and articulation. Pt. is coherent and mostly spontaneous. Pt. is found in lounge when approached by provider this morning. Language skills are intact. Thought processes: Clearing, somewhat goal- directed. Thought content: Rational, logical. Pt. states he was feeling no paranoia today. Abstract reasoning and computation: Adequate. Associations: Intact. Description of abnormal or psychotic thoughts: Pt. states he continues to have command auditory hallucinations of a female voice that he does not recognize that is telling him to kill himself. Pt. reports the voice states "Karlos , kill yourself". Pt. states is "The same" today. Pt. rates this 3/10 for how loud it is to him, same as yesterday. Pt. continues to show no signs of responding to internal stimuli, is not affecting his sleep or thought processes that is verifiable. Pt's behavior does not follow usual course of someone having AH. Pt. denies visual hallucinations, preoccupations, homicidal or suicidal ideation other than what his voice tells him, obsessions or compulsions. Pt. states he has had delusions but states "I can't remember, people told me I did". Judgment: Poor. Insight: Poor. Orientation to: time, person, place and situation. Recent and remote memory: Pt. states "Pretty good ", when referring to memory issues. Attention span and concentration: Fair. Language: Normal, difficult to understand at times. Fund of knowledge: Poor. Mood: "Pretty good". Patient's statement of his mood continues to be non- consistent with other symptoms he describes, problems he has. Affect: flat, rational. DIAGNOSES: 1. Schizoaffective disorder vs. Schizophrenia ASSESSMENT: Pt. states that he is having suicidal ideation due to command auditory hallucinations, that are telling him to kill himself. Patient reports sounds quieter to him today. Patient reports he still hears the female voice telling him to kill himself. Pt. continues to not show any behavioral clues such as grimacing, wincing, flinching that he is responding to internally occurring stimuli. Pt. does not appear to be sound sensitive, is not covering ears or cowering to the perceived volume of the voice. Pt. does not ask for anything or state he needs anything when asked. Pt. appears to be his happiest when laying in bed and sleeping. Pt. denies any disruption of sleep habits due to voice today. Pt. states his baseline anxiety is 3/10, baseline depression is 3/10. Pt. states current anxiety is 3/10, depression is 3/10. Pt. is unable to tell provider why depression is the same as yesterday and anxiety is less . Pt. denies any use of alcohol, but has an extensive alcohol abuse history per prior records. Patient states "I don't use alcohol ". Patient states he has been compliant with medication regimen. Pt. is not reliable in giving accurate responses to questions asked, possibly due to current mental state or prior diagnosed dementia. Pt. continues to function as well as he can. Pt. continues to show features of prior institutionalization. Pt. states his sleep was "Not bad". Pt. reports he slept 6-7 hours last night. MANAGEMENT PLAN: Pt. to continue meds as ordered by admitting MD. After clinical consultation with Dr. Schmidt will be decreasing Clozapine by 25 mg/week until discontinued. Remeron, Lexapro were discontinued today as well. Pt. to start Rexulti when available to pharmacy. Maintain safety precautions. Patient to attend groups and participate in unit programming to develop effective coping strategies. Pt. is not to be in his room other than for rest period and bedtime. Patient to be engaged in discharge planning process to ensure safe and effective discharge plan. Patient to follow-up with primary care physician upon discharge. Patient to return to [facility] housing with supportive services if discharged home. Patient to be consistent and compliant with medication regimen. Patient to be consistent and compliant with lab draws required for clozapine use. Labs ordered weekly to check clozapine effect. Labs WNL except for [place] 8.6 high, Eosi 5.2 high, FBS 147 high. TIME SPENT: 15 minutes. Vital Signs Vital Signs Date Time Temp Pulse Resp B/P Pulse Ox O2 Delivery O2 Flow Rate FiO2 07/30/16 06:44 96.4 73 18 107/66 07/29/16 17:05 Room Air Laboratory Data 24H Labs Laboratory Tests 2 07/30/16 07:28: Bedside Glucose (Misc Panel) 193H Current Medications Current Medications Acetaminophen (Tylenol Tab) 650 mg Q6HP PRN PO HEADACHE or DISCOMFORT Last administered on 07/14/16t 21:19; Start 07/11/16 at 23:15; Stop 08/10/16 at 23:14 Al Hydrox/Mg Hydrox/Simethicone (Mylanta) 30 ml Q4HP PRN PO HEARTBURN/ INDIGESTION Last administered on 07/15/16 17:02; Start 07/11/16 at 23:15; Stop 08/10/16 at 23:14 Albuterol/ Ipratropium (Duoneb (Ipr 0.5mg/Alb 2.5mg)) 3 ml Q4HP PRN NEB SOB/ WHEEZING; Start 07/13/16 at 23:15; Stop 08/12/16 at 23:14 Aspirin (Ecotrin) 81 mg DAILY PO Last administered on 07/30/16 08:34; Start at 09:00; Stop 08/11/16 at 08:59 Atorvastatin Calcium (Lipitor) 10 mg QHS PO Last administered on 07/29/16 19: 57; Start 07/15/16 at 21:00; Stop 08/14/16 at 20:59 Benztropine Mesylate (Cogentin) 1 mg QHS PO Last administered on 07/29/16 19: 56; Start 07/13/16 at 21:00; Stop 08/12/16 at 20:59 Budesonide/ Formoterol Fumarate (Symbicort 160/ 4.5mcg) 2 puff BID INH Last administered on 07/30/16 08:36; Start 07/15/16 at 21:00; Stop 08/14/16 at 20:59 Chlorpromazine HCl (Thorazine) 50 mg BID PO Last administered on 07/30/16 08: 34; Start 07/12/16 at 09:00; Stop 08/11/16 at 08:59 Clozapine (Clozaril) 200 mg QAM PO Last administered on 07/13/16 08:08; Start 07/12/16 at 09:00; Stop 07/13/16 at 08:33; Status DC Clozapine (Clozaril) 250 mg QAM PO Last administered on 07/30/16 08:34; Start 07/14/16 at 09:00; Stop 08/03/16 at 08:59 Docusate Sodium (Colace) 100 mg BID PO Last administered on 07/30/16 08:34; Start 07/15/16 at 21:00; Stop 08/14/16 at 20:59 Escitalopram Oxalate (Lexapro) 10 mg DAILY PO Last administered on 07/30/16 08 :34; Start 07/12/16 at 09:00; Stop 08/11/16 at 08:59 Home Med (Med Rec Complete!) ASDIRECTED XX ; Start 07/11/16 at 20:00; Stop at 20:01; Status DC Hydroxyzine HCl (Atarax) 25 mg Q6HP PRN PO ITCHING/ANXIETY; Start 07/25/16 at 16:30; Stop 08/24/16 at 16:29 Influenza Virus Vaccine (Fluzone Quadrivalent Pf Vaccine) 0.5 ml 1T@09 IM Last administered on 07/13/16 10:24; Start 07/13/16 at 09:00; Stop 07/13/16 at 23:59 ; Status DC Magnesium Hydroxide (Milk Of Magnesia) 30 ml DAILYPRN PRN PO CONSTIPATION; Start 07/11/16 at 23:15; Stop 08/10/16 at 23:14 Metformin HCl (Glucophage) 850 mg DAILY@08 PO Last administered on 07/30/16 07 :29; Start 07/16/16 at 08:00; Stop 08/15/16 at 07:59 Mirtazapine (Remeron) 15 mg QPM PO Last administered on 07/29/16 19:57; Start 07/12/16 at 21:00; Stop 08/11/16 at 20:59 Miscellaneous (Unresolved Clarification Entry) SEE LABEL COMMENTS UNRESOLVED XX ; Start 07/27/16 at 00:01; Stop 07/27/16 at 10:40; Status DC Nicotine (Nicoderm Cq 21mg) 1 patch DAILY TD Last administered on 07/30/16 08: 36; Start 07/12/16 at 09:00; Stop 08/11/16 at 08:59 Non-Formulary Medication ( See Comment Field Below ) SEE COMMENTS SECTION 1T @16 XX Last administered on 07/16/16 16:01; Start 07/16/16 at 16:00; Stop at 18:58; Status DC Oseltamivir Phosphate (Tamiflu) 75 mg DAILY PO Last administered on 07/30/16 08:34; Start 07/25/16 at 09:00; Stop 08/03/16 at 12:00 Oxybutynin Chloride (Ditropan) 5 mg TID PO Last administered on 07/30/16 16:04 ; Start 07/15/16 at 16:00; Stop 08/14/16 at 15:59 Senna (Senokot) 2 tab QHS PO Last administered on 07/29/16 19:57; Start at 21:00; Stop 08/14/16 at 20:59 Tamsulosin HCl (Flomax) 0.4 mg QAM PO Last administered on 07/30/16 08:34; Start 07/16/16 at 09:00; Stop 08/15/16 at 08:59 Tiotropium [place] (Spiriva Handihaler) 1 inhalation DAILY INH Last administered on 07/30/16 08:36; Start 07/16/16 at 09:00; Stop 08/15/16 at 08:59 Trazodone HCl (Desyrel) 50 mg QHSP PRN PO INSOMNIA; Start 07/11/16 at 23:15; Stop 07/13/16 at 08:33; Status DC Trazodone HCl (Desyrel) 100 mg QHS PO Last administered on 07/29/16 19:56; Start 07/13/16 at 23:15; Stop 08/12/16 at 23:14 Triamcinolone Acetonide (Kenalog 0.025% Cream) 1 dose BID TOP Last administered on 07/30/16 08:38; Start 07/24/16 at 09:00; Stop 08/23/16 at 08:59 Trimethoprim/ Sulfamethoxazole (Bactrim Ds, Septra Ds 160mg/ 800mg) 1 tab BID PO Last administered on 07/30/16 08:33; Start 07/19/16 at 21:00; Stop 08/01/16 at 20:59 Allergies Coded Allergies: Quinolones (Verified Allergy, Unknown, QUESTIONABLE - AVELOX, 01/15/15) HAS HAD CIPRO & LEVAQUIN ON MULTIPLE OCCASIONS Haloperidol (Verified Adverse Reaction, Intermediate, LOCKJAW,WHEEZING, 09/19/12) Prochlorperazine (Verified Adverse Reaction, Intermediate, ANAPHYLAXIS, 09/19/12) TONIA MOYA NP Jul 30, 2016 19:09
[2016-07-30] MEDS ORDERED: traZODone 100 MG TAB PO PRN (19:15)
[2016-07-30] MEDS: ATORVASTATIN 10 MG TAB PO SCH (21:17)
[2016-07-30] MEDS: traZODone 100 MG TAB PO SCH (21:17)
[2016-07-30] MEDS: SENNA 8.6 MG TAB (SENOKOT) PO SCH (21:17)
[2016-07-30] MEDS: BENZTROPINE 1 MG TAB PO SCH (21:17)
[2016-07-31 07:00] VITALS: BP 108/67
[2016-07-31] MEDS: cloZAPine 100 MG TAB (S0136) PO SCH (08:06)
[2016-07-31] MEDS: metFORMIN 850 MG TAB PO SCH (08:06)
[2016-07-31] MEDS: SYMBICORT 160/4.5MCG INHALER 6GM INH SCH ×2 (08:06→21:09)
[2016-07-31] MEDS: NICOTINE 21MG/24HR 1 EA TRANSDERMAL TD SCH (08:06)
[2016-07-31] MEDS: OSELTAMIVIR PHOSPHATE 75 MG CAP (TAMIFLU) PO SCH (08:06)
[2016-07-31] MEDS: ASPIRIN 81 MG ENTERIC TAB PO SCH (08:06)
[2016-07-31] MEDS: DOCUSATE SODIUM 100 MG CAP PO SCH ×2 (08:06→21:11)
[2016-07-31] MEDS: cloZAPine 25 MG TAB (S0136) PO SCH (08:06)
[2016-07-31] MEDS: TAMSULOSIN 0.4 MG CAP PO SCH (08:07)
[2016-07-31] MEDS: chlorproMAZINE 25 MG TAB (Q0161) PO SCH ×2 (08:07→21:10)
[2016-07-31] MEDS: BACTRIM 160MG/800MG DS TAB PO SCH (08:07)
[2016-07-31] MEDS: TRIAMCINOLONE ACETONIDE 0.025 % 80 GM CREAM TOP SCH ×2 (08:07→21:11)
[2016-07-31] MEDS: TIOTROPIUM INHALER/CAPSULE (SPIRIVA) INH SCH (08:07)
[2016-07-31] MEDS: oxyBUTYnin 5 MG TAB PO SCH ×3 (08:07→21:11)
--- NOTE | 2016-07-31 11:51 | IPNPDOC ---
[facility] Progress Note Progress Note DATE OF SERVICE: 07/31/16 HISTORY: A 56-year-old male hospitalized for command auditory hallucinations with suicidal ideation telling him to kill himself. The patient is a 55-year- old male, single, living at a transitional living services ([facility]) community residence. The patient has a long history of mental health problems including numerous psychiatric admissions, outpatient psychiatric treatment. The patient was recently discharged from [facility] ([facility]) Inpatient Mental Health Unit (IM) on 08/28/2015. As per the emergency department (ED) report, the patient presented to the ED for evaluation because the patient presented after a scheduled appointment with psychiatrist Dr. Castanon. Dr. Castanon wanted to change the patient's medications but the patient declined change, requesting to go to the ED. The patient presented to the ED reporting hearing a woman's voice telling him to kill himself. The patient currently lives in a [facility] residence. Upon admission, the patient presents as a poor historian. He states he has been hearing voices that have been apparent since yesterday telling him to kill himself. He states his last suicide attempt was about two months ago. He states he does not know the trigger that brought him to have these command auditory hallucinations. He reports some depression but denies anxiety spectrum disorder symptoms. PAST PSYCHIATRIC HISTORY: The patient states he came out of [facility] ([facility] a month ago after being there a month. However, this was inaccurate, as he was discharged from [facility] Jun 20, 2016. The patient states he has been medication compliant since discharge, this is questionable. The patient was also discharged on 08/28/2015, from [facility] after being hospitalized for about a week. The patient has had numerous psychiatric hospitalizations with a diagnosis of schizophrenia. CHEMICAL DEPENDENCY: The patient has a past history of problem with heroin, speed, and crack use. He denies current and recent use of drugs or alcohol. He has also had problems with alcohol in the past. PAST MEDICAL HISTORY: 1. Dementia. 2. Diastolic congestive heart failure with ejection fraction of 65%. 3. Chronic obstructive pulmonary disease (COPD). 4. Hypertension. 5. Asthma. 6. Diabetes, diet controlled. 7. High cholesterol. 8. Neurogenic bladder with suprapubic catheter in place. 9. Gastroesophageal reflux disease (GERD). 10. History of transient ischemic attack (TIA). 11. Cholecystectomy. 12. Right inguinal hernia repair. ALLERGIES: QUINOLONES, HALDOL, CHLORPROMAZINE cause anaphylaxis. FAMILY HISTORY: Several family members have a history of substance abuse problems including his daughter. It has been reported that one of his daughters had of a heroin overdose since his last admission here. SOCIAL HISTORY: The patient states he lives in [facility] for the past month after [facility] discharge. Pt. states it is going well. There has been no trouble with his roommate or other residents or with staff per pt. He states he is not in contact with any family members. He had a fight with his sister and his daughter does not want anything to do with him. Pt. states he does not know the reason for this. VITAL SIGNS: See below. Temperature 96 Pulse 97 Respirations 20 Blood pressure 108/67. TEST RESULTS: Last CBC (07/28/16) within normal limits, except [place] is 8.6 which is high, Eos is 5.2 which is high. On admission [facility], Tylenol and salicylate levels within normal limits. Hepatitis C and HIV screen are NEG, drawn on prior admission. Clinical consultation done about lab values in regards to clozapine dosing with Dr. Schmidt. CURRENT PSYCH MEDICATIONS: See below. - Clozaril 250 po q am for schizoaffective disorder, to decrease to 225 mg po q am. Will be tapering off by 25 mg/week until discontinued. - Benztropine 1 mg po q hs for EPS effects - Lexapro 10 mg po q am for depression - Discontinued today - Thorazine 50 mg by mouth twice a day for psychotic features - Remeron 15 mg po qhs for sleep/depression - Discontinued today - Trazodone 100 mg po q hs for sleep/depression - Rexulti 0.5 mg po q am to be started as soon as it is available. MENTAL STATUS EXAMINATION: Patient is a 56-year-old male who appears much older than his stated age. Pt. is unkempt in appearance, wearing hospital t shirt and scrub pants. Pt. is pleasant and cooperative, noted to walk with a steady gait. Pt. was noted to be doing his laundry this morning. Speech: Is of normal rate, volume, and articulation. Pt. is coherent and mostly spontaneous. Pt. is found in lounge when approached by provider this morning. Language skills are intact. Thought processes: Clearing, somewhat goal- directed. Thought content: Rational, logical. Pt. states he was feeling no paranoia today. Abstract reasoning and computation: Adequate. Associations: Intact. Description of abnormal or psychotic thoughts: Pt. states he continues to have command auditory hallucinations of a female voice that he does not recognize that is telling him to kill himself. Pt. reports the voice states "Karlos , kill yourself". Pt. states is "The same" today. Pt. rates this 10 for how loud it is to him, same as yesterday. Pt. continues to show no signs of responding to internal stimuli, is not affecting his sleep or thought processes that is verifiable. Pt's behavior does not follow usual course of someone having AH. Pt. denies visual hallucinations, preoccupations, homicidal or suicidal ideation other than what his voice tells him, obsessions or compulsions. Pt. states he has had delusions but states "I can't remember, people told me I did". Judgment: Poor. Insight: Poor. Orientation to: time, person, place and situation. Recent and remote memory: Pt. states "Not bad", when referring to memory issues. Attention span and concentration: Fair. Language: Normal, difficult to understand at times. Fund of knowledge: Poor. Mood: "Pretty good". Patient's statement of his mood continues to be non- consistent with other symptoms he describes, problems he has. Affect: flat, rational. DIAGNOSES: 1. Schizoaffective disorder vs. Schizophrenia ASSESSMENT: Pt. states that he is having suicidal ideation due to command auditory hallucinations, that are telling him to kill himself. Patient reports sounds louder to him today. Patient reports he still hears the female voice telling him to kill himself. Pt. continues to not show any behavioral clues such as grimacing, wincing, flinching that he is responding to internally occurring stimuli. Pt. does not appear to be sound sensitive, is not covering ears or cowering to the perceived volume of the voice. Pt. does not ask for anything or state he needs anything when asked. Pt. appears to be his happiest when laying in bed and sleeping. Pt. denies any disruption of sleep habits due to voice today. Pt. states his baseline anxiety is 3/10, baseline depression is 3/10. Pt. states current anxiety is 0/10, depression is 0/10. Pt. denies any use of alcohol, but has an extensive alcohol abuse history per prior records. Patient states he has been compliant with medication regimen. Pt. is not reliable in giving accurate responses to some questions asked, possibly due to current mental state or prior diagnosed dementia. Pt. continues to function as well as he can. Pt. continues to show features of prior institutionalization. Pt. states his sleep was "Pretty good, no anxiety or depression". Pt. reports he slept "A full 8 hours, went to bathroom and got right back to sleep" last night. Pt. has no aparent effects from meds discontinued yesterday(Lexapro, Remeron), decrease in clozapine. MANAGEMENT PLAN: Pt. to continue meds as ordered by admitting MD. After clinical consultation with Dr. Schmidt will be decreasing Clozapine by 25 mg/week until discontinued. Remeron, Lexapro were discontinued today as well. Pt. to start Rexulti when available to pharmacy, not available as of 1699 today. Maintain safety precautions. Patient to attend groups and participate in unit programming to develop effective coping strategies. Pt. is not to be in his room other than for rest period and bedtime. Patient to be engaged in discharge planning process to ensure safe and effective discharge plan. Patient to follow- up with primary care physician upon discharge. Patient to return to [facility] housing with supportive services if discharged home. Patient to be consistent and compliant with medication regimen. Patient to be consistent and compliant with lab draws required for clozapine use. Labs ordered weekly to check clozapine effect. Labs done 07/28/16 WNL except for [place] 8.6 high, Eosi 5.2 high, FBS 147 high. TIME SPENT: 25 minutes. Vital Signs Vital Signs Date Time Temp Pulse Resp B/P Pulse Ox O2 Delivery O2 Flow Rate FiO2 07/31/16 07:00 96.0 97 20 108/67 07/29/16 17:05 Room Air Current Medications Current Medications Acetaminophen (Tylenol Tab) 650 mg Q6HP PRN PO HEADACHE or DISCOMFORT Last administered on 07/14/16t 21:19; Start 07/11/16 at 23:15; Stop 08/10/16 at 23:14 Al Hydrox/Mg Hydrox/Simethicone (Mylanta) 30 ml Q4HP PRN PO HEARTBURN/ INDIGESTION Last administered on 07/15/16 17:02; Start 07/11/16 at 23:15; Stop 08/10/16 at 23:14 Albuterol/ Ipratropium (Duoneb (Ipr 0.5mg/Alb 2.5mg)) 3 ml Q4HP PRN NEB SOB/ WHEEZING; Start 07/13/16 at 23:15; Stop 08/12/16 at 23:14 Aspirin (Ecotrin) 81 mg DAILY PO Last administered on 07/31/16 08:06; Start at 09:00; Stop 08/11/16 at 08:59 Atorvastatin Calcium (Lipitor) 10 mg QHS PO Last administered on 07/30/16 21: 17; Start 07/15/16 at 21:00; Stop 08/14/16 at 20:59 Benztropine Mesylate (Cogentin) 1 mg QHS PO Last administered on 07/30/16 21: 17; Start 07/13/16 at 21:00; Stop 08/12/16 at 20:59 Budesonide/ Formoterol Fumarate (Symbicort 160/ 4.5mcg) 2 puff BID INH Last administered on 07/31/16 08:06; Start 07/15/16 at 21:00; Stop 08/14/16 at 20:59 Chlorpromazine HCl (Thorazine) 50 mg BID PO Last administered on 07/31/16 08: 07; Start 07/12/16 at 09:00; Stop 08/11/16 at 08:59 Clozapine (Clozaril) 25 mg QAM PO Last administered on 07/31/16 08:06; Start 07/31/16 at 09:00; Stop 08/07/16 at 08:59 Clozapine (Clozaril) 200 mg QAM PO Last administered on 07/13/16 08:08; Start 07/12/16 at 09:00; Stop 07/13/16 at 08:33; Status DC Clozapine (Clozaril) 200 mg QAM PO Last administered on 07/31/16 08:06; Start 07/31/16 at 09:00; Stop 08/07/16 at 08:59 Clozapine (Clozaril) 250 mg QAM PO Last administered on 07/30/16 08:34; Start 07/14/16 at 09:00; Stop 07/30/16 at 18:57; Status DC Docusate Sodium (Colace) 100 mg BID PO Last administered on 07/31/16 08:06; Start 07/15/16 at 21:00; Stop 08/14/16 at 20:59 Escitalopram Oxalate (Lexapro) 10 mg DAILY PO Last administered on 07/30/16 08 :34; Start 07/12/16 at 09:00; Stop 07/30/16 at 18:57; Status DC Home Med (Med Rec Complete!) ASDIRECTED XX ; Start 07/11/16 at 20:00; Stop at 20:01; Status DC Hydroxyzine HCl (Atarax) 25 mg Q6HP PRN PO ITCHING/ANXIETY; Start 07/25/16 at 16:30; Stop 08/24/16 at 16:29 Influenza Virus Vaccine (Fluzone Quadrivalent Pf Vaccine) 0.5 ml 1T@09 IM Last administered on 07/13/16 10:24; Start 07/13/16 at 09:00; Stop 07/13/16 at 23:59 ; Status DC Magnesium Hydroxide (Milk Of Magnesia) 30 ml DAILYPRN PRN PO CONSTIPATION; Start 07/11/16 at 23:15; Stop 08/10/16 at 23:14 Metformin HCl (Glucophage) 850 mg DAILY@08 PO Last administered on 07/31/16 08 :06; Start 07/16/16 at 08:00; Stop 08/15/16 at 07:59 Mirtazapine (Remeron) 15 mg QPM PO Last administered on 07/29/16 19:57; Start 07/12/16 at 21:00; Stop 07/30/16 at 18:57; Status DC Miscellaneous (Unresolved Clarification Entry) SEE LABEL COMMENTS UNRESOLVED XX ; Start 07/27/16 at 00:01; Stop 07/27/16 at 10:40; Status DC Nicotine (Nicoderm Cq 21mg) 1 patch DAILY TD Last administered on 07/31/16 08: 06; Start 07/12/16 at 09:00; Stop 08/11/16 at 08:59 Non-Formulary Medication ( See Comment Field Below ) SEE COMMENTS SECTION 1T @16 XX Last administered on 07/16/16 16:01; Start 07/16/16 at 16:00; Stop at 18:58; Status DC Oseltamivir Phosphate (Tamiflu) 75 mg DAILY PO Last administered on 07/31/16 08:06; Start 07/25/16 at 09:00; Stop 08/03/16 at 12:00 Oxybutynin Chloride (Ditropan) 5 mg TID PO Last administered on 07/31/16 08:07 ; Start 07/15/16 at 16:00; Stop 08/14/16 at 15:59 Senna (Senokot) 2 tab QHS PO Last administered on 07/30/16 21:17; Start at 21:00; Stop 08/14/16 at 20:59 Tamsulosin HCl (Flomax) 0.4 mg QAM PO Last administered on 07/31/16 08:07; Start 07/16/16 at 09:00; Stop 08/15/16 at 08:59 Tiotropium [place] (Spiriva Handihaler) 1 inhalation DAILY INH Last administered on 07/31/16 08:07; Start 07/16/16 at 09:00; Stop 08/15/16 at 08:59 Trazodone HCl (Desyrel) 50 mg QHSP PRN PO INSOMNIA; Start 07/11/16 at 23:15; Stop 07/13/16 at 08:33; Status DC Trazodone HCl (Desyrel) 100 mg QHS PO Last administered on 07/30/16 21:17; Start 07/13/16 at 23:15; Stop 08/30/16 at 23:14 Trazodone HCl (Desyrel) 100 mg QHSP PRN PO IF INITIAL TABLET INEFFECTIVE; Start 07/30/16 at 19:15; Stop 08/29/16 at 19:14 Triamcinolone Acetonide (Kenalog 0.025% Cream) 1 dose BID TOP Last administered on 07/30/16 08:38; Start 07/24/16 at 09:00; Stop 08/23/16 at 08:59 Trimethoprim/ Sulfamethoxazole (Bactrim Ds, Septra Ds 160mg/ 800mg) 1 tab BID PO Last administered on 07/31/16t 08:07; Start 07/19/16 at 21:00; Stop 07/31/16 at 09:05; Status DC Allergies Coded Allergies: Quinolones (Verified Allergy, Unknown, QUESTIONABLE - AVELOX, 01/15/15) HAS HAD CIPRO & LEVAQUIN ON MULTIPLE OCCASIONS Haloperidol (Verified Adverse Reaction, Intermediate, ARACELISJAW,WHEEZING, 09/19/12) Prochlorperazine (Verified Adverse Reaction, Intermediate, ANAPHYLAXIS, 09/19/12) TONIA MOYA NP Jul 31, 2016 11:50
[2016-07-31] MEDS ORDERED: ENTER DRUG NAME HERE (PATIENT'S OWN MED) PO SCH (12:00)
[2016-07-31 18:00] VITALS: BP 113/71
[2016-07-31] MEDS: SENNA 8.6 MG TAB (SENOKOT) PO SCH (21:09)
[2016-07-31] MEDS: ATORVASTATIN 10 MG TAB PO SCH (21:10)
[2016-07-31] MEDS: traZODone 100 MG TAB PO SCH (21:11)
[2016-07-31] MEDS: BENZTROPINE 1 MG TAB PO SCH (21:11)
[2016-08-01 06:19] VITALS: BP 101/61
[2016-08-01] MEDS: TRIAMCINOLONE ACETONIDE 0.025 % 80 GM CREAM TOP SCH ×2 (09:00→21:00)
[2016-08-01] MEDS: REXULTI 0.5 MG PO SCH ×2 (09:00→15:42)
[2016-08-01] MEDS: SYMBICORT 160/4.5MCG INHALER 6GM INH SCH ×2 (09:18→20:27)
[2016-08-01] MEDS: chlorproMAZINE 25 MG TAB (Q0161) PO SCH ×2 (09:18→20:27)
[2016-08-01] MEDS: NICOTINE 21MG/24HR 1 EA TRANSDERMAL TD SCH (09:18)
[2016-08-01] MEDS: cloZAPine 25 MG TAB (S0136) PO SCH (09:19)
[2016-08-01] MEDS: metFORMIN 850 MG TAB PO SCH (09:19)
[2016-08-01] MEDS: cloZAPine 100 MG TAB (S0136) PO SCH (09:19)
[2016-08-01] MEDS: oxyBUTYnin 5 MG TAB PO SCH ×3 (09:19→21:29)
[2016-08-01] MEDS: OSELTAMIVIR PHOSPHATE 75 MG CAP (TAMIFLU) PO SCH (09:20)
[2016-08-01] MEDS: DOCUSATE SODIUM 100 MG CAP PO SCH ×2 (09:20→20:26)
[2016-08-01] MEDS: ASPIRIN 81 MG ENTERIC TAB PO SCH (09:20)
[2016-08-01] MEDS: TAMSULOSIN 0.4 MG CAP PO SCH (09:25)
[2016-08-01] MEDS: TIOTROPIUM INHALER/CAPSULE (SPIRIVA) INH SCH (09:30)
--- NOTE | 2016-08-01 13:52 | IPNPDOC ---
[facility] Progress Note Progress Note DATE OF SERVICE: 08/01/16 HISTORY: A 56-year-old male hospitalized for command auditory hallucinations with suicidal ideation telling him to kill himself. The patient is a 55-year- old male, single, living at a transitional living services ([facility]) community residence. The patient has a long history of mental health problems including numerous psychiatric admissions, outpatient psychiatric treatment. The patient was recently discharged from [facility] ([facility]) Inpatient Mental Health Unit (IM) on 08/28/2015. As per the emergency department (ED) report, the patient presented to the ED for evaluation because the patient presented after a scheduled appointment with psychiatrist Dr. Castanon. Dr. Castanon wanted to change the patient's medications but the patient declined change, requesting to go to the ED. The patient presented to the ED reporting hearing a woman's voice telling him to kill himself. The patient currently lives in a [facility] residence. Upon admission, the patient presents as a poor historian. He states he has been hearing voices that have been apparent since yesterday telling him to kill himself. He states his last suicide attempt was about two months ago. He states he does not know the trigger that brought him to have these command auditory hallucinations. He reports some depression but denies anxiety spectrum disorder symptoms. PAST PSYCHIATRIC HISTORY: The patient states he came out of [facility] ([facility]) a month ago after being there a month. However, this was inaccurate, as he was discharged from [facility] Jun 20, 2016. The patient states he has been medication compliant since discharge, this is questionable. The patient was also discharged on 08/28/2015, from [facility] after being hospitalized for about a week. The patient has had numerous psychiatric hospitalizations with a diagnosis of schizophrenia. CHEMICAL DEPENDENCY: The patient has a past history of problem with heroin, speed, and crack use. He denies current and recent use of drugs or alcohol. He has also had problems with alcohol in the past. PAST MEDICAL HISTORY: 1. Dementia. 2. Diastolic congestive heart failure with ejection fraction of 65%. 3. Chronic obstructive pulmonary disease (COPD). 4. Hypertension. 5. Asthma. 6. Diabetes, diet controlled. 7. High cholesterol. 8. Neurogenic bladder with suprapubic catheter in place. 9. Gastroesophageal reflux disease (GERD). 10. History of transient ischemic attack (TIA). 11. Cholecystectomy. 12. Right inguinal hernia repair. ALLERGIES: QUINOLONES, HALDOL, CHLORPROMAZINE cause anaphylaxis. FAMILY HISTORY: Several family members have a history of substance abuse problems including his daughter. It has been reported that one of his daughters had of a heroin overdose since his last admission here. SOCIAL HISTORY: The patient states he lives in [place] for the past month after [facility] discharge. Pt. states it is going well. There has been no trouble with his roommate or other residents or with staff per pt. He states he is not in contact with any family members. He had a fight with his sister and his daughter does not want anything to do with him. Pt. states he does not know the reason for this. VITAL SIGNS: See below. Temperature 96 Pulse 97 Respirations 20 Blood pressure 108/67. TEST RESULTS: Last CBC (07/28/16) within normal limits, except Defiance is 8.6 which is high, Eos is 5.2 which is high. On admission SE[facility]IAN, Tylenol and salicylate levels within normal limits. Hepatitis C and HIV screen are NEG, drawn on prior admission. Clinical consultation done about lab values in regards to clozapine dosing with Dr. Schmidt. CURRENT PSYCH MEDICATIONS: See below. - Clozaril 225 po q am for schizoaffective disorder. Will be tapering off by 25 mg/week until discontinued. - Benztropine 1 mg po q hs for EPS effects - Thorazine 50 mg by mouth twice a day for psychotic features - Trazodone 100 mg po q hs for sleep/depression - Rexulti 0.5 mg po q am MENTAL STATUS EXAMINATION: Patient is a 56-year-old male who appears much older than his stated age. Pt. is improved in grooming and appearance, wearing hospital t shirt and scrub pants. Pt. is pleasant and cooperative, noted to walk with a steady gait. Pt. was noted to be up and about unit this morning. Speech: Is of normal rate, volume, and articulation. Pt. is coherent and mostly spontaneous. Pt. is found in lounge when approached by provider this morning. Language skills are intact. Thought processes: Clearing, starting to be goal- directed. Thought content: Rational, logical. Pt. states he has some paranoia today, feels people are "watching" him. Abstract reasoning and computation: Adequate. Associations: Intact. Description of abnormal or psychotic thoughts: Pt. states he continues to have command auditory hallucinations of a female voice that he does not recognize that is telling him to kill himself. Pt. reports the voice states "Karlos, kill yourself". Pt. states is "worse after 7 am, had been 0/10, now is 6/10". Pt. continues to show no signs of responding to internal stimuli, is not affecting his sleep or thought processes that is verifiable. Pt's behavior does not follow usual course of someone having AH. Pt. denies visual hallucinations, preoccupations, homicidal or suicidal ideation other than what his voice tells him, obsessions or compulsions. Pt. states he has had delusions but states "I can't remember, people told me I did". Judgment: Poor. Insight: Poor. Orientation to: time, person, place and situation. Recent and remote memory: Pt. states "Getting better", when referring to memory issues. Attention span and concentration: Fair. Language: Normal, difficult to understand at times. Fund of knowledge : Poor. Mood: "Pretty good". Patient's statement of his mood continues to be non-consistent with other symptoms he describes, problems he has. Affect: flat , rational. DIAGNOSES: 1. Schizoaffective disorder vs. Schizophrenia ASSESSMENT: Pt. states that he is having suicidal ideation due to command auditory hallucinations, that are telling him to kill himself. Patient reports sounds louder to him today. Patient reports he still hears the female voice telling him to kill himself. Pt. continues to not show any behavioral clues such as grimacing, wincing, flinching that he is responding to internally occurring stimuli. Pt. does not appear to be sound sensitive, is not covering ears or cowering to the perceived volume of the voice. Pt. does not ask for anything or state he needs anything when asked. Pt. appears to be his happiest when laying in bed and sleeping. Pt. denies any disruption of sleep habits due to voice today. Pt. states his baseline anxiety is 3/10, baseline depression is 3/10. Pt. states current anxiety is 0/10, depression is 0/10. Pt. was very excited to tell provider"I have good news, everything is a zero". "I feel so much better". Pt. denies any use of alcohol, but has an extensive alcohol abuse history per prior records. Patient states he has been compliant with medication regimen. Pt. is not reliable in giving accurate responses to some questions asked, possibly due to current mental state or prior diagnosed dementia. Pt. continues to function as well as he can. Pt. continues to show features of prior institutionalization. Pt. states his sleep was "Good sleep, yes". Pt. reports he slept 7 hours last night. Pt. has no apparent effects from meds discontinued (Lexapro, Remeron), decrease in clozapine. Pt. started Rexulti o.5 mg today. Pt. will be at this dose x 7 days. Pt. will then be at 1 mg x 7 days, will go to 2 mg if needed. MANAGEMENT PLAN: Pt. to continue meds as ordered by admitting MD. After clinical consultation with Dr. Schmidt Clozapine to be decreased by 25 mg/week until discontinued. Remeron, Lexapro were discontinued as well. Pt. started Rexulti today. Maintain safety precautions. Patient to attend groups and participate in unit programming to develop effective coping strategies. Pt. is not to be in his room other than for rest period and bedtime. Patient to be engaged in discharge planning process to ensure safe and effective discharge plan. Patient to follow-up with primary care physician upon discharge. Patient to return to [facility] housing with supportive services if discharged home. Patient to be consistent and compliant with medication regimen. Patient to be consistent and compliant with lab draws required for clozapine use. Labs ordered weekly to check clozapine effect. Labs done 07/28/16 WNL except for Defiance 8.6 high, Eosi 5.2 high, FBS 147 high. Repeat labs ordered 08/04/16. TIME SPENT: 25 minutes. Vital Signs Vital Signs Date Time Temp Pulse Resp B/P Pulse Ox O2 Delivery O2 Flow Rate FiO2 08/01/16 06:19 95.2 68 18 101/61 07/29/16 17:05 Room Air Current Medications Current Medications Acetaminophen (Tylenol Tab) 650 mg Q6HP PRN PO HEADACHE or DISCOMFORT Last administered on 07/14/16t 21:19; Start 07/11/16 at 23:15; Stop 08/10/16 at 23:14 Al Hydrox/Mg Hydrox/Simethicone (Mylanta) 30 ml Q4HP PRN PO HEARTBURN/ INDIGESTION Last administered on 07/15/16 17:02; Start 07/11/16 at 23:15; Stop 08/10/16 at 23:14 Albuterol/ Ipratropium (Duoneb (Ipr 0.5mg/Alb 2.5mg)) 3 ml Q4HP PRN NEB SOB/ WHEEZING; Start 07/13/16 at 23:15; Stop 08/12/16 at 23:14 Aspirin (Ecotrin) 81 mg DAILY PO Last administered on 08/01/16 09:20; Start at 09:00; Stop 08/11/16 at 08:59 Atorvastatin Calcium (Lipitor) 10 mg QHS PO Last administered on 07/31/16 21: 10; Start 07/15/16 at 21:00; Stop 08/14/16 at 20:59 Benztropine Mesylate (Cogentin) 1 mg QHS PO Last administered on 07/31/16 21: 11; Start 07/13/16 at 21:00; Stop 08/12/16 at 20:59 Budesonide/ Formoterol Fumarate (Symbicort 160/ 4.5mcg) 2 puff BID INH Last administered on 08/01/16 09:18; Start 07/15/16 at 21:00; Stop 08/14/16 at 20:59 Chlorpromazine HCl (Thorazine) 50 mg BID PO Last administered on 08/01/16 09: 18; Start 07/12/16 at 09:00; Stop 08/11/16 at 08:59 Clozapine (Clozaril) 25 mg QAM PO Last administered on 08/01/16 09:19; Start 07/31/16 at 09:00; Stop 08/07/16 at 08:59 Clozapine (Clozaril) 200 mg QAM PO Last administered on 07/13/16 08:08; Start 07/12/16 at 09:00; Stop 07/13/16 at 08:33; Status DC Clozapine (Clozaril) 200 mg QAM PO Last administered on 08/01/16 09:19; Start 07/31/16 at 09:00; Stop 08/07/16 at 08:59 Clozapine (Clozaril) 250 mg QAM PO Last administered on 07/30/16 08:34; Start 07/14/16 at 09:00; Stop 07/30/16 at 18:57; Status DC Docusate Sodium (Colace) 100 mg BID PO Last administered on 08/01/16 09:20; Start 07/15/16 at 21:00; Stop 08/14/16 at 20:59 Escitalopram Oxalate (Lexapro) 10 mg DAILY PO Last administered on 07/30/16 08 :34; Start 07/12/16 at 09:00; Stop 07/30/16 at 18:57; Status DC Home Med (Med Rec Complete!) ASDIRECTED XX ; Start 07/11/16 at 20:00; Stop at 20:01; Status DC Hydroxyzine HCl (Atarax) 25 mg Q6HP PRN PO ITCHING/ANXIETY; Start 07/25/16 at 16:30; Stop 08/24/16 at 16:29 Influenza Virus Vaccine (Fluzone Quadrivalent Pf Vaccine) 0.5 ml 1T@09 IM Last administered on 07/13/16 10:24; Start 07/13/16 at 09:00; Stop 07/13/16 at 23:59 ; Status DC Magnesium Hydroxide (Milk Of Magnesia) 30 ml DAILYPRN PRN PO CONSTIPATION; Start 07/11/16 at 23:15; Stop 08/10/16 at 23:14 Metformin HCl (Glucophage) 850 mg DAILY@08 PO Last administered on 08/01/16 09 :19; Start 07/16/16 at 08:00; Stop 08/15/16 at 07:59 Mirtazapine (Remeron) 15 mg QPM PO Last administered on 07/29/16 19:57; Start 07/12/16 at 21:00; Stop 07/30/16 at 18:57; Status DC Miscellaneous (Unresolved Clarification Entry) SEE LABEL COMMENTS UNRESOLVED XX ; Start 07/27/16 at 00:01; Stop 07/27/16 at 10:40; Status DC Miscellaneous (Unresolved Patient Own Med Order) SEE LABEL COMMENTS UNRESOLVED XX ; Start 07/31/16 at 00:01; Stop 08/30/16 at 00:00 Nicotine (Nicoderm Cq 21mg) 1 patch DAILY TD Last administered on 08/01/16 09: 18; Start 07/12/16 at 09:00; Stop 08/11/16 at 08:59 Non-Formulary Medication ( See Comment Field Below ) SEE COMMENTS SECTION 1T @16 XX Last administered on 07/16/16 16:01; Start 07/16/16 at 16:00; Stop at 18:58; Status DC Oseltamivir Phosphate (Tamiflu) 75 mg DAILY PO Last administered on 08/01/16 09:20; Start 07/25/16 at 09:00; Stop 08/03/16 at 12:00 Oxybutynin Chloride (Ditropan) 5 mg TID PO Last administered on 08/01/16 09:19 ; Start 07/15/16 at 16:00; Stop 08/14/16 at 15:59 Patient Own Medication (Patient'S Own Med) Rexulti 0.5 mg po q am x 7 da... QAM PO ; Start 07/31/16 at 12:00; Stop 08/30/16 at 11:59; Status UNV Senna (Senokot) 2 tab QHS PO Last administered on 07/31/16 21:09; Start at 21:00; Stop 08/14/16 at 20:59 Tamsulosin HCl (Flomax) 0.4 mg QAM PO Last administered on 08/01/16 09:25; Start 07/16/16 at 09:00; Stop 08/15/16 at 08:59 Tiotropium Cadwell (Spiriva Handihaler) 1 inhalation DAILY INH Last administered on 08/01/16 09:30; Start 07/16/16 at 09:00; Stop 08/15/16 at 08:59 Trazodone HCl (Desyrel) 50 mg QHSP PRN PO INSOMNIA; Start 07/11/16 at 23:15; Stop 07/13/16 at 08:33; Status DC Trazodone HCl (Desyrel) 100 mg QHS PO Last administered on 07/31/16 21:11; Start 07/13/16 at 23:15; Stop 08/30/16 at 23:14 Trazodone HCl (Desyrel) 100 mg QHSP PRN PO IF INITIAL TABLET INEFFECTIVE; Start 07/30/16 at 19:15; Stop 08/29/16 at 19:14 Triamcinolone Acetonide (Kenalog 0.025% Cream) 1 dose BID TOP Last administered on 07/31/16 21:11; Start 07/24/16 at 09:00; Stop 08/23/16 at 08:59 Trimethoprim/ Sulfamethoxazole (Bactrim Ds, Septra Ds 160mg/ 800mg) 1 tab BID PO Last administered on 07/31/16 08:07; Start 07/19/16 at 21:00; Stop 07/31/16 at 09:05; Status DC Allergies Coded Allergies: Quinolones (Verified Allergy, Unknown, QUESTIONABLE - AVELOX, 01/15/15) HAS HAD CIPRO & LEVAQUIN ON MULTIPLE OCCASIONS Haloperidol (Verified Adverse Reaction, Intermediate, LOCKJAW,WHEEZING, 09/19/12) Prochlorperazine (Verified Adverse Reaction, Intermediate, ANAPHYLAXIS, 09/19/12) TONIA MOYA NP Aug 01, 2016 13:52
[2016-08-01 18:00] VITALS: BP 115/72
[2016-08-01] MEDS: traZODone 100 MG TAB PO SCH (20:25)
[2016-08-01] MEDS: ACETAMINOPHEN TAB 650MG DOSE (2X325MG) PO PRN (20:27)
[2016-08-01] MEDS: ATORVASTATIN 10 MG TAB PO SCH (20:27)
[2016-08-01] MEDS: BENZTROPINE 1 MG TAB PO SCH (20:27)
[2016-08-01] MEDS: SENNA 8.6 MG TAB (SENOKOT) PO SCH (20:27)
[2016-08-01] MEDS ORDERED: IBUPROFEN 600 MG TAB PO PRN (22:00)
[2016-08-01] MEDS ORDERED: IBUPROFEN 800 MG TAB PO ONE (22:00)
[2016-08-02 06:35] VITALS: BP 105/54
[2016-08-02] MEDS: cloZAPine 100 MG TAB (S0136) PO SCH (08:36)
[2016-08-02] MEDS: TAMSULOSIN 0.4 MG CAP PO SCH (08:36)
[2016-08-02] MEDS: chlorproMAZINE 25 MG TAB (Q0161) PO SCH ×2 (08:36→22:01)
[2016-08-02] MEDS: oxyBUTYnin 5 MG TAB PO SCH ×3 (08:36→22:02)
[2016-08-02] MEDS: OSELTAMIVIR PHOSPHATE 75 MG CAP (TAMIFLU) PO SCH (08:36)
[2016-08-02] MEDS: DOCUSATE SODIUM 100 MG CAP PO SCH ×2 (08:36→22:01)
[2016-08-02] MEDS: metFORMIN 850 MG TAB PO SCH (08:36)
[2016-08-02] MEDS: ASPIRIN 81 MG ENTERIC TAB PO SCH (08:36)
[2016-08-02] MEDS: SYMBICORT 160/4.5MCG INHALER 6GM INH SCH ×2 (08:36→22:01)
[2016-08-02] MEDS: TIOTROPIUM INHALER/CAPSULE (SPIRIVA) INH SCH (08:37)
[2016-08-02] MEDS: NICOTINE 21MG/24HR 1 EA TRANSDERMAL TD SCH (08:37)
[2016-08-02] MEDS: REXULTI 0.5 MG PO SCH (08:38)
[2016-08-02] MEDS: cloZAPine 25 MG TAB (S0136) PO SCH (08:41)
[2016-08-02] MEDS: TRIAMCINOLONE ACETONIDE 0.025 % 80 GM CREAM TOP SCH ×2 (08:43→21:00)
[2016-08-02 18:00] VITALS: BP 109/67
[2016-08-02] MEDS: SENNA 8.6 MG TAB (SENOKOT) PO SCH (22:01)
[2016-08-02] MEDS: ATORVASTATIN 10 MG TAB PO SCH (22:02)
[2016-08-02] MEDS: traZODone 100 MG TAB PO SCH (22:02)
[2016-08-02] MEDS: BENZTROPINE 1 MG TAB PO SCH (22:02)
[2016-08-03 06:15] VITALS: BP 97/55
[2016-08-03] MEDS: SYMBICORT 160/4.5MCG INHALER 6GM INH SCH ×2 (08:39→20:49)
[2016-08-03] MEDS: NICOTINE 21MG/24HR 1 EA TRANSDERMAL TD SCH (08:39)
[2016-08-03] MEDS: TIOTROPIUM INHALER/CAPSULE (SPIRIVA) INH SCH (08:39)
[2016-08-03] MEDS: oxyBUTYnin 5 MG TAB PO SCH ×3 (08:40→20:52)
[2016-08-03] MEDS: chlorproMAZINE 25 MG TAB (Q0161) PO SCH ×2 (08:40→20:51)
[2016-08-03] MEDS: ASPIRIN 81 MG ENTERIC TAB PO SCH (08:40)
[2016-08-03] MEDS: metFORMIN 850 MG TAB PO SCH (08:40)
[2016-08-03] MEDS: cloZAPine 100 MG TAB (S0136) PO SCH (08:40)
[2016-08-03] MEDS: OSELTAMIVIR PHOSPHATE 75 MG CAP (TAMIFLU) PO SCH (08:40)
[2016-08-03] MEDS: cloZAPine 25 MG TAB (S0136) PO SCH (08:40)
[2016-08-03] MEDS: DOCUSATE SODIUM 100 MG CAP PO SCH ×2 (08:40→20:52)
[2016-08-03] MEDS: TAMSULOSIN 0.4 MG CAP PO SCH (08:40)
[2016-08-03] MEDS: REXULTI 0.5 MG PO SCH (08:41)
[2016-08-03] MEDS: TRIAMCINOLONE ACETONIDE 0.025 % 80 GM CREAM TOP SCH ×2 (08:44→20:50)
[2016-08-03 18:00] VITALS: BP 117/74
[2016-08-03] MEDS: ATORVASTATIN 10 MG TAB PO SCH (20:50)
[2016-08-03] MEDS: SENNA 8.6 MG TAB (SENOKOT) PO SCH (20:51)
[2016-08-03] MEDS: traZODone 100 MG TAB PO SCH (20:52)
[2016-08-03] MEDS: BENZTROPINE 1 MG TAB PO SCH (20:52)
[2016-08-03] MEDS: IPRATROPIUM 0.5MG/ALBUTEROL 2.5MG INH SOL UD 3ML (DUONEB)(J7620) NEB PRN (22:01)
[2016-08-04 06:33] VITALS: BP 107/61
[2016-08-04] MEDS: metFORMIN 850 MG TAB PO SCH (07:12)
[2016-08-04] MEDS: NICOTINE 21MG/24HR 1 EA TRANSDERMAL TD SCH (08:34)
[2016-08-04] MEDS: REXULTI 0.5 MG PO SCH (08:34)
[2016-08-04] MEDS: TAMSULOSIN 0.4 MG CAP PO SCH (08:34)
[2016-08-04] MEDS: ASPIRIN 81 MG ENTERIC TAB PO SCH (08:34)
[2016-08-04] MEDS: oxyBUTYnin 5 MG TAB PO SCH ×3 (08:34→20:43)
[2016-08-04] MEDS: chlorproMAZINE 25 MG TAB (Q0161) PO SCH ×2 (08:34→20:43)
[2016-08-04] MEDS: SYMBICORT 160/4.5MCG INHALER 6GM INH SCH ×2 (08:34→20:44)
[2016-08-04] MEDS: DOCUSATE SODIUM 100 MG CAP PO SCH ×2 (08:34→20:42)
[2016-08-04] MEDS: cloZAPine 100 MG TAB (S0136) PO SCH (08:34)
[2016-08-04] MEDS: cloZAPine 25 MG TAB (S0136) PO SCH (08:34)
[2016-08-04] MEDS: TIOTROPIUM INHALER/CAPSULE (SPIRIVA) INH SCH (08:35)
[2016-08-04] MEDS: TRIAMCINOLONE ACETONIDE 0.025 % 80 GM CREAM TOP SCH ×2 (08:37→20:44)
[2016-08-04 11:08] VITALS: BP_SYST 136; BP_SYST 140; BP_DIAS 77; BP_DIAS 80
[2016-08-04 11:09] VITALS: BP 123/60
[2016-08-04 13:24] LABS: BASO % 0.3 % (0.0-1.0); EOS # 0.4 K/mm3 (0.0-0.50); EOS % 3.8 % (0.0-3.0); LARGE UNSTAINED CELL # 0.1 K/mm3 (0.0-0.4); LARGE UNSTAINED CELL % 1.4 % (0.0-4.0); LYMPH % 19.4 % (24.0-44.0); MEAN CORPUSCULAR HEMOGLOBIN 29.7 pg (27.0-33.0); MEAN CORPUSCULAR HGB CONC 33.2 g/dl (32.0-36.5); MEAN CORPUSCULAR VOLUME 89.7 fl (80.0-96.0); MONO # 0.6 K/mm3 (0.0-0.8); MONO % 6.6 % (0.0-5.0); NEUTROPHILS # 6.6 K/mm3 (1.8-7.7); NEUTROPHILS % 68.5 % (36.0-66.0); PLATELET COUNT, AUTOMATED 216 k/mm3 (150-450); RED CELL DISTRIBUTION WIDTH 13.7 % (11.5-14.5); WHITE BLOOD COUNT 9.6 K/mm3 (4.0-10.0)
--- NOTE | 2016-08-04 15:12 | IPNPDOC ---
[facility] Progress Note Progress Note DATE OF SERVICE: 08/04/16 HISTORY: A 56-year-old male hospitalized for command auditory hallucinations with suicidal ideation telling him to kill himself. The patient is a 55-year- old male, single, living at a transitional living services ([facility]) community residence. The patient has a long history of mental health problems including numerous psychiatric admissions, outpatient psychiatric treatment. The patient was recently discharged from [facility] ([facility]) Inpatient Mental Health Unit (IM) on 08/28/2015. As per the emergency department (ED) report, the patient presented to the ED for evaluation because the patient presented after a scheduled appointment with psychiatrist Dr. Castanon. Dr. Castanon wanted to change the patient's medications but the patient declined change, requesting to go to the ED. The patient presented to the ED reporting hearing a woman's voice telling him to kill himself. The patient currently lives in a [facility] residence. Upon admission, the patient presents as a poor historian. He states he has been hearing voices that have been apparent since yesterday telling him to kill himself. He states his last suicide attempt was about two months ago. He states he does not know the trigger that brought him to have these command auditory hallucinations. He reports some depression but denies anxiety spectrum disorder symptoms. PAST PSYCHIATRIC HISTORY: The patient states he came out [place] [facility] [place] after being there a month. However, this was inaccurate, as he was discharged [place] [facility] [place]. The patient states he has been medication compliant since discharge, this is questionable. The patient was also discharged on 08/28/2015, from [facility] after being hospitalized for about a week. The patient has had numerous psychiatric hospitalizations with a diagnosis of schizophrenia. CHEMICAL DEPENDENCY: The patient has a past history of problem with heroin, speed, and crack use. He denies current and recent use of drugs or alcohol. He has also had problems with alcohol in the past. PAST MEDICAL HISTORY: 1. Dementia. 2. Diastolic congestive heart failure with ejection fraction of 65%. 3. Chronic obstructive pulmonary disease (COPD). 4. Hypertension. 5. Asthma. 6. Diabetes, diet controlled. 7. High cholesterol. 8. Neurogenic bladder with suprapubic catheter in place. 9. Gastroesophageal reflux disease (GERD). 10. History of transient ischemic attack (TIA). 11. Cholecystectomy. 12. Right inguinal hernia repair. ALLERGIES: QUINOLONES, HALDOL, CHLORPROMAZINE cause anaphylaxis. FAMILY HISTORY: Several family members have a history of substance abuse problems including his daughter. It has been reported that one of his daughters had of a heroin overdose since his last admission here. SOCIAL HISTORY: The patient states he lives in [facility] for the past month [place] [facility] [place]. Pt. states it is going well. There has been no trouble with his roommate or other residents or with staff per pt. He states he is not in contact with any family members. He had a fight with his sister and his daughter does not want anything to do with him. Pt. states he does not know the reason for this. VITAL SIGNS: See below. Temperature 98 Pulse 74 Respirations 18 Blood pressure 107/61. TEST RESULTS: Last CBC (08/04/16) within normal limits, except Hgb 12.8, Hct 38.1 which is high, Neut 68.5 is high, Lymph 19.4 which is low, Faulkner is 6.6 which is high, Eos is 3.8 which is high. On admission [facility], Tylenol and salicylate levels within normal limits. Hepatitis C and HIV screen are NEG, drawn on prior admission. Clinical consultation done about lab values in regards to clozapine dosing with Dr. Schmidt. CURRENT PSYCH MEDICATIONS: See below. - Clozaril 200 po q am for schizoaffective disorder. Will be tapering off by 25 mg/week until discontinued. - Benztropine 1 mg po q hs for EPS effects - Thorazine 50 mg by mouth twice a day for psychotic features - Trazodone 100 mg po q hs for sleep/depression - Rexulti 0.5 mg po q am (until 08/15 when it is increased to 1 mg) MENTAL STATUS EXAMINATION: Patient is a 56-year-old male who appears much older than his stated age. Pt. is improved in grooming and appearance, wearing hospital t shirt and scrub pants. Pt. is pleasant and cooperative, noted to walk with a steady gait. Pt. was noted to be up and about unit this morning. Speech: Is of normal rate, volume, and articulation. Pt. is coherent and mostly spontaneous. Pt. is found in lounge when approached by provider this morning. Language skills are intact. Thought processes: Clearing, starting to be goal- directed. Thought content: Rational, logical. Pt. states he has some paranoia today, feels people are still "watching" him. Abstract reasoning and computation: Adequate. Associations: Intact. Description of abnormal or psychotic thoughts: Pt. states he continues to have command auditory hallucinations of a female voice that he does not recognize that is telling him to kill himself. Pt. reports the voice states "Karlos, kill yourself". Pt. states is "worse today, now is 8/10". Pt. continues to show no signs of responding to internal stimuli, is not affecting his sleep or thought processes that is verifiable. Pt's behavior does not follow usual course of someone having AH. Pt. denies visual hallucinations, preoccupations, homicidal or suicidal ideation other than what his voice tells him, obsessions or compulsions. Pt. states he has had delusions but states "I can't remember, people told me I did" . Judgment: Poor. Insight: Poor. Orientation to: time, person, place and situation. Recent and remote memory: Pt. states "Pretty good", when referring to memory issues. Attention span and concentration: Fair. Language: Normal, difficult to understand at times. Fund of knowledge: Poor. Mood: "Okay". Patient's statement of his mood continues to be non-consistent with other symptoms he describes, problems he has. Affect: flat, rational. DIAGNOSES: 1. Schizoaffective disorder vs. Schizophrenia ASSESSMENT: Pt. states that he is having suicidal ideation due to command auditory hallucinations, that are telling him to kill himself. Patient reports sounds louder to him today. Patient reports he still hears the female voice telling him to kill himself. Pt. continues to not show any behavioral clues such as grimacing, wincing, flinching that he is responding to internally occurring stimuli. Pt. does not appear to be sound sensitive, is not covering ears or cowering to the perceived volume of the voice. Pt. does not ask for anything or state he needs anything when asked. Pt. appears to be his happiest when laying in bed and sleeping. Pt. denies any disruption of sleep habits due to voice today. Pt. states his baseline anxiety is 3/10, baseline depression is 3/10. Pt. states current anxiety is 3/10, depression is 3/10. Pt. denies any use of alcohol, but has an extensive alcohol abuse history per prior records. Patient states he has been compliant with medication regimen. Pt. is not reliable in giving accurate responses to some questions asked, possibly due to current mental state or prior diagnosed dementia. Pt. continues to function as well as he can. Pt. continues to show features of prior institutionalization. Pt. states his sleep was "A little restless". Pt. reports he slept 8 hours last night. Pt. has no apparent effects from meds discontinued (Lexapro, Remeron), decrease in clozapine. Pt. continuing on Rexulti o.5 mg. Pt. will be at this dose x 7 days. Pt. will then be at 1 mg x 7 days, will go to 2 mg if needed. MANAGEMENT PLAN: Pt. to continue meds as ordered by admitting MD. After continued clinical consultation with Dr. Schmidt, Clozapine to be decreased by 25 mg/week until discontinued. Pt. has no side effects noted due to Rexulti start. Will continue dose titration. Maintain safety precautions. Patient to attend groups and participate in unit programming to develop effective coping strategies. Pt. is not to be in his room other than for rest period and bedtime. Patient to be engaged in discharge planning process to ensure safe and effective discharge plan. Patient to follow-up with primary care physician upon discharge. Patient to return to [facility] housing with supportive services if discharged home. Patient to be consistent and compliant with medication regimen. Patient to be consistent and compliant with lab draws required for clozapine use. Labs ordered weekly to check clozapine effect. TIME SPENT: 15 minutes. Vital Signs Vital Signs Date Time Temp Pulse Resp B/P Pulse Ox O2 Delivery O2 Flow Rate FiO2 08/04/16 11:09 123/60 08/04/16 11:08 98.2 98 08/04/16 06:33 16 07/29/16 17:05 Room Air Laboratory Data 24H Labs Laboratory Tests 2 08/03/16 17:21: Bedside Glucose (Misc Panel) 128H 08/04/16 06:44: Bedside Glucose (Misc Panel) 149H 08/04/16 12:42: White Blood Count 9.6, Red Blood Count 4.30, Hemoglobin 12.8L, Hematocrit 38.6L , Mean Corpuscular Volume 89.7, Mean Corpuscular Hemoglobin 29.7, Mean Corpuscular Hemoglobin Concent 33.2, Red Cell Distribution Width 13.7, Platelet Count 216, Neutrophils (%) (Auto) 68.5H, Lymphocytes (%) (Auto) 19.4L, Monocytes (%) (Auto) 6.6H, Eosinophils (%) (Auto) 3.8H, Basophils (%) (Auto) 0.3 , Neutrophils # (Auto) 6.6, Lymphocytes # (Auto) 2.0, Monocytes # (Auto) 0.6, Eosinophils # (Auto) 0.4, Basophils # (Auto) 0.0, Large Unclassified Cells # 0.1 , Large Unclassified Cells % 1.4 CBC/BMP Laboratory Tests 08/04/16 12:42 Red Blood Count 4.30, Mean Corpuscular Volume 89.7, Mean Corpuscular Hemoglobin 29.7, Mean Corpuscular Hemoglobin Concent 33.2, Red Cell Distribution Width 13.7 , Neutrophils (%) (Auto) 68.5 H, Lymphocytes (%) (Auto) 19.4 L, Monocytes (%) ( Auto) 6.6 H, Eosinophils (%) (Auto) 3.8 H, Basophils (%) (Auto) 0.3, Neutrophils # (Auto) 6.6, Lymphocytes # (Auto) 2.0, Monocytes # (Auto) 0.6, Eosinophils # (Auto) 0.4, Basophils # (Auto) 0.0 Current Medications Current Medications Acetaminophen (Tylenol Tab) 650 mg Q6HP PRN PO HEADACHE or DISCOMFORT Last administered on 08/01/16 20:27; Start 07/11/16 at 23:15; Stop 08/10/16 at 23:14 Al Hydrox/Mg Hydrox/Simethicone (Mylanta) 30 ml Q4HP PRN PO HEARTBURN/ INDIGESTION Last administered on 07/15/16 17:02; Start 07/11/16 at 23:15; Stop 08/10/16 at 23:14 Albuterol/ Ipratropium (Duoneb (Ipr 0.5mg/Alb 2.5mg)) 3 ml Q4HP PRN NEB SOB/ WHEEZING Last administered on 08/03/16 22:01; Start 07/13/16 at 23:15; Stop at 23:14 Aspirin (Ecotrin) 81 mg DAILY PO Last administered on 08/04/16 08:34; Start at 09:00; Stop 08/11/16 at 08:59 Atorvastatin Calcium (Lipitor) 10 mg QHS PO Last administered on 08/03/16 20: 50; Start 07/15/16 at 21:00; Stop 08/14/16 at 20:59 Benztropine Mesylate (Cogentin) 1 mg QHS PO Last administered on 08/03/16 20: 52; Start 07/13/16 at 21:00; Stop 08/12/16 at 20:59 Budesonide/ Formoterol Fumarate (Symbicort 160/ 4.5mcg) 2 puff BID INH Last administered on 08/04/16 08:34; Start 07/15/16 at 21:00; Stop 08/14/16 at 20:59 Chlorpromazine HCl (Thorazine) 50 mg BID PO Last administered on 08/04/16 08: 34; Start 07/12/16 at 09:00; Stop 08/11/16 at 08:59 Clozapine (Clozaril) 25 mg QAM PO Last administered on 08/04/16 08:34; Start 07/31/16 at 09:00; Stop 08/04/16 at 12:29; Status DC Clozapine (Clozaril) 200 mg QAM PO Last administered on 07/13/16 08:08; Start 07/12/16 at 09:00; Stop 07/13/16 at 08:33; Status DC Clozapine (Clozaril) 200 mg QAM PO Last administered on 08/04/16 08:34; Start 07/31/16 at 09:00; Stop 08/04/16 at 12:29; Status DC Clozapine (Clozaril) 200 mg QAM PO ; Start 08/05/16 at 09:00; Stop 08/12/16 at 08:59 Clozapine (Clozaril) 250 mg QAM PO Last administered on 07/30/16 08:34; Start 07/14/16 at 09:00; Stop 07/30/16 at 18:57; Status DC Docusate Sodium (Colace) 100 mg BID PO Last administered on 08/04/16 08:34; Start 07/15/16 at 21:00; Stop 08/14/16 at 20:59 Escitalopram Oxalate (Lexapro) 10 mg DAILY PO Last administered on 07/30/16 08 :34; Start 07/12/16 at 09:00; Stop 07/30/16 at 18:57; Status DC Home Med (Med Rec Complete!) ASDIRECTED XX ; Start 07/11/16 at 20:00; Stop at 20:01; Status DC Hydroxyzine HCl (Atarax) 25 mg Q6HP PRN PO ITCHING/ANXIETY; Start 07/25/16 at 16:30; Stop 08/24/16 at 16:29 Ibuprofen (Advil) 600 mg Q6HP PRN PO MODERATE PAIN (PS 5-7); Start 08/01/16 at 22:00; Stop 08/04/16 at 07:00; Status DC Influenza Virus Vaccine (Fluzone Quadrivalent Pf Vaccine) 0.5 ml 1T@09 IM Last administered on 07/13/16 10:24; Start 07/13/16 at 09:00; Stop 07/13/16 at 23:59 ; Status DC Magnesium Hydroxide (Milk Of Magnesia) 30 ml DAILYPRN PRN PO CONSTIPATION; Start 07/11/16 at 23:15; Stop 08/10/16 at 23:14 Metformin HCl (Glucophage) 850 mg DAILY@08 PO Last administered on 08/04/16 07 :12; Start 07/16/16 at 08:00; Stop 08/15/16 at 07:59 Mirtazapine (Remeron) 15 mg QPM PO Last administered on 07/29/16 19:57; Start 07/12/16 at 21:00; Stop 07/30/16 at 18:57; Status DC Miscellaneous (Unresolved Clarification Entry) SEE LABEL COMMENTS UNRESOLVED XX ; Start 07/27/16 at 00:01; Stop 07/27/16 at 10:40; Status DC Miscellaneous (Unresolved Patient Own Med Order) SEE LABEL COMMENTS UNRESOLVED XX ; Start 07/31/16 at 00:01; Stop 08/01/16 at 14:02; Status DC Nicotine (Nicoderm Cq 21mg) 1 patch DAILY TD Last administered on 08/04/16 08: 34; Start 07/12/16 at 09:00; Stop 08/11/16 at 08:59 Non-Formulary Medication ( See Comment Field Below ) SEE COMMENTS SECTION 1T @16 XX Last administered on 07/16/16 16:01; Start 07/16/16 at 16:00; Stop at 18:58; Status DC Oseltamivir Phosphate (Tamiflu) 75 mg DAILY PO Last administered on 08/03/16 08:40; Start 07/25/16 at 09:00; Stop 08/03/16 at 12:00; Status DC Oxybutynin Chloride (Ditropan) 5 mg TID PO Last administered on 08/04/16 08:34 ; Start 07/15/16 at 16:00; Stop 08/14/16 at 15:59 Patient Own Medication (Patient'S Own Med) Rexulti 0.5 mg po q am ... QAM PO Last administered on 08/04/16 08:34; Start 08/01/16 at 09:00; Stop 08/07/16 at 12:00 Patient Own Medication (Patient'S Own Med) Rexulti 0.5 mg po q am x 7 da... QAM PO ; Start 07/31/16 at 12:00; Stop 08/01/16 at 13:52; Status DC Patient Own Medication (Patient'S Own Med) Rexulti 1 mg po q am x 7 days QAM PO ; Start 08/08/16 at 09:00; Stop 08/14/16 at 12:00 Patient Own Medication (Patient'S Own Med) Rexulti 2 mg po q am QAM PO ; Start 08/15/16 at 09:00; Stop 09/14/16 at 08:59 Senna (Senokot) 2 tab QHS PO Last administered on 08/03/16 20:51; Start at 21:00; Stop 08/14/16 at 20:59 Tamsulosin HCl (Flomax) 0.4 mg QAM PO Last administered on 08/04/16 08:34; Start 07/16/16 at 09:00; Stop 08/15/16 at 08:59 Tiotropium [place] (Spiriva Handihaler) 1 inhalation DAILY INH Last administered on 08/04/16 08:35; Start 07/16/16 at 09:00; Stop 08/15/16 at 08:59 Trazodone HCl (Desyrel) 50 mg QHSP PRN PO INSOMNIA; Start 07/11/16 at 23:15; Stop 07/13/16 at 08:33; Status DC Trazodone HCl (Desyrel) 100 mg QHS PO Last administered on 08/03/16 20:52; Start 07/13/16 at 23:15; Stop 08/30/16 at 23:14 Trazodone HCl (Desyrel) 100 mg QHSP PRN PO IF INITIAL TABLET INEFFECTIVE; Start 07/30/16 at 19:15; Stop 08/29/16 at 19:14 Triamcinolone Acetonide (Kenalog 0.025% Cream) 1 dose BID TOP Last administered on 08/03/16 20:50; Start 07/24/16 at 09:00; Stop 08/23/16 at 08:59 Trimethoprim/ Sulfamethoxazole (Bactrim Ds, Septra Ds 160mg/ 800mg) 1 tab BID PO Last administered on 07/31/16 08:07; Start 07/19/16 at 21:00; Stop 07/31/16 at 09:05; Status DC Allergies Coded Allergies: Quinolones (Verified Allergy, Unknown, QUESTIONABLE - AVELOX, 01/15/15) HAS HAD CIPRO & LEVAQUIN ON MULTIPLE OCCASIONS Haloperidol (Verified Adverse Reaction, Intermediate, LOCKJAW,WHEEZING, 09/19/12) Prochlorperazine (Verified Adverse Reaction, Intermediate, ANAPHYLAXIS, 09/19/12) TONIA MOYA NP Aug 04, 2016 15:12
[2016-08-04 18:00] VITALS: BP 122/75
[2016-08-04] MEDS: ATORVASTATIN 10 MG TAB PO SCH (20:42)
[2016-08-04] MEDS: traZODone 100 MG TAB PO SCH (20:43)
[2016-08-04] MEDS: SENNA 8.6 MG TAB (SENOKOT) PO SCH (20:43)
[2016-08-04] MEDS: BENZTROPINE 1 MG TAB PO SCH (20:43)
[2016-08-05 06:29] VITALS: BP 116/61
[2016-08-05] MEDS: DOCUSATE SODIUM 100 MG CAP PO SCH ×2 (08:47→20:37)
[2016-08-05] MEDS: ASPIRIN 81 MG ENTERIC TAB PO SCH (08:47)
[2016-08-05] MEDS: SYMBICORT 160/4.5MCG INHALER 6GM INH SCH ×2 (08:47→20:37)
[2016-08-05] MEDS: REXULTI 0.5 MG PO SCH (08:48)
[2016-08-05] MEDS: TAMSULOSIN 0.4 MG CAP PO SCH (08:48)
[2016-08-05] MEDS: chlorproMAZINE 25 MG TAB (Q0161) PO SCH ×2 (08:48→20:37)
[2016-08-05] MEDS: metFORMIN 850 MG TAB PO SCH (08:48)
[2016-08-05] MEDS: TIOTROPIUM INHALER/CAPSULE (SPIRIVA) INH SCH (08:48)
[2016-08-05] MEDS: oxyBUTYnin 5 MG TAB PO SCH ×3 (08:48→20:37)
[2016-08-05] MEDS: NICOTINE 21MG/24HR 1 EA TRANSDERMAL TD SCH (08:49)
[2016-08-05] MEDS: TRIAMCINOLONE ACETONIDE 0.025 % 80 GM CREAM TOP SCH ×2 (08:49→20:39)
[2016-08-05] MEDS ORDERED: cloZAPine 100 MG TAB (S0136) PO SCH (09:00)
[2016-08-05] MEDS: ACETAMINOPHEN TAB 650MG DOSE (2X325MG) PO PRN (09:14)
[2016-08-05] MEDS: MAALOX 30 ML SUSP *UDC PO PRN (10:01)
--- NOTE | 2016-08-05 17:27 | IPNPDOC ---
[facility] Progress Note Progress Note DATE OF SERVICE: 08/05/16 HISTORY: A 56-year-old male hospitalized for command auditory hallucinations with suicidal ideation telling him to kill himself. The patient is a 55-year- old male, single, living at a transitional living services ([facility]) community residence. The patient has a long history of mental health problems including numerous psychiatric admissions, outpatient psychiatric treatment. The patient was recently discharged from [facility] ([facility]) Inpatient Mental Health Unit (IM) on 08/28/2015. As per the emergency department (ED) report, the patient presented to the ED for evaluation because the patient presented after a scheduled appointment with psychiatrist Dr. Castanon. Dr. Castanon wanted to change the patient's medications but the patient declined change, requesting to go to the ED. The patient presented to the ED reporting hearing a woman's voice telling him to kill himself. The patient currently lives in a [facility] residence. Upon admission, the patient presents as a poor historian. He states he has been hearing voices that have been apparent since yesterday telling him to kill himself. He states his last suicide attempt was about two months ago. He states he does not know the trigger that brought him to have these command auditory hallucinations. He reports some depression but denies anxiety spectrum disorder symptoms. PAST PSYCHIATRIC HISTORY: The patient states he came out of [facility] ([facility]) a month ago after being there a month. However, this was inaccurate, as he was discharged from [facility] Jun 20, 2016. The patient states he has been medication compliant since discharge, this is questionable. The patient was also discharged on 08/28/2015, from [facility] after being hospitalized for about a week. The patient has had numerous psychiatric hospitalizations with a diagnosis of schizophrenia. CHEMICAL DEPENDENCY: The patient has a past history of problem with heroin, speed, and crack use. He denies current and recent use of drugs or alcohol. He has also had problems with alcohol in the past. PAST MEDICAL HISTORY: 1. Dementia. 2. Diastolic congestive heart failure with ejection fraction of 65%. 3. Chronic obstructive pulmonary disease (COPD). 4. Hypertension. 5. Asthma. 6. Diabetes, diet controlled. 7. High cholesterol. 8. Neurogenic bladder with suprapubic catheter in place. 9. Gastroesophageal reflux disease (GERD). 10. History of transient ischemic attack (TIA). 11. Cholecystectomy. 12. Right inguinal hernia repair. ALLERGIES: QUINOLONES, HALDOL, CHLORPROMAZINE cause anaphylaxis. FAMILY HISTORY: Several family members have a history of substance abuse problems including his daughter. It has been reported that one of his daughters had of a heroin overdose since his last admission here. SOCIAL HISTORY: The patient states he lives in [facility] for the past month after [facility] discharge. Pt. states it is going well. There has been no trouble with his roommate or other residents or with staff per pt. He states he is not in contact with any family members. He had a fight with his sister and his daughter does not want anything to do with him. Pt. states he does not know the reason for this. VITAL SIGNS: See below. Temperature 96.2 Pulse 73 Respirations 20 Blood pressure 116/61. LAB RESULTS: Clozapine level is still pending. Last CBC (08/04/16) within normal limits, except Hgb 12.8, Hct 38.1 which is high, Neut 68.5 is high, Lymph 19.4 which is low, [place] is 6.6 which is high, Eos is 3.8 which is high. On admission [facility], Tylenol and salicylate levels within normal limits. Hepatitis C and HIV screen are NEG, drawn on prior admission. Clinical consultation done about lab values in regards to clozapine dosing with Dr. Schmidt. CURRENT PSYCH MEDICATIONS: See below. - Clozaril 200 po q am for schizoaffective disorder. Will be tapering off by 25 mg/week until discontinued. - Benztropine 1 mg po q hs for EPS effects - Thorazine 50 mg by mouth twice a day for psychotic features - Trazodone 100 mg po q hs for sleep/depression - Rexulti 0.5 mg po q am (until 08/15 when it is increased to 1 mg) MENTAL STATUS EXAMINATION: Patient is a 56-year-old male who appears much older than his stated age. Pt. is improved in grooming and appearance, wearing hospital t shirt and scrub pants. Pt. is pleasant and cooperative, noted to walk with a steady gait. Pt. was noted to be up and about unit this morning. Speech: Is of normal rate, volume, and articulation. Pt. is coherent and mostly spontaneous. Language skills are intact. Thought processes: Clearing, starting to be goal-directed. Thought content: Rational, logical. Pt. states he has no paranoia today. Abstract reasoning and computation: Adequate. Associations: Intact. Description of abnormal or psychotic thoughts: Pt. states he stopped having command auditory hallucinations (of a female voice that he does not recognize that is telling him to kill himself) at 0400 this morning, states "Tonia, it just went away". Pt. had reported that the voice states "Karlos, kill yourself". Pt. states is not there today, now is 0/10". Pt. was very excited to tell provider this, states he is very hppy about not hearing it. Pt. denies visual hallucinations, preoccupations, homicidal or suicidal ideation other than what his voice had told him, obsessions or compulsions. Pt. states he has had delusions but states "I can't remember, people told me I did". Judgment: Limited. Insight: Poor. Orientation to: time , person, place and surroundings. Recent and remote memory: Pt. states "A little better", when referring to memory issues. Attention span and concentration: Fair. Language: Normal, difficult to understand at times. Fund of knowledge: Poor. Mood: "Pretty good". Patient's statement of his mood is now consistent with other symptoms he describes, problems he has. Affect: flat, rational. DIAGNOSES: 1. Schizoaffective disorder vs. Schizophrenia ASSESSMENT: Pt. was having suicidal ideation due to command auditory hallucinations, that were telling him to kill himself. Patient reports sounds are non-existent to him today. Pt. does not ask for anything or state he needs anything when asked. Pt. appears to be his happiest when laying in bed and sleeping. Pt. states his baseline anxiety is 3/10, baseline depression is 3/10. Pt. states current anxiety is 0/10, depression is 0/10. Pt. has an extensive alcohol abuse history per prior records. Patient states he has been compliant with medication regimen. Pt. is not reliable in giving accurate responses to some questions asked, possibly due to current mental state or prior diagnosed dementia. Pt. continues to function as well as he can. Pt. continues to show features of prior institutionalization. Pt. states his sleep last night was "Good nights sleep". Pt. reports he slept 7 hours last night. Pt. continues to improve since meds discontinued (Lexapro, Remeron) and decreases in clozapine. Pt. continuing on Rexulti o.5 mg. Pt. will be at this dose x 7 days. Pt. will then be at 1 mg x 7 days(starting 08/08/16), will go to 2 mg if needed. MANAGEMENT PLAN: Pt. to continue meds as ordered. After continued clinical consultation with Dr. Schmidt, Clozapine to be decreased by 25 mg/week until discontinued, is now at 200 mg q am. Pt. has no side effects noted due to Rexulti start. Will continue dose titration. Maintain safety precautions. Patient to attend groups and participate in unit programming to develop effective coping strategies. Pt. is not to be in his room other than for rest period and bedtime. Patient to be engaged in discharge planning process to ensure safe and effective discharge plan. Patient to follow-up with primary care physician upon discharge. Patient to return to [facility] with supportive services if discharged home. Patient to be consistent and compliant with medication regimen. Patient to be consistent and compliant with lab draws required for clozapine use. Labs ordered weekly to check clozapine effect. Ordered next decrease in clozapine dose and required labs for 08/11/16. TIME SPENT: 15 minutes. Vital Signs Vital Signs Date Time Temp Pulse Resp B/P Pulse Ox O2 Delivery O2 Flow Rate FiO2 08/05/16 06:29 96.2 73 20 116/61 Laboratory Data 24H Labs Laboratory Tests 2 08/05/16 06:05: Bedside Glucose (Misc Panel) 96 Current Medications Current Medications Acetaminophen (Tylenol Tab) 650 mg Q6HP PRN PO HEADACHE or DISCOMFORT Last administered on 08/05/16 09:14; Start 07/11/16 at 23:15; Stop 08/10/16 at 23:14 Al Hydrox/Mg Hydrox/Simethicone (Mylanta) 30 ml Q4HP PRN PO HEARTBURN/ INDIGESTION Last administered on 08/05/16 10:01; Start 07/11/16 at 23:15; Stop 08/10/16 at 23:14 Albuterol/ Ipratropium (Duoneb (Ipr 0.5mg/Alb 2.5mg)) 3 ml Q4HP PRN NEB SOB/ WHEEZING Last administered on 08/03/16 22:01; Start 07/13/16 at 23:15; Stop at 23:14 Aspirin (Ecotrin) 81 mg DAILY PO Last administered on 08/05/16 08:47; Start at 09:00; Stop 08/11/16 at 08:59 Atorvastatin Calcium (Lipitor) 10 mg QHS PO Last administered on 08/04/16 20: 42; Start 07/15/16 at 21:00; Stop 08/14/16 at 20:59 Benztropine Mesylate (Cogentin) 1 mg QHS PO Last administered on 08/04/16 20: 43; Start 07/13/16 at 21:00; Stop 08/12/16 at 20:59 Budesonide/ Formoterol Fumarate (Symbicort 160/ 4.5mcg) 2 puff BID INH Last administered on 08/05/16 08:47; Start 07/15/16 at 21:00; Stop 08/14/16 at 20:59 Chlorpromazine HCl (Thorazine) 50 mg BID PO Last administered on 08/05/16 08: 48; Start 07/12/16 at 09:00; Stop 08/11/16 at 08:59 Clozapine (Clozaril) 25 mg QAM PO Last administered on 08/04/16 08:34; Start 07/31/16 at 09:00; Stop 08/04/16 at 12:29; Status DC Clozapine (Clozaril) 200 mg QAM PO Last administered on 07/13/16 08:08; Start 07/12/16 at 09:00; Stop 07/13/16 at 08:33; Status DC Clozapine (Clozaril) 200 mg QAM PO Last administered on 08/04/16 08:34; Start 07/31/16 at 09:00; Stop 08/04/16 at 12:29; Status DC Clozapine (Clozaril) 200 mg QAM PO Last administered on 08/05/16 08:48; Start 08/05/16 at 09:00; Stop 08/12/16 at 08:59 Clozapine (Clozaril) 250 mg QAM PO Last administered on 07/30/16 08:34; Start 07/14/16 at 09:00; Stop 07/30/16 at 18:57; Status DC Docusate Sodium (Colace) 100 mg BID PO Last administered on 08/05/16 08:47; Start 07/15/16 at 21:00; Stop 08/14/16 at 20:59 Escitalopram Oxalate (Lexapro) 10 mg DAILY PO Last administered on 07/30/16 08 :34; Start 07/12/16 at 09:00; Stop 07/30/16 at 18:57; Status DC Home Med (Med Rec Complete!) ASDIRECTED XX ; Start 07/11/16 at 20:00; Stop at 20:01; Status DC Hydroxyzine HCl (Atarax) 25 mg Q6HP PRN PO ITCHING/ANXIETY; Start 07/25/16 at 16:30; Stop 08/24/16 at 16:29 Ibuprofen (Advil) 600 mg Q6HP PRN PO MODERATE PAIN (PS 5-7); Start 08/01/16 at 22:00; Stop 08/04/16 at 07:00; Status DC Influenza Virus Vaccine (Fluzone Quadrivalent Pf Vaccine) 0.5 ml 1T@09 IM Last administered on 07/13/16 10:24; Start 07/13/16 at 09:00; Stop 07/13/16 at 23:59 ; Status DC Magnesium Hydroxide (Milk Of Magnesia) 30 ml DAILYPRN PRN PO CONSTIPATION; Start 07/11/16 at 23:15; Stop 08/10/16 at 23:14 Metformin HCl (Glucophage) 850 mg DAILY@08 PO Last administered on 08/05/16 08 :48; Start 07/16/16 at 08:00; Stop 08/15/16 at 07:59 Mirtazapine (Remeron) 15 mg QPM PO Last administered on 07/29/16 19:57; Start 07/12/16 at 21:00; Stop 07/30/16 at 18:57; Status DC Miscellaneous (Unresolved Clarification Entry) SEE LABEL COMMENTS UNRESOLVED XX ; Start 07/27/16 at 00:01; Stop 07/27/16 at 10:40; Status DC Miscellaneous (Unresolved Patient Own Med Order) SEE LABEL COMMENTS UNRESOLVED XX ; Start 07/31/16 at 00:01; Stop 08/01/16 at 14:02; Status DC Nicotine (Nicoderm Cq 21mg) 1 patch DAILY TD Last administered on 08/05/16 08: 49; Start 07/12/16 at 09:00; Stop 08/11/16 at 08:59 Non-Formulary Medication ( See Comment Field Below ) SEE COMMENTS SECTION 1T @16 XX Last administered on 07/16/16 16:01; Start 07/16/16 at 16:00; Stop at 18:58; Status DC Oseltamivir Phosphate (Tamiflu) 75 mg DAILY PO Last administered on 08/03/16 08:40; Start 07/25/16 at 09:00; Stop 08/03/16 at 12:00; Status DC Oxybutynin Chloride (Ditropan) 5 mg TID PO Last administered on 08/05/16 15:17 ; Start 07/15/16 at 16:00; Stop 08/14/16 at 15:59 Patient Own Medication (Patient'S Own Med) Rexulti 0.5 mg po q am ... QAM PO Last administered on 08/05/16 08:48; Start 08/01/16 at 09:00; Stop 08/07/16 at 12:00 Patient Own Medication (Patient'S Own Med) Rexulti 0.5 mg po q am x 7 da... QAM PO ; Start 07/31/16 at 12:00; Stop 08/01/16 at 13:52; Status DC Patient Own Medication (Patient'S Own Med) Rexulti 1 mg po q am x 7 days QAM PO ; Start 08/08/16 at 09:00; Stop 08/14/16 at 12:00 Patient Own Medication (Patient'S Own Med) Rexulti 2 mg po q am QAM PO ; Start 08/15/16 at 09:00; Stop 09/14/16 at 08:59 Senna (Senokot) 2 tab QHS PO Last administered on 08/04/16 20:43; Start at 21:00; Stop 08/14/16 at 20:59 Tamsulosin HCl (Flomax) 0.4 mg QAM PO Last administered on 08/05/16 08:48; Start 07/16/16 at 09:00; Stop 08/15/16 at 08:59 Tiotropium Lucile (Spiriva Handihaler) 1 inhalation DAILY INH Last administered on 08/05/16 08:48; Start 07/16/16 at 09:00; Stop 08/15/16 at 08:59 Trazodone HCl (Desyrel) 50 mg QHSP PRN PO INSOMNIA; Start 07/11/16 at 23:15; Stop 07/13/16 at 08:33; Status DC Trazodone HCl (Desyrel) 100 mg QHS PO Last administered on 08/04/16 20:43; Start 07/13/16 at 23:15; Stop 08/30/16 at 23:14 Trazodone HCl (Desyrel) 100 mg QHSP PRN PO IF INITIAL TABLET INEFFECTIVE; Start 07/30/16 at 19:15; Stop 08/29/16 at 19:14 Triamcinolone Acetonide (Kenalog 0.025% Cream) 1 dose BID TOP Last administered on 08/04/16 20:44; Start 07/24/16 at 09:00; Stop 08/23/16 at 08:59 Trimethoprim/ Sulfamethoxazole (Bactrim Ds, Septra Ds 160mg/ 800mg) 1 tab BID PO Last administered on 07/31/16 08:07; Start 07/19/16 at 21:00; Stop 07/31/16 at 09:05; Status DC Allergies Coded Allergies: Quinolones (Verified Allergy, Unknown, QUESTIONABLE - AVELOX, 01/15/15) HAS HAD CIPRO & LEVAQUIN ON MULTIPLE OCCASIONS Haloperidol (Verified Adverse Reaction, Intermediate, LOCKJAW,WHEEZING, 09/19/12) Prochlorperazine (Verified Adverse Reaction, Intermediate, ANAPHYLAXIS, 09/19/12) TONIA MOYA NP Aug 05, 2016 17:27
[2016-08-05 18:00] VITALS: BP 102/59
[2016-08-05] MEDS: IPRATROPIUM 0.5MG/ALBUTEROL 2.5MG INH SOL UD 3ML (DUONEB)(J7620) NEB PRN (19:13)
[2016-08-05] MEDS: ATORVASTATIN 10 MG TAB PO SCH (20:37)
[2016-08-05] MEDS: SENNA 8.6 MG TAB (SENOKOT) PO SCH (20:37)
[2016-08-05] MEDS: BENZTROPINE 1 MG TAB PO SCH (20:37)
[2016-08-05] MEDS: traZODone 100 MG TAB PO SCH (20:37)
[2016-08-06 06:36] VITALS: BP 124/60
[2016-08-06] MEDS: TAMSULOSIN 0.4 MG CAP PO SCH (08:05)
[2016-08-06] MEDS: DOCUSATE SODIUM 100 MG CAP PO SCH ×2 (08:05→20:57)
[2016-08-06] MEDS: cloZAPine 100 MG TAB (S0136) PO SCH (08:05)
[2016-08-06] MEDS: NICOTINE 21MG/24HR 1 EA TRANSDERMAL TD SCH (08:05)
[2016-08-06] MEDS: chlorproMAZINE 25 MG TAB (Q0161) PO SCH ×2 (08:05→21:00)
[2016-08-06] MEDS: SYMBICORT 160/4.5MCG INHALER 6GM INH SCH ×2 (08:05→20:56)
[2016-08-06] MEDS: ASPIRIN 81 MG ENTERIC TAB PO SCH (08:05)
[2016-08-06] MEDS: REXULTI 0.5 MG PO SCH (08:06)
[2016-08-06] MEDS: oxyBUTYnin 5 MG TAB PO SCH ×3 (08:07→20:57)
[2016-08-06] MEDS: metFORMIN 850 MG TAB PO SCH (08:08)
[2016-08-06] MEDS: TIOTROPIUM INHALER/CAPSULE (SPIRIVA) INH SCH (08:08)
[2016-08-06] MEDS: TRIAMCINOLONE ACETONIDE 0.025 % 80 GM CREAM TOP SCH ×2 (08:09→20:55)
--- NOTE | 2016-08-06 17:35 | IPNPDOC ---
[facility] Progress Note Progress Note DATE OF SERVICE: 08/06/16 HISTORY: A 56-year-old male hospitalized for command auditory hallucinations with suicidal ideation telling him to kill himself. The patient is a 55-year- old male, single, living at a transitional living services ([facility]) community residence. The patient has a long history of mental health problems including numerous psychiatric admissions, outpatient psychiatric treatment. The patient was recently discharged from [facility] ([facility]) Inpatient Mental Health Unit (IM) on 08/28/2015. As per the emergency department (ED) report, the patient presented to the ED for evaluation because the patient presented after a scheduled appointment with psychiatrist Dr. Castanon. Dr. Castanon wanted to change the patient's medications but the patient declined change, requesting to go to the ED. The patient presented to the ED reporting hearing a woman's voice telling him to kill himself. The patient currently lives in a [facility] residence. Upon admission, the patient presents as a poor historian. He states he has been hearing voices that have been apparent since yesterday telling him to kill himself. He states his last suicide attempt was about two months ago. He states he does not know the trigger that brought him to have these command auditory hallucinations. He reports some depression but denies anxiety spectrum disorder symptoms. PAST PSYCHIATRIC HISTORY: The patient states he came out [place] [facility] [place] ago after being there a month. However, this was inaccurate, as he was discharged [place] [facility] [place]. The patient states he has been medication compliant since discharge, this is questionable. The patient was also discharged on 08/28/2015, from [facility] after being hospitalized for about a week. The patient has had numerous psychiatric hospitalizations with a diagnosis of schizophrenia. CHEMICAL DEPENDENCY: The patient has a past history of problem with heroin, speed, and crack use. He denies current and recent use of drugs or alcohol. He has also had problems with alcohol in the past. PAST MEDICAL HISTORY: 1. Dementia. 2. Diastolic congestive heart failure with ejection fraction of 65%. 3. Chronic obstructive pulmonary disease (COPD). 4. Hypertension. 5. Asthma. 6. Diabetes, diet controlled. 7. High cholesterol. 8. Neurogenic bladder with suprapubic catheter in place. 9. Gastroesophageal reflux disease (GERD). 10. History of transient ischemic attack (TIA). 11. Cholecystectomy. 12. Right inguinal hernia repair. ALLERGIES: QUINOLONES, HALDOL, CHLORPROMAZINE cause anaphylaxis. FAMILY HISTORY: Several family members have a history of substance abuse problems including his daughter. It has been reported that one of his daughters had of a heroin overdose since his last admission here. SOCIAL HISTORY: The patient states he lives in [facility] for the past month after [facility] [place]. Pt. states it is going well. There has been no trouble with his roommate or other residents or with staff per pt. He states he is not in contact with any family members. He had a fight with his sister and his daughter does not want anything to do with him. Pt. states he does not know the reason for this. VITAL SIGNS: See below. Temperature 98.3 Pulse 70 Respirations 18 Blood pressure 124/60. LAB RESULTS: Clozapine level is still pending. Last CBC (08/04/16) within normal limits, except Hgb 12.8, Hct 38.1 which is high, Neut 68.5 is high, Lymph 19.4 which is low, Gilmer is 6.6 which is high, Eos is 3.8 which is high. On admission [facility], Tylenol and salicylate levels within normal limits. Hepatitis C and HIV screen are NEG, drawn on prior admission. Clinical consultation done about lab values in regards to clozapine dosing with Dr. Schmidt. CURRENT PSYCH MEDICATIONS: See below. - Clozaril 200 po q am for schizoaffective disorder. Will be tapering off by 25 mg/week until discontinued. - Benztropine 1 mg po q hs for EPS effects - Thorazine 50 mg by mouth twice a day for psychotic features - Trazodone 100 mg po q hs for sleep/depression - Rexulti 0.5 mg po q am (until 08/08 when it is increased to 1 mg) MENTAL STATUS EXAMINATION: Patient is a 56-year-old male who appears much older than his stated age. Pt. is improved in grooming and appearance, wearing hospital t shirt and scrub pants. Pt. is pleasant and cooperative, noted to walk with a steady gait. Pt. was noted to be up and about unit this morning. Speech: Is of normal rate, volume, and articulation. Pt. is coherent and mostly spontaneous. Language skills are intact. Thought processes: Clearing, starting to be goal-directed. Thought content: Rational, logical. Pt. states he has no paranoia today. Abstract reasoning and computation: Adequate. Associations: Intact. Description of abnormal or psychotic thoughts: Pt. states he stopped having command auditory hallucinations (of a female voice that he does not recognize that is telling him to kill himself) at 0400 on , states "Tonia, it just went away". Pt. states "My voice has not come back". Pt. is very excited and appears to be extremely happy about this. Pt. had reported that the voice had stated "Karlos, kill yourself". Pt. states is not there today, now is 0/10. Pt. was very excited to tell provider this, states he is very happy about not hearing it. Pt. denies visual hallucinations, preoccupations, homicidal or suicidal ideation other than what his voice had told him, obsessions or compulsions. Pt. states he has had delusions but states "I can't remember, people told me I did". Judgment: Limited. Insight: Poor. Orientation to: time, person, place and surroundings. Recent and remote memory : Pt. states "Pretty good", when referring to memory issues. Attention span and concentration: Fair. Language: Normal, difficult to understand at times. Fund of knowledge: Poor. Mood: "Pretty good". Patient's statement of his mood is now consistent with other symptoms he describes, problems he has. Affect: flat, rational. DIAGNOSES: 1. Schizoaffective disorder vs. Schizophrenia ASSESSMENT: Pt. was having suicidal ideation due to command auditory hallucinations, that were telling him to kill himself. Patient reports sounds are non-existent to him again today. Pt. does not ask for anything or state he needs anything when asked. Pt. appears to be his happiest when laying in bed and sleeping. Pt. states his baseline anxiety is 3/10, baseline depression is 3/ 10. Pt. states current anxiety is 0/10, depression is 0/10. Pt. has an extensive alcohol abuse history per prior records. Patient states he has been compliant with medication regimen. Pt. is not reliable in giving accurate responses to some questions asked, possibly due to current mental state or prior diagnosed dementia. Pt. continues to function as well as he can. Pt. continues to show features of prior institutionalization. Pt. states his sleep last night was "Slept good, 8 hours". Pt. denies dreams or nightmares that disrupt his sleep. Pt. continues to improve since meds discontinued (Lexapro, Remeron) and decreases in clozapine. Pt. continuing on Rexulti o.5 mg. Pt. will be at this dose x 7 days. Pt. will then be at 1 mg x 7 days(starting 08/08/16), will go to 2 mg if needed(on 08/15/16). MANAGEMENT PLAN: Pt. to continue meds as ordered. After continued clinical consultation with Dr. Schmidt, Clozapine to be decreased by 25 mg/week until discontinued, is now at 200 mg q am. Pt. has no side effects noted due to Rexulti start. Will continue dose titration. Pt. is happy with Rexulti effects thus far. Maintain safety precautions. Patient to attend groups and participate in unit programming to develop effective coping strategies. Pt. is not to be in his room other than for rest period and bedtime. Patient to be engaged in discharge planning process to ensure safe and effective discharge plan. Patient to follow-up with primary care physician upon discharge. Patient to return to [facility] housing with supportive services if discharged home. Patient to be consistent and compliant with medication regimen. Patient to be consistent and compliant with lab draws required for clozapine use. Labs ordered weekly to check clozapine effect. Ordered next decrease in clozapine dose and required labs for 08/11/16. Discussed case with Dr. Schmidt for smooth transition of care. Pt. notified that provider's last day is today. Pt. states he had already talked with Dr. Schmidt this morning about this. TIME SPENT: 25 minutes. Vital Signs Vital Signs Date Time Temp Pulse Resp B/P Pulse Ox O2 Delivery O2 Flow Rate FiO2 08/06/16 06:36 98.3 70 18 124/60 Laboratory Data 24H Labs Laboratory Tests 2 08/06/16 16:51: Bedside Glucose (Misc Panel) 181H Current Medications Current Medications Acetaminophen (Tylenol Tab) 650 mg Q6HP PRN PO HEADACHE or DISCOMFORT Last administered on 08/05/16t 09:14; Start 07/11/16 at 23:15; Stop 08/10/16 at 23:14 Al Hydrox/Mg Hydrox/Simethicone (Mylanta) 30 ml Q4HP PRN PO HEARTBURN/ INDIGESTION Last administered on 08/05/16 10:01; Start 07/11/16 at 23:15; Stop 08/10/16 at 23:14 Albuterol/ Ipratropium (Duoneb (Ipr 0.5mg/Alb 2.5mg)) 3 ml Q4HP PRN NEB SOB/ WHEEZING Last administered on 08/05/16 19:13; Start 07/13/16 at 23:15; Stop at 23:14 Aspirin (Ecotrin) 81 mg DAILY PO Last administered on 08/06/16 08:05; Start at 09:00; Stop 08/11/16 at 08:59 Atorvastatin Calcium (Lipitor) 10 mg QHS PO Last administered on 08/05/16 20: 37; Start 07/15/16 at 21:00; Stop 08/14/16 at 20:59 Benztropine Mesylate (Cogentin) 1 mg QHS PO Last administered on 08/05/16 20: 37; Start 07/13/16 at 21:00; Stop 08/12/16 at 20:59 Budesonide/ Formoterol Fumarate (Symbicort 160/ 4.5mcg) 2 puff BID INH Last administered on 08/06/16 08:05; Start 07/15/16 at 21:00; Stop 08/14/16 at 20:59 Chlorpromazine HCl (Thorazine) 50 mg BID PO Last administered on 08/06/16 08: 05; Start 07/12/16 at 09:00; Stop 08/11/16 at 08:59 Clozapine (Clozaril) 25 mg QAM PO Last administered on 08/04/16 08:34; Start 07/31/16 at 09:00; Stop 08/04/16 at 12:29; Status DC Clozapine (Clozaril) 75 mg QAM PO ; Start 08/11/16 at 09:00; Stop 08/18/16 at 10: 30 Clozapine (Clozaril) 100 mg QAM PO ; Start 08/11/16 at 09:00; Stop 08/18/16 at 10 :30 Clozapine (Clozaril) 200 mg QAM PO Last administered on 07/13/16 08:08; Start 07/12/16 at 09:00; Stop 07/13/16 at 08:33; Status DC Clozapine (Clozaril) 200 mg QAM PO Last administered on 08/04/16 08:34; Start 07/31/16 at 09:00; Stop 08/04/16 at 12:29; Status DC Clozapine (Clozaril) 200 mg QAM PO Last administered on 08/05/16 08:48; Start 08/05/16 at 09:00; Stop 08/05/16 at 17:05; Status DC Clozapine (Clozaril) 200 mg QAM PO Last administered on 08/06/16 08:05; Start 08/06/16 at 09:00; Stop 08/11/16 at 08:59 Clozapine (Clozaril) 250 mg QAM PO Last administered on 07/30/16 08:34; Start 07/14/16 at 09:00; Stop 07/30/16 at 18:57; Status DC Docusate Sodium (Colace) 100 mg BID PO Last administered on 08/06/16 08:05; Start 07/15/16 at 21:00; Stop 08/14/16 at 20:59 Escitalopram Oxalate (Lexapro) 10 mg DAILY PO Last administered on 07/30/16 08 :34; Start 07/12/16 at 09:00; Stop 07/30/16 at 18:57; Status DC Home Med (Med Rec Complete!) ASDIRECTED XX ; Start 07/11/16 at 20:00; Stop at 20:01; Status DC Hydroxyzine HCl (Atarax) 25 mg Q6HP PRN PO ITCHING/ANXIETY; Start 07/25/16 at 16:30; Stop 08/24/16 at 16:29 Ibuprofen (Advil) 600 mg Q6HP PRN PO MODERATE PAIN (PS 5-7); Start 08/01/16 at 22:00; Stop 08/04/16 at 07:00; Status DC Influenza Virus Vaccine (Fluzone Quadrivalent Pf Vaccine) 0.5 ml 1T@09 IM Last administered on 07/13/16 10:24; Start 07/13/16 at 09:00; Stop 07/13/16 at 23:59 ; Status DC Magnesium Hydroxide (Milk Of Magnesia) 30 ml DAILYPRN PRN PO CONSTIPATION; Start 07/11/16 at 23:15; Stop 08/10/16 at 23:14 Metformin HCl (Glucophage) 850 mg DAILY@08 PO Last administered on 08/06/16 08 :08; Start 07/16/16 at 08:00; Stop 08/15/16 at 07:59 Mirtazapine (Remeron) 15 mg QPM PO Last administered on 07/29/16 19:57; Start 07/12/16 at 21:00; Stop 07/30/16 at 18:57; Status DC Miscellaneous (Unresolved Clarification Entry) SEE LABEL COMMENTS UNRESOLVED XX ; Start 07/27/16 at 00:01; Stop 07/27/16 at 10:40; Status DC Miscellaneous (Unresolved Patient Own Med Order) SEE LABEL COMMENTS UNRESOLVED XX ; Start 07/31/16 at 00:01; Stop 08/01/16 at 14:02; Status DC Nicotine (Nicoderm Cq 21mg) 1 patch DAILY TD Last administered on 08/06/16 08: 05; Start 07/12/16 at 09:00; Stop 08/11/16 at 08:59 Non-Formulary Medication ( See Comment Field Below ) SEE COMMENTS SECTION 1T @16 XX Last administered on 07/16/16 16:01; Start 07/16/16 at 16:00; Stop at 18:58; Status DC Oseltamivir Phosphate (Tamiflu) 75 mg DAILY PO Last administered on 08/03/16 08:40; Start 07/25/16 at 09:00; Stop 08/03/16 at 12:00; Status DC Oxybutynin Chloride (Ditropan) 5 mg TID PO Last administered on 08/06/16 15:07 ; Start 07/15/16 at 16:00; Stop 08/14/16 at 15:59 Patient Own Medication (Patient'S Own Med) Rexulti 0.5 mg po q am ... QAM PO Last administered on 08/06/16 08:06; Start 08/01/16 at 09:00; Stop 08/07/16 at 12:00 Patient Own Medication (Patient'S Own Med) Rexulti 0.5 mg po q am x 7 da... QAM PO ; Start 07/31/16 at 12:00; Stop 08/01/16 at 13:52; Status DC Patient Own Medication (Patient'S Own Med) Rexulti 1 mg po q am x 7 days QAM PO ; Start 08/08/16 at 09:00; Stop 08/14/16 at 12:00 Patient Own Medication (Patient'S Own Med) Rexulti 2 mg po q am QAM PO ; Start 08/15/16 at 09:00; Stop 09/14/16 at 08:59 Senna (Senokot) 2 tab QHS PO Last administered on 08/05/16 20:37; Start at 21:00; Stop 08/14/16 at 20:59 Tamsulosin HCl (Flomax) 0.4 mg QAM PO Last administered on 08/06/16 08:05; Start 07/16/16 at 09:00; Stop 08/15/16 at 08:59 Tiotropium [place] (Spiriva Handihaler) 1 inhalation DAILY INH Last administered on 08/06/16 08:08; Start 07/16/16 at 09:00; Stop 08/15/16 at 08:59 Trazodone HCl (Desyrel) 50 mg QHSP PRN PO INSOMNIA; Start 07/11/16 at 23:15; Stop 07/13/16 at 08:33; Status DC Trazodone HCl (Desyrel) 100 mg QHS PO Last administered on 08/05/16 20:37; Start 07/13/16 at 23:15; Stop 08/30/16 at 23:14 Trazodone HCl (Desyrel) 100 mg QHSP PRN PO IF INITIAL TABLET INEFFECTIVE; Start 07/30/16 at 19:15; Stop 08/29/16 at 19:14 Triamcinolone Acetonide (Kenalog 0.025% Cream) 1 dose BID TOP Last administered on 08/04/16 20:44; Start 07/24/16 at 09:00; Stop 08/23/16 at 08:59 Trimethoprim/ Sulfamethoxazole (Bactrim Ds, Septra Ds 160mg/ 800mg) 1 tab BID PO Last administered on 07/31/16 08:07; Start 07/19/16 at 21:00; Stop 07/31/16 at 09:05; Status DC Allergies Coded Allergies: Quinolones (Verified Allergy, Unknown, QUESTIONABLE - AVELOX, 01/15/15) HAS HAD CIPRO & LEVAQUIN ON MULTIPLE OCCASIONS Haloperidol (Verified Adverse Reaction, Intermediate, LOCKJAW,WHEEZING, 09/19/12) Prochlorperazine (Verified Adverse Reaction, Intermediate, ANAPHYLAXIS, 09/19/12) TONAI MOYA NP Aug 06, 2016 17:35
[2016-08-06 18:00] VITALS: BP 130/77
[2016-08-06] MEDS: BENZTROPINE 1 MG TAB PO SCH (20:57)
[2016-08-06] MEDS: ATORVASTATIN 10 MG TAB PO SCH (20:57)
[2016-08-06] MEDS: traZODone 100 MG TAB PO SCH (20:57)
[2016-08-06] MEDS: SENNA 8.6 MG TAB (SENOKOT) PO SCH (21:01)
[2016-08-07 06:48] VITALS: BP 117/71
[2016-08-07] MEDS: NICOTINE 21MG/24HR 1 EA TRANSDERMAL TD SCH (08:38)
[2016-08-07] MEDS: DOCUSATE SODIUM 100 MG CAP PO SCH ×2 (08:38→21:38)
[2016-08-07] MEDS: SYMBICORT 160/4.5MCG INHALER 6GM INH SCH ×2 (08:38→21:38)
[2016-08-07] MEDS: ASPIRIN 81 MG ENTERIC TAB PO SCH (08:38)
[2016-08-07] MEDS: oxyBUTYnin 5 MG TAB PO SCH ×3 (08:39→21:38)
[2016-08-07] MEDS: cloZAPine 100 MG TAB (S0136) PO SCH (08:39)
[2016-08-07] MEDS: TAMSULOSIN 0.4 MG CAP PO SCH (08:39)
[2016-08-07] MEDS: TIOTROPIUM INHALER/CAPSULE (SPIRIVA) INH SCH (08:39)
[2016-08-07] MEDS: REXULTI 0.5 MG PO SCH (08:39)
[2016-08-07] MEDS: chlorproMAZINE 25 MG TAB (Q0161) PO SCH ×2 (08:39→21:38)
[2016-08-07] MEDS: metFORMIN 850 MG TAB PO SCH (08:39)
[2016-08-07] MEDS: TRIAMCINOLONE ACETONIDE 0.025 % 80 GM CREAM TOP SCH ×2 (09:00→21:00)
[2016-08-07] MEDS: IPRATROPIUM 0.5MG/ALBUTEROL 2.5MG INH SOL UD 3ML (DUONEB)(J7620) NEB PRN (16:26)
[2016-08-07 18:00] VITALS: BP 122/77
[2016-08-07] MEDS: SENNA 8.6 MG TAB (SENOKOT) PO SCH (21:38)
[2016-08-07] MEDS: BENZTROPINE 1 MG TAB PO SCH (21:38)
[2016-08-07] MEDS: ATORVASTATIN 10 MG TAB PO SCH (21:38)
[2016-08-07] MEDS: traZODone 100 MG TAB PO SCH (21:38)
--- NOTE | 2016-08-07 22:53 | IPNPDOC ---
[facility] Progress Note Progress Note DATE OF SERVICE: 08/07/16 SUBJECTIVE: Patient continues to report mood as good. He reports benefit on rexulti and is happy to be without AHs. He denies SI/HI. He reports no AH/VH. Patient reports sleep and appetite are fair. OBJECTIVE: VITALS - wnl LABS - see below MENTAL STATUS EXAMINATION: Patient is a 56-year-old male who appears much older than his stated age. Speech: Is of normal rate, volume, and articulation. Pt. is coherent and mostly spontaneous. Language skills are intact. Thought processes: Clearing, starting to be goal-directed. Thought content: Rational, logical. Pt. states he has no paranoia today. Pt. is very excited and appears to be extremely happy about this. Pt. had reported that the voice is not there today, now is 0/ 10. Pt. was very excited to tell provider this, states he is very happy about not hearing it. Pt. denies visual hallucinations, preoccupations, homicidal or suicidal ideation other than what his voice had told him, obsessions or compulsions. Judgment: Limited. Insight: Poor. Orientation to: time, person , place and surroundings. Recent and remote memory: Pt. states "good", when referring to memory issues. Attention span and concentration: Fair. Language : Normal, difficult to understand at times. Fund of knowledge: Poor. Mood: "Pretty good". Patient's statement of his mood is now consistent with other symptoms he describes, problems he has. Affect: flat, rational. DIAGNOSES: 1. Schizoaffective disorder vs. Schizophrenia PLAN: Pt. to continue meds as ordered. Clozapine to be decreased by 25 mg/week until discontinued, is now at 200 mg q am. Pt. has no side effects noted due to Rexulti start. Will continue dose titration. Pt. is happy with Rexulti effects thus far. Vital Signs Vital Signs Date Time Temp Pulse Resp B/P Pulse Ox O2 Delivery O2 Flow Rate FiO2 08/07/16 18:00 97.8 88 18 122/77 Laboratory Data 24H Labs Laboratory Tests 2 08/07/16 05:35: Bedside Glucose (Misc Panel) 112H Current Medications Current Medications Acetaminophen (Tylenol Tab) 650 mg Q6HP PRN PO HEADACHE or DISCOMFORT Last administered on 08/05/16t 09:14; Start 07/11/16 at 23:15; Stop 08/10/16 at 23:14 Al Hydrox/Mg Hydrox/Simethicone (Mylanta) 30 ml Q4HP PRN PO HEARTBURN/ INDIGESTION Last administered on 08/05/16 10:01; Start 07/11/16 at 23:15; Stop 08/10/16 at 23:14 Albuterol/ Ipratropium (Duoneb (Ipr 0.5mg/Alb 2.5mg)) 3 ml Q4HP PRN NEB SOB/ WHEEZING Last administered on 08/07/16 16:26; Start 07/13/16 at 23:15; Stop at 23:14 Aspirin (Ecotrin) 81 mg DAILY PO Last administered on 08/07/16 08:38; Start at 09:00; Stop 08/11/16 at 08:59 Atorvastatin Calcium (Lipitor) 10 mg QHS PO Last administered on 08/07/16 21: 38; Start 07/15/16 at 21:00; Stop 08/14/16 at 20:59 Benztropine Mesylate (Cogentin) 1 mg QHS PO Last administered on 08/07/16 21: 38; Start 07/13/16 at 21:00; Stop 08/12/16 at 20:59 Budesonide/ Formoterol Fumarate (Symbicort 160/ 4.5mcg) 2 puff BID INH Last administered on 08/07/16 21:38; Start 07/15/16 at 21:00; Stop 08/14/16 at 20:59 Chlorpromazine HCl (Thorazine) 50 mg BID PO Last administered on 08/07/16 21: 38; Start 07/12/16 at 09:00; Stop 08/11/16 at 08:59 Clozapine (Clozaril) 25 mg QAM PO Last administered on 08/04/16 08:34; Start 07/31/16 at 09:00; Stop 08/04/16 at 12:29; Status DC Clozapine (Clozaril) 75 mg QAM PO ; Start 08/11/16 at 09:00; Stop 08/18/16 at 10: 30 Clozapine (Clozaril) 100 mg QAM PO ; Start 08/11/16 at 09:00; Stop 08/18/16 at 10 :30 Clozapine (Clozaril) 200 mg QAM PO Last administered on 07/13/16 08:08; Start 07/12/16 at 09:00; Stop 07/13/16 at 08:33; Status DC Clozapine (Clozaril) 200 mg QAM PO Last administered on 08/04/16 08:34; Start 07/31/16 at 09:00; Stop 08/04/16 at 12:29; Status DC Clozapine (Clozaril) 200 mg QAM PO Last administered on 08/05/16 08:48; Start 08/05/16 at 09:00; Stop 08/05/16 at 17:05; Status DC Clozapine (Clozaril) 200 mg QAM PO Last administered on 08/07/16 08:39; Start 08/06/16 at 09:00; Stop 08/11/16 at 08:59 Clozapine (Clozaril) 250 mg QAM PO Last administered on 07/30/16 08:34; Start 07/14/16 at 09:00; Stop 07/30/16 at 18:57; Status DC Docusate Sodium (Colace) 100 mg BID PO Last administered on 08/07/16 21:38; Start 07/15/16 at 21:00; Stop 08/14/16 at 20:59 Escitalopram Oxalate (Lexapro) 10 mg DAILY PO Last administered on 07/30/16 08 :34; Start 07/12/16 at 09:00; Stop 07/30/16 at 18:57; Status DC Home Med (Med Rec Complete!) ASDIRECTED XX ; Start 07/11/16 at 20:00; Stop at 20:01; Status DC Hydroxyzine HCl (Atarax) 25 mg Q6HP PRN PO ITCHING/ANXIETY; Start 07/25/16 at 16:30; Stop 08/24/16 at 16:29 Ibuprofen (Advil) 600 mg Q6HP PRN PO MODERATE PAIN (PS 5-7); Start 08/01/16 at 22:00; Stop 08/04/16 at 07:00; Status DC Influenza Virus Vaccine (Fluzone Quadrivalent Pf Vaccine) 0.5 ml 1T@09 IM Last administered on 1/29/17at 10:24; Start 07/13/16 at 09:00; Stop 07/13/16 at 23:59 ; Status DC Magnesium Hydroxide (Milk Of Magnesia) 30 ml DAILYPRN PRN PO CONSTIPATION; Start 07/11/16 at 23:15; Stop 08/10/16 at 23:14 Metformin HCl (Glucophage) 850 mg DAILY@08 PO Last administered on 08/07/16 08 :39; Start 07/16/16 at 08:00; Stop 08/15/16 at 07:59 Mirtazapine (Remeron) 15 mg QPM PO Last administered on 07/29/16 19:57; Start 07/12/16 at 21:00; Stop 07/30/16 at 18:57; Status DC Miscellaneous (Unresolved Clarification Entry) SEE LABEL COMMENTS UNRESOLVED XX ; Start 07/27/16 at 00:01; Stop 07/27/16 at 10:40; Status DC Miscellaneous (Unresolved Patient Own Med Order) SEE LABEL COMMENTS UNRESOLVED XX ; Start 07/31/16 at 00:01; Stop 08/01/16 at 14:02; Status DC Nicotine (Nicoderm Cq 21mg) 1 patch DAILY TD Last administered on 08/07/16 08: 38; Start 07/12/16 at 09:00; Stop 08/11/16 at 08:59 Non-Formulary Medication ( See Comment Field Below ) SEE COMMENTS SECTION 1T @16 XX Last administered on 07/16/16 16:01; Start 07/16/16 at 16:00; Stop at 18:58; Status DC Oseltamivir Phosphate (Tamiflu) 75 mg DAILY PO Last administered on 08/03/16 08:40; Start 07/25/16 at 09:00; Stop 08/03/16 at 12:00; Status DC Oxybutynin Chloride (Ditropan) 5 mg TID PO Last administered on 08/07/16 21:38 ; Start 07/15/16 at 16:00; Stop 08/14/16 at 15:59 Patient Own Medication (Patient'S Own Med) Rexulti 0.5 mg po q am ... QAM PO Last administered on 08/07/16 08:39; Start 08/01/16 at 09:00; Stop 08/07/16 at 12:00; Status DC Patient Own Medication (Patient'S Own Med) Rexulti 0.5 mg po q am x 7 da... QAM PO ; Start 07/31/16 at 12:00; Stop 08/01/16 at 13:52; Status DC Patient Own Medication (Patient'S Own Med) Rexulti 1 mg po q am x 7 days QAM PO ; Start 08/08/16 at 09:00; Stop 08/14/16 at 12:00 Patient Own Medication (Patient'S Own Med) Rexulti 2 mg po q am QAM PO ; Start 08/15/16 at 09:00; Stop 09/14/16 at 08:59 Senna (Senokot) 2 tab QHS PO Last administered on 08/07/16 21:38; Start at 21:00; Stop 08/14/16 at 20:59 Tamsulosin HCl (Flomax) 0.4 mg QAM PO Last administered on 08/07/16 08:39; Start 07/16/16 at 09:00; Stop 08/15/16 at 08:59 Tiotropium [place] (Spiriva Handihaler) 1 inhalation DAILY INH Last administered on 08/07/16 08:39; Start 07/16/16 at 09:00; Stop 08/15/16 at 08:59 Trazodone HCl (Desyrel) 50 mg QHSP PRN PO INSOMNIA; Start 07/11/16 at 23:15; Stop 07/13/16 at 08:33; Status DC Trazodone HCl (Desyrel) 100 mg QHS PO Last administered on 08/07/16 21:38; Start 07/13/16 at 23:15; Stop 08/30/16 at 23:14 Trazodone HCl (Desyrel) 100 mg QHSP PRN PO IF INITIAL TABLET INEFFECTIVE; Start 07/30/16 at 19:15; Stop 08/29/16 at 19:14 Triamcinolone Acetonide (Kenalog 0.025% Cream) 1 dose BID TOP Last administered on 08/04/16 20:44; Start 07/24/16 at 09:00; Stop 08/23/16 at 08:59 Trimethoprim/ Sulfamethoxazole (Bactrim Ds, Septra Ds 160mg/ 800mg) 1 tab BID PO Last administered on 07/31/16t 08:07; Start 07/19/16 at 21:00; Stop 07/31/16 at 09:05; Status DC Allergies Coded Allergies: Quinolones (Verified Allergy, Unknown, QUESTIONABLE - AVELOX, 01/15/15) HAS HAD CIPRO & LEVAQUIN ON MULTIPLE OCCASIONS Haloperidol (Verified Adverse Reaction, Intermediate, LOCKJAW,WHEEZING, 09/19/12) Prochlorperazine (Verified Adverse Reaction, Intermediate, ANAPHYLAXIS, 09/19/12) DEL KERNS MD Aug 07, 2016 22:53 Haloperidol (Verified Adverse Reaction, Intermediate, LOCKJAW,WHEEZING, 09/19/12) Prochlorperazine (Verified Adverse Reaction, Intermediate, ANAPHYLAXIS, 09/19/12) DEL KERNS MD Aug 07, 2016 22:53
[2016-08-08 06:52] VITALS: BP 106/69
[2016-08-08] MEDS: TAMSULOSIN 0.4 MG CAP PO SCH (08:03)
[2016-08-08] MEDS: SYMBICORT 160/4.5MCG INHALER 6GM INH SCH ×2 (08:06→21:13)
[2016-08-08] MEDS: ASPIRIN 81 MG ENTERIC TAB PO SCH (08:06)
[2016-08-08] MEDS: metFORMIN 850 MG TAB PO SCH (08:06)
[2016-08-08] MEDS: TIOTROPIUM INHALER/CAPSULE (SPIRIVA) INH SCH (08:06)
[2016-08-08] MEDS: chlorproMAZINE 25 MG TAB (Q0161) PO SCH ×2 (08:06→21:13)
[2016-08-08] MEDS: oxyBUTYnin 5 MG TAB PO SCH ×3 (08:07→21:13)
[2016-08-08] MEDS: cloZAPine 100 MG TAB (S0136) PO SCH (08:07)
[2016-08-08] MEDS: DOCUSATE SODIUM 100 MG CAP PO SCH ×2 (08:07→21:13)
[2016-08-08] MEDS: REXULTI 1 MG PO SCH (08:08)
[2016-08-08] MEDS: NICOTINE 21MG/24HR 1 EA TRANSDERMAL TD SCH (08:08)
[2016-08-08] MEDS: TRIAMCINOLONE ACETONIDE 0.025 % 80 GM CREAM TOP SCH ×2 (08:08→21:15)
[2016-08-08] MEDS: IPRATROPIUM 0.5MG/ALBUTEROL 2.5MG INH SOL UD 3ML (DUONEB)(J7620) NEB PRN (16:13)
[2016-08-08 18:00] VITALS: BP 127/74
[2016-08-08] MEDS: traZODone 100 MG TAB PO SCH (21:13)
[2016-08-08] MEDS: BENZTROPINE 1 MG TAB PO SCH (21:13)
[2016-08-08] MEDS: ATORVASTATIN 10 MG TAB PO SCH (21:13)
[2016-08-08] MEDS: SENNA 8.6 MG TAB (SENOKOT) PO SCH (21:13)
[2016-08-09 06:33] VITALS: BP 138/71
[2016-08-09] MEDS: ASPIRIN 81 MG ENTERIC TAB PO SCH (08:02)
[2016-08-09] MEDS: DOCUSATE SODIUM 100 MG CAP PO SCH ×2 (08:02→20:51)
[2016-08-09] MEDS: TAMSULOSIN 0.4 MG CAP PO SCH (08:02)
[2016-08-09] MEDS: chlorproMAZINE 25 MG TAB (Q0161) PO SCH ×2 (08:02→20:52)
[2016-08-09] MEDS: cloZAPine 100 MG TAB (S0136) PO SCH (08:02)
[2016-08-09] MEDS: NICOTINE 21MG/24HR 1 EA TRANSDERMAL TD SCH (08:03)
[2016-08-09] MEDS: TIOTROPIUM INHALER/CAPSULE (SPIRIVA) INH SCH (08:03)
[2016-08-09] MEDS: metFORMIN 850 MG TAB PO SCH (08:05)
[2016-08-09] MEDS: REXULTI 1 MG PO SCH (08:05)
[2016-08-09] MEDS: oxyBUTYnin 5 MG TAB PO SCH ×3 (08:05→20:52)
[2016-08-09] MEDS: TRIAMCINOLONE ACETONIDE 0.025 % 80 GM CREAM TOP SCH ×2 (08:07→20:54)
[2016-08-09] MEDS: SYMBICORT 160/4.5MCG INHALER 6GM INH SCH ×2 (08:35→20:51)
[2016-08-09] MEDS: IPRATROPIUM 0.5MG/ALBUTEROL 2.5MG INH SOL UD 3ML (DUONEB)(J7620) NEB PRN ×2 (10:43→16:32)
[2016-08-09 13:40] VITALS: BP 112/61
[2016-08-09] MEDS: ACETAMINOPHEN TAB 650MG DOSE (2X325MG) PO PRN (13:46)
[2016-08-09] MEDS: MAALOX 30 ML SUSP *UDC PO PRN (15:35)
[2016-08-09 18:31] VITALS: BP 93/54
--- NOTE | 2016-08-09 19:12 | IPNPDOC ---
[facility] Progress Note Progress Note DATE OF SERVICE: 08/08/16 SUBJECTIVE: Patient continues to report mood as good. Patient is med compliant and denies med s/e's. He denies SI/HI. He reports no AH/VH. Patient reports sleep and appetite are fair. OBJECTIVE: VITALS - wnl LABS - see below MENTAL STATUS EXAMINATION: Patient is a 56-year-old male who appears much older than his stated age. Speech: Is of normal rate, volume, and articulation. Pt. is coherent and mostly spontaneous. Language skills are intact. Thought processes: Clearing, starting to be goal-directed. Thought content: Rational, logical. Pt. states he has no paranoia today. Pt. is very excited and appears to be extremely happy about this. Pt. had reported that the voice is not there today, now is 0/ 10. Pt. was very excited to tell provider this, states he is very happy about not hearing it. Pt. denies visual hallucinations, preoccupations, homicidal or suicidal ideation other than what his voice had told him, obsessions or compulsions. Judgment: Limited. Insight: Poor. Orientation to: time, person , place and surroundings. Recent and remote memory: intact when referring to memory issues. Attention span and concentration: Fair. Language: Normal, difficult to understand at times. Fund of knowledge: Poor. Mood: "good". Patient's statement of his mood is now consistent with other symptoms he describes, problems he has. Affect: flat, rational. DIAGNOSES: 1. Schizoaffective disorder vs. Schizophrenia PLAN: Pt. to continue meds as ordered. Clozapine to be decreased by 25 mg/week until discontinued, is now at 200 mg q am. Pt. has no side effects noted due to Rexulti start. Will continue dose titration. Pt. is happy with Rexulti effects thus far. Vital Signs Vital Signs Date Time Temp Pulse Resp B/P Pulse Ox O2 Delivery O2 Flow Rate FiO2 08/09/16 18:31 96.4 77 18 93/54 Laboratory Data 24H Labs Laboratory Tests 2 08/09/16 06:24: Bedside Glucose (Misc Panel) 189H 08/09/16 16:48: Bedside Glucose (Misc Panel) 170H Current Medications Current Medications Acetaminophen (Tylenol Tab) 650 mg Q6HP PRN PO HEADACHE or DISCOMFORT Last administered on 08/09/16t 13:46; Start 1/27/17 at 23:15; Stop 08/10/16 at 23:14 Al Hydrox/Mg Hydrox/Simethicone (Mylanta) 30 ml Q4HP PRN PO HEARTBURN/ INDIGESTION Last administered on 08/09/16 15:35; Start 07/11/16 at 23:15; Stop 08/10/16 at 23:14 Albuterol/ Ipratropium (Duoneb (Ipr 0.5mg/Alb 2.5mg)) 3 ml Q4HP PRN NEB SOB/ WHEEZING Last administered on 08/09/16 16:32; Start 07/13/16 at 23:15; Stop at 23:14 Aspirin (Ecotrin) 81 mg DAILY PO Last administered on 08/09/16 08:02; Start at 09:00; Stop 08/11/16 at 08:59 Atorvastatin Calcium (Lipitor) 10 mg QHS PO Last administered on 08/08/16 21: 13; Start 07/15/16 at 21:00; Stop 08/14/16 at 20:59 Benztropine Mesylate (Cogentin) 1 mg QHS PO Last administered on 08/08/16 21: 13; Start 07/13/16 at 21:00; Stop 08/12/16 at 20:59 Budesonide/ Formoterol Fumarate (Symbicort 160/ 4.5mcg) 2 puff BID INH Last administered on 08/09/16 08:35; Start 07/15/16 at 21:00; Stop 08/14/16 at 20:59 Chlorpromazine HCl (Thorazine) 50 mg BID PO Last administered on 08/09/16 08: 02; Start 07/12/16 at 09:00; Stop 08/11/16 at 08:59 Clozapine (Clozaril) 25 mg QAM PO Last administered on 08/04/16 08:34; Start 07/31/16 at 09:00; Stop 08/04/16 at 12:29; Status DC Clozapine (Clozaril) 75 mg QAM PO ; Start 08/11/16 at 09:00; Stop 08/18/16 at 10: 30 Clozapine (Clozaril) 100 mg QAM PO ; Start 08/11/16 at 09:00; Stop 08/18/16 at 10 :30 Clozapine (Clozaril) 200 mg QAM PO Last administered on 07/13/16 08:08; Start 07/12/16 at 09:00; Stop 07/13/16 at 08:33; Status DC Clozapine (Clozaril) 200 mg QAM PO Last administered on 08/04/16 08:34; Start 07/31/16 at 09:00; Stop 08/04/16 at 12:29; Status DC Clozapine (Clozaril) 200 mg QAM PO Last administered on 08/05/16 08:48; Start 08/05/16 at 09:00; Stop 08/05/16 at 17:05; Status DC Clozapine (Clozaril) 200 mg QAM PO Last administered on 08/09/16 08:02; Start 08/06/16 at 09:00; Stop 08/11/16 at 08:59 Clozapine (Clozaril) 250 mg QAM PO Last administered on 07/30/16 08:34; Start 07/14/16 at 09:00; Stop 07/30/16 at 18:57; Status DC Docusate Sodium (Colace) 100 mg BID PO Last administered on 08/09/16 08:02; Start 07/15/16 at 21:00; Stop 08/14/16 at 20:59 Escitalopram Oxalate (Lexapro) 10 mg DAILY PO Last administered on 07/30/16 08 :34; Start 07/12/16 at 09:00; Stop 07/30/16 at 18:57; Status DC Home Med (Med Rec Complete!) ASDIRECTED XX ; Start 07/11/16 at 20:00; Stop at 20:01; Status DC Hydroxyzine HCl (Atarax) 25 mg Q6HP PRN PO ITCHING/ANXIETY; Start 07/25/16 at 16:30; Stop 08/24/16 at 16:29 Ibuprofen (Advil) 600 mg Q6HP PRN PO MODERATE PAIN (PS 5-7); Start 08/01/16 at 22:00; Stop 08/04/16 at 07:00; Status DC Influenza Virus Vaccine (Fluzone Quadrivalent Pf Vaccine) 0.5 ml 1T@09 IM Last administered on 07/13/16 10:24; Start 07/13/16 at 09:00; Stop 07/13/16 at 23:59 ; Status DC Magnesium Hydroxide (Milk Of Magnesia) 30 ml DAILYPRN PRN PO CONSTIPATION; Start 07/11/16 at 23:15; Stop 08/10/16 at 23:14 Metformin HCl (Glucophage) 850 mg DAILY@08 PO Last administered on 08/09/16 08 :05; Start 07/16/16 at 08:00; Stop 08/15/16 at 07:59 Mirtazapine (Remeron) 15 mg QPM PO Last administered on 07/29/16 19:57; Start 07/12/16 at 21:00; Stop 07/30/16 at 18:57; Status DC Miscellaneous (Unresolved Clarification Entry) SEE LABEL COMMENTS UNRESOLVED XX ; Start 07/27/16 at 00:01; Stop 07/27/16 at 10:40; Status DC Miscellaneous (Unresolved Patient Own Med Order) SEE LABEL COMMENTS UNRESOLVED XX ; Start 07/31/16 at 00:01; Stop 08/01/16 at 14:02; Status DC Nicotine (Nicoderm Cq 21mg) 1 patch DAILY TD Last administered on 08/09/16 08: 03; Start 07/12/16 at 09:00; Stop 08/11/16 at 08:59 Non-Formulary Medication ( See Comment Field Below ) SEE COMMENTS SECTION 1T @16 XX Last administered on 07/16/16 16:01; Start 07/16/16 at 16:00; Stop at 18:58; Status DC Oseltamivir Phosphate (Tamiflu) 75 mg DAILY PO Last administered on 08/03/16 08:40; Start 07/25/16 at 09:00; Stop 08/03/16 at 12:00; Status DC Oxybutynin Chloride (Ditropan) 5 mg TID PO Last administered on 08/09/16 15:22 ; Start 07/15/16 at 16:00; Stop 08/14/16 at 15:59 Patient Own Medication (Patient'S Own Med) Rexulti 0.5 mg po q am ... QAM PO Last administered on 08/07/16 08:39; Start 08/01/16 at 09:00; Stop 08/07/16 at 12:00; Status DC Patient Own Medication (Patient'S Own Med) Rexulti 0.5 mg po q am x 7 da... QAM PO ; Start 07/31/16 at 12:00; Stop 08/01/16 at 13:52; Status DC Patient Own Medication (Patient'S Own Med) Rexulti 1 mg po q am x 7 days QAM PO Last administered on 08/09/16 08:05; Start 08/08/16 at 09:00; Stop 08/14/16 at 12:00 Patient Own Medication (Patient'S Own Med) Rexulti 2 mg po q am QAM PO ; Start 08/15/16 at 09:00; Stop 09/14/16 at 08:59 Senna (Senokot) 2 tab QHS PO Last administered on 08/08/16 21:13; Start at 21:00; Stop 08/14/16 at 20:59 Tamsulosin HCl (Flomax) 0.4 mg QAM PO Last administered on 08/09/16 08:02; Start 07/16/16 at 09:00; Stop 08/15/16 at 08:59 Tiotropium [place] (Spiriva Handihaler) 1 inhalation DAILY INH Last administered on 08/09/16 08:03; Start 07/16/16 at 09:00; Stop 08/15/16 at 08:59 Trazodone HCl (Desyrel) 50 mg QHSP PRN PO INSOMNIA; Start 07/11/16 at 23:15; Stop 07/13/16 at 08:33; Status DC Trazodone HCl (Desyrel) 100 mg QHS PO Last administered on 08/08/16 21:13; Start 07/13/16 at 23:15; Stop 08/30/16 at 23:14 Trazodone HCl (Desyrel) 100 mg QHSP PRN PO IF INITIAL TABLET INEFFECTIVE; Start 07/30/16 at 19:15; Stop 08/29/16 at 19:14 Triamcinolone Acetonide (Kenalog 0.025% Cream) 1 dose BID TOP Last administered on 08/08/16 21:15; Start 07/24/16 at 09:00; Stop 08/23/16 at 08:59 Trimethoprim/ Sulfamethoxazole (Bactrim Ds, Septra Ds 160mg/ 800mg) 1 tab BID PO Last administered on 07/31/16t 08:07; Start 07/19/16 at 21:00; Stop 07/31/16 at 09:05; Status DC Allergies Coded Allergies: Quinolones (Verified Allergy, Unknown, QUESTIONABLE - AVELOX, 01/15/15) HAS HAD CIPRO & LEVAQUIN ON MULTIPLE OCCASIONS Haloperidol (Verified Adverse Reaction, Intermediate, LOCKJAW,WHEEZING, 09/19/12) Prochlorperazine (Verified Adverse Reaction, Intermediate, ANAPHYLAXIS, 09/19/12) DEL KERNS MD Aug 09, 2016 19:11 Haloperidol (Verified Adverse Reaction, Intermediate, LOCKJAW,WHEEZING, 09/19/12) Prochlorperazine (Verified Adverse Reaction, Intermediate, ANAPHYLAXIS, 09/19/12) DEL KERNS MD Aug 09, 2016 19:11
[2016-08-09] MEDS: ATORVASTATIN 10 MG TAB PO SCH (20:52)
[2016-08-09] MEDS: BENZTROPINE 1 MG TAB PO SCH (20:52)
[2016-08-09] MEDS: SENNA 8.6 MG TAB (SENOKOT) PO SCH (20:52)
[2016-08-09] MEDS: traZODone 100 MG TAB PO SCH (20:52)
[2016-08-10 06:42] VITALS: BP 114/69
[2016-08-10] MEDS: TAMSULOSIN 0.4 MG CAP PO SCH (08:35)
[2016-08-10] MEDS: cloZAPine 100 MG TAB (S0136) PO SCH (08:36)
[2016-08-10] MEDS: DOCUSATE SODIUM 100 MG CAP PO SCH ×2 (08:36→20:52)
[2016-08-10] MEDS: ASPIRIN 81 MG ENTERIC TAB PO SCH (08:37)
[2016-08-10] MEDS: chlorproMAZINE 25 MG TAB (Q0161) PO SCH ×2 (08:37→20:56)
[2016-08-10] MEDS: ACETAMINOPHEN TAB 650MG DOSE (2X325MG) PO PRN (08:38)
[2016-08-10] MEDS: metFORMIN 850 MG TAB PO SCH (08:38)
[2016-08-10] MEDS: REXULTI 1 MG PO SCH (08:39)
[2016-08-10] MEDS: oxyBUTYnin 5 MG TAB PO SCH ×3 (08:39→20:51)
[2016-08-10] MEDS: SYMBICORT 160/4.5MCG INHALER 6GM INH SCH ×2 (08:39→20:51)
[2016-08-10] MEDS: TIOTROPIUM INHALER/CAPSULE (SPIRIVA) INH SCH (08:40)
[2016-08-10] MEDS: NICOTINE 21MG/24HR 1 EA TRANSDERMAL TD SCH (08:40)
[2016-08-10] MEDS: TRIAMCINOLONE ACETONIDE 0.025 % 80 GM CREAM TOP SCH ×2 (08:41→20:55)
[2016-08-10] MEDS: hydrOXYzine 25 MG TAB PO PRN (12:20)
[2016-08-10] MEDS: IPRATROPIUM 0.5MG/ALBUTEROL 2.5MG INH SOL UD 3ML (DUONEB)(J7620) NEB PRN ×2 (12:40→16:59)
[2016-08-10 18:00] VITALS: BP 105/64
[2016-08-10] MEDS: SENNA 8.6 MG TAB (SENOKOT) PO SCH (20:52)
[2016-08-10] MEDS: ATORVASTATIN 10 MG TAB PO SCH (20:52)
[2016-08-10] MEDS: BENZTROPINE 1 MG TAB PO SCH (20:52)
[2016-08-10] MEDS: traZODone 100 MG TAB PO SCH (20:53)
[2016-08-11 06:49] VITALS: BP 112/68
[2016-08-11] MEDS: TRIAMCINOLONE ACETONIDE 0.025 % 80 GM CREAM TOP SCH ×2 (09:00→20:35)
[2016-08-11] MEDS: SYMBICORT 160/4.5MCG INHALER 6GM INH SCH ×2 (09:08→20:35)
[2016-08-11] MEDS: ASPIRIN 81 MG ENTERIC TAB PO SCH (09:08)
[2016-08-11] MEDS: metFORMIN 850 MG TAB PO SCH (09:08)
[2016-08-11] MEDS: DOCUSATE SODIUM 100 MG CAP PO SCH ×2 (09:08→20:35)
[2016-08-11] MEDS: oxyBUTYnin 5 MG TAB PO SCH ×3 (09:08→20:35)
[2016-08-11] MEDS: chlorproMAZINE 25 MG TAB (Q0161) PO SCH ×2 (09:08→20:35)
[2016-08-11] MEDS: cloZAPine 25 MG TAB (S0136) PO SCH (09:09)
[2016-08-11] MEDS: cloZAPine 100 MG TAB (S0136) PO SCH (09:09)
[2016-08-11] MEDS: TAMSULOSIN 0.4 MG CAP PO SCH (09:09)
[2016-08-11] MEDS: TIOTROPIUM INHALER/CAPSULE (SPIRIVA) INH SCH (09:10)
[2016-08-11] MEDS: REXULTI 1 MG PO SCH (09:10)
[2016-08-11] MEDS: NICOTINE 21MG/24HR 1 EA TRANSDERMAL TD SCH (09:10)
[2016-08-11] MEDS: IPRATROPIUM 0.5MG/ALBUTEROL 2.5MG INH SOL UD 3ML (DUONEB)(J7620) NEB PRN (09:33)
[2016-08-11] MEDS: hydrOXYzine 25 MG TAB PO PRN (12:00)
[2016-08-11 18:00] VITALS: BP 111/70
[2016-08-11] MEDS: BENZTROPINE 1 MG TAB PO SCH (20:35)
[2016-08-11] MEDS: traZODone 100 MG TAB PO SCH (20:35)
[2016-08-11] MEDS: SENNA 8.6 MG TAB (SENOKOT) PO SCH (20:35)
[2016-08-11] MEDS: ATORVASTATIN 10 MG TAB PO SCH (20:35)
[2016-08-12 06:50] VITALS: BP 107/74
[2016-08-12] MEDS: DOCUSATE SODIUM 100 MG CAP PO SCH (08:22)
[2016-08-12] MEDS: ASPIRIN 81 MG ENTERIC TAB PO SCH (08:22)
[2016-08-12] MEDS: NICOTINE 21MG/24HR 1 EA TRANSDERMAL TD SCH (08:22)
[2016-08-12] MEDS: SYMBICORT 160/4.5MCG INHALER 6GM INH SCH (08:22)
[2016-08-12] MEDS: TIOTROPIUM INHALER/CAPSULE (SPIRIVA) INH SCH (08:22)
[2016-08-12] MEDS: REXULTI 1 MG PO SCH (08:23)
[2016-08-12] MEDS: oxyBUTYnin 5 MG TAB PO SCH ×2 (08:23→14:39)
[2016-08-12] MEDS: chlorproMAZINE 25 MG TAB (Q0161) PO SCH (08:23)
[2016-08-12] MEDS: metFORMIN 850 MG TAB PO SCH (08:23)
[2016-08-12] MEDS: TAMSULOSIN 0.4 MG CAP PO SCH (08:23)
[2016-08-12] MEDS: TRIAMCINOLONE ACETONIDE 0.025 % 80 GM CREAM TOP SCH (08:24)
[2016-08-12] MEDS: cloZAPine 25 MG TAB (S0136) PO SCH (08:24)
[2016-08-12] MEDS: cloZAPine 100 MG TAB (S0136) PO SCH (08:24)
--- NOTE | 2016-08-12 13:14 | MHDS ---
DATE OF ADMISSION: 07/11/2016 DATE OF DISCHARGE: 08/12/2016 CHIEF COMPLAINT: Depression and auditory hallucinations. PRESENT ILLNESS: This patient is a 56-year-old single, white male with a long history of a waxing and waning psychotic depression, that seems to be comorbid with polysubstance abuse. He claims his last use was 20 years ago. This patient presented himself to our emergency department complaining of depression, suicidal ideation, accompanied by command hallucinations to hurt himself. He currently was living at a transitional living service in the community. The patient could not identify precipitant or promulgating factors involved in this admission. It is unclear whether he used substances. His medical evaluation at the time of admission deemed him safe to be admitted to a closed psychiatric unit. This patient was admitted to our psychiatric chris. Over the course of a month, the patient gradually responded to multiple psychotropic agents and a very supportive psychiatric milieu. As time went on, the patient's hallucinations nearly abated, and his depression became much milder. He felt safe to be discharged, and he expressed the desire to go to the [facility]. This patient, during the course of his hospital stay, did not present any behavioral incidents. He was friendly or distant at various times but, again, did not present a harm to himself or others. This patient, on physical examination, revealed a red pruritic rash which he claims has been present for a long time and primarily involves his neck and back, and he claimed that his Benadryl cream was not helping. This patient was compliant taking his medications. His admission laboratory examination was essentially unremarkable, for further details, the patient's test results will be included in this discharge summary. The patient's discharge medications include: Clozaril 175 mg every morning. There were no significant problems with his neutrophil count. Patient also was on by mouth Rexulti. He took trazodone at bedtime for sleep. Because of glucose intolerance, he was on metformin 850 mg daily. His rash was managed with triamcinolone cream and symptomatic treatment. Other supportive medications or symptomatic medications were given as needed. Patient's mental status at the time of discharge did not reveal any significant stigmata of psychosis or depression. He did claim that his depression was a 3 out of 10 in intensity, and his hallucinations had been less intense, and the interval between such experiences was increasing. This patient's interview behavior was cooperative and friendly. His psychomotor activity was fidgety. His language use was appropriate. There was no evidence of dysphonia. Patient's mood was said to be better. His affect remained flat with little reactivity. Patient denied hallucinations at the time of the interview. Thought process was linear, lucent, and focused on being transferred to [place]. He denied suicidal or homicidal ideation. Cognition did not reveal focal deficit and was essentially within normal limits. At this time, this provider feels the patient is safe for transfer to another facility. edited: 08/13/2016 0742 ruth LAMBERT
--- NOTE | 2016-08-12 13:24 | MHDS ---
DATE OF ADMISSION: 07/11/2016 DATE OF DISCHARGE: This patient was admitted with a chief complaint of psychotic symptoms of a waxing and waning intensity telling him to kill himself. HISTORY OF PRESENT ILLNESS: This patient is a 56-year-old male who was admitted on 07/11/[address] Garrick Schmidt MD. This patient relates a long history of polysubstance abuse and a waxing and waning psychotic and depressive disorder which has been diagnosed with schizoaffective disorder. It seems to be predominately of the type of psychotic as opposed to bipolar. This patient has had numerous hospitalizations psychiatrically for this condition. He, as in the past, responds well to both a therapeutic milieu and psychotropic agents. He denies recent drinking or using other substances. He claims that he has not drank since 1996. This patient is currently living in a transitional housing place which he describes as meeting his needs. He has also spent time at other various treatment and residential institutions. As time progressed, this patient, as in the past, showed gradual improvement over the course of his admission. He feels ready for discharge. He is having increasing periods of a more positive mood and today he described his depression as being 3 out of 10 which is an improvement for him, but this still fluctuates. He also has intermittent hallucinations still of a command variety but he has not acted on them. There is abutting insight in that he is aware that these are true hallucinations and not true voices. He denies significant paranoia at this time but such episodes have occurred in the past. A discharge planning meeting was performed with the entire staff from the transitioning living arrangement he had been living at and it was felt that he needs further stabilization and this will be sought by a transfer to [facility]. MENTAL STATUS AT THE TIME OF DISCHARGE: Patient was slightly disheveled. He had a bent posture with gaze primarily downward. Interview behavior was cooperative. No stigmata evident of depression, juaquin or hallucination. This patient's mood as stated before was improving and his affect was flat with some reactivity of a positive nature. Speech was articulate without changes in volume or speed. Language: No dysphagia was evident. Thought process was primarily lucent, linear and goal DICTATION ENDS......
[2016-08-12] MEDS ORDERED: TRAZ10TA PO ×2 (14:04→14:12)
[2016-08-12] MEDS ORDERED: cogentin PO (14:06)
[2016-08-12] MEDS ORDERED: duoneb NEB (14:12)
[2016-08-12] MEDS ORDERED: VIST25CA PO (14:12)
[2016-08-12] MEDS ORDERED: CLOZ100T PO (14:18)
[2016-08-12] MEDS ORDERED: CLOZ25TA2 PO (14:18)
[2016-08-12] MEDS ORDERED: NICO21DI5 TD (14:24)
[2016-08-12] MEDS ORDERED: COLA100C PO (14:29)
[2016-08-15] MEDS ORDERED: REXULTI 2 MG PO SCH (09:00)
== END 2016-08-12 17:10 | DRG 750 ==
LOC: M ED 16:37 → M PSY 22:08
PROVIDERS: ADMIT Psychiatry & Neurology Psychiatry; ATTEND Internal Medicine Addiction Medicine
DX: F25.9 Schizoaffective disorder, unspecified (principal); I50.32 Chronic diastolic (congestive) heart failure; I11.0 Hypertensive heart disease with heart failure; J45.909 Unspecified asthma, uncomplicated; E11.9 Type 2 diabetes mellitus without complications; F03.90 Unspecified dementia, unspecified severity, without behavioral disturbance, psychotic disturbance, mood disturbance, and anxiety; J44.9 Chronic obstructive pulmonary disease, unspecified; F17.210 Nicotine dependence, cigarettes, uncomplicated; F11.10 Opioid abuse, uncomplicated; E78.00 Pure hypercholesterolemia, unspecified; I25.10 Atherosclerotic heart disease of native coronary artery without angina pectoris; F32.9 Major depressive disorder, single episode, unspecified; F14.10 Cocaine abuse, uncomplicated; R21 Rash and other nonspecific skin eruption; K21.9 Gastro-esophageal reflux disease without esophagitis; N31.9 Neuromuscular dysfunction of bladder, unspecified; E66.3 Overweight; Z79.82 Long term (current) use of aspirin; Z79.84 Long term (current) use of oral hypoglycemic drugs; Z88.1 Allergy status to other antibiotic agents; Z68.25 Body mass index [BMI] 25.0-25.9, adult; Z86.73 Personal history of transient ischemic attack (TIA), and cerebral infarction without residual deficits; Z81.3 Family history of other psychoactive substance abuse and dependence

== ENCOUNTER 2017-08-09 09:35 | Emergency (ER) | payer MEDICAID, SELFPAY ==
[2017-08-09 10:14] LABS: HEMOGLOBIN 14.1 g/dl (14.0-18.0); MEAN CORPUSCULAR HEMOGLOBIN 29.7 pg (27.0-33.0); MEAN CORPUSCULAR HGB CONC 34.4 g/dl (32.0-36.5); MEAN CORPUSCULAR VOLUME 86.5 fl (80.0-96.0); PLATELET COUNT, AUTOMATED 223 10^3/uL (150-450); RED BLOOD COUNT 4.74 10^6/uL (4.30-6.10); RED CELL DISTRIBUTION WIDTH 12.8 % (11.5-14.5); WHITE BLOOD COUNT 8.6 10^3/uL (4.0-10.0)
[2017-08-09] MEDS: IPRATROPIUM 0.5MG/ALBUTEROL 2.5MG INH SOL UD 3ML (DUONEB)(J7620) NEB ×2 (10:40)
[2017-08-09 10:43] LABS: AMPHETAMINES LEVEL URINE NEGATIVE (NEGATIVE); BARBITURATES URINE NEGATIVE (NEGATIVE); BENZODIAZEPINES URINE NEGATIVE (NEGATIVE); CANNABINOIDS URINE NEGATIVE (NEGATIVE); COCAINE METABOLITE URINE NEGATIVE (NEGATIVE); METHADONE URINE NEGATIVE (NEGATIVE); OPIATES URINE NEGATIVE (NEGATIVE); PHENCYCLIDINE URINE NEGATIVE (NEGATIVE)
[2017-08-09 10:53] LABS: ALBUMIN 3.7 GM/DL (3.2-5.2); ALBUMIN/GLOBULIN RATIO 1.03 (1.00-1.93); ALKALINE PHOSPHATASE 113 U/L (45-117); ALT/SGPT 29 U/L (12-78); ANION GAP 9 MEQ/L (8-16); AST/SGOT 16 U/L (7-37); BILIRUBIN,DIRECT < 0.1 MG/DL (0.0-0.2); BILIRUBIN,TOTAL 0.4 MG/DL (0.2-1.0); BLOOD UREA NITROGEN 14 MG/DL (7-18); CALCIUM LEVEL 8.5 MG/DL (8.5-10.1); CARBON DIOXIDE LEVEL 22 MEQ/L (21-32); CHLORIDE LEVEL 109 MEQ/L (98-107); CREATININE FOR GFR 0.92 MG/DL (0.70-1.30); GLOMERULAR FILTRATION RATE > 60.0 (>56); GLUCOSE, FASTING 91 MG/DL (70-100); POTASSIUM SERUM 4.5 MEQ/L (3.5-5.1); SALICYLATE LEVEL < 1.7 MG/DL (5.0-30.0); SODIUM LEVEL 140 MEQ/L (136-145); TOTAL PROTEIN 7.3 GM/DL (6.4-8.2)
[2017-08-09 10:55] LABS: ACETAMINOPHEN LEVEL < 2.0 UG/ML (10.0-30.0); ETHYL ALCOHOL (ETHANOL) < 0.003 % (0.000-0.010)
== END 2017-08-09 14:51 ==
LOC: M ED 09:35
DX: Z04.6 Encounter for general psychiatric examination, requested by authority (principal); F20.9 Schizophrenia, unspecified; I50.9 Heart failure, unspecified; I11.0 Hypertensive heart disease with heart failure; E11.9 Type 2 diabetes mellitus without complications; J45.909 Unspecified asthma, uncomplicated; J44.9 Chronic obstructive pulmonary disease, unspecified; F03.90 Unspecified dementia, unspecified severity, without behavioral disturbance, psychotic disturbance, mood disturbance, and anxiety; K21.9 Gastro-esophageal reflux disease without esophagitis; N31.9 Neuromuscular dysfunction of bladder, unspecified; E78.70 Disorder of bile acid and cholesterol metabolism, unspecified; Z79.82 Long term (current) use of aspirin; Z79.899 Other long term (current) drug therapy; Z79.84 Long term (current) use of oral hypoglycemic drugs; Z88.8 Allergy status to other drugs, medicaments and biological substances; Z88.1 Allergy status to other antibiotic agents; Z86.73 Personal history of transient ischemic attack (TIA), and cerebral infarction without residual deficits; Z87.19 Personal history of other diseases of the digestive system; Z98.890 Other specified postprocedural states
CPT/HCPCS: 94640

== ENCOUNTER → 2017-09-02 | Outpatient (CLI) | payer SELFPAY | LOC: M OUTALCOH 11:36 | DX: F10.10 Alcohol abuse, uncomplicated (principal) ==

== ENCOUNTER 2017-09-14 16:43 | Inpatient (IN) | payer SELFPAY ==
[2017-09-14 17:27] LABS: HEMATOCRIT 40.8 % (42.0-52.0); MEAN CORPUSCULAR HEMOGLOBIN 29.7 pg (27.0-33.0); MEAN CORPUSCULAR HGB CONC 34.3 g/dl (32.0-36.5); MEAN CORPUSCULAR VOLUME 86.4 fl (80.0-96.0); PLATELET COUNT, AUTOMATED 241 10^3/uL (150-450); RED BLOOD COUNT 4.72 10^6/uL (4.30-6.10); RED CELL DISTRIBUTION WIDTH 12.8 % (11.5-14.5); WHITE BLOOD COUNT 12.1 10^3/uL (4.0-10.0)
[2017-09-14 17:51] LABS: AMPHETAMINES LEVEL URINE NEGATIVE (NEGATIVE); BARBITURATES URINE NEGATIVE (NEGATIVE); BENZODIAZEPINES URINE NEGATIVE (NEGATIVE); CANNABINOIDS URINE NEGATIVE (NEGATIVE); COCAINE METABOLITE URINE NEGATIVE (NEGATIVE); METHADONE URINE NEGATIVE (NEGATIVE); OPIATES URINE POSITIVE (NEGATIVE); PHENCYCLIDINE URINE NEGATIVE (NEGATIVE)
[2017-09-14 18:04] LABS: ALBUMIN 3.8 GM/DL (3.2-5.2); ALBUMIN/GLOBULIN RATIO 1.03 (1.00-1.93); ALKALINE PHOSPHATASE 132 U/L (45-117); ALT/SGPT 29 U/L (12-78); ANION GAP 9 MEQ/L (8-16); AST/SGOT 7 U/L (7-37); BILIRUBIN,DIRECT 0.1 MG/DL (0.0-0.2); BILIRUBIN,TOTAL 0.3 MG/DL (0.2-1.0); BLOOD UREA NITROGEN 12 MG/DL (7-18); CALCIUM LEVEL 8.8 MG/DL (8.5-10.1); CARBON DIOXIDE LEVEL 24 MEQ/L (21-32); CHLORIDE LEVEL 106 MEQ/L (98-107); CREATININE FOR GFR 1.13 MG/DL (0.70-1.30); ETHYL ALCOHOL (ETHANOL) < 0.003 % (0.000-0.010); GLOMERULAR FILTRATION RATE > 60.0 (>56); GLUCOSE, FASTING 194 MG/DL (70-100); POTASSIUM SERUM 3.9 MEQ/L (3.5-5.1); SALICYLATE LEVEL < 1.7 MG/DL (5.0-30.0); SODIUM LEVEL 139 MEQ/L (136-145); TOTAL PROTEIN 7.5 GM/DL (6.4-8.2)
[2017-09-14 18:05] LABS: ACETAMINOPHEN LEVEL < 2.0 UG/ML (10.0-30.0)
[2017-09-14] MEDS: IPRATROPIUM 0.5MG/ALBUTEROL 2.5MG INH SOL UD 3ML (DUONEB)(J7620) NEB (18:27)
[2017-09-14] MEDS ORDERED: DEXTROSE 50% 50 ML SYRINGE IV (22:45)
[2017-09-14] MEDS ORDERED: GLUCOSE 4 GM CHEW TABLET PO (22:45)
[2017-09-14] MEDS ORDERED: GLUCAGON FOR INJ 1 MG VIAL (J1610) SC (22:45)
[2017-09-15] MEDS: HumaLOG INSULIN (NovoLOG) PER UNIT SC ×3 (06:49→17:10)
[2017-09-15 06:53] LABS: BEDSIDE GLUCOSE 156 MG/DL (70-105)
[2017-09-15 07:41] LABS: BASO % 0.2 % (0.0-1.0); EOS # 0.1 10^3/uL (0.0-0.50); EOS % 0.9 % (0.0-3.0); HEMATOCRIT 41.4 % (42.0-52.0); HEMOGLOBIN 14.3 g/dl (13.5-17.5); IMMATURE GRANULOCYTE % 0.5 % (0-3.0); LYMPH # 2.7 10^3/uL (1.5-4.5); LYMPH % 17.8 % (24.0-44.0); MEAN CORPUSCULAR HGB CONC 34.5 g/dl (32.0-36.5); MEAN CORPUSCULAR VOLUME 86.8 fl (80.0-96.0); MONO # 1.2 10^3/uL (0.0-0.8); MONO % 7.6 % (0.0-5.0); PLATELET COUNT, AUTOMATED 252 10^3/uL (150-450); RED BLOOD COUNT 4.77 10^6/uL (4.30-6.10); RED CELL DISTRIBUTION WIDTH 12.9 % (11.5-14.5); WHITE BLOOD COUNT 15.1 10^3/uL (4.0-10.0)
[2017-09-15] MEDS: metFORMIN 850 MG TAB PO (08:06)
[2017-09-15] MEDS: TAMSULOSIN 0.4 MG CAP PO (08:07)
[2017-09-15] MEDS: MOM 30ML SUSPENSION UDC PO (08:07)
[2017-09-15] MEDS: VITAMIN D 1,000 INTERNATIONAL UNITS TABLET PO (08:07)
[2017-09-15] MEDS: MAGNESIUM OXIDE 400 MG TAB (MAG-OX) PO (08:07)
[2017-09-15] MEDS: FERROUS SULFATE 325MG TAB PO (08:07)
[2017-09-15] MEDS: PRAZOSIN 1 MG CAP PO (08:08)
[2017-09-15] MEDS: busPIRone 5 MG TAB PO (08:08)
[2017-09-15] MEDS: cloZAPine 100 MG TAB (S0136) PO (08:08)
[2017-09-15] MEDS: DOCUSATE SODIUM 100 MG CAP PO ×2 (08:08→20:28)
[2017-09-15] MEDS: raNITIdine SYRUP 150 MG/10 ML UDC PO ×2 (08:08→20:27)
[2017-09-15] MEDS: THIAMINE 100 MG TAB PO (08:08)
[2017-09-15] MEDS: INFLUENZA QUADRIVALENT PF VACCINE 0.5ML SYRINGE (90686) IM (08:13)
[2017-09-15] MEDS ORDERED: metFORMIN 850 MG TAB PO (09:00)
[2017-09-15] MEDS: TIOTROPIUM INHALER/CAPSULE (SPIRIVA) INH (09:27)
[2017-09-15] MEDS: IPRATROPIUM 0.5MG/ALBUTEROL 2.5MG INH SOL UD 3ML (DUONEB)(J7620) NEB ×3 (09:46→20:00)
[2017-09-15 10:24] LABS: ESTIMATED AVERAGE GLUCOSE 126 MG/DL (60-110)
[2017-09-15 13:08] LABS: VITAMIN B12 LEVEL 873 PG/ML (247-911)
[2017-09-15 13:09] LABS: FOLATE 14.6 NG/ML (>5.4)
[2017-09-15 15:46] LABS: BEDSIDE GLUCOSE 102 MG/DL (70-105)
[2017-09-15 17:10] LABS: BEDSIDE GLUCOSE 146 MG/DL (70-105)
[2017-09-15] MEDS: LURASIDONE 20 MG TAB (LATUDA) PO (18:10)
[2017-09-15] MEDS: ATORVASTATIN 10 MG TAB PO (20:28)
[2017-09-15] MEDS: traZODone 50 MG TAB PO (20:29)
[2017-09-15] MEDS ORDERED: SERTRALINE HCL 25 MG TABLET PO (21:00)
[2017-09-15] MEDS ORDERED: traZODone 50 MG TAB PO (21:00)
[2017-09-16] MEDS: IPRATROPIUM 0.5MG/ALBUTEROL 2.5MG INH SOL UD 3ML (DUONEB)(J7620) NEB ×5 (02:00→20:42)
[2017-09-16] MEDS: HumaLOG INSULIN (NovoLOG) PER UNIT SC ×3 (06:49→17:16)
[2017-09-16 06:55] LABS: BEDSIDE GLUCOSE 108 MG/DL (70-105)
[2017-09-16] MEDS: THIAMINE 100 MG TAB PO (08:02)
[2017-09-16] MEDS: TAMSULOSIN 0.4 MG CAP PO (08:02)
[2017-09-16] MEDS: DOCUSATE SODIUM 100 MG CAP PO ×2 (08:02→20:51)
[2017-09-16] MEDS: FERROUS SULFATE 325MG TAB PO (08:02)
[2017-09-16] MEDS: TIOTROPIUM INHALER/CAPSULE (SPIRIVA) INH ×2 (08:02→08:05)
[2017-09-16] MEDS: MAGNESIUM OXIDE 400 MG TAB (MAG-OX) PO (08:02)
[2017-09-16] MEDS: VITAMIN D 1,000 INTERNATIONAL UNITS TABLET PO (08:02)
[2017-09-16] MEDS: PRAZOSIN 1 MG CAP PO (08:02)
[2017-09-16] MEDS: raNITIdine SYRUP 150 MG/10 ML UDC PO ×2 (08:03→20:51)
[2017-09-16] MEDS: metFORMIN 850 MG TAB PO (08:03)
[2017-09-16 10:04] LABS: HEMOGLOBIN 13.4 g/dl (13.5-17.5); MEAN CORPUSCULAR HGB CONC 34.4 g/dl (32.0-36.5); MEAN CORPUSCULAR VOLUME 87.4 fl (80.0-96.0); PLATELET COUNT, AUTOMATED 236 10^3/uL (150-450); RED BLOOD COUNT 4.46 10^6/uL (4.30-6.10); RED CELL DISTRIBUTION WIDTH 13.2 % (11.5-14.5); WHITE BLOOD COUNT 12.4 10^3/uL (4.0-10.0)
[2017-09-16 10:30] LABS: ALBUMIN 3.7 GM/DL (3.2-5.2); ALBUMIN/GLOBULIN RATIO 1.06 (1.00-1.93); ALKALINE PHOSPHATASE 120 U/L (45-117); ALT/SGPT 29 U/L (12-78); ANION GAP 6 MEQ/L (8-16); AST/SGOT 7 U/L (7-37); BILIRUBIN,TOTAL 0.2 MG/DL (0.2-1.0); BLOOD UREA NITROGEN 19 MG/DL (7-18); CALCIUM LEVEL 9.1 MG/DL (8.5-10.1); CARBON DIOXIDE LEVEL 26 MEQ/L (21-32); CHLORIDE LEVEL 106 MEQ/L (98-107); CHOLESTEROL LEVEL 142 MG/DL (<200); CHOLESTEROL RISK RATIO 3.021 (<5); CREATININE FOR GFR 1.04 MG/DL (0.70-1.30); GLOMERULAR FILTRATION RATE > 60.0 (>56); GLUCOSE, FASTING 140 MG/DL (70-100); HDL CHOLESTEROL 47 MG/DL (>40); LDL CHOLESTEROL 64.8 MG/DL (<100); NON-HDL-C 95 MG/DL; POTASSIUM SERUM 4.2 MEQ/L (3.5-5.1); SODIUM LEVEL 138 MEQ/L (136-145); TOTAL PROTEIN 7.2 GM/DL (6.4-8.2); TRIGLYCERIDES LEVEL 151 MG/DL (<150)
[2017-09-16] MEDS: MAALOX 30 ML SUSP *UDC PO ×2 (11:01→16:27)
[2017-09-16 12:27] LABS: BEDSIDE GLUCOSE 72 MG/DL (70-105)
[2017-09-16 13:16] LABS: CK-MB VALUE MASS 2.4 NG/ML (<3.6); CPK CREATINE PHOSPHOKINASE 218 U/L (39-308); TROPONIN I < 0.02 NG/ML (< 0.10)
[2017-09-16 13:59] LABS: HIV 1&2 SCREEN CENTAUR NEGATIVE (NEGATIVE)
[2017-09-16] MEDS: hydrOXYzine 25 MG TAB PO (14:51)
[2017-09-16 17:28] LABS: BEDSIDE GLUCOSE 104 MG/DL (70-105)
[2017-09-16] MEDS: LURASIDONE 20 MG TAB (LATUDA) PO (17:33)
[2017-09-16] MEDS: ATORVASTATIN 10 MG TAB PO (20:51)
[2017-09-16] MEDS: RAMELTEON 8 MG TAB (ROZEREM) PO (20:51)
[2017-09-17] MEDS: IPRATROPIUM 0.5MG/ALBUTEROL 2.5MG INH SOL UD 3ML (DUONEB)(J7620) NEB ×5 (00:26→21:17)
[2017-09-17 06:19] LABS: BEDSIDE GLUCOSE 114 MG/DL (70-105)
[2017-09-17] MEDS: HumaLOG INSULIN (NovoLOG) PER UNIT SC ×3 (06:48→17:01)
[2017-09-17] MEDS: TIOTROPIUM INHALER/CAPSULE (SPIRIVA) INH ×3 (07:20→09:08)
[2017-09-17 07:25] LABS: HEMATOCRIT 42.7 % (42.0-52.0); HEMOGLOBIN 14.3 g/dl (13.5-17.5); MEAN CORPUSCULAR HEMOGLOBIN 29.5 pg (27.0-33.0); MEAN CORPUSCULAR HGB CONC 33.5 g/dl (32.0-36.5); PLATELET COUNT, AUTOMATED 257 10^3/uL (150-450); RED BLOOD COUNT 4.85 10^6/uL (4.30-6.10); RED CELL DISTRIBUTION WIDTH 13.1 % (11.5-14.5); WHITE BLOOD COUNT 12.6 10^3/uL (4.0-10.0)
[2017-09-17] MEDS: DOCUSATE SODIUM 100 MG CAP PO ×2 (09:07→21:16)
[2017-09-17] MEDS: TAMSULOSIN 0.4 MG CAP PO (09:08)
[2017-09-17] MEDS: FERROUS SULFATE 325MG TAB PO (09:08)
[2017-09-17] MEDS: THIAMINE 100 MG TAB PO (09:08)
[2017-09-17] MEDS: metFORMIN 850 MG TAB PO (09:08)
[2017-09-17] MEDS: MAGNESIUM OXIDE 400 MG TAB (MAG-OX) PO (09:08)
[2017-09-17] MEDS: PRAZOSIN 1 MG CAP PO (09:08)
[2017-09-17] MEDS: VITAMIN D 1,000 INTERNATIONAL UNITS TABLET PO (09:08)
[2017-09-17] MEDS: raNITIdine SYRUP 150 MG/10 ML UDC PO ×2 (09:08→21:16)
[2017-09-17] MEDS: LACTOBACILLUS ACIDOPHILUS CAP (BACID) PO ×2 (11:24→21:16)
[2017-09-17] MEDS: LevoFLOXacin 500 MG TABLET PO (11:24)
[2017-09-17] MEDS: predniSONE 20 MG TAB PO (11:24)
[2017-09-17 12:16] LABS: BEDSIDE GLUCOSE 117 MG/DL (70-105)
[2017-09-17 17:19] LABS: BEDSIDE GLUCOSE 142 MG/DL (70-105)
[2017-09-17] MEDS: LURASIDONE 20 MG TAB (LATUDA) PO (17:36)
[2017-09-17] MEDS: ATORVASTATIN 10 MG TAB PO (21:16)
[2017-09-17] MEDS: RAMELTEON 8 MG TAB (ROZEREM) PO (21:16)
[2017-09-18] MEDS: IPRATROPIUM 0.5MG/ALBUTEROL 2.5MG INH SOL UD 3ML (DUONEB)(J7620) NEB ×4 (02:00→20:00)
[2017-09-18] MEDS: LevoFLOXacin 500 MG TABLET PO (06:05)
[2017-09-18 06:25] LABS: BEDSIDE GLUCOSE 110 MG/DL (70-105)
[2017-09-18] MEDS: HumaLOG INSULIN (NovoLOG) PER UNIT SC ×3 (06:45→17:10)
[2017-09-18] MEDS: VITAMIN D 1,000 INTERNATIONAL UNITS TABLET PO (08:13)
[2017-09-18] MEDS: TAMSULOSIN 0.4 MG CAP PO (08:14)
[2017-09-18] MEDS: LACTOBACILLUS ACIDOPHILUS CAP (BACID) PO ×2 (08:14→20:14)
[2017-09-18] MEDS: DOCUSATE SODIUM 100 MG CAP PO ×2 (08:15→20:14)
[2017-09-18] MEDS: PRAZOSIN 1 MG CAP PO (08:16)
[2017-09-18] MEDS: predniSONE 20 MG TAB PO (08:17)
[2017-09-18] MEDS: FERROUS SULFATE 325MG TAB PO (08:18)
[2017-09-18] MEDS: MAGNESIUM OXIDE 400 MG TAB (MAG-OX) PO (08:18)
[2017-09-18] MEDS: THIAMINE 100 MG TAB PO (08:18)
[2017-09-18] MEDS: raNITIdine SYRUP 150 MG/10 ML UDC PO ×2 (08:20→20:14)
[2017-09-18] MEDS: TIOTROPIUM INHALER/CAPSULE (SPIRIVA) INH (09:11)
[2017-09-18] MEDS: metFORMIN 850 MG TAB PO (09:22)
[2017-09-18 17:09] LABS: BEDSIDE GLUCOSE 151 MG/DL (70-105)
[2017-09-18] MEDS: LURASIDONE 20 MG TAB (LATUDA) PO (17:14)
[2017-09-18] MEDS: RAMELTEON 8 MG TAB (ROZEREM) PO (20:14)
[2017-09-18] MEDS: ATORVASTATIN 10 MG TAB PO (20:14)
[2017-09-19] MEDS: LevoFLOXacin 500 MG TABLET PO (06:32)
[2017-09-19 06:52] LABS: HEMOGLOBIN 13.1 g/dl (13.5-17.5); MEAN CORPUSCULAR HEMOGLOBIN 28.9 pg (27.0-33.0); MEAN CORPUSCULAR HGB CONC 33.6 g/dl (32.0-36.5); MEAN CORPUSCULAR VOLUME 85.9 fl (80.0-96.0); PLATELET COUNT, AUTOMATED 252 10^3/uL (150-450); RED BLOOD COUNT 4.54 10^6/uL (4.30-6.10); RED CELL DISTRIBUTION WIDTH 13.2 % (11.5-14.5); WHITE BLOOD COUNT 9.4 10^3/uL (4.0-10.0)
[2017-09-19 07:07] LABS: ALBUMIN 3.4 GM/DL (3.2-5.2); ALBUMIN/GLOBULIN RATIO 1.06 (1.00-1.93); ALKALINE PHOSPHATASE 102 U/L (45-117); ALT/SGPT 23 U/L (12-78); ANION GAP 3 MEQ/L (8-16); AST/SGOT 7 U/L (7-37); BILIRUBIN,TOTAL 0.3 MG/DL (0.2-1.0); BLOOD UREA NITROGEN 28 MG/DL (7-18); CALCIUM LEVEL 8.5 MG/DL (8.5-10.1); CARBON DIOXIDE LEVEL 30 MEQ/L (21-32); CHLORIDE LEVEL 107 MEQ/L (98-107); GLOMERULAR FILTRATION RATE > 60.0 (>56); GLUCOSE, FASTING 97 MG/DL (70-100); POTASSIUM SERUM 3.9 MEQ/L (3.5-5.1); SODIUM LEVEL 140 MEQ/L (136-145); TOTAL PROTEIN 6.6 GM/DL (6.4-8.2)
[2017-09-19] MEDS: HumaLOG INSULIN (NovoLOG) PER UNIT SC ×3 (07:24→17:06)
[2017-09-19] MEDS: IPRATROPIUM 0.5MG/ALBUTEROL 2.5MG INH SOL UD 3ML (DUONEB)(J7620) NEB ×4 (08:40→20:05)
[2017-09-19] MEDS: raNITIdine SYRUP 150 MG/10 ML UDC PO ×2 (08:51→20:55)
[2017-09-19] MEDS: TIOTROPIUM INHALER/CAPSULE (SPIRIVA) INH (08:52)
[2017-09-19] MEDS: metFORMIN 850 MG TAB PO (08:53)
[2017-09-19] MEDS: VITAMIN D 1,000 INTERNATIONAL UNITS TABLET PO (08:53)
[2017-09-19] MEDS: predniSONE 20 MG TAB PO (08:53)
[2017-09-19] MEDS: FERROUS SULFATE 325MG TAB PO (08:53)
[2017-09-19] MEDS: THIAMINE 100 MG TAB PO (08:55)
[2017-09-19] MEDS: TAMSULOSIN 0.4 MG CAP PO (08:55)
[2017-09-19] MEDS: MAGNESIUM OXIDE 400 MG TAB (MAG-OX) PO (08:55)
[2017-09-19] MEDS: LACTOBACILLUS ACIDOPHILUS CAP (BACID) PO ×2 (08:55→20:55)
[2017-09-19] MEDS: DOCUSATE SODIUM 100 MG CAP PO ×2 (08:55→20:55)
[2017-09-19] MEDS: PRAZOSIN 1 MG CAP PO (08:55)
[2017-09-19 16:49] LABS: BEDSIDE GLUCOSE 179 MG/DL (70-105)
[2017-09-19] MEDS: LURASIDONE 20 MG TAB (LATUDA) PO (17:48)
[2017-09-19] MEDS: RAMELTEON 8 MG TAB (ROZEREM) PO (20:55)
[2017-09-19] MEDS: ATORVASTATIN 10 MG TAB PO (20:55)
[2017-09-20] MEDS: IPRATROPIUM 0.5MG/ALBUTEROL 2.5MG INH SOL UD 3ML (DUONEB)(J7620) NEB ×7 (02:27→23:37)
[2017-09-20] MEDS: LevoFLOXacin 500 MG TABLET PO (06:16)
[2017-09-20] MEDS: HumaLOG INSULIN (NovoLOG) PER UNIT SC ×3 (06:34→17:18)
[2017-09-20 06:44] LABS: BEDSIDE GLUCOSE 92 MG/DL (70-105)
[2017-09-20] MEDS: ACETAMINOPHEN TAB 650MG DOSE (2X325MG) PO (07:33)
[2017-09-20] MEDS: hydrOXYzine 25 MG TAB PO (07:35)
[2017-09-20] MEDS: TIOTROPIUM INHALER/CAPSULE (SPIRIVA) INH (07:58)
[2017-09-20] MEDS: LACTOBACILLUS ACIDOPHILUS CAP (BACID) PO ×2 (08:38→20:52)
[2017-09-20] MEDS: raNITIdine SYRUP 150 MG/10 ML UDC PO ×2 (08:38→20:52)
[2017-09-20] MEDS: THIAMINE 100 MG TAB PO (08:39)
[2017-09-20] MEDS: metFORMIN 850 MG TAB PO (08:39)
[2017-09-20] MEDS: VITAMIN D 1,000 INTERNATIONAL UNITS TABLET PO (08:39)
[2017-09-20] MEDS: FERROUS SULFATE 325MG TAB PO (08:40)
[2017-09-20] MEDS: MAGNESIUM OXIDE 400 MG TAB (MAG-OX) PO (08:40)
[2017-09-20] MEDS: DOCUSATE SODIUM 100 MG CAP PO ×2 (08:40→20:52)
[2017-09-20] MEDS: PRAZOSIN 1 MG CAP PO (08:40)
[2017-09-20] MEDS: predniSONE 20 MG TAB PO ×2 (08:40→16:25)
[2017-09-20] MEDS: TAMSULOSIN 0.4 MG CAP PO (08:40)
[2017-09-20 12:29] LABS: BEDSIDE GLUCOSE 133 MG/DL (70-105)
[2017-09-20 16:19] LABS: BASO % 0.4 % (0.0-1.0); EOS % 0.4 % (0.0-3.0); HEMATOCRIT 45.3 % (42.0-52.0); IMMATURE GRANULOCYTE % 0.3 % (0-3.0); LYMPH # 1.3 10^3/uL (1.5-4.5); LYMPH % 11.5 % (24.0-44.0); MEAN CORPUSCULAR HEMOGLOBIN 29.9 pg (27.0-33.0); MEAN CORPUSCULAR HGB CONC 33.8 g/dl (32.0-36.5); MEAN CORPUSCULAR VOLUME 88.6 fl (80.0-96.0); MONO # 0.6 10^3/uL (0.0-0.8); MONO % 5.6 % (0.0-5.0); NEUTROPHILS # 9.1 10^3/uL (1.8-7.7); NEUTROPHILS % 81.8 % (36.0-66.0); PLATELET COUNT, AUTOMATED 285 10^3/uL (150-450); RED BLOOD COUNT 5.11 10^6/uL (4.30-6.10); RED CELL DISTRIBUTION WIDTH 13.2 % (11.5-14.5); WHITE BLOOD COUNT 11.1 10^3/uL (4.0-10.0)
[2017-09-20 16:22] LABS: HEMOGLOBIN 15.3 g/dl (13.5-17.5)
[2017-09-20 16:49] LABS: D-DIMER QUANT < 270.0 ng/ml (<500)
[2017-09-20 16:51] LABS: ALBUMIN 4.1 GM/DL (3.2-5.2); ALBUMIN/GLOBULIN RATIO 1.11 (1.00-1.93); ALKALINE PHOSPHATASE 124 U/L (45-117); ALT/SGPT 25 U/L (12-78); ANION GAP 7 MEQ/L (8-16); AST/SGOT 9 U/L (7-37); BILIRUBIN,TOTAL 0.4 MG/DL (0.2-1.0); BLOOD UREA NITROGEN 28 MG/DL (7-18); CALCIUM LEVEL 8.6 MG/DL (8.5-10.1); CARBON DIOXIDE LEVEL 26 MEQ/L (21-32); CHLORIDE LEVEL 107 MEQ/L (98-107); CK-MB VALUE MASS 5.9 NG/ML (<3.6); CPK CREATINE PHOSPHOKINASE 316 U/L (39-308); CREATININE FOR GFR 1.33 MG/DL (0.70-1.30); GLOMERULAR FILTRATION RATE 59.2 (>56); GLUCOSE, FASTING 130 MG/DL (70-100); MB/CK RELATIVE INDEX 1.86 (< OR =4); POTASSIUM SERUM 4.5 MEQ/L (3.5-5.1); SODIUM LEVEL 140 MEQ/L (136-145); TOTAL PROTEIN 7.8 GM/DL (6.4-8.2); TROPONIN I < 0.02 NG/ML (< 0.10)
[2017-09-20 17:23] LABS: BEDSIDE GLUCOSE 138 MG/DL (70-105)
[2017-09-20] MEDS: LURASIDONE 20 MG TAB (LATUDA) PO (18:08)
[2017-09-20] MEDS: ATORVASTATIN 10 MG TAB PO (20:52)
[2017-09-20] MEDS: RAMELTEON 8 MG TAB (ROZEREM) PO (20:52)
[2017-09-20 22:21] LABS: CK-MB VALUE MASS 4.9 NG/ML (<3.6); CPK CREATINE PHOSPHOKINASE 271 U/L (39-308); TROPONIN I < 0.02 NG/ML (< 0.10)
[2017-09-21] MEDS: IPRATROPIUM 0.5MG/ALBUTEROL 2.5MG INH SOL UD 3ML (DUONEB)(J7620) NEB ×7 (01:05→22:30)
[2017-09-21 04:07] LABS: BEDSIDE GLUCOSE 124 MG/DL (70-105)
[2017-09-21 04:37] LABS: CK-MB VALUE MASS 4.9 NG/ML (<3.6); CPK CREATINE PHOSPHOKINASE 242 U/L (39-308); MB/CK RELATIVE INDEX 2.02 (< OR =4); TROPONIN I < 0.02 NG/ML (< 0.10)
[2017-09-21] MEDS: LevoFLOXacin 500 MG TABLET PO (06:08)
[2017-09-21] MEDS: HumaLOG INSULIN (NovoLOG) PER UNIT SC ×3 (06:42→17:30)
[2017-09-21] MEDS: TIOTROPIUM INHALER/CAPSULE (SPIRIVA) INH (08:20)
[2017-09-21] MEDS: FERROUS SULFATE 325MG TAB PO (10:06)
[2017-09-21] MEDS: VITAMIN D 1,000 INTERNATIONAL UNITS TABLET PO (10:06)
[2017-09-21] MEDS: raNITIdine SYRUP 150 MG/10 ML UDC PO ×2 (10:06→20:18)
[2017-09-21] MEDS: DOCUSATE SODIUM 100 MG CAP PO ×2 (10:06→20:18)
[2017-09-21] MEDS: LACTOBACILLUS ACIDOPHILUS CAP (BACID) PO ×2 (10:06→20:18)
[2017-09-21] MEDS: metFORMIN 850 MG TAB PO (10:07)
[2017-09-21] MEDS: MAGNESIUM OXIDE 400 MG TAB (MAG-OX) PO (10:07)
[2017-09-21] MEDS: THIAMINE 100 MG TAB PO (10:07)
[2017-09-21] MEDS: predniSONE 20 MG TAB PO (10:07)
[2017-09-21] MEDS: TAMSULOSIN 0.4 MG CAP PO (10:07)
[2017-09-21] MEDS: PRAZOSIN 1 MG CAP PO (10:07)
[2017-09-21] MEDS: ACETAMINOPHEN TAB 650MG DOSE (2X325MG) PO (11:45)
[2017-09-21] MEDS: LURASIDONE 20 MG TAB (LATUDA) PO (18:42)
[2017-09-21 19:20] LABS: BEDSIDE GLUCOSE 126 MG/DL (70-105)
[2017-09-21] MEDS: ATORVASTATIN 10 MG TAB PO (20:18)
[2017-09-21] MEDS: RAMELTEON 8 MG TAB (ROZEREM) PO (20:18)
[2017-09-21] MEDS: LORazepam 1 MG TAB PO (22:23)
[2017-09-21 22:28] LABS: TROPONIN I < 0.02 NG/ML (< 0.10)
[2017-09-22] MEDS: diphenhydrAMINE 50 MG CAP PO (00:59)
[2017-09-22] MEDS: IPRATROPIUM 0.5MG/ALBUTEROL 2.5MG INH SOL UD 3ML (DUONEB)(J7620) NEB ×6 (04:32→23:29)
[2017-09-22] MEDS: LevoFLOXacin 500 MG TABLET PO (06:00)
[2017-09-22] MEDS: HumaLOG INSULIN (NovoLOG) PER UNIT SC ×3 (06:11→17:22)
[2017-09-22 06:18] LABS: BEDSIDE GLUCOSE 89 MG/DL (70-105)
[2017-09-22 06:53] LABS: HEMATOCRIT 42.5 % (42.0-52.0); HEMOGLOBIN 14.5 g/dl (13.5-17.5); MEAN CORPUSCULAR HEMOGLOBIN 29.7 pg (27.0-33.0); MEAN CORPUSCULAR HGB CONC 34.1 g/dl (32.0-36.5); MEAN CORPUSCULAR VOLUME 86.9 fl (80.0-96.0); PLATELET COUNT, AUTOMATED 286 10^3/uL (150-450); RED BLOOD COUNT 4.89 10^6/uL (4.30-6.10); RED CELL DISTRIBUTION WIDTH 13.6 % (11.5-14.5); WHITE BLOOD COUNT 14.5 10^3/uL (4.0-10.0)
[2017-09-22 07:18] LABS: ALBUMIN/GLOBULIN RATIO 1.08 (1.00-1.93); ALKALINE PHOSPHATASE 107 U/L (45-117); ALT/SGPT 27 U/L (12-78); ANION GAP 8 MEQ/L (8-16); AST/SGOT 11 U/L (7-37); BILIRUBIN,TOTAL 0.4 MG/DL (0.2-1.0); BLOOD UREA NITROGEN 23 MG/DL (7-18); CALCIUM LEVEL 8.6 MG/DL (8.5-10.1); CARBON DIOXIDE LEVEL 26 MEQ/L (21-32); CHLORIDE LEVEL 105 MEQ/L (98-107); CREATININE FOR GFR 1.05 MG/DL (0.70-1.30); GLOMERULAR FILTRATION RATE > 60.0 (>56); GLUCOSE, FASTING 86 MG/DL (70-100); POTASSIUM SERUM 3.8 MEQ/L (3.5-5.1); SODIUM LEVEL 139 MEQ/L (136-145); TOTAL PROTEIN 7.7 GM/DL (6.4-8.2)
[2017-09-22] MEDS: TIOTROPIUM INHALER/CAPSULE (SPIRIVA) INH (08:04)
[2017-09-22] MEDS: raNITIdine SYRUP 150 MG/10 ML UDC PO ×2 (08:25→20:24)
[2017-09-22] MEDS: MAGNESIUM OXIDE 400 MG TAB (MAG-OX) PO (08:25)
[2017-09-22] MEDS: VITAMIN D 1,000 INTERNATIONAL UNITS TABLET PO (08:27)
[2017-09-22] MEDS: PRAZOSIN 1 MG CAP PO (08:27)
[2017-09-22] MEDS: THIAMINE 100 MG TAB PO (08:27)
[2017-09-22] MEDS: DOCUSATE SODIUM 100 MG CAP PO ×2 (08:27→20:24)
[2017-09-22] MEDS: metFORMIN 850 MG TAB PO (08:27)
[2017-09-22] MEDS: predniSONE 20 MG TAB PO (08:27)
[2017-09-22] MEDS: FERROUS SULFATE 325MG TAB PO (08:27)
[2017-09-22] MEDS: LACTOBACILLUS ACIDOPHILUS CAP (BACID) PO ×2 (08:27→20:23)
[2017-09-22] MEDS: TAMSULOSIN 0.4 MG CAP PO (08:27)
[2017-09-22 12:38] LABS: BEDSIDE GLUCOSE 143 MG/DL (70-105)
[2017-09-22] MEDS: LURASIDONE HCL 40 MG TAB (LATUDA) PO (17:29)
[2017-09-22 17:30] LABS: BEDSIDE GLUCOSE 172 MG/DL (70-105)
[2017-09-22] MEDS: RAMELTEON 8 MG TAB (ROZEREM) PO (20:24)
[2017-09-22] MEDS: ATORVASTATIN 10 MG TAB PO (20:24)
[2017-09-22] MEDS: guaiFENesin ER 600 MG TAB PO (23:52)
[2017-09-23] MEDS: IPRATROPIUM 0.5MG/ALBUTEROL 2.5MG INH SOL UD 3ML (DUONEB)(J7620) NEB ×6 (02:47→20:00)
[2017-09-23] MEDS: LevoFLOXacin 500 MG TABLET PO (05:57)
[2017-09-23] MEDS: predniSONE 20 MG TAB PO (05:57)
[2017-09-23 06:16] LABS: BEDSIDE GLUCOSE 96 MG/DL (70-105)
[2017-09-23] MEDS: HumaLOG INSULIN (NovoLOG) PER UNIT SC ×3 (06:18→17:13)
[2017-09-23] MEDS: TIOTROPIUM INHALER/CAPSULE (SPIRIVA) INH (07:06)
[2017-09-23 07:16] LABS: HEMATOCRIT 40.8 % (42.0-52.0); MEAN CORPUSCULAR HEMOGLOBIN 29.9 pg (27.0-33.0); MEAN CORPUSCULAR HGB CONC 34.3 g/dl (32.0-36.5); MEAN CORPUSCULAR VOLUME 87.2 fl (80.0-96.0); PLATELET COUNT, AUTOMATED 270 10^3/uL (150-450); RED BLOOD COUNT 4.68 10^6/uL (4.30-6.10); RED CELL DISTRIBUTION WIDTH 13.7 % (11.5-14.5); WHITE BLOOD COUNT 13.7 10^3/uL (4.0-10.0)
[2017-09-23] MEDS: FERROUS SULFATE 325MG TAB PO (08:35)
[2017-09-23] MEDS: MAGNESIUM OXIDE 400 MG TAB (MAG-OX) PO (08:35)
[2017-09-23] MEDS: THIAMINE 100 MG TAB PO (08:35)
[2017-09-23] MEDS: guaiFENesin ER 600 MG TAB PO ×2 (08:35→20:17)
[2017-09-23] MEDS: raNITIdine SYRUP 150 MG/10 ML UDC PO ×2 (08:35→20:16)
[2017-09-23] MEDS: TAMSULOSIN 0.4 MG CAP PO (08:35)
[2017-09-23] MEDS: LACTOBACILLUS ACIDOPHILUS CAP (BACID) PO ×2 (08:35→20:17)
[2017-09-23] MEDS: metFORMIN 850 MG TAB PO (08:35)
[2017-09-23] MEDS: DOCUSATE SODIUM 100 MG CAP PO ×2 (08:35→20:17)
[2017-09-23] MEDS: VITAMIN D 1,000 INTERNATIONAL UNITS TABLET PO (08:35)
[2017-09-23] MEDS: PRAZOSIN 1 MG CAP PO (08:36)
[2017-09-23] MEDS ORDERED: predniSONE 10 MG TAB PO (09:00)
[2017-09-23 11:58] LABS: BEDSIDE GLUCOSE 128 MG/DL (70-105)
[2017-09-23] MEDS: LORazepam 1 MG TAB PO (17:11)
[2017-09-23 17:12] LABS: BEDSIDE GLUCOSE 113 MG/DL (70-105)
[2017-09-23] MEDS: LURASIDONE HCL 40 MG TAB (LATUDA) PO (17:12)
[2017-09-23] MEDS: ATORVASTATIN 10 MG TAB PO (20:17)
[2017-09-23] MEDS: RAMELTEON 8 MG TAB (ROZEREM) PO (20:17)
[2017-09-23] MEDS: risperiDONE 0.5 MG TAB PO (20:17)
[2017-09-24] MEDS: IPRATROPIUM 0.5MG/ALBUTEROL 2.5MG INH SOL UD 3ML (DUONEB)(J7620) NEB ×10 (00:14→21:36)
[2017-09-24] MEDS: LevoFLOXacin 500 MG TABLET PO (06:12)
[2017-09-24] MEDS: predniSONE 20 MG TAB PO (06:12)
[2017-09-24] MEDS: HumaLOG INSULIN (NovoLOG) PER UNIT SC ×3 (06:41→17:14)
[2017-09-24 06:47] LABS: BEDSIDE GLUCOSE 96 MG/DL (70-105)
[2017-09-24 07:58] LABS: HEMOGLOBIN 13.8 g/dl (13.5-17.5); MEAN CORPUSCULAR HGB CONC 34.5 g/dl (32.0-36.5); PLATELET COUNT, AUTOMATED 243 10^3/uL (150-450); RED CELL DISTRIBUTION WIDTH 13.8 % (11.5-14.5); WHITE BLOOD COUNT 13.5 10^3/uL (4.0-10.0)
[2017-09-24] MEDS: TIOTROPIUM INHALER/CAPSULE (SPIRIVA) INH (08:06)
[2017-09-24] MEDS: MAGNESIUM OXIDE 400 MG TAB (MAG-OX) PO (08:07)
[2017-09-24] MEDS: raNITIdine SYRUP 150 MG/10 ML UDC PO ×2 (08:07→20:12)
[2017-09-24] MEDS: VITAMIN D 1,000 INTERNATIONAL UNITS TABLET PO (08:07)
[2017-09-24] MEDS: LACTOBACILLUS ACIDOPHILUS CAP (BACID) PO ×2 (08:07→20:12)
[2017-09-24] MEDS: PRAZOSIN 1 MG CAP PO (08:07)
[2017-09-24] MEDS: DOCUSATE SODIUM 100 MG CAP PO ×2 (08:07→20:13)
[2017-09-24] MEDS: THIAMINE 100 MG TAB PO (08:07)
[2017-09-24] MEDS: FERROUS SULFATE 325MG TAB PO (08:07)
[2017-09-24] MEDS: TAMSULOSIN 0.4 MG CAP PO (08:07)
[2017-09-24] MEDS: guaiFENesin ER 600 MG TAB PO ×2 (08:07→20:13)
[2017-09-24] MEDS: metFORMIN 850 MG TAB PO (08:07)
[2017-09-24 08:18] LABS: ALBUMIN 3.8 GM/DL (3.2-5.2); ALBUMIN/GLOBULIN RATIO 1.15 (1.00-1.93); ALKALINE PHOSPHATASE 96 U/L (45-117); ALT/SGPT 27 U/L (12-78); ANION GAP 10 MEQ/L (8-16); AST/SGOT 10 U/L (7-37); BILIRUBIN,TOTAL 0.3 MG/DL (0.2-1.0); BLOOD UREA NITROGEN 24 MG/DL (7-18); CALCIUM LEVEL 8.5 MG/DL (8.5-10.1); CARBON DIOXIDE LEVEL 24 MEQ/L (21-32); CHLORIDE LEVEL 107 MEQ/L (98-107); CREATININE FOR GFR 1.09 MG/DL (0.70-1.30); GLOMERULAR FILTRATION RATE > 60.0 (>56); GLUCOSE, FASTING 102 MG/DL (70-100); POTASSIUM SERUM 3.8 MEQ/L (3.5-5.1); SODIUM LEVEL 141 MEQ/L (136-145); TOTAL PROTEIN 7.1 GM/DL (6.4-8.2)
[2017-09-24] MEDS: hydrOXYzine 25 MG TAB PO (10:06)
[2017-09-24] MEDS: LORazepam 1 MG TAB PO (10:25)
[2017-09-24 12:21] LABS: BEDSIDE GLUCOSE 119 MG/DL (70-105)
[2017-09-24 17:30] LABS: BEDSIDE GLUCOSE 143 MG/DL (70-105)
[2017-09-24] MEDS: LURASIDONE HCL 40 MG TAB (LATUDA) PO (17:39)
[2017-09-24] MEDS: RAMELTEON 8 MG TAB (ROZEREM) PO (20:12)
[2017-09-24] MEDS: ATORVASTATIN 10 MG TAB PO (20:12)
[2017-09-24] MEDS: risperiDONE 1 MG TAB PO (20:13)
[2017-09-25] MEDS: IPRATROPIUM 0.5MG/ALBUTEROL 2.5MG INH SOL UD 3ML (DUONEB)(J7620) NEB ×6 (00:44→20:55)
[2017-09-25] MEDS: LevoFLOXacin 500 MG TABLET PO (05:48)
[2017-09-25] MEDS: predniSONE 20 MG TAB PO (05:48)
[2017-09-25 05:55] LABS: BEDSIDE GLUCOSE 111 MG/DL (70-105)
[2017-09-25] MEDS: HumaLOG INSULIN (NovoLOG) PER UNIT SC ×3 (06:34→17:19)
[2017-09-25] MEDS: TIOTROPIUM INHALER/CAPSULE (SPIRIVA) INH (08:13)
[2017-09-25] MEDS ORDERED: **PENDING PPD ENTRY XX (09:00)
[2017-09-25] MEDS: guaiFENesin ER 600 MG TAB PO ×2 (09:03→20:49)
[2017-09-25] MEDS: LACTOBACILLUS ACIDOPHILUS CAP (BACID) PO ×2 (09:03→20:51)
[2017-09-25] MEDS: TAMSULOSIN 0.4 MG CAP PO (09:03)
[2017-09-25] MEDS: MAGNESIUM OXIDE 400 MG TAB (MAG-OX) PO (09:03)
[2017-09-25] MEDS: VITAMIN D 1,000 INTERNATIONAL UNITS TABLET PO (09:03)
[2017-09-25] MEDS: THIAMINE 100 MG TAB PO (09:03)
[2017-09-25] MEDS: raNITIdine SYRUP 150 MG/10 ML UDC PO ×2 (09:04→20:51)
[2017-09-25] MEDS: FERROUS SULFATE 325MG TAB PO (09:04)
[2017-09-25] MEDS: DOCUSATE SODIUM 100 MG CAP PO ×2 (09:04→20:49)
[2017-09-25] MEDS: metFORMIN 850 MG TAB PO (09:04)
[2017-09-25] MEDS: PRAZOSIN 1 MG CAP PO (09:06)
[2017-09-25] MEDS ORDERED: TUBERCULIN PPD 5 UNITS/0.1 ML ID (12:30)
[2017-09-25] MEDS: LORazepam 1 MG TAB PO (15:20)
[2017-09-25] MEDS: LURASIDONE HCL 40 MG TAB (LATUDA) PO (17:23)
[2017-09-25] MEDS: risperiDONE 2 MG TAB PO (20:45)
[2017-09-25] MEDS: RAMELTEON 8 MG TAB (ROZEREM) PO (20:47)
[2017-09-25] MEDS: ATORVASTATIN 10 MG TAB PO (20:49)
[2017-09-25 21:06] LABS: BEDSIDE GLUCOSE 115 MG/DL (70-105)
[2017-09-26] MEDS: IPRATROPIUM 0.5MG/ALBUTEROL 2.5MG INH SOL UD 3ML (DUONEB)(J7620) NEB ×6 (00:07→20:00)
[2017-09-26] MEDS: LevoFLOXacin 500 MG TABLET PO (06:31)
[2017-09-26] MEDS: predniSONE 20 MG TAB PO (06:32)
[2017-09-26 06:44] LABS: BEDSIDE GLUCOSE 116 MG/DL (70-105)
[2017-09-26] MEDS: HumaLOG INSULIN (NovoLOG) PER UNIT SC ×3 (07:03→17:17)
[2017-09-26] MEDS: TIOTROPIUM INHALER/CAPSULE (SPIRIVA) INH (07:20)
[2017-09-26] MEDS: THIAMINE 100 MG TAB PO (08:02)
[2017-09-26] MEDS: LACTOBACILLUS ACIDOPHILUS CAP (BACID) PO ×2 (08:02→20:06)
[2017-09-26] MEDS: FERROUS SULFATE 325MG TAB PO (08:02)
[2017-09-26] MEDS: guaiFENesin ER 600 MG TAB PO ×2 (08:02→20:05)
[2017-09-26] MEDS: PRAZOSIN 1 MG CAP PO (08:02)
[2017-09-26] MEDS: VITAMIN D 1,000 INTERNATIONAL UNITS TABLET PO (08:02)
[2017-09-26] MEDS: MAGNESIUM OXIDE 400 MG TAB (MAG-OX) PO (08:02)
[2017-09-26] MEDS: DOCUSATE SODIUM 100 MG CAP PO ×2 (08:02→20:05)
[2017-09-26] MEDS: raNITIdine SYRUP 150 MG/10 ML UDC PO ×2 (08:02→20:06)
[2017-09-26] MEDS: metFORMIN 850 MG TAB PO (08:03)
[2017-09-26] MEDS: TAMSULOSIN 0.4 MG CAP PO (08:03)
[2017-09-26] MEDS: TUBERCULIN PPD 5 UNITS/0.1 ML ID (11:29)
[2017-09-26 12:19] LABS: BEDSIDE GLUCOSE 129 MG/DL (70-105)
[2017-09-26 17:33] LABS: BEDSIDE GLUCOSE 102 MG/DL (70-105)
[2017-09-26] MEDS: LURASIDONE HCL 40 MG TAB (LATUDA) PO (17:40)
[2017-09-26] MEDS: risperiDONE 2 MG TAB PO (20:05)
[2017-09-26] MEDS: ATORVASTATIN 10 MG TAB PO (20:05)
[2017-09-26] MEDS: RAMELTEON 8 MG TAB (ROZEREM) PO (20:05)
[2017-09-26 20:08] LABS: BEDSIDE GLUCOSE 172 MG/DL (70-105)
[2017-09-27] MEDS: IPRATROPIUM 0.5MG/ALBUTEROL 2.5MG INH SOL UD 3ML (DUONEB)(J7620) NEB ×7 (04:22→23:40)
[2017-09-27] MEDS: predniSONE 20 MG TAB PO (06:25)
[2017-09-27 06:35] LABS: BEDSIDE GLUCOSE 98 MG/DL (70-105)
[2017-09-27] MEDS: HumaLOG INSULIN (NovoLOG) PER UNIT SC ×3 (06:38→17:11)
[2017-09-27] MEDS: MAGNESIUM OXIDE 400 MG TAB (MAG-OX) PO (08:04)
[2017-09-27] MEDS: raNITIdine SYRUP 150 MG/10 ML UDC PO ×2 (08:05→20:29)
[2017-09-27] MEDS: PRAZOSIN 1 MG CAP PO (08:05)
[2017-09-27] MEDS: TAMSULOSIN 0.4 MG CAP PO (08:05)
[2017-09-27] MEDS: FERROUS SULFATE 325MG TAB PO (08:05)
[2017-09-27] MEDS: metFORMIN 850 MG TAB PO (08:05)
[2017-09-27] MEDS: DOCUSATE SODIUM 100 MG CAP PO ×2 (08:05→20:30)
[2017-09-27] MEDS: guaiFENesin ER 600 MG TAB PO ×2 (08:05→20:30)
[2017-09-27] MEDS: TIOTROPIUM INHALER/CAPSULE (SPIRIVA) INH ×2 (08:05→11:07)
[2017-09-27] MEDS: VITAMIN D 1,000 INTERNATIONAL UNITS TABLET PO (08:05)
[2017-09-27] MEDS: THIAMINE 100 MG TAB PO (08:05)
[2017-09-27] MEDS ORDERED: PPD DOCUMENTATION ENTRY MISC XX (10:00)
[2017-09-27 12:07] LABS: BEDSIDE GLUCOSE 147 MG/DL (70-105)
[2017-09-27 17:15] LABS: BEDSIDE GLUCOSE 142 MG/DL (70-105)
[2017-09-27] MEDS: LURASIDONE HCL 40 MG TAB (LATUDA) PO (17:35)
[2017-09-27] MEDS: ATORVASTATIN 10 MG TAB PO (20:29)
[2017-09-27] MEDS: RAMELTEON 8 MG TAB (ROZEREM) PO (20:29)
[2017-09-27] MEDS: risperiDONE 2 MG TAB PO (20:29)
[2017-09-28] MEDS: IPRATROPIUM 0.5MG/ALBUTEROL 2.5MG INH SOL UD 3ML (DUONEB)(J7620) NEB ×5 (03:35→20:00)
[2017-09-28] MEDS: predniSONE 20 MG TAB PO (06:22)
[2017-09-28 06:23] LABS: BEDSIDE GLUCOSE 105 MG/DL (70-105)
[2017-09-28] MEDS: HumaLOG INSULIN (NovoLOG) PER UNIT SC ×4 (06:30→17:01)
[2017-09-28] MEDS: metFORMIN 850 MG TAB PO (09:00)
[2017-09-28] MEDS: THIAMINE 100 MG TAB PO (09:01)
[2017-09-28] MEDS: TAMSULOSIN 0.4 MG CAP PO (09:01)
[2017-09-28] MEDS: MAGNESIUM OXIDE 400 MG TAB (MAG-OX) PO (09:01)
[2017-09-28] MEDS: DOCUSATE SODIUM 100 MG CAP PO ×2 (09:01→20:06)
[2017-09-28] MEDS: TIOTROPIUM INHALER/CAPSULE (SPIRIVA) INH (09:01)
[2017-09-28] MEDS: guaiFENesin ER 600 MG TAB PO ×2 (09:01→20:06)
[2017-09-28] MEDS: VITAMIN D 1,000 INTERNATIONAL UNITS TABLET PO (09:01)
[2017-09-28] MEDS: PRAZOSIN 1 MG CAP PO (09:02)
[2017-09-28] MEDS: FERROUS SULFATE 325MG TAB PO (09:02)
[2017-09-28] MEDS: raNITIdine SYRUP 150 MG/10 ML UDC PO ×2 (09:02→20:05)
[2017-09-28] MEDS: PPD DOCUMENTATION ENTRY MISC XX (10:03)
[2017-09-28 11:19] LABS: BEDSIDE GLUCOSE 125 MG/DL (70-105)
[2017-09-28 11:29] LABS: BEDSIDE GLUCOSE 112 MG/DL (70-105)
[2017-09-28] MEDS: ACETAMINOPHEN TAB 650MG DOSE (2X325MG) PO ×2 (11:35→20:06)
[2017-09-28 16:43] LABS: BEDSIDE GLUCOSE 158 MG/DL (70-105)
[2017-09-28] MEDS: LURASIDONE HCL 40 MG TAB (LATUDA) PO (17:38)
[2017-09-28] MEDS: RAMELTEON 8 MG TAB (ROZEREM) PO (20:06)
[2017-09-28] MEDS: ATORVASTATIN 10 MG TAB PO (20:06)
[2017-09-28] MEDS: risperiDONE 2 MG TAB PO (20:06)
[2017-09-29] MEDS: IPRATROPIUM 0.5MG/ALBUTEROL 2.5MG INH SOL UD 3ML (DUONEB)(J7620) NEB ×6 (03:49→20:05)
[2017-09-29] MEDS: predniSONE 20 MG TAB PO (06:18)
[2017-09-29] MEDS: HumaLOG INSULIN (NovoLOG) PER UNIT SC ×3 (06:40→17:00)
[2017-09-29 06:54] LABS: BEDSIDE GLUCOSE 97 MG/DL (70-105)
[2017-09-29] MEDS: TIOTROPIUM INHALER/CAPSULE (SPIRIVA) INH (08:17)
[2017-09-29] MEDS: raNITIdine SYRUP 150 MG/10 ML UDC PO ×2 (08:29→20:01)
[2017-09-29] MEDS: THIAMINE 100 MG TAB PO (08:30)
[2017-09-29] MEDS: guaiFENesin ER 600 MG TAB PO ×2 (08:30→20:00)
[2017-09-29] MEDS: TAMSULOSIN 0.4 MG CAP PO (08:30)
[2017-09-29] MEDS: VITAMIN D 1,000 INTERNATIONAL UNITS TABLET PO (08:30)
[2017-09-29] MEDS: MAGNESIUM OXIDE 400 MG TAB (MAG-OX) PO (08:30)
[2017-09-29] MEDS: FERROUS SULFATE 325MG TAB PO (08:30)
[2017-09-29] MEDS: PRAZOSIN 1 MG CAP PO (08:31)
[2017-09-29] MEDS: DOCUSATE SODIUM 100 MG CAP PO ×2 (08:31→20:00)
[2017-09-29] MEDS: metFORMIN 850 MG TAB PO (08:31)
[2017-09-29 12:10] LABS: BEDSIDE GLUCOSE 127 MG/DL (70-105)
[2017-09-29 17:14] LABS: BEDSIDE GLUCOSE 117 MG/DL (70-105)
[2017-09-29] MEDS: LURASIDONE HCL 40 MG TAB (LATUDA) PO (17:36)
[2017-09-29] MEDS: ATORVASTATIN 10 MG TAB PO (20:00)
[2017-09-29] MEDS: risperiDONE 2 MG TAB PO (20:00)
[2017-09-29] MEDS: RAMELTEON 8 MG TAB (ROZEREM) PO (20:00)
[2017-09-30] MEDS: IPRATROPIUM 0.5MG/ALBUTEROL 2.5MG INH SOL UD 3ML (DUONEB)(J7620) NEB ×7 (00:13→23:46)
[2017-09-30] MEDS: predniSONE 20 MG TAB PO (06:16)
[2017-09-30] MEDS: HumaLOG INSULIN (NovoLOG) PER UNIT SC ×3 (06:32→17:10)
[2017-09-30 06:45] LABS: BEDSIDE GLUCOSE 111 MG/DL (70-105)
[2017-09-30] MEDS: TAMSULOSIN 0.4 MG CAP PO (08:19)
[2017-09-30] MEDS: metFORMIN 850 MG TAB PO (08:19)
[2017-09-30] MEDS: raNITIdine SYRUP 150 MG/10 ML UDC PO ×2 (08:19→20:41)
[2017-09-30] MEDS: MAGNESIUM OXIDE 400 MG TAB (MAG-OX) PO (08:19)
[2017-09-30] MEDS: VITAMIN D 1,000 INTERNATIONAL UNITS TABLET PO (08:19)
[2017-09-30] MEDS: FERROUS SULFATE 325MG TAB PO (08:19)
[2017-09-30] MEDS: DOCUSATE SODIUM 100 MG CAP PO ×2 (08:19→20:40)
[2017-09-30] MEDS: guaiFENesin ER 600 MG TAB PO ×2 (08:19→20:40)
[2017-09-30] MEDS: THIAMINE 100 MG TAB PO (08:20)
[2017-09-30] MEDS: PRAZOSIN 1 MG CAP PO (08:20)
[2017-09-30 11:57] LABS: BEDSIDE GLUCOSE 130 MG/DL (70-105)
[2017-09-30 17:15] LABS: BEDSIDE GLUCOSE 107 MG/DL (70-105)
[2017-09-30] MEDS: LURASIDONE HCL 40 MG TAB (LATUDA) PO (17:47)
[2017-09-30] MEDS: RAMELTEON 8 MG TAB (ROZEREM) PO (20:40)
[2017-09-30] MEDS: risperiDONE 2 MG TAB PO (20:40)
[2017-09-30] MEDS: ATORVASTATIN 10 MG TAB PO (20:40)
[2017-09-30 20:52] LABS: BEDSIDE GLUCOSE 126 MG/DL (70-105)
[2017-10-01] MEDS: IPRATROPIUM 0.5MG/ALBUTEROL 2.5MG INH SOL UD 3ML (DUONEB)(J7620) NEB ×2 (04:02→07:52)
[2017-10-01 04:21] LABS: BEDSIDE GLUCOSE 97 MG/DL (70-105)
[2017-10-01] MEDS: predniSONE 20 MG TAB PO (06:02)
[2017-10-01] MEDS: HumaLOG INSULIN (NovoLOG) PER UNIT SC ×3 (07:02→17:05)
[2017-10-01] MEDS: TIOTROPIUM INHALER/CAPSULE (SPIRIVA) INH (07:52)
[2017-10-01] MEDS: THIAMINE 100 MG TAB PO (08:35)
[2017-10-01] MEDS: metFORMIN 850 MG TAB PO (08:36)
[2017-10-01] MEDS: TAMSULOSIN 0.4 MG CAP PO (08:36)
[2017-10-01] MEDS: guaiFENesin ER 600 MG TAB PO ×2 (08:36→21:19)
[2017-10-01] MEDS: PRAZOSIN 1 MG CAP PO (08:36)
[2017-10-01] MEDS: raNITIdine SYRUP 150 MG/10 ML UDC PO ×2 (08:36→21:18)
[2017-10-01] MEDS: DOCUSATE SODIUM 100 MG CAP PO ×2 (08:36→21:18)
[2017-10-01] MEDS: VITAMIN D 1,000 INTERNATIONAL UNITS TABLET PO (08:36)
[2017-10-01] MEDS: FERROUS SULFATE 325MG TAB PO (08:36)
[2017-10-01] MEDS: MAGNESIUM OXIDE 400 MG TAB (MAG-OX) PO (08:37)
[2017-10-01 12:05] LABS: BEDSIDE GLUCOSE 136 MG/DL (70-105)
[2017-10-01 17:21] LABS: BEDSIDE GLUCOSE 152 MG/DL (70-105)
[2017-10-01] MEDS: LURASIDONE HCL 40 MG TAB (LATUDA) PO (17:23)
[2017-10-01] MEDS: ATORVASTATIN 10 MG TAB PO (21:18)
[2017-10-01] MEDS: RAMELTEON 8 MG TAB (ROZEREM) PO (21:18)
[2017-10-01] MEDS: risperiDONE 2 MG TAB PO (21:19)
[2017-10-01 21:21] LABS: BEDSIDE GLUCOSE 99 MG/DL (70-105)
[2017-10-02] MEDS: predniSONE 20 MG TAB PO (05:59)
[2017-10-02 06:18] LABS: BEDSIDE GLUCOSE 94 MG/DL (70-105)
[2017-10-02] MEDS: HumaLOG INSULIN (NovoLOG) PER UNIT SC ×3 (06:53→17:12)
[2017-10-02] MEDS: TIOTROPIUM INHALER/CAPSULE (SPIRIVA) INH (07:38)
[2017-10-02] MEDS: metFORMIN 850 MG TAB PO (07:38)
[2017-10-02] MEDS: raNITIdine SYRUP 150 MG/10 ML UDC PO ×2 (08:45→21:08)
[2017-10-02] MEDS: THIAMINE 100 MG TAB PO (08:47)
[2017-10-02] MEDS: PRAZOSIN 1 MG CAP PO (08:47)
[2017-10-02] MEDS: guaiFENesin ER 600 MG TAB PO ×2 (08:47→21:09)
[2017-10-02] MEDS: DOCUSATE SODIUM 100 MG CAP PO ×2 (08:47→21:09)
[2017-10-02] MEDS: VITAMIN D 1,000 INTERNATIONAL UNITS TABLET PO (08:47)
[2017-10-02] MEDS: FERROUS SULFATE 325MG TAB PO (08:47)
[2017-10-02] MEDS: MAGNESIUM OXIDE 400 MG TAB (MAG-OX) PO (08:48)
[2017-10-02] MEDS: TAMSULOSIN 0.4 MG CAP PO (08:48)
[2017-10-02 11:52] LABS: BEDSIDE GLUCOSE 160 MG/DL (70-105)
[2017-10-02 17:15] LABS: BEDSIDE GLUCOSE 127 MG/DL (70-105)
[2017-10-02] MEDS: LURASIDONE HCL 40 MG TAB (LATUDA) PO (17:18)
[2017-10-02] MEDS: RAMELTEON 8 MG TAB (ROZEREM) PO (21:09)
[2017-10-02] MEDS: risperiDONE 2 MG TAB PO (21:09)
[2017-10-02] MEDS: ATORVASTATIN 10 MG TAB PO (21:09)
[2017-10-03] MEDS: HumaLOG INSULIN (NovoLOG) PER UNIT SC ×3 (06:13→16:59)
[2017-10-03 06:18] LABS: BEDSIDE GLUCOSE 116 MG/DL (70-105)
[2017-10-03] MEDS: TIOTROPIUM INHALER/CAPSULE (SPIRIVA) INH (08:03)
[2017-10-03] MEDS: raNITIdine SYRUP 150 MG/10 ML UDC PO ×2 (08:03→20:25)
[2017-10-03] MEDS: metFORMIN 850 MG TAB PO (08:05)
[2017-10-03] MEDS: THIAMINE 100 MG TAB PO (08:05)
[2017-10-03] MEDS: VITAMIN D 1,000 INTERNATIONAL UNITS TABLET PO (08:05)
[2017-10-03] MEDS: DOCUSATE SODIUM 100 MG CAP PO ×2 (08:05→20:25)
[2017-10-03] MEDS: FERROUS SULFATE 325MG TAB PO (08:05)
[2017-10-03] MEDS: TAMSULOSIN 0.4 MG CAP PO (08:05)
[2017-10-03] MEDS: PRAZOSIN 1 MG CAP PO (08:05)
[2017-10-03] MEDS: MAGNESIUM OXIDE 400 MG TAB (MAG-OX) PO (08:06)
[2017-10-03] MEDS: guaiFENesin ER 600 MG TAB PO ×2 (08:06→20:26)
[2017-10-03 12:00] LABS: BEDSIDE GLUCOSE 79 MG/DL (70-105)
[2017-10-03 17:04] LABS: BEDSIDE GLUCOSE 144 MG/DL (70-105)
[2017-10-03] MEDS: LURASIDONE HCL 40 MG TAB (LATUDA) PO (17:42)
[2017-10-03] MEDS: risperiDONE 2 MG TAB PO (20:26)
[2017-10-03] MEDS: ATORVASTATIN 10 MG TAB PO (20:26)
[2017-10-03] MEDS: RAMELTEON 8 MG TAB (ROZEREM) PO (20:26)
[2017-10-04] MEDS: HumaLOG INSULIN (NovoLOG) PER UNIT SC ×3 (06:03→16:52)
[2017-10-04 06:10] LABS: BEDSIDE GLUCOSE 111 MG/DL (70-105)
[2017-10-04] MEDS: raNITIdine SYRUP 150 MG/10 ML UDC PO ×2 (08:08→20:54)
[2017-10-04] MEDS: MAGNESIUM OXIDE 400 MG TAB (MAG-OX) PO (08:08)
[2017-10-04] MEDS: TIOTROPIUM INHALER/CAPSULE (SPIRIVA) INH (08:08)
[2017-10-04] MEDS: DOCUSATE SODIUM 100 MG CAP PO ×2 (08:09→20:43)
[2017-10-04] MEDS: guaiFENesin ER 600 MG TAB PO ×2 (08:09→20:44)
[2017-10-04] MEDS: PRAZOSIN 1 MG CAP PO (08:10)
[2017-10-04] MEDS: predniSONE 10 MG TAB PO (08:11)
[2017-10-04] MEDS: FERROUS SULFATE 325MG TAB PO (08:11)
[2017-10-04] MEDS: metFORMIN 850 MG TAB PO (08:11)
[2017-10-04] MEDS: THIAMINE 100 MG TAB PO (08:11)
[2017-10-04] MEDS: TAMSULOSIN 0.4 MG CAP PO (08:11)
[2017-10-04] MEDS: VITAMIN D 1,000 INTERNATIONAL UNITS TABLET PO (08:11)
[2017-10-04 12:06] LABS: BEDSIDE GLUCOSE 173 MG/DL (70-105)
[2017-10-04 17:12] LABS: BEDSIDE GLUCOSE 100 MG/DL (70-105)
[2017-10-04] MEDS: LURASIDONE HCL 40 MG TAB (LATUDA) PO (18:03)
[2017-10-04] MEDS: ATORVASTATIN 10 MG TAB PO (20:43)
[2017-10-04] MEDS: risperiDONE 2 MG TAB PO (20:43)
[2017-10-04] MEDS: RAMELTEON 8 MG TAB (ROZEREM) PO (20:43)
[2017-10-04 21:01] LABS: BEDSIDE GLUCOSE 126 MG/DL (70-105)
[2017-10-05 06:25] LABS: BEDSIDE GLUCOSE 128 MG/DL (70-105)
[2017-10-05] MEDS: HumaLOG INSULIN (NovoLOG) PER UNIT SC ×3 (07:07→17:04)
[2017-10-05] MEDS: THIAMINE 100 MG TAB PO (08:25)
[2017-10-05] MEDS: MAGNESIUM OXIDE 400 MG TAB (MAG-OX) PO (08:25)
[2017-10-05] MEDS: VITAMIN D 1,000 INTERNATIONAL UNITS TABLET PO (08:25)
[2017-10-05] MEDS: DOCUSATE SODIUM 100 MG CAP PO ×2 (08:25→21:06)
[2017-10-05] MEDS: PRAZOSIN 1 MG CAP PO (08:25)
[2017-10-05] MEDS: TIOTROPIUM INHALER/CAPSULE (SPIRIVA) INH (08:25)
[2017-10-05] MEDS: FERROUS SULFATE 325MG TAB PO (08:25)
[2017-10-05] MEDS: TAMSULOSIN 0.4 MG CAP PO (08:25)
[2017-10-05] MEDS: metFORMIN 850 MG TAB PO (08:25)
[2017-10-05] MEDS: guaiFENesin ER 600 MG TAB PO ×2 (08:25→21:06)
[2017-10-05] MEDS: raNITIdine SYRUP 150 MG/10 ML UDC PO ×2 (08:25→21:06)
[2017-10-05 11:57] LABS: BEDSIDE GLUCOSE 153 MG/DL (70-105)
[2017-10-05 17:09] LABS: BEDSIDE GLUCOSE 138 MG/DL (70-105)
[2017-10-05] MEDS: LURASIDONE HCL 40 MG TAB (LATUDA) PO (17:27)
[2017-10-05] MEDS: risperiDONE 2 MG TAB PO (21:06)
[2017-10-05] MEDS: ATORVASTATIN 10 MG TAB PO (21:06)
[2017-10-05] MEDS: RAMELTEON 8 MG TAB (ROZEREM) PO (21:06)
[2017-10-05 21:18] LABS: BEDSIDE GLUCOSE 87 MG/DL (70-105)
[2017-10-06 06:33] LABS: BEDSIDE GLUCOSE 109 MG/DL (70-105)
[2017-10-06] MEDS: HumaLOG INSULIN (NovoLOG) PER UNIT SC (06:41)
[2017-10-06] MEDS: DOCUSATE SODIUM 100 MG CAP PO (08:06)
[2017-10-06] MEDS: guaiFENesin ER 600 MG TAB PO (08:07)
[2017-10-06] MEDS: metFORMIN 850 MG TAB PO (08:07)
[2017-10-06] MEDS: VITAMIN D 1,000 INTERNATIONAL UNITS TABLET PO (08:07)
[2017-10-06] MEDS: TAMSULOSIN 0.4 MG CAP PO (08:07)
[2017-10-06] MEDS: MAGNESIUM OXIDE 400 MG TAB (MAG-OX) PO (08:08)
[2017-10-06] MEDS: FERROUS SULFATE 325MG TAB PO (08:08)
[2017-10-06] MEDS: THIAMINE 100 MG TAB PO (08:08)
[2017-10-06] MEDS: PRAZOSIN 1 MG CAP PO (08:09)
[2017-10-06] MEDS: raNITIdine SYRUP 150 MG/10 ML UDC PO (08:10)
[2017-10-06] MEDS: predniSONE 10 MG TAB PO (08:11)
[2017-10-06] MEDS: TIOTROPIUM INHALER/CAPSULE (SPIRIVA) INH (08:46)
== END 2017-10-06 11:20 | disposition home or self-care (01) | DRG 751 ==
LOC: M PSY 10-01 16:17 → M ED 16:43 → M ED INP 20:06 → M PSY 21:10
DX: F32.3 Major depressive disorder, single episode, severe with psychotic features (principal); I11.0 Hypertensive heart disease with heart failure; F03.90 Unspecified dementia, unspecified severity, without behavioral disturbance, psychotic disturbance, mood disturbance, and anxiety; I50.32 Chronic diastolic (congestive) heart failure; J44.1 Chronic obstructive pulmonary disease with (acute) exacerbation; N31.9 Neuromuscular dysfunction of bladder, unspecified; E11.9 Type 2 diabetes mellitus without complications; R45.851 Suicidal ideations; F10.10 Alcohol abuse, uncomplicated; E78.00 Pure hypercholesterolemia, unspecified; K21.9 Gastro-esophageal reflux disease without esophagitis; Z86.73 Personal history of transient ischemic attack (TIA), and cerebral infarction without residual deficits; Z90.49 Acquired absence of other specified parts of digestive tract; Z87.891 Personal history of nicotine dependence; Z79.82 Long term (current) use of aspirin; Z91.5 Personal history of self-harm; Z88.1 Allergy status to other antibiotic agents; Z88.8 Allergy status to other drugs, medicaments and biological substances; Z96.0 Presence of urogenital implants; Z79.84 Long term (current) use of oral hypoglycemic drugs; Z79.899 Other long term (current) drug therapy

== ENCOUNTER 2017-10-07 14:42 | Inpatient (IN) | payer MEDICAID, SELFPAY ==
[2017-10-07 13:48] LABS: HEMATOCRIT 43.8 % (42.0-52.0); MEAN CORPUSCULAR HEMOGLOBIN 29.9 pg (27.0-33.0); MEAN CORPUSCULAR HGB CONC 34.2 g/dl (32.0-36.5); MEAN CORPUSCULAR VOLUME 87.4 fl (80.0-96.0); PLATELET COUNT, AUTOMATED 191 10^3/uL (150-450); RED BLOOD COUNT 5.01 10^6/uL (4.30-6.10); RED CELL DISTRIBUTION WIDTH 13.9 % (11.5-14.5); WHITE BLOOD COUNT 9.1 10^3/uL (4.0-10.0)
[2017-10-07 14:04] LABS: AMPHETAMINES LEVEL URINE NEGATIVE (NEGATIVE); BARBITURATES URINE NEGATIVE (NEGATIVE); BENZODIAZEPINES URINE NEGATIVE (NEGATIVE); CANNABINOIDS URINE NEGATIVE (NEGATIVE); COCAINE METABOLITE URINE NEGATIVE (NEGATIVE); METHADONE URINE NEGATIVE (NEGATIVE); OPIATES URINE NEGATIVE (NEGATIVE); PHENCYCLIDINE URINE NEGATIVE (NEGATIVE)
[2017-10-07 14:18] LABS: ALBUMIN 3.6 GM/DL (3.2-5.2); ALBUMIN/GLOBULIN RATIO 1.09 (1.00-1.93); ALKALINE PHOSPHATASE 76 U/L (45-117); ALT/SGPT 32 U/L (12-78); ANION GAP 7 MEQ/L (8-16); AST/SGOT 8 U/L (7-37); BILIRUBIN,DIRECT 0.1 MG/DL (0.0-0.2); BILIRUBIN,TOTAL 0.3 MG/DL (0.2-1.0); BLOOD UREA NITROGEN 21 MG/DL (7-18); CALCIUM LEVEL 8.4 MG/DL (8.5-10.1); CARBON DIOXIDE LEVEL 26 MEQ/L (21-32); CHLORIDE LEVEL 107 MEQ/L (98-107); CREATININE FOR GFR 1.06 MG/DL (0.70-1.30); GLOMERULAR FILTRATION RATE > 60.0 (>56); GLUCOSE, FASTING 89 MG/DL (70-100); POTASSIUM SERUM 4.1 MEQ/L (3.5-5.1); SALICYLATE LEVEL < 1.7 MG/DL (5.0-30.0); SODIUM LEVEL 140 MEQ/L (136-145); TOTAL PROTEIN 6.9 GM/DL (6.4-8.2)
[2017-10-07 14:21] LABS: ACETAMINOPHEN LEVEL < 2.0 UG/ML (10.0-30.0); ETHYL ALCOHOL (ETHANOL) < 0.003 % (0.000-0.010)
[2017-10-07] MEDS ORDERED: MAALOX 30 ML SUSP *UDC PO (17:00)
[2017-10-07] MEDS ORDERED: ACETAMINOPHEN TAB 650MG DOSE (2X325MG) PO (17:00)
[2017-10-07] MEDS ORDERED: traZODone 50 MG TAB PO (17:00)
[2017-10-07] MEDS ORDERED: MOM 30ML SUSPENSION UDC PO (17:00)
[2017-10-07] MEDS ORDERED: ALBUTEROL 90 MCG/ACT 8GM HFA INHALER INH (21:30)
[2017-10-07] MEDS ORDERED: IPRATROPIUM 0.5MG/ALBUTEROL 2.5MG INH SOL UD 3ML (DUONEB)(J7620) INH (21:30)
[2017-10-08] MEDS: hydrOXYzine 50 MG TAB PO (08:18)
[2017-10-08] MEDS ORDERED: diphenhydrAMINE 50 MG CAP PO (10:15)
[2017-10-08] MEDS: OLANZapine ORAL DISINTEGRATING TAB 5MG PO (14:03)
[2017-10-08] MEDS: risperiDONE 2 MG TAB PO ×2 (14:03→21:16)
[2017-10-08] MEDS: ASPIRIN 81 MG ENTERIC TAB PO (15:38)
[2017-10-08] MEDS: FERROUS SULFATE 325MG TAB PO (15:38)
[2017-10-08] MEDS: TAMSULOSIN 0.4 MG CAP PO (15:38)
[2017-10-08] MEDS: THIAMINE 100 MG TAB PO (15:38)
[2017-10-08] MEDS: predniSONE 10 MG TAB PO (15:38)
[2017-10-08] MEDS: VITAMIN D 1,000 INTERNATIONAL UNITS TABLET PO (15:39)
[2017-10-08] MEDS: metFORMIN 850 MG TAB PO (15:40)
[2017-10-08] MEDS: LURASIDONE HCL 40 MG TAB (LATUDA) PO (19:00)
[2017-10-08] MEDS: risperiDONE LONG-ACTING 25 MG/2 ML INJ (J2794) IM (20:01)
[2017-10-08] MEDS ORDERED: RAMELTEON 8 MG TAB (ROZEREM) PO (21:00)
[2017-10-08] MEDS: TIOTROPIUM INHALER/CAPSULE (SPIRIVA) INH (21:15)
[2017-10-08] MEDS: guaiFENesin ER 600 MG TAB PO (21:16)
[2017-10-08] MEDS: DOCUSATE SODIUM 100 MG CAP PO (21:16)
[2017-10-08] MEDS: ATORVASTATIN 10 MG TAB PO (21:16)
[2017-10-08] MEDS: PRAZOSIN 1 MG CAP PO (21:16)
[2017-10-08] MEDS: DOXEPIN 25 MG CAP PO (21:21)
[2017-10-09] MEDS: TIOTROPIUM INHALER/CAPSULE (SPIRIVA) INH (08:03)
[2017-10-09] MEDS: FERROUS SULFATE 325MG TAB PO (08:03)
[2017-10-09] MEDS: TAMSULOSIN 0.4 MG CAP PO (08:03)
[2017-10-09] MEDS: VITAMIN D 1,000 INTERNATIONAL UNITS TABLET PO (08:03)
[2017-10-09] MEDS: ASPIRIN 81 MG ENTERIC TAB PO (08:03)
[2017-10-09] MEDS: THIAMINE 100 MG TAB PO (08:03)
[2017-10-09] MEDS: guaiFENesin ER 600 MG TAB PO ×2 (08:03→20:49)
[2017-10-09] MEDS: DOCUSATE SODIUM 100 MG CAP PO ×2 (08:03→20:49)
[2017-10-09] MEDS: metFORMIN 850 MG TAB PO (08:04)
[2017-10-09] MEDS: LURASIDONE HCL 40 MG TAB (LATUDA) PO (17:43)
[2017-10-09] MEDS: DOXEPIN 25 MG CAP PO (20:49)
[2017-10-09] MEDS: risperiDONE 2 MG TAB PO (20:49)
[2017-10-09] MEDS: ATORVASTATIN 10 MG TAB PO (20:49)
[2017-10-09] MEDS: PRAZOSIN 1 MG CAP PO (20:50)
[2017-10-09 20:52] LABS: BEDSIDE GLUCOSE 109 MG/DL (70-105)
[2017-10-10 06:18] LABS: BEDSIDE GLUCOSE 91 MG/DL (70-105)
[2017-10-10] MEDS: THIAMINE 100 MG TAB PO (08:22)
[2017-10-10] MEDS: VITAMIN D 1,000 INTERNATIONAL UNITS TABLET PO (08:22)
[2017-10-10] MEDS: TAMSULOSIN 0.4 MG CAP PO (08:22)
[2017-10-10] MEDS: FERROUS SULFATE 325MG TAB PO (08:22)
[2017-10-10] MEDS: guaiFENesin ER 600 MG TAB PO ×2 (08:22→20:28)
[2017-10-10] MEDS: predniSONE 10 MG TAB PO (08:22)
[2017-10-10] MEDS: metFORMIN 850 MG TAB PO (08:22)
[2017-10-10] MEDS: ASPIRIN 81 MG ENTERIC TAB PO (08:22)
[2017-10-10] MEDS: DOCUSATE SODIUM 100 MG CAP PO ×2 (08:22→20:28)
[2017-10-10] MEDS: TIOTROPIUM INHALER/CAPSULE (SPIRIVA) INH (08:22)
[2017-10-10] MEDS: LURASIDONE HCL 40 MG TAB (LATUDA) PO (17:35)
[2017-10-10] MEDS: PRAZOSIN 1 MG CAP PO (20:28)
[2017-10-10] MEDS: ATORVASTATIN 10 MG TAB PO (20:28)
[2017-10-10] MEDS: risperiDONE 2 MG TAB PO (20:28)
[2017-10-10] MEDS: DOXEPIN 25 MG CAP PO (20:29)
[2017-10-10 20:54] LABS: BEDSIDE GLUCOSE 117 MG/DL (70-105)
[2017-10-11 06:16] LABS: BEDSIDE GLUCOSE 94 MG/DL (70-105)
[2017-10-11] MEDS: TIOTROPIUM INHALER/CAPSULE (SPIRIVA) INH (08:12)
[2017-10-11] MEDS: FERROUS SULFATE 325MG TAB PO (08:12)
[2017-10-11] MEDS: TAMSULOSIN 0.4 MG CAP PO (08:12)
[2017-10-11] MEDS: ASPIRIN 81 MG ENTERIC TAB PO (08:12)
[2017-10-11] MEDS: THIAMINE 100 MG TAB PO (08:12)
[2017-10-11] MEDS: VITAMIN D 1,000 INTERNATIONAL UNITS TABLET PO (08:12)
[2017-10-11] MEDS: DOCUSATE SODIUM 100 MG CAP PO ×2 (08:12→21:23)
[2017-10-11] MEDS: guaiFENesin ER 600 MG TAB PO ×2 (08:12→21:23)
[2017-10-11] MEDS: metFORMIN 850 MG TAB PO (08:13)
[2017-10-11] MEDS: OLANZapine 5 MG TAB PO (11:34)
[2017-10-11] MEDS: LURASIDONE HCL 40 MG TAB (LATUDA) PO (17:45)
[2017-10-11] MEDS: ATORVASTATIN 10 MG TAB PO (21:22)
[2017-10-11] MEDS: DOXEPIN 25 MG CAP PO (21:23)
[2017-10-11] MEDS: risperiDONE 2 MG TAB PO (21:23)
[2017-10-11] MEDS: PRAZOSIN 1 MG CAP PO (21:23)
[2017-10-12 06:38] LABS: BEDSIDE GLUCOSE 144 MG/DL (70-105)
[2017-10-12] MEDS: guaiFENesin ER 600 MG TAB PO ×2 (08:31→20:05)
[2017-10-12] MEDS: TAMSULOSIN 0.4 MG CAP PO (08:31)
[2017-10-12] MEDS: TIOTROPIUM INHALER/CAPSULE (SPIRIVA) INH (08:31)
[2017-10-12] MEDS: DOCUSATE SODIUM 100 MG CAP PO ×2 (08:31→20:04)
[2017-10-12] MEDS: THIAMINE 100 MG TAB PO (08:31)
[2017-10-12] MEDS: metFORMIN 850 MG TAB PO (08:31)
[2017-10-12] MEDS: VITAMIN D 1,000 INTERNATIONAL UNITS TABLET PO (08:31)
[2017-10-12] MEDS: FERROUS SULFATE 325MG TAB PO (08:31)
[2017-10-12] MEDS: ASPIRIN 81 MG ENTERIC TAB PO (08:31)
[2017-10-12] MEDS: predniSONE 10 MG TAB PO (08:31)
[2017-10-12 12:01] LABS: BEDSIDE GLUCOSE 171 MG/DL (70-105)
[2017-10-12 16:54] LABS: BEDSIDE GLUCOSE 182 MG/DL (70-105)
[2017-10-12] MEDS: LURASIDONE HCL 40 MG TAB (LATUDA) PO (18:14)
[2017-10-12] MEDS: PRAZOSIN 1 MG CAP PO (20:05)
[2017-10-12] MEDS: ATORVASTATIN 10 MG TAB PO (20:05)
[2017-10-12] MEDS: risperiDONE 2 MG TAB PO (20:05)
[2017-10-12] MEDS: DOXEPIN 25 MG CAP PO (20:06)
[2017-10-13 06:27] LABS: BEDSIDE GLUCOSE 110 MG/DL (70-105)
[2017-10-13] MEDS: guaiFENesin ER 600 MG TAB PO (08:15)
[2017-10-13] MEDS: THIAMINE 100 MG TAB PO (08:15)
[2017-10-13] MEDS: FERROUS SULFATE 325MG TAB PO (08:15)
[2017-10-13] MEDS: ASPIRIN 81 MG ENTERIC TAB PO (08:15)
[2017-10-13] MEDS: VITAMIN D 1,000 INTERNATIONAL UNITS TABLET PO (08:15)
[2017-10-13] MEDS: DOCUSATE SODIUM 100 MG CAP PO (08:15)
[2017-10-13] MEDS: metFORMIN 850 MG TAB PO (08:15)
[2017-10-13] MEDS: TAMSULOSIN 0.4 MG CAP PO (08:15)
[2017-10-13] MEDS: TIOTROPIUM INHALER/CAPSULE (SPIRIVA) INH (08:16)
== END 2017-10-13 09:30 | disposition home or self-care (01) | DRG 750 ==
LOC: M PSY 10-08 08:01 → M ED 14:42 → M ED INP 16:59 → M PSY 20:13
DX: F25.9 Schizoaffective disorder, unspecified (principal); F10.10 Alcohol abuse, uncomplicated; F03.90 Unspecified dementia, unspecified severity, without behavioral disturbance, psychotic disturbance, mood disturbance, and anxiety; I50.32 Chronic diastolic (congestive) heart failure; J44.9 Chronic obstructive pulmonary disease, unspecified; J45.909 Unspecified asthma, uncomplicated; E11.9 Type 2 diabetes mellitus without complications; E78.00 Pure hypercholesterolemia, unspecified; N31.9 Neuromuscular dysfunction of bladder, unspecified; I11.0 Hypertensive heart disease with heart failure; K21.9 Gastro-esophageal reflux disease without esophagitis; Z86.73 Personal history of transient ischemic attack (TIA), and cerebral infarction without residual deficits; Z79.82 Long term (current) use of aspirin; Z79.84 Long term (current) use of oral hypoglycemic drugs; Z79.52 Long term (current) use of systemic steroids; Z79.899 Other long term (current) drug therapy; Z88.1 Allergy status to other antibiotic agents; Z88.8 Allergy status to other drugs, medicaments and biological substances; Z87.891 Personal history of nicotine dependence